=== PATIENT | female | born 1975 | race Two or more races ===

== ENCOUNTER → 2020-05-29 10:31 | Outpatient (REF) | payer MEDICAID, SELFPAY ==
--- NOTE | 2020-05-29 10:30 | CA_ITS ---
Transthoracic Echocardiogram Patient (Last, First, Middle): Yaya Jha, Gender: Female Date of : 1975 Age: 44 Procedure Date: 05/29/2020 Procedure Type: Transthoracic Echocardiogram Location: OP Height: 162.56 cm Weight: 99.79 kg BSA: 2.04 m2 Heart Rate: bpm BP: 126 / 60 mmHg Loan Documents Closer: Referring MD: Dennis Do MD Symptoms: hx of cmp Conclusions: - Normal left ventricular size and systolic function. - Normal right ventricular cavity size and systolic function. - No valvular or pericardial pathology. - There is mild dilatation of the ascending aorta (3.4 cm). Findings Left Ventricle Normal left ventricular size and systolic function. There is mildly increased left ventricular wall thickness. The visually estimated ejection fraction is between 55-60%. There is no evidence of regional wall motion abnormalities. Diastolic function is normal for age. Right Ventricle Normal right ventricular cavity size and systolic function. Atria Both atria are normal in size. Aortic Valve Normal aortic valve structure and function. There is no aortic valve stenosis. There is no aortic valve regurgitation. Mitral Valve The mitral valve appears normal. There is trace mitral valve regurgitation. There is no mitral valve stenosis. Pulmonic Valve Normal pulmonic valve structure and function. There is trace pulmonic valve regurgitation. Tricuspid Valve Normal tricuspid valve structure and function. There is trace tricuspid valve regurgitation. Normal right atrial pressure. There is no evidence of pulmonary hypertension. Great Vessels There is mild dilatation of the ascending aorta. The visualized portions of the pulmonary artery and branches are normal. Venous The inferior vena cava is normal in size and collapses greater than 50% with inspiration. Pericardium/Pleural There is no evidence of pericardial effusion. Prior Study Comparison Changes noted compared to prior study dated: 10/22/2016. EF has normalized (was 50-55% before), mild ascending aorta dilation. Measurements 2D Linear Measurements RVIDd: 2.67 RVIDd Index: 1.31 IVSd: 1.18 0.6-0.9/0.6-1.0 cm LVIDd: 5.40 3.9-5.3/4.2-5.9 cm LVIDd Index: 2.65 2.4-3.2/2.2-3.1 cm/m2 LVIDs: 3.90 2.0-3.6 cm LVPWd: 1.04 0.7-1.1 cm Ao Root: 3.30 2.1-3.5 cm LA Diam: 3.80 2.7-3.8/3.0-4.0 cm LAIDs Index: 1.86 1.5-2.3 cm/m2 LV Mass: 296.39 67-162/88-224 g LV Mass Index: 145.29 43-95/49-115 g/m2 LVOT Diam: 2.30 3.0+(-)1.3 cm 2D Systolic Function EF 4C: 46.80 >55% EF 2C: 65.30 >55% EF BiP: 55.50 >55% Mitral Valve MV Pk E: 0.66 MV PK A: 0.74 MV Decel Time: 173.00 E/A: 0.90 E'Lateral: 13.60 E'Medial: 6.85 E/E' Med: 9.60 E/E' Lat: 4.90 Aortic Valve AoV Pk Ced: 1.54 AoV Mn Ced: 1.05 AoV VTI: 0.29 AoV Pk Grad: 9.00 Aov Mn Grad: 5.00 MELLY Cont.VTI: 2.82 LVOT LVOT Pk Ced: 1.04 LVOT Mn Ced: 0.67 LVOT VTI: 0.19 LVOT Pk Grad: 4.00 LVOT Mn Grad: 2.00 LVOT Diam: 2.30 LVOT Area: 4.15 Diastolic Function MV Pk E: 0.66 MV Pk A: 0.74 E/A: 0.90 E'Medial: 6.85 E/E' Med: 9.60 E' Laterial: 13.60 E/E' Lat: 4.90 Tricuspid Valve TR Pk Ced: 2.43 TR Pk Grad: 24.00 RA Press: 3.00 RVSP: 27.00 Great Vessels Aorta Ao Root-2D: 3.30 2.0-3.7 cm Ao Asc: 3.40 2.1-3.4 cm Ao Arch: 2.90 Updated in Other Vendor System with Status of Final Justice Bryan MD electronically signed on 05/30/2020 3:50:56 PM with status of Final
== END ==
LOC: HO.CARD 10:31
PROVIDERS: Visit Provider Internal Medicine Cardiovascular Disease
DX: I49.3 Ventricular premature depolarization (principal); Z86.79 Personal history of other diseases of the circulatory system
CPT/HCPCS: 93306

== ENCOUNTER → 2020-10-01 14:05 | Outpatient (BNVA) | payer MEDICAID, SELFPAY | PROVIDERS: PCP Family Medicine; Visit Provider Internal Medicine | DX: J30.9 Allergic rhinitis, unspecified (principal); J45.909 Unspecified asthma, uncomplicated; E66.9 Obesity, unspecified; G47.33 Obstructive sleep apnea (adult) (pediatric) | CPT/HCPCS: 99212 ==

== ENCOUNTER 2020-12-19 10:51 | Emergency (ER) | payer MEDICAID, SELFPAY ==
[2020-12-19 11:03] VITALS: BP 130/77; PULSE 88; RESP 18; TEMP 36.6; O2SAT 99; BMI 38.9
--- NOTE | 2020-12-19 11:40 | ECG_ITS ---
Test Reason : GENERAL MEDICAL Blood Pressure : / mmHG Vent. Rate : 069 BPM Atrial Rate : 069 BPM P-R Int : 138 ms QRS Dur : 090 ms QT Int : 406 ms P-R-T Axes : 051 -02 -09 degrees QTc Int : 435 ms Normal sinus rhythm Moderate voltage criteria for LVH, may be normal variant Nonspecific T wave abnormality Abnormal ECG When compared to the previous EKG of Moderate voltage criteria for LVH, may be normal variant are now Present Referred By: Arden Anderson Electronically Signed By:JIMMY SEGAL MD
--- NOTE | 2020-12-19 12:14 | ED.GENADULT ---
HPI - General Adult General Chief complaint: General Medical Stated complaint: abnormal lab Time Seen by Provider: 12/19/20 11:09 Source: patient and other (PCP office note) Mode of arrival: ambulatory Limitations: no limitations History of Present Illness HPI narrative: 45-year-old female who was referred to the emergency department for evaluation of anemia. The patient states that for the past 2 weeks she has been feeling very tired and fatigued. She has had dizziness and lightheadedness. She has had shortness of breath and dyspnea on exertion. She states she has been having some lower neck pain but denied headache, chest pain, abdominal pain. The patient states that she had anemia 6 years ago but has been taking iron since that time. She states that her stools are dark secondary to iron but she has not noticed any blood in her bowel movements. The patient does get monthly menstrual periods and states she uses 3-4 pads per day and she describes her bleeding as moderate. The patient was seen yesterday by her PCP Dr. Newton who did a workup for the patient's anemia. The patient had a normal TSH, B12, vitamin-D 25 OH, BMP. The patient had a low iron saturation, elevated iron binding capacity and low iron which is consistent with iron deficiency anemia. The patient's H&H was 7.8 and 28.3 with a low MCV of 63.6. Related Data Home Medications Medication Instructions Recorded Confirmed buspirone 30 mg tablet 20 mg PO BID 10/01/20 diphenhydramine HCl 25 mg tablet 50 mg PO BEDTIME tab 10/01/20 ferrous sulfate 325 mg (65 mg 325 mg PO DAILY 10/01/20 iron) tablet ibuprofen 800 mg tablet 800 mg PO TID 10/01/20 levalbuterol tartrate 45 2 inh INHALATION Q6H PRN 10/01/20 mcg/actuation aerosol inhaler pantoprazole 40 mg tablet,delayed 40 mg PO DAILY 10/01/20 release vitamin A acetate 10,000 unit 20,000 unit SUBLINGUAL tab 10/01/20 sublingual tablet vitamin E 200 unit capsule 400 unit PO DAILY cap 10/01/20 Previous Rx's Medication Instructions Recorded loratadine 10 mg tablet 10 mg PO DAILY 30 Days #30 tab 10/01/20 montelukast 10 mg tablet 10 mg PO BEDTIME 30 Days #30 tab 10/01/20 Allergies Allergy/AdvReac Type Severity Reaction Status Date / Time 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 The patient denies tobacco, alcohol and drug use. Medical History Allergic rhinitis Asthma Depression Obesity LILIAM (obstructive sleep apnea) Social History Social History Advance Directives: No Advance Directives Information Provided: No Physical Exam Vital Signs: Vital Signs: Last Vital Signs Temp 98 F 12/19/20 11:03 Pulse 88 12/19/20 11:03 Resp 18 12/19/20 11:03 BP 130/77 12/19/20 11:03 Pulse Ox 99 12/19/20 11:03 Body Mass Index 38.9 Const: General: cooperative and healthy appearing Nutritional Appearance: overweight Orientation/consciousness: oriented to person and oriented to place Limitations: no limitations HENMT: Head: Yes normal to inspection, Yes normocephalic and Yes atraumatic Ears: external ears normal General nose exam: Normal external nose present Face and sinus: Yes normal facial exam Mouth: Normal oral and palatal mucosa present Throat: Yes posterior oropharynx normal Eyes: Periorbital: periorbital findings normal Eyelids: Yes eyelids normal Conjunctivae: conjunctivae normal Sclerae: sclerae normal Corneas: corneas normal Pupils: Equal, round and reactive pupils present Direct Ophthalmoscopy: normal light reflex Neck: Neck: Yes full ROM, Yes no lymphadenopathy, Yes no meningeal signs, Yes trachea midline and Yes supple Chest: Chest palpation & inspection: normal inspection of the chest and normal palpation of entire chest wall Resp: Effort & Inspection: normal respiratory effort and able to speak in complete sentences Auscultation: clear to auscultation bilaterally Cardio: Rate: regular rate Rhythm: regular rhythm Heart sounds: S1 normal heart sound present, S2 normal heart sound present and no murmurs GI: Inspection: Yes normal to inspection Palpation (GI): Soft to palpation, nontender, no guarding, not rigid and No hepatosplenomegaly present Auscultation: normal bowel sounds Rectal Exam - Female: visual inspection normal, normal sphincter tone and other (Brown stool, Hemoccult negative) : General: Yes no CVA tenderness Back/Spine/Pelvis: Back: no CVA tenderness Cervical Spine: normal cervical lordosis Thoracic/Lumbar Spine: thoracic and lumbar spine normal to inspection Skin: Lesions: no lesions Rashes: no rashes Wounds: no wounds Neuro: General: oriented to person, oriented to place and no meningeal signs Cranial nerves: Yes CN's II-XII intact bilaterally and Yes Equal, round and reactive pupils present Cognition (Neuro): normal cognition Motor exam (neuro): 5/5 motor strength present throughout Extrem: General: Yes normal to inspection and Yes full ROM Psych: Appearance: well kempt Mental Status: mental status grossly normal Speech and movement: Normal speech and movement present Affect: normal affect Attitude: cooperative Thought process: Normal thought process present Thought content: Normal thought content present Course Course Course Narrative: 45-year-old female who presents emergency department for evaluation of fatigue, dyspnea on exertion, shortness of breath, dizziness and lightheadedness x2 weeks and was found to have a microcytic iron deficient anemia by her PCP yesterday. The patient's H&H yesterday was 7.8 and 28.3 compared to an H&H 12.6 and 38.7 on 11/11/2018. Patient's physical examination was unremarkable and a rectal examination was Hemoccult negative. I did repeat the patient's CBC and CMP. I also will check an EKG and troponin on the patient. 1622: Patient's laboratory evaluation revealed improvement of her anemia with an H&H of 8.2 and 30.2. Given this finding, I do not think the patient needs to be admitted. Patient was advised to increase her iron supplement 3 times a day and to discuss possible receiving IV iron if her PCP think that is appropriate. Patient's coags were negative. The patient's troponin was detectable at 10.4 but not elevated, I do not think that cardiac disease as the cause of her symptoms. The patient will be discharged home advised to follow-up with her PCP to further discuss her anemia. Medical Decision Making Lab Data Result diagrams: 12/19/20 12:29 12/19/20 12:29 Labs: Lab Results 12/19/20 12/19/20 12/19/20 Range/Units 12:29 12:29 12:29 WBC 9.8 (4.8-10.8) X10*3/uL RBC 4.58 (4.20-5.50) X10*6/uL Hgb 8.2 L (12.0-16.0) g/dl Hct 30.2 L (37-47) % MCV 65.9 L (80-98) fL MCH 17.9 L (27.0-33.0) pg MCHC 27.2 L (31.0-35.0) g/dl RDW 20.7 H (11.0-16.0) % Plt Count 353 (160-400) X10*3/uL MPV 10.5 (9.4-12.3) fL Immature Gran % (Auto) 0.4 (0.0-0.4) % Neut % (Auto) 69.9 (45-73) % Lymph % (Auto) 18.4 L (20-40) % Mcdonald % (Auto) 9.5 (2-11) % Eos % (Auto) 1.4 (0-4) % Baso % (Auto) 0.4 (0-2) % Lymph # (Auto) 1.8 (1.2-4.9) X10*3/uL Mcdonald # (Auto) 0.9 (0.1-1.2) X10*3/uL Eos # (Auto) 0.1 (0.0-0.4) X10*3/uL Baso # (Auto) 0.0 (0.0-0.2) X10*3/uL Abs Immat Gran (auto) 0.04 H (0.00-0.03) X10*3/uL Absolute Neuts (auto) 6.8 (2.0-8.3) X10*3/uL Absolute Nucleated RBC 0.000 (0.0-0.012) X10*3/uL Nucleated RBC % (auto) 0.0 (0.0-0.2) /100WBC PT (10.8-13.0) SEC INR (0.9-1.1) APTT (24.1-38.0) SEC Sodium 139 (135-145) mmol/L Potassium 3.6 (3.3-5.1) mmol/L Chloride 104 (96-108) mmol/L Carbon Dioxide 26 (22-29) mmol/L Anion Gap 13 (12-20) BUN 14 (9-16) mg/dL Creatinine 0.72 (0.5-1.4) mg/dL Estim Creat Clear Calc 115.3 Estimated GFR > 60 Random Glucose 70 (60-115) mg/dL Lactic Acid 1.4 (0.5-2.0) mmol/L Calcium 8.8 (8.4-10.2) mg/dL Total Bilirubin 0.2 (0.0-1.0) mg/dL AST 13 (5-31) U/L ALT 14 (0-31) U/L Alkaline Phosphatase 71 (39-117) U/L Troponin I High Sens (<3.5-17.0) ng/L Total Protein 7.1 (6.5-8.0) g/dL Albumin 3.9 (3.5-5.0) g/dL Lipase 34 (8-78) U/L Blood Type Antibody Screen 12/19/20 12/19/20 12/19/20 Range/Units 12:29 12:29 13:12 WBC (4.8-10.8) X10*3/uL RBC (4.20-5.50) X10*6/uL Hgb (12.0-16.0) g/dl Hct (37-47) % MCV (80-98) fL MCH (27.0-33.0) pg MCHC (31.0-35.0) g/dl RDW (11.0-16.0) % Plt Count (160-400) X10*3/uL MPV (9.4-12.3) fL Immature Gran % (Auto) (0.0-0.4) % Neut % (Auto) (45-73) % Lymph % (Auto) (20-40) % Mcdonald % (Auto) (2-11) % Eos % (Auto) (0-4) % Baso % (Auto) (0-2) % Lymph # (Auto) (1.2-4.9) X10*3/uL Mcdonald # (Auto) (0.1-1.2) X10*3/uL Eos # (Auto) (0.0-0.4) X10*3/uL Baso # (Auto) (0.0-0.2) X10*3/uL Abs Immat Gran (auto) (0.00-0.03) X10*3/uL Absolute Neuts (auto) (2.0-8.3) X10*3/uL Absolute Nucleated RBC (0.0-0.012) X10*3/uL Nucleated RBC % (auto) (0.0-0.2) /100WBC PT 12.2 (10.8-13.0) SEC INR 1.0 (0.9-1.1) APTT 32.4 (24.1-38.0) SEC Sodium (135-145) mmol/L Potassium (3.3-5.1) mmol/L Chloride (96-108) mmol/L Carbon Dioxide (22-29) mmol/L Anion Gap (12-20) BUN (9-16) mg/dL Creatinine (0.5-1.4) mg/dL Estim Creat Clear Calc Estimated GFR Random Glucose (60-115) mg/dL Lactic Acid (0.5-2.0) mmol/L Calcium (8.4-10.2) mg/dL Total Bilirubin (0.0-1.0) mg/dL AST (5-31) U/L ALT (0-31) U/L Alkaline Phosphatase (39-117) U/L Troponin I High Sens 10.4 (<3.5-17.0) ng/L Total Protein (6.5-8.0) g/dL Albumin (3.5-5.0) g/dL Lipase (8-78) U/L Blood Type B Positive Antibody Screen NEGATIVE ECG Data Interpretation: 1158: Normal sinus rhythm with rate of 69, normal [place], QRS and QTC intervals, inverted T-wave in lead 3, poor R-wave progression from V1 to V2. No old EKG for comparison. Discharge Plan Discharge Clinical Impression: Anemia Qualifiers: Anemia type: iron deficiency Fatigue Qualifiers: Fatigue type: unspecified Qualified Code(s): R53.83 - Other fatigue Patient Disposition: Home, Self-Care Instructions: Iron Deficiency Anemia (ED) Additional Instructions: Your hematocrit yesterday was 28.3 % and today it is 30.2 %. We do not transfuse people on lost her hematocrit drops below 21%. Increase your iron supplement from twice a day to 3 times a day. Contact your doctor to discuss whether or not you need IV iron therapy to try to improve your anemia. Follow-up with your doctor in 2 days. Please return to the emergency department if your symptoms get worse or if you develop any symptoms that are concerning to you. Prescriptions: No Action buspirone 30 mg tablet 20 mg PO BID RF: 0 diphenhydramine HCl [Benadryl Allergy] 25 mg tablet 50 mg PO BEDTIME RF: 0 vitamin E 200 unit capsule 400 unit PO DAILY RF: 0 vitamin A acetate 10,000 unit tablet, sublingual 20,000 unit sublingual RF: 0 ferrous sulfate 325 mg (65 mg iron) tablet 325 mg PO DAILY RF: 0 ibuprofen 800 mg tablet 800 mg PO TID RF: 0 pantoprazole 40 mg tablet,delayed release (DR/EC) 40 mg PO DAILY RF: 0 levalbuterol tartrate [Xopenex HFA] 45 mcg/actuation HFA aerosol inhaler 2 inh inhalation Q6H PRNRF: 0 montelukast [Singulair] 10 mg tablet 10 mg PO BEDTIME 30 Days Qty: 30 RF: 5 loratadine [Claritin] 10 mg tablet 10 mg PO DAILY 30 Days Qty: 30 RF: 5
[2020-12-19 12:36] LABS: MANUAL DIFF FLAG NO
[2020-12-19 12:39] LABS: Basophils Percent Auto 0.4 % (0-2); Eosinophils Absolute Auto 0.1 X10*3/uL (0.0-0.4); Eosinophils Percent Auto 1.4 % (0-4); Hematocrit 30.2 % (37-47); Hemoglobin 8.2 g/dl (12.0-16.0); Imm Gran Abs Auto 0.04 X10*3/uL (0.00-0.03); Imm Gran Pct Auto 0.4 % (0.0-0.4); Lymphocytes Absolute Auto 1.8 X10*3/uL (1.2-4.9); Lymphocytes Percent Auto 18.4 % (20-40); Mean Corpuscular HGB Conc 27.2 g/dl (31.0-35.0); Mean Corpuscular Hemoglobin 17.9 pg (27.0-33.0); Mean Corpuscular Volume 65.9 fL (80-98); Mean Platelet Volume 10.5 fL (9.4-12.3); Monocytes Absolute Auto 0.9 X10*3/uL (0.1-1.2); Monocytes Percent Auto 9.5 % (2-11); Neutrophils Absolute Auto 6.8 X10*3/uL (2.0-8.3); Neutrophils Percent Auto 69.9 % (45-73); Platelet Count 353 X10*3/uL (160-400); Red Blood Count 4.58 X10*6/uL (4.20-5.50); Red Cell Distribution Width 20.7 % (11.0-16.0); White Blood Count 9.8 X10*3/uL (4.8-10.8)
[2020-12-19 12:57] LABS: Lactic Acid 1.4 mmol/L (0.5-2.0)
[2020-12-19 13:04] LABS: Alanine Aminotransferase 14 U/L (0-31); Albumin Level 3.9 g/dL (3.5-5.0); Alkaline Phosphatase 71 U/L (39-117); Anion Gap 13 (12-20); Aspartate Amino Transferase 13 U/L (5-31); Bilirubin Total 0.2 mg/dL (0.0-1.0); Blood Urea Nitrogen 14 mg/dL (9-16); Calcium 8.8 mg/dL (8.4-10.2); Carbon Dioxide 26 mmol/L (22-29); Chloride 104 mmol/L (96-108); Creatinine Clr Calc Pharmacy 115.3; Estimated Glomerular Filt Rate > 60; Glucose Random 70 mg/dL (60-115); Lipase 34 U/L (8-78); Potassium 3.6 mmol/L (3.3-5.1); Sodium 139 mmol/L (135-145); Total Protein 7.1 g/dL (6.5-8.0)
[2020-12-19 13:05] LABS: Troponin-I High Sensitivity 10.4 ng/L (<3.5-17.0)
[2020-12-19 13:34] LABS: Prothrombin Time 12.2 SEC (10.8-13.0)
[2020-12-19 13:37] LABS: Partial Thromboplastin Time 32.4 SEC (24.1-38.0)
== END 2020-12-19 17:05 | disposition home or self-care (01) ==
PROVIDERS: Emergency Provider Emergency Medicine Emergency Medical Services; PCP Family Medicine
DX: D50.9 Iron deficiency anemia, unspecified (principal); R53.83 Other fatigue
CPT/HCPCS: 36415; 80053; 83605; 83690; 84484; 85025; 85610; 85730; 86850; 86900; 86901; 87040; 93005; 99283

== ENCOUNTER 2021-01-03 15:57 | Emergency (ER) | payer MEDICAID, SELFPAY ==
--- NOTE | ~2021-01-03 | XR_ITS ---
EXAMINATION: XR CHEST CLINICAL INFORMATION: Chest pain COMPARISON: Previous chest x-ray May 2018 TECHNIQUE: Frontal view of the chest was obtained. FINDINGS: The cardiac and mediastinal contours are normal. The lungs are clear. There is no pleural effusion or pneumothorax. There are mild degenerative changes of the spine. There are postsurgical changes to the stomach. XR/XR chest 1V IMPRESSION: No evidence for acute disease in the chest.
[2021-01-03 16:08] VITALS: BP 157/88; PULSE 78; RESP 18; TEMP 36; O2SAT 98; BMI 39.4
--- NOTE | 2021-01-03 16:53 | ECG_ITS ---
Test Reason : CHEST PAIN Blood Pressure : / mmHG Vent. Rate : 082 BPM Atrial Rate : 082 BPM P-R Int : 142 ms QRS Dur : 084 ms QT Int : 388 ms P-R-T Axes : 038 -05 -03 degrees QTc Int : 453 ms Normal sinus rhythm Voltage criteria for left ventricular hypertrophy Abnormal ECG No significant changes when compared with the previous EKG of 19 dec 2020 Referred By: Gudelia Rosario Electronically Signed By:JONNIE GUERRERO
[2021-01-03 19:33] VITALS: BP 133/82; PULSE 74; RESP 18; O2SAT 100
[2021-01-03 19:38] LABS: MANUAL DIFF FLAG NO
[2021-01-03 19:41] LABS: Basophils Percent Auto 0.4 % (0-2); Eosinophils Absolute Auto 0.1 X10*3/uL (0.0-0.4); Eosinophils Percent Auto 1.6 % (0-4); Hematocrit 31.8 % (37-47); Hemoglobin 8.8 g/dl (12.0-16.0); Imm Gran Abs Auto 0.02 X10*3/uL (0.00-0.03); Imm Gran Pct Auto 0.2 % (0.0-0.4); Lymphocytes Absolute Auto 2.6 X10*3/uL (1.2-4.9); Lymphocytes Percent Auto 29.2 % (20-40); Mean Corpuscular HGB Conc 27.7 g/dl (31.0-35.0); Mean Corpuscular Hemoglobin 19.2 pg (27.0-33.0); Mean Corpuscular Volume 69.4 fL (80-98); Mean Platelet Volume 9.6 fL (9.4-12.3); Monocytes Absolute Auto 0.7 X10*3/uL (0.1-1.2); Monocytes Percent Auto 7.3 % (2-11); Neutrophils Absolute Auto 5.5 X10*3/uL (2.0-8.3); Neutrophils Percent Auto 61.3 % (45-73); Platelet Count 363 X10*3/uL (160-400); Red Blood Count 4.58 X10*6/uL (4.20-5.50); White Blood Count 8.9 X10*3/uL (4.8-10.8)
[2021-01-03 20:06] LABS: Alanine Aminotransferase 17 U/L (0-31); Albumin Level 4.1 g/dL (3.5-5.0); Alkaline Phosphatase 71 U/L (39-117); Aspartate Amino Transferase 15 U/L (5-31); Bilirubin Direct < 0.2 mg/dL (0.0-0.5); Bilirubin Total 0.2 mg/dL (0.0-1.0); Magnesium 1.9 mg/dL (1.6-2.6); Total Protein 7.4 g/dL (6.5-8.0)
[2021-01-03 20:07] LABS: Anion Gap 12 (12-20); Blood Urea Nitrogen 12 mg/dL (9-16); Calcium 9.5 mg/dL (8.4-10.2); Carbon Dioxide 26 mmol/L (22-29); Chloride 103 mmol/L (96-108); Creatinine Clr Calc Pharmacy 122.9; Estimated Glomerular Filt Rate > 60; Glucose Random 95 mg/dL (60-115); Potassium 3.8 mmol/L (3.3-5.1); Sodium 137 mmol/L (135-145)
[2021-01-03 20:09] LABS: Troponin-I High Sensitivity 6.9 ng/L (<3.5-17.0)
[2021-01-03 20:10] LABS: D Dimer < 200 NG/ML
--- NOTE | 2021-01-03 21:08 | ED.CHESTPAIN ---
HPI - Chest Pain General Chief Complaint: Chest Pain Stated Complaint: chest pain Time Seen by Provider: 01/03/21 16:52 Source: patient, family (Spouse) and roof technician Mode of arrival: ambulatory Limitations: no limitations History of Present Illness HPI narrative: 45-year-old female came in for evaluation of left-sided chest pain. Pain started at 15:00 patient was resting in bed, pain was in the left side of chest, radiating to the left shoulder, lasted for about an hour, pain now still there but custom protection officer about 2/10, no other associated symptoms, no shortness of breath, no fever, no chills. Patient just traveled back from [place], but declined lower extremity swelling or tenderness. Related Data Home Medications Medication Instructions Recorded Confirmed buspirone 30 mg tablet 20 mg PO BID 10/01/20 diphenhydramine HCl 25 mg tablet 50 mg PO BEDTIME tab 10/01/20 ferrous sulfate 325 mg (65 mg 325 mg PO DAILY 10/01/20 iron) tablet ibuprofen 800 mg tablet 800 mg PO TID 10/01/20 levalbuterol tartrate 45 2 inh INHALATION Q6H PRN 10/01/20 mcg/actuation aerosol inhaler pantoprazole 40 mg tablet,delayed 40 mg PO DAILY 10/01/20 release vitamin A acetate 10,000 unit 20,000 unit SUBLINGUAL tab 10/01/20 sublingual tablet vitamin E 200 unit capsule 400 unit PO DAILY cap 10/01/20 Previous Rx's Medication Instructions Recorded loratadine 10 mg tablet 10 mg PO DAILY 30 Days #30 tab 10/01/20 montelukast 10 mg tablet 10 mg PO BEDTIME 30 Days #30 tab 10/01/20 Allergies Allergy/AdvReac Type Severity Reaction Status Date / Time Farm Life Milk Allergy Unknown Rash Uncoded 01/03/21 16:11 Latex Gloves Allergy Unknown itching Uncoded 01/03/21 16:11 Review of Systems Review of Systems: All other systems are reviewed and are negative Constitutional: Reports as per HPI and Reports no additional constitutional complaints Eyes: Reports as per HPI and Reports no additional eye complaints Reports system reviewed and no additional complaints, except as documented Cardiovascular: Reports as per HPI and Reports no additional cardiovascular complaints Respiratory: Reports as per HPI and Reports no additional respiratory complaints Gastrointestinal: Reports as per HPI and Reports no additional gastrointestinal complaints Genitourinary: Reports no additional female genitourinary complaints Musculoskeletal: Reports no additional musculoskeletal complaints Skin/Breast: Reports system reviewed and no additional complaints, except as docu Psychiatric: Reports no additional psychiatric complaints Endocrine: Reports no additional endocrine complaints Hematologic/Lymphatic: Reports no additional hematologic/lymphatic complaints Allergic/Immunologic: Reports no additional allergic/immunologic complaints Reports system reviewed and no additional complaints, except as documented and Reports Abnormal speech present [facility] Past Medical History Medical History Allergic rhinitis Asthma Depression Obesity LILIAM (obstructive sleep apnea) Social History Social History Smoked in Last 30 Days: No Use of substances other than those prescribed or required for medical reasons: No Advance Directives: No Advance Directives Information Provided: Yes Patient : No Physical Exam Vital Signs: Vital Signs: Last Vital Signs Temp 98.7 F 01/03/21 22:00 Pulse 66 01/03/21 22:00 Resp 18 01/03/21 22:00 BP 133/82 01/03/21 19:33 Pulse Ox 100 01/03/21 22:00 Body Mass Index 39.4 Vital signs have been reviewed as appeared to be correct. Blood pressure normal. Heart rate normal. Respiration rate normal. Temperature normal. Oxygen saturation normal. Appearance: Alert. Oriented X3. No acute distress. Head: Normal external exam. Normocephalic. Atraumatic. No Brar signs noted. No raccoon eyes noted Eyes: PERRLA. EOMI. Conjunctiva and sclera normal. Eyelids normal. ENT: TM's Normal. Pharynx normal. Uvula midline. Moist mucous membranes. No trismus noted. No drooling noted. No muffled voice noted. Neck: Normal inspection. Neck supple. FROM. No adenopathy. Thyroid Normal. No meningeal signs. No neck mass noted. CVS: Normal heart rate and rhythm. Heart sound normal. No murmurs noted. Pulses normal throughout. Respiratory: No respiratory distress. Painless inspiration. Breath sounds normal. No wheezes/rales/rhonchi noted. Chest nontender. No accessory muscle usage noted or decreased air movement noted. Abdomen: Soft and nontender. Bowel sounds normal in all 4 quadrants. No distention noted. No organomegaly noted. No visible injury noted. Back: No CVA tenderness. Full range of motion noted. Skin: Skin warm and dry. Normal skin color. Normal skin turgor. No rashes/lesions/lacerations noted. Extremities: No lower extremity edema. Extremities exhibit normal range of motion. Extremities nontender. Neuro: Oriented X 3. No motor deficit. No sensory deficit. Reflexes normal. Course Course Course Narrative: Assessment and plan. 45-year-old female with chest pain, 1st troponin is negative patient supposed to get a 2nd troponin to be checked by Dr. Kurtz then discharged home. PE is not likely with negative D-dimer and absence of lower extremities swelling or tenderness. MDM - Chest Pain Lab Data Attestation: I reviewed the patient's lab results. Result diagrams: 01/03/21 19:33 01/03/21 19:33 Labs: Lab Results 01/03/21 01/03/21 01/03/21 Range/Units 19:33 19:33 19:33 WBC 8.9 (4.8-10.8) X10*3/uL RBC 4.58 (4.20-5.50) X10*6/uL Hgb 8.8 L (12.0-16.0) g/dl Hct 31.8 L (37-47) % MCV 69.4 L (80-98) fL MCH 19.2 L (27.0-33.0) pg MCHC 27.7 L (31.0-35.0) g/dl RDW 25.0 H (11.0-16.0) % Plt Count 363 (160-400) X10*3/uL MPV 9.6 (9.4-12.3) fL Immature Gran % (Auto) 0.2 (0.0-0.4) % Neut % (Auto) 61.3 (45-73) % Lymph % (Auto) 29.2 (20-40) % [place] % (Auto) 7.3 (2-11) % Eos % (Auto) 1.6 (0-4) % Baso % (Auto) 0.4 (0-2) % Lymph # (Auto) 2.6 (1.2-4.9) X10*3/uL [place] # (Auto) 0.7 (0.1-1.2) X10*3/uL Eos # (Auto) 0.1 (0.0-0.4) X10*3/uL Baso # (Auto) 0.0 (0.0-0.2) X10*3/uL Abs Immat Gran (auto) 0.02 (0.00-0.03) X10*3/uL Absolute Neuts (auto) 5.5 (2.0-8.3) X10*3/uL Absolute Nucleated RBC 0.000 (0.0-0.012) X10*3/uL Nucleated RBC % (auto) 0.0 (0.0-0.2) /100WBC D-Dimer < 200 NG/ML Hold Blue Top SEE NOTE Sodium 137 (135-145) mmol/L Potassium 3.8 (3.3-5.1) mmol/L Chloride 103 (96-108) mmol/L Carbon Dioxide 26 (22-29) mmol/L Anion Gap 12 (12-20) BUN 12 (9-16) mg/dL Creatinine 0.68 (0.5-1.4) mg/dL Estim Creat Clear Calc 122.9 Estimated GFR > 60 Random Glucose 95 D (60-115) mg/dL Calcium 9.5 D (8.4-10.2) mg/dL Magnesium (1.6-2.6) mg/dL Total Bilirubin (0.0-1.0) mg/dL Direct Bilirubin (0.0-0.5) mg/dL AST (5-31) U/L ALT (0-31) U/L Alkaline Phosphatase (39-117) U/L Troponin I High Sens (<3.5-17.0) ng/L Total Protein (6.5-8.0) g/dL Albumin (3.5-5.0) g/dL 01/03/21 01/03/21 01/03/21 Range/Units 19:33 19:33 22:24 WBC (4.8-10.8) X10*3/uL RBC (4.20-5.50) X10*6/uL Hgb (12.0-16.0) g/dl Hct (37-47) % MCV (80-98) fL MCH (27.0-33.0) pg MCHC (31.0-35.0) g/dl RDW (11.0-16.0) % Plt Count (160-400) X10*3/uL MPV (9.4-12.3) fL Immature Gran % (Auto) (0.0-0.4) % Neut % (Auto) (45-73) % Lymph % (Auto) (20-40) % [place] % (Auto) (2-11) % Eos % (Auto) (0-4) % Baso % (Auto) (0-2) % Lymph # (Auto) (1.2-4.9) X10*3/uL [place] # (Auto) (0.1-1.2) X10*3/uL Eos # (Auto) (0.0-0.4) X10*3/uL Baso # (Auto) (0.0-0.2) X10*3/uL Abs Immat Gran (auto) (0.00-0.03) X10*3/uL Absolute Neuts (auto) (2.0-8.3) X10*3/uL Absolute Nucleated RBC (0.0-0.012) X10*3/uL Nucleated RBC % (auto) (0.0-0.2) /100WBC D-Dimer NG/ML Hold Blue Top Sodium (135-145) mmol/L Potassium (3.3-5.1) mmol/L Chloride (96-108) mmol/L Carbon Dioxide (22-29) mmol/L Anion Gap (12-20) BUN (9-16) mg/dL Creatinine (0.5-1.4) mg/dL Estim Creat Clear Calc Estimated GFR Random Glucose (60-115) mg/dL Calcium (8.4-10.2) mg/dL Magnesium 1.9 (1.6-2.6) mg/dL Total Bilirubin 0.2 (0.0-1.0) mg/dL Direct Bilirubin < 0.2 (0.0-0.5) mg/dL AST 15 (5-31) U/L ALT 17 (0-31) U/L Alkaline Phosphatase 71 (39-117) U/L Troponin I High Sens 6.9 6.5 (<3.5-17.0) ng/L Total Protein 7.4 (6.5-8.0) g/dL Albumin 4.1 (3.5-5.0) g/dL Imaging Data Chest x-ray: Radiologist's impression: Of acute disease in the chest. ECG Data ECG #1: Interpretation: Normal sinus rhythm at 82 beats per minutes, LVH, normal axis, normal intervals, nonspecific T-wave flattening in the lateral leads. Discharge Plan Discharge Clinical Impression: Chest pain Patient Disposition: Home, Self-Care Instructions: Chest Pain (ED) Prescriptions: No Action buspirone 30 mg tablet 20 mg PO BID RF: 0 diphenhydramine HCl [Benadryl Allergy] 25 mg tablet 50 mg PO BEDTIME RF: 0 vitamin E 200 unit capsule 400 unit PO DAILY RF: 0 vitamin A acetate 10,000 unit tablet, sublingual 20,000 unit sublingual RF: 0 ferrous sulfate 325 mg (65 mg iron) tablet 325 mg PO DAILY RF: 0 ibuprofen 800 mg tablet 800 mg PO TID RF: 0 pantoprazole 40 mg tablet,delayed release (DR/EC) 40 mg PO DAILY RF: 0 levalbuterol tartrate [Xopenex HFA] 45 mcg/actuation HFA aerosol inhaler 2 inh inhalation Q6H PRNRF: 0 montelukast [Singulair] 10 mg tablet 10 mg PO BEDTIME 30 Days Qty: 30 RF: 5 loratadine [Claritin] 10 mg tablet 10 mg PO DAILY 30 Days Qty: 30 RF: 5 Referrals: Bettie Can MD [Primary Care Provider] - 2 days Interventions: ED Discharge Assessment Last Done: 01/03/21 23:05 Discharge Date/Time: 01/03/21 23:01
[2021-01-03 22:00] VITALS: PULSE 60; PULSE 66; RESP 18; TEMP 37.1; O2SAT 100
[2021-01-03 22:54] LABS: Troponin-I High Sensitivity 6.5 ng/L (<3.5-17.0)
== END 2021-01-03 23:01 | disposition home or self-care (01) ==
PROVIDERS: Emergency Medicine; Emergency Provider Emergency Medicine; PCP Family Medicine
DX: R07.9 Chest pain, unspecified (principal); M25.512 Pain in left shoulder; R77.8 Other specified abnormalities of plasma proteins; Z79.899 Other long term (current) drug therapy
CPT/HCPCS: 36415; 71045; 80048; 80076; 83735; 84484; 85025; 85379; 93005; 99285

== ENCOUNTER → 2021-02-25 13:36 | Outpatient (BNVA) | payer MEDICAID, SELFPAY | PROVIDERS: Referring Provider Internal Medicine; Visit Provider Physician Assistant ==

== ENCOUNTER → 2021-03-27 13:45 | Outpatient (BNVA) | payer MEDICAID, SELFPAY | PROVIDERS: PCP Internal Medicine; Visit Provider Internal Medicine | DX: G47.33 Obstructive sleep apnea (adult) (pediatric) (principal); J30.89 Other allergic rhinitis; E66.9 Obesity, unspecified; Z68.41 Body mass index [BMI] 40.0-44.9, adult; Z98.84 Bariatric surgery status; Z91.040 Latex allergy status; Z91.011 Allergy to milk products; Z79.899 Other long term (current) drug therapy | CPT/HCPCS: 99212 ==

== ENCOUNTER → 2021-04-17 08:44 | Outpatient (BNVA) | payer MEDICAID, SELFPAY | PROVIDERS: PCP Family Medicine; Visit Provider Internal Medicine Cardiovascular Disease | DX: Z01.810 Encounter for preprocedural cardiovascular examination (principal); R07.89 Other chest pain | CPT/HCPCS: 93005; 99202 ==

== ENCOUNTER 2021-04-24 06:39 | Day surgery (SDC) | payer MEDICAID, SELFPAY ==
--- NOTE | 2021-04-23 11:52 | P.CONAN_ITS ---
Documented by User: Chayo Villatoro NP 04/23/21 11:53 HPI - Anesthesia Eval Consult details Narrative: 45yo F for Upper Endoscopy and Colonoscopy Cardiac cleared at low risk [facility] Active Problems Active Problems: All Active Problems (Updated 04/19/21 @ 14:41 by Ashley Hoyos, RN) Anemia (Acute) HTN (hypertension) (Acute) Gastric bypass status for obesity (Acute) LILIAM (obstructive sleep apnea) (Acute) Obesity (Acute) Asthma (Acute) Allergic rhinitis (Acute) Past Medical History Medical History (Updated 04/19/21 @ 14:41 by Ashley Hoyos, RN) Allergic rhinitis Asthma Depression HTN (hypertension) Hx of cardiomyopathy Iron deficiency anemia Obesity LILIAM (obstructive sleep apnea) Family History Family History Father Pacemaker Mother HTN (hypertension) Diabetes Surgical History Surgical History (Updated 04/19/21 @ 14:41 by Ashley Hoyos RN) Gastric bypass status for obesity History of tubal ligation Hx of section Hx of hysterectomy Social History Social History Household Members Other:: Lives with her , 2 adult children Alcohol intake: never Patient Tobacco Use Status: Never used Tobacco Advance Directives: No Advance Directives Information Provided: Yes Current occupational status: unemployed and disabled Meds Allergies Allergy/AdvReac Type Severity Reaction Status Date / Time Farm Life Milk Allergy Unknown Rash Uncoded 04/19/21 14:25 Latex Gloves Allergy Unknown itching Uncoded 04/19/21 14:25 Home Medications Medication Instructions Recorded Confirmed Last Taken Type buspirone 30 mg tablet 20 mg PO BID 10/01/20 04/19/21 Unknown History diphenhydramine HCl 25 mg tablet 50 mg PO BEDTIME tab 10/01/20 04/19/21 Unknown History (Benadryl Allergy) ferrous sulfate 325 mg (65 mg 325 mg PO DAILY 10/01/20 04/19/21 Unknown History iron) tablet levalbuterol tartrate 45 2 inh INHALATION Q6H PRN 10/01/20 04/19/21 Unknown History mcg/actuation aerosol inhaler (Xopenex HFA) pantoprazole 40 mg tablet,delayed 40 mg PO DAILY 10/01/20 04/19/21 Unknown History release vitamin A acetate 10,000 unit 20,000 unit SUBLINGUAL tab 10/01/20 04/17/21 Unknown History sublingual tablet vitamin E 200 unit capsule 400 unit PO DAILY cap 10/01/20 04/19/21 Unknown History cholecalciferol (vitamin D3) 50 50 mcg PO DAILY 04/17/21 04/19/21 Unknown History mcg (2,000 unit) tablet (Vitamin D3) diphenhydramine HCl 50 mg capsule 50 mg PO BEDTIME PRN 04/17/21 04/19/21 Unknown History (Banophen) fluoxetine 20 mg capsule 40 mg PO DAILY 04/17/21 04/19/21 Unknown History hydrochlorothiazide 25 mg tablet 25 mg PO DAILY 04/17/21 04/19/21 Unknown History multivitamin 1 tab PO DAILY 04/17/21 04/19/21 Unknown History Exam Exam Date and Time: April 23, 2021 1152 Pertinent Lab Results Pertinent Lab Results: Laboratory Tests 01/03/21 01/03/21 19:33 19:33 WBC 8.9 Hgb 8.8 L Hct 31.8 L Plt Count 363 Sodium 137 Potassium 3.8 Chloride 103 Carbon Dioxide 26 BUN 12 Creatinine 0.68 Narrative Narrative: EKG 04/2021 normal sinus rhythm with T-wave changes in inferior and anterolateral leads suggestive of ischemia however could also be related to LVH with repolarization abnormality ECHO 05/2020 Conclusions: - Normal left ventricular size and systolic function.? - Normal right ventricular cavity size and systolic function.? ? - No valvular or pericardial pathology.? - There is mild dilatation of the ascending aorta (3.4 cm).?? Assessment and Plan Assessment Anesthesia Assessment: Chart Reviewed Documented by User: Macie Marshall MD 04/24/21 07:44 [facility] Past Medical History Medical History (Updated 04/19/21 @ 14:41 by Ashley Hoyos RN) Allergic rhinitis Asthma Depression HTN (hypertension) Hx of cardiomyopathy Iron deficiency anemia Obesity LILIAM (obstructive sleep apnea) Family History Family History Father Pacemaker Mother HTN (hypertension) Diabetes Family history of problems with anesthesia: No Surgical History Surgical History (Updated 04/19/21 @ 14:41 by Ashley Hoyos RN) Gastric bypass status for obesity History of tubal ligation Hx of section Hx of hysterectomy History of Problems with Anesthesia: No Social History Social History Household Members Other:: Lives with her , 2 adult children Alcohol intake: never Patient Tobacco Use Status: Never used Tobacco Advance Directives: No Advance Directives Information Provided: Yes Current occupational status: unemployed and disabled Meds Allergies Allergy/AdvReac Type Severity Reaction Status Date / Time Farm Life Milk Allergy Unknown Rash Uncoded 04/19/21 14:25 Latex Gloves Allergy Unknown itching Uncoded 04/19/21 14:25 Home Medications Medication Instructions Recorded Confirmed Last Taken Type buspirone 30 mg tablet 20 mg PO BID 10/01/20 04/19/21 Unknown History diphenhydramine HCl 25 mg tablet 50 mg PO BEDTIME tab 10/01/20 04/19/21 Unknown History (Benadryl Allergy) ferrous sulfate 325 mg (65 mg 325 mg PO DAILY 10/01/20 04/19/21 Unknown History iron) tablet levalbuterol tartrate 45 2 inh INHALATION Q6H PRN 10/01/20 04/19/21 Unknown History mcg/actuation aerosol inhaler (Xopenex HFA) pantoprazole 40 mg tablet,delayed 40 mg PO DAILY 10/01/20 04/19/21 Unknown History release vitamin A acetate 10,000 unit 20,000 unit SUBLINGUAL tab 10/01/20 04/17/21 Unknown History sublingual tablet vitamin E 200 unit capsule 400 unit PO DAILY cap 10/01/20 04/19/21 Unknown History cholecalciferol (vitamin D3) 50 50 mcg PO DAILY 04/17/21 04/19/21 Unknown History mcg (2,000 unit) tablet (Vitamin D3) diphenhydramine HCl 50 mg capsule 50 mg PO BEDTIME PRN 04/17/21 04/19/21 Unknown History (Banophen) fluoxetine 20 mg capsule 40 mg PO DAILY 04/17/21 04/19/21 Unknown History hydrochlorothiazide 25 mg tablet 25 mg PO DAILY 04/17/21 04/19/21 Unknown History multivitamin 1 tab PO DAILY 04/17/21 04/19/21 Unknown History Exam Airway Mallampati Class: II TM Dist: >3cm Neck ROM: Full Heart: rrr Lungs: cta Assessment and Plan Assessment Anesthesia Assessment: Anesthesia Plan Discussed and Chart Reviewed Final Anesthetic Review Family History of Problems with Anesthesia: No History of Problems with Anesthesia: No NPO: Yes ASA Class: III Final Preanesthetic Review: No Changes in Pt Med Stat, Meds/Allgs Chart Reviewed and Consent Obtained/Reviewed Patient Risk: Intermediate Procedure Risk: Intermediate Anesthetic Plan Anesthetic Plan: MAC: Disposition: Standard PACU
--- NOTE | 2021-04-24 07:23 | MHC.SHP ---
Pre-Procedural Eval Section A Date of Service: 04/24/21 Section B Chief Complaint: Anemia Relevant Family History (Specify if Yes): No Relevant Social History: None Present Medications: see Short Stay Collaborative assessment Medical History: Significant History (Allergic rhinitis Asthma Depression HTN (hypertension) Hx of cardiomyopathy Iron deficiency anemia Obesity LILIAM (obstructive sleep apnea)) History of Previous Operations: Relevant previous surgery/procedure and date(s) (Gastric bypass status for obesity History of tubal ligation Hx of section Hx of hysterectomy) Allergies: Allergies Allergy/AdvReac Type Severity Reaction Status Date / Time Farm Life Milk Allergy Unknown Rash Uncoded 04/19/21 14:25 Latex Gloves Allergy Unknown itching Uncoded 04/19/21 14:25 Review of Systems Sugical H&P ROS: Negative: Constitution, Cardiovascular, Respiratory, Neurological, Psychiatric, Hem-Onc, Allergic/Immunologic, Gastrointestinal, Genitourinary, Musculoskeletal, Integumentary, Endocrine and Eyes/Ears/Nose/Throat Exam Surgical H&P Exam: Normal: HEENT, Normal: Heart, Normal: Lungs, Normal: Extremities, Normal: Abdomen, Normal: Skin and Normal: Neurological Plan Diagnosis/Plan: Unchanged I have reviewed the history and physical and performed a pertinent physical examination on my patient. No changes have occurred unless specified.
[2021-04-24 07:43] VITALS: BMI 41.1
[2021-04-24 07:51] VITALS: BP 135/79; PULSE 67; RESP 16; TEMP 36.6; O2SAT 98
[2021-04-24] MEDS: Lactated Ringers 1,000 ML 100 ML IVCONT (08:00)
--- NOTE | 2021-04-24 08:53 | PM.OP ---
Brief Operative Note Date of Service: 04/24/21 Pre-op diagnosis: anemia Post-op diagnosis: same Procedure: see op note Surgeon: Krys Segal MD Anesthesia: MAC Was an Video Game Repair Technician used for this Procedure?: No Estimated blood loss (mL): 0 Condition: stable Disposition: PACU
--- NOTE | 2021-04-24 08:53 | W.PM.OPN ---
Operative Note Operative Note Date of Service: 04/24/21 Narrative: Operative Information Procedure Description: EGD, Colonoscopy FLEXIBLE TRANSORAL UPPER GASTROINTESTINAL ENDOSCOPY AND COLONOSCOPY PROCEDURE NOTE UPPER ENDOSCOPY Consent: Indications for the procedure and potential complications of bleeding, perforation, reaction to medications and missed diagnosis were discussed with the patient and informed consent was obtained. Instrument: Olympus GIF H 190 J mid size upper endoscope Monitoring: Vital signs and clinical assessment, continuous EKG monitoring, Pulse oximetry, Carbon Dioxide monitoring and blood pressure monitoring were done throughout the procedure. Procedure: The patient was placed in the left lateral decubitis position and pre-procedure medications were administered and a bite block was placed. The endoscope was inserted into the mouth and advanced under direct vision to the third part of duodenum. A careful inspection was made as the upper endoscope was withdrawn including a retroflexed examination of the proximal stomach; Findings and interventions are described below. Hx of gastric bypass Findings: Larynx:normal Esophagus: GE junction at 33 cm, diaphragm hiatus at 33 cm, non obstructive schatzki ring noted with LA grade B erosive esophagitis Stomach pouch: Normal mucosa. Biopsies were obtained. Grade 2 flap valve on retroflexed examination of the cardia. There were 4 retained lui removed with forceps, one site had a small erosion. Jejunum: Normal Intervention: Biopsies as noted above, removal of lui COLONOSCOPY Instrument: Olympus variable stiffness pediatric scope 190L Colonoscopy Monitoring: Vital signs and clinical assessment, continuous EKG monitoring, Pulse oximetry, Carbon Dioxide monitoring and blood pressure monitoring were done throughout the procedure. Colon withdrawal time was 9 minutes. Procedure: The patient was placed in the left lateral decubitis position and pre-procedure medications were administered. After a digital rectal examination of the ano-rectum, the video colonoscope was inserted into the rectum and advanced through the colon to the cecum/TI. The colonoscope was slowly withdrawn in a retrograde panoramic fashion and the colon mucosa was carefully examined including a retroflexed view of the rectum. Findings and interventions are described below. Procedure Difficulty:moderate Findings: Terminal Ileum-normal Cecum:normal including right sided retroflexion Ascending Colon: normal Transverse Colon -normal Descending Colon:normal Sigmoid Colon: normal Rectum: Retroflexion with small internal hemorrhoids, grade I Anorectum - normal Colon preparation: [place] Bowel Preparation Scale Right colon; 2 Transverse colon: 2 Left colon; 1 (0 = Unprepared colon segment with mucosa not seen due to solid stool that cannot be cleared. 1 = Portion of mucosa of the colon segment seen, but other areas of the colon segment not well seen due to staining, residual stool and/or opaque liquid. 2 = Minor amount of residual staining, small fragments of stool and/or opaque liquid, but mucosa of colon segment seen well. 3 = Entire mucosa of colon segment seen well with no residual staining, small fragments of stool or opaque liquid) Impression and Post Procedure Diagnosis: Endoscopy Findings: erosive esophagitis schatzki ring retained lui Colonoscopy Findings: internal hemorrhoids Plan: Await Pathology results Repeat Colonoscopy in 5 years due to left sided prep being suboptimal or earlier if clinically indicated High fiber diet leaflet avoid straining at stool, epsom salts and sitz bath, anusol supps or cream suspect anemia due to esophagitis and malabsorption from bypass, should change to capsule form PPI and open it, mix with apple sauce due to altered anatomy absorption is different and regular delayed release PPI not as effective. Above findings were reviewed with the patient and relevant handouts were provided if indicated.
[2021-04-24 09:25] VITALS: BP 134/83; PULSE 73; RESP 16; TEMP 36.4; O2SAT 97
[2021-04-24 09:40] VITALS: BP 148/85; PULSE 64; RESP 18; O2SAT 98
[2021-04-24 09:55] VITALS: BP 155/84; PULSE 66; RESP 18; TEMP 36.3; O2SAT 100
== END 2021-04-24 10:56 | disposition home or self-care (01) ==
PROVIDERS: PCP Family Medicine; Visit Provider Internal Medicine Gastroenterology
PROC: (CPT 43239; principal; 2021-04-24 08:30)
DX: D50.9 Iron deficiency anemia, unspecified (principal); K64.0 First degree hemorrhoids; K20.80 Other esophagitis without bleeding; K44.9 Diaphragmatic hernia without obstruction or gangrene; Z18.10 Retained metal fragments, unspecified; Z98.84 Bariatric surgery status; K22.2 Esophageal obstruction; I10 Essential (primary) hypertension; J45.20 Mild intermittent asthma, uncomplicated; E66.9 Obesity, unspecified; Z68.39 Body mass index [BMI] 39.0-39.9, adult; Z79.899 Other long term (current) drug therapy; Z91.040 Latex allergy status
CPT/HCPCS: 43239; 88305; 88342

== ENCOUNTER → 2021-04-26 09:29 | Outpatient (REF) | payer MEDICAID, SELFPAY ==
--- NOTE | ~2021-04-26 | NM_ITS ---
EXERCISE MYOCARDIAL PERFUSION STUDY INDICATION: Preoperative cardiac evaluation, chest pain TECHNIQUE: The patient was brought in for an exercise perfusion study on 04/26/2021. Patient performed exercise as per Conrad protocol and was injected 40 mCi of sestamibi once target heart rate was achieved. Images were obtained using the SPECT gamma camera interlaced with the gating device. Images were obtained in supine position. Resting perfusion study was performed on 04/29/2021. Patient was administered 40 mCi of sestamibi intravenously at rest. Images were then obtained in supine position. Total DLP 153mGy-cm. Images were processed with the software and compared side to side in short axis, horizontal long axis and vertical long axis views. FINDINGS: Raw images were reviewed. The stress perfusion study showed mildly diminished tracer uptake in the apical inferolateral wall. There is improvement with CT attenuation correction and hence this could be from diaphragmatic attenuation artifact. The gated study shows normal LV systolic function with calculated LVEF of 51%. LV cavity is normal in size. The gated study shows normal wall thickening and contraction of segments. Resting study shows mildly diminished tracer uptake in the apical inferolateral wall that improves with CT attenuation correction. Gating at rest reveals normal wall motion with ejection fraction at 55%. The findings are consistent with small, mild fixed apical inferolateral defect, probably from diaphragmatic attenuation artifact. OH/OH cardiolite stress test IMPRESSION: 1. Myocardial perfusion imaging study shows no evidence of any ischemia or infarction. 2. Gated LVEF is 51% during stress and 55% during rest. Correlate with echocardiogram. 3. Transient ischemic dilatation not present. EKG component of the test reported separately.
--- NOTE | 2021-04-26 09:35 | CA_ITS ---
Acquisition Time: 2021-04-26 09:42:03 Total Exercise Time: 00:06:00 Test Indications: Pre-Op Evaluation Medications: HCTZ FLUOXETINE BUSPIRONE XOPENEX LORATADINE SINGULAIR Protocol: GERMAN Max HR: 150 BPM 85% of Pred: 175 BPM Max BP: 156/082 mmHG Max Work Load: 7.0 METS Exercise stress test with exercise 6 min of German protocol, with moderate shortness of breath, no chest discomfort, without arrythmia, with normotensive response to exercise, with nondiagnostic EKG for ischemia due to baseline abnormality. Nuclear images pending. Test reviewed with Dr Bryan. Referred By: Dennis Do Overread By: JERRELL FARAH
== END ==
LOC: HO.CARD 09:29
PROVIDERS: PCP Internal Medicine; Visit Provider Internal Medicine Cardiovascular Disease
DX: R07.89 Other chest pain (principal)
CPT/HCPCS: 78452; 93017; A9500

== ENCOUNTER → 2021-05-16 15:23 | Outpatient (BNVA) | payer MEDICAID, SELFPAY | PROVIDERS: PCP Internal Medicine; Visit Provider Nurse Practitioner Family ==

== ENCOUNTER → 2021-09-25 14:30 | Outpatient (BNVA) | payer MEDICAID, SELFPAY | PROVIDERS: PCP Pediatrics; Visit Provider Internal Medicine | DX: G47.33 Obstructive sleep apnea (adult) (pediatric) (principal); J45.909 Unspecified asthma, uncomplicated; E66.9 Obesity, unspecified; Z68.41 Body mass index [BMI] 40.0-44.9, adult | CPT/HCPCS: 99212 ==

== ENCOUNTER 2021-10-14 10:15 | Outpatient (REF) | payer MEDICAID, SELFPAY ==
--- NOTE | ~2021-10-14 | MM_ITS ---
EXAMINATION: MM SCREENING DIGITAL BREAST TOMOSYNTHESIS, BILATERAL CLINICAL INFORMATION: Screening. Asymptomatic. The lifetime risk of breast cancer based on the Tyrer-Cuzick Model is 11%. COMPARISON: Mammography: 02/18/2019, 02/04/2018, 12/09/2016, 09/27/2015 TECHNIQUE: Digital breast tomosynthesis is performed in both the craniocaudal and mediolateral oblique views along with computer-aided detection (CAD). Synthesized 2D images are generated from the tomosynthesis. Additional right CC and left MLO views are provided. FINDINGS: There are scattered areas of fibroglandular density (ACR BI-RADS breast composition Category b). Parenchymal pattern is similar to prior studies. There is mild bilateral anterior duct ectasia similar to prior studies. Biopsy clip marker again noted left anterior 3:00 position. There are no significant masses, abnormal calcifications, or other abnormalities. The axilla and skin contours are unremarkable. MM/MM tomosynthesis screening BI IMPRESSION: No significant changes from prior exams. ASSESSMENT: BI-RADS 2: Benign RECOMMENDATION: Routine annual mammography screening. This patient's information was entered into a reminder system with a target due date for their next mammogram.
== END 2021-10-14 10:16 | disposition home or self-care (01) ==
LOC: HO.MAMMO 10:15
PROVIDERS: PCP Pediatrics; Visit Provider Pediatrics
DX: Z12.31 Encounter for screening mammogram for malignant neoplasm of breast (principal)
CPT/HCPCS: 77063; 77067

== ENCOUNTER → 2022-03-26 14:31 | Outpatient (BNVA) | payer MEDICAID, SELFPAY | PROVIDERS: PCP Internal Medicine; Visit Provider Internal Medicine | DX: G47.33 Obstructive sleep apnea (adult) (pediatric) (principal); J45.909 Unspecified asthma, uncomplicated; J30.9 Allergic rhinitis, unspecified; E66.9 Obesity, unspecified; Z68.41 Body mass index [BMI] 40.0-44.9, adult | CPT/HCPCS: 99212 ==

== ENCOUNTER → 2022-04-25 07:58 | Outpatient (REF) | payer MEDICAID, SELFPAY ==
--- NOTE | 2022-04-25 08:01 | CA_ITS ---
Transthoracic Echocardiogram Patient (Last, First, Middle): Yaya Jha, Gender: Female Date of : 1975 Age: 46 Procedure Date: 04/25/2022 Procedure Type: Transthoracic Echocardiogram Location: OP Height: 162.56 cm Weight: 108.86 kg BSA: 2.11 m2 Heart Rate: 58 bpm BP: 144 / 84 mmHg Resolute Professional: CASSANDRA Referring MD: Wilma Eaton [employer] REPA[employer] SUPERVISOR-C Orthopedic Nurse Practitioner: Dennis Do MD Symptoms: I51.7 - Cardiomegaly Study Quality: Adequate ECG Rhythm: Bradycardia Conclusions: - 1. Normal LV systolic function with grade 1 diastolic dysfunction 2. Normal cardiac valvular Doppler 3. Normal RV systolic pressure 4. No gross pericardial effusion Findings Left Ventricle Normal left ventricular size, thickness, and systolic function. The visually estimated ejection fraction is between 55-60%. Spectral Doppler is indicative of an impaired relaxation filling pattern. E/E prime ratio is <8, consistent with normal filling pressures. Evidence suggests grade I (mild) diastolic dysfunction. Peak GLS is -15.4%, which is reduced Right Ventricle Normal right ventricular cavity size and systolic function. Atria The left atrium is normal in size. Interatrial shunt cannot be excluded. Aortic Valve The aortic valve structure and function is likely normal. There is no aortic valve stenosis. There is no aortic valve regurgitation. Mitral Valve There is mild anterior mitral leaflet thickening. There is trace mitral valve regurgitation. There is no mitral valve stenosis. Pulmonic Valve The pulmonic valve was not well visualized. Tricuspid Valve Likely normal tricuspid valve structure and function. There is trace tricuspid valve regurgitation. The right ventricular systolic pressure is normal. The right ventricular systolic pressure is 20 mmHg. Normal right atrial pressure. There is no evidence of pulmonary hypertension. Great Vessels All visible segments of the aorta are normal in size. The pulmonary artery was not well visualized. Venous The inferior vena cava is normal in size and collapses greater than 50% with inspiration. Pericardium/Pleural There is no evidence of pericardial effusion. Measurements 2D Linear Measurements IVSd: 1.02 0.6-0.9/0.6-1.0 cm LVIDd: 5.05 3.9-5.3/4.2-5.9 cm LVIDd Index: 2.39 2.4-3.2/2.2-3.1 cm/m2 LVIDs: 3.52 2.0-3.6 cm LVPWd: 1.00 0.7-1.1 cm LA Diam: 4.20 2.7-3.8/3.0-4.0 cm LAIDs Index: 1.99 1.5-2.3 cm/m2 LV Mass: 233.59 67-162/88-224 g LV Mass Index: 110.71 43-95/49-115 g/m2 LVOT Diam: 2.30 3.0+(-)1.3 cm 2D Systolic Function EF 4C: 51.80 >55% EF 2C: 58.50 >55% EF BiP: 55.00 >55% Mitral Valve MV Pk E: 0.55 MV PK A: 0.72 MV Decel Time: 241.00 E/A: 0.80 E'Lateral: 8.70 E'Medial: 7.72 E/E' Med: 7.20 E/E' Lat: 6.40 PHT: 71.00 MVA PHT: 3.10 Decel Spalding: 2.29 Aortic Valve AoV Pk Ced: 1.26 AoV Mn Ced: 0.89 AoV VTI: 0.28 AoV Pk Grad: 6.00 Aov Mn Grad: 4.00 MELLY Cont.VTI: 2.91 LVOT LVOT Pk Ced: 0.92 LVOT Mn Ced: 0.60 LVOT VTI: 0.19 LVOT Pk Grad: 3.00 LVOT Mn Grad: 2.00 LVOT Diam: 2.30 LVOT Area: 4.15 Diastolic Function MV Pk E: 0.55 MV Pk A: 0.72 E/A: 0.80 E'Medial: 7.72 E/E' Med: 7.20 E' Laterial: 8.70 E/E' Lat: 6.40 Right Ventricle TAPSE (mm): 17.50 TVS' Ced: 11.30 Tricuspid Valve TR Pk Ced: 2.07 TR Pk Grad: 17.00 RA Press: 3.00 RVSP: 20.00 Great Vessels Aorta Sinus of Valsalva: 3.40 2.0-3.5 cm Ao Asc: 3.20 2.1-3.4 cm Pulmonary Veins Pulm Vein S/D 1.40 Pulmonary Valve PV Pk Ced: 0.73 Peak PV Grad: 2.00 Updated in Other Vendor System with Status of Final Dennis Do MD electronically signed on 04/26/2022 11:53:31 AM with status of Final
== END ==
LOC: HO.CARD 07:58
PROVIDERS: PCP Internal Medicine; Visit Provider Nurse Practitioner Family
DX: I51.7 Cardiomegaly (principal); Z86.79 Personal history of other diseases of the circulatory system
CPT/HCPCS: 93306; 93356

== ENCOUNTER → 2022-06-10 09:06 | Outpatient (BNVA) | payer MEDICAID, SELFPAY | PROVIDERS: PCP Internal Medicine; Referring Provider Internal Medicine; Visit Provider Internal Medicine Cardiovascular Disease | DX: R00.2 Palpitations (principal); I10 Essential (primary) hypertension | CPT/HCPCS: 93005; 99212 ==

== ENCOUNTER 2022-06-26 15:15 | Outpatient (REF) | payer MEDICAID, SELFPAY ==
--- NOTE | ~2022-06-26 | XR_ITS ---
EXAMINATION: LEFT ANKLE AND LEFT KNEE CLINICAL INFORMATION: Pain. COMPARISON: None TECHNIQUE: 3 views left ankle and 3 views left knee FINDINGS: Left knee: There is mild loss of patellofemoral compartment joint space without bony erosive changes. The medial and lateral compartment joint space is normal. No visible acute fracture, dislocation or loose body seen. No abnormal joint effusion. Left ankle: The ankle mortise and subtalar joints are normal. There are small medial malleolar enthesophyte. Small calcaneal heel and retrocalcaneal enthesophytes are seen. No visible acute fracture or dislocation seen. XR/XR ankle LT min 3V IMPRESSION: 1. Small calcaneal heel and retrocalcaneal enthesophytes. No visible acute fracture or dislocation seen. 2. Mild degenerative changes patellofemoral compartment left knee. No visible acute fracture or dislocation seen.
--- NOTE | ~2022-06-26 | XR_ITS ---
EXAMINATION: LEFT ANKLE AND LEFT KNEE CLINICAL INFORMATION: Pain. COMPARISON: None TECHNIQUE: 3 views left ankle and 3 views left knee FINDINGS: Left knee: There is mild loss of patellofemoral compartment joint space without bony erosive changes. The medial and lateral compartment joint space is normal. No visible acute fracture, dislocation or loose body seen. No abnormal joint effusion. Left ankle: The ankle mortise and subtalar joints are normal. There are small medial malleolar enthesophyte. Small calcaneal heel and retrocalcaneal enthesophytes are seen. No visible acute fracture or dislocation seen. XR/XR knee LT 3V IMPRESSION: 1. Small calcaneal heel and retrocalcaneal enthesophytes. No visible acute fracture or dislocation seen. 2. Mild degenerative changes patellofemoral compartment left knee. No visible acute fracture or dislocation seen.
== END 2022-06-26 15:16 | disposition home or self-care (01) ==
LOC: HO.XRAY 15:15
PROVIDERS: Visit Provider Internal Medicine
DX: M25.562 Pain in left knee (principal); M25.572 Pain in left ankle and joints of left foot; J45.909 Unspecified asthma, uncomplicated; G47.33 Obstructive sleep apnea (adult) (pediatric); E66.9 Obesity, unspecified
CPT/HCPCS: 73562; 73610; 99212

== ENCOUNTER → 2022-07-21 19:52 | Outpatient (REF) | payer MEDICAID, SELFPAY | LOC: HO.SL 19:52 | PROVIDERS: PCP Internal Medicine; Visit Provider Internal Medicine | DX: G47.33 Obstructive sleep apnea (adult) (pediatric) (principal) | CPT/HCPCS: 95810 ==

== ENCOUNTER → 2022-08-01 13:19 | Outpatient (REF) | payer MEDICAID, SELFPAY ==
--- NOTE | 2022-08-01 13:38 | HM_ITS ---
Conclusion: 1. Patient was monitored for total period of 3 days and 19 hours 2. Baseline was normal sinus rhythm with average heart of 81 beats per minute 3. No significant pauses or bradycardia noted 4. Total of 834 PACs accounting for 0.24% of total beats account for occasional PACs and total of 586 PVCs accounting for 0.17% of total beats account for occasional PVCs 5. Total of 3 short episodes of SVT, longest lasting 10 beats and the fastest at 138 beats per minute 6. No patient reported symptoms MTDD
== END ==
LOC: HO.CARD 13:19
PROVIDERS: PCP Internal Medicine; Visit Provider Internal Medicine Cardiovascular Disease
DX: R00.2 Palpitations (principal)
CPT/HCPCS: 93225

== ENCOUNTER 2022-08-06 13:57 | Outpatient (REF) | payer MEDICAID, SELFPAY ==
--- NOTE | ~2022-08-06 | XR_ITS ---
EXAMINATION: XR CHEST CLINICAL INFORMATION: Unspecified asthma COMPARISON: 01/03/2021 TECHNIQUE: 2 views of the chest were obtained. FINDINGS: Cardia mediastinal silhouette is stable. Low lung volumes. No consolidation, pleural effusion or pneumothorax. Osseous structures unremarkable. XR/XR chest 2V IMPRESSION: Low lung volumes. No acute process.
== END 2022-08-06 13:58 | disposition home or self-care (01) ==
LOC: HO.XRAY 13:57
PROVIDERS: PCP Internal Medicine; Visit Provider Internal Medicine
DX: J45.901 Unspecified asthma with (acute) exacerbation (principal); J30.9 Allergic rhinitis, unspecified; G47.33 Obstructive sleep apnea (adult) (pediatric)
CPT/HCPCS: 71046; 99212

== ENCOUNTER 2022-08-28 14:41 | Outpatient (REF) | payer MEDICAID, SELFPAY ==
[2022-08-28 15:51] LABS: VBG pCO2 42 mmHg; VBG pH 7.42 (7.32-7.43)
[2022-08-28 15:52] LABS: VBG Base Excess 3.5 mmol/L; VBG HCO3 28 mmol/L (22-26); VBG pO2 40 mmHg
[2022-08-28 17:02] LABS: TSH reflex Free T4 0.92 uIU/mL (0.32-4.0)
[2022-08-28 17:52] LABS: Venous Blood Gas Refer to POC result
== END 2022-08-28 14:42 | disposition home or self-care (01) ==
LOC: HO.LAB 14:41
PROVIDERS: PCP Internal Medicine; Visit Provider Internal Medicine
DX: J44.9 Chronic obstructive pulmonary disease, unspecified (principal); J30.9 Allergic rhinitis, unspecified; G47.33 Obstructive sleep apnea (adult) (pediatric); R06.89 Other abnormalities of breathing; E66.9 Obesity, unspecified; Z79.899 Other long term (current) drug therapy
CPT/HCPCS: 36415; 82803; 84443; 99212

== ENCOUNTER 2022-10-20 11:57 | Outpatient (REF) | payer MEDICAID, SELFPAY ==
--- NOTE | ~2022-10-20 | MM_ITS ---
EXAMINATION: MM SCREENING DIGITAL BREAST TOMOSYNTHESIS, BILATERAL CLINICAL INFORMATION: Screening. Asymptomatic. The lifetime risk of breast cancer based on the Tyrer-Cuzick Model is 4.9%. COMPARISON: Mammography: 10/14/2021 and studies dating back to 05/27/2016. TECHNIQUE: Digital breast tomosynthesis is performed in both the craniocaudal and mediolateral oblique views along with computer-aided detection (CAD). Synthesized 2D images are generated from the tomosynthesis. FINDINGS: There are scattered areas of fibroglandular density (ACR BI-RADS breast composition Category b). There is a stable parenchymal pattern of the left breast with no new abnormal dominant mass or suspicious grouping of microcalcifications. Within the medial aspect of the right breast, there is a circumscribed approximately 8 x 6 mm density for which spot compression film is recommended. About the lateral aspect of the right breast there is an asymmetric density for which spot compression view is recommended in craniocaudal view. MM/MM tomosynthesis screening BI IMPRESSION: Right breast findings for further evaluation as described. ASSESSMENT: BI-RADS 0: Incomplete - Need Additional Imaging Evaluation RECOMMENDATION: 1. Additional views of the right breast. 2. Targeted ultrasound if warranted after review of the additional views. 3. Radiology department staff will contact the patient for additional imaging. This patient's information was entered into a reminder system with a target due date for their next mammogram.
== END 2022-10-20 11:58 | disposition home or self-care (01) ==
LOC: HO.MAMMO 11:57
PROVIDERS: PCP Pediatrics; Visit Provider Pediatrics
DX: Z12.31 Encounter for screening mammogram for malignant neoplasm of breast (principal)
CPT/HCPCS: 77063; 77067

== ENCOUNTER 2022-11-19 14:32 | Outpatient (REF) | payer MEDICAID, SELFPAY ==
--- NOTE | ~2022-11-19 | MM_ITS ---
EXAMINATION: MM DIAGNOSTIC DIGITAL BREAST TOMOSYNTHESIS, RIGHT US DIAGNOSTIC ULTRASOUND BREAST, RIGHT CLINICAL INFORMATION: Recall from screening for 2 findings, parenchymal asymmetry mid upper outer right breast and nodular asymmetry mid medial right breast, respectively. COMPARISON: Multiple prior mammography exams, most recent 10/20/2022. TECHNIQUE: Digital breast tomosynthesis is performed. 2D images are generated from the tomosynthesis. The following views are obtained: Spot right CC, spot right MLO, rolled right CC x2. Ultrasound right breast is targeted to both areas of interest using grayscale imaging and color Doppler without and with harmonics. Patient imaged supine arm up as well as left oblique semiupright. FINDINGS: There are scattered areas of fibroglandular density (ACR BI-RADS breast composition Category b). The additional views show fibroglandular densities mid upper outer right breast similar to prior studies dating back to 2016. There is no developing density or interval mass or architectural abnormality. The short tubular nodular asymmetry mid medial right breast shows no architectural abnormality. Finding is slightly increased over several years. No significant changes appreciated. Ultrasound upper outer right breast and medial right breast demonstrates no cystic or solid mass or architectural abnormality or focal duct ectasia. There is no ultrasound correlate for either finding. Results are discussed with the patient at time of visit. There is no suspicious finding at this time. As a precaution, short interval follow-up right mammography will be recommended in 6 months. MM/MM tomosynthesis added views R IMPRESSION: -Parenchymal asymmetry upper outer right breast appears chronic and without significant change. -Short tubular asymmetry mid medial right breast without architectural abnormality -Unremarkable right breast ultrasound. ASSESSMENT: BI-RADS 3: Probably Benign RECOMMENDATION: Diagnostic mammography in 6 months. This patient's information was entered into a reminder system with a target due date for their next mammogram.
== END 2022-11-19 14:33 | disposition home or self-care (01) ==
LOC: HO.MAMMO 14:32
PROVIDERS: PCP Pediatrics; Visit Provider Pediatrics
DX: R92.2 Inconclusive mammogram (principal)
CPT/HCPCS: 76642; 77061; 77065

== ENCOUNTER → 2022-11-26 14:41 | Outpatient (BNVA) | payer MEDICAID, SELFPAY | PROVIDERS: PCP Pediatrics; Visit Provider Internal Medicine | DX: J45.901 Unspecified asthma with (acute) exacerbation (principal); J40 Bronchitis, not specified as acute or chronic; E66.9 Obesity, unspecified | CPT/HCPCS: 99212 ==

== ENCOUNTER 2023-05-22 13:07 | Outpatient (REF) | payer MEDICAID, SELFPAY ==
--- NOTE | ~2023-05-22 | MM_ITS ---
EXAMINATION: MM DIAGNOSTIC DIGITAL BREAST TOMOSYNTHESIS, RIGHT CLINICAL INFORMATION: Follow-up small focal tubular asymmetry mid medial right breast with no correlate on ultrasound. COMPARISON: Mammography: 11/20/2022, 10/20/2022, 10/14/2021, and dating back to 2017. TECHNIQUE: Digital right breast tomosynthesis is performed in both the craniocaudal and mediolateral oblique views along with computer-aided detection (CAD). Synthesized 2D images are generated from the tomosynthesis. FINDINGS: There are scattered areas of fibroglandular density (ACR BI-RADS breast composition Category b). The tubular asymmetry in the central and medial right breast shows no significant interval change and can be seen as far back as a spot magnification view in 2017. This appears to shift superior and inferior on different MLO projections. It is benign and stable. Otherwise, there is no suspicious mass, suspicious calcifications, or developing asymmetric density within the right breast. MM/MM tomosynthesis diagnostic RT IMPRESSION: There are no significant changes from prior study. Benign tubular asymmetry in the central medial right breast, which can be seen as far back as 2017 on a spot magnification view. Finding is benign. No further follow-up recommended. Recommend the patient resume routine annual screening mammography. ASSESSMENT: BI-RADS BI-RADS 1 - Negative RECOMMENDATION: 1 year F/U Results were provided to the patient at time of visit by the technologist. This patient's information was entered into a reminder system with a target due date for their next mammogram.
== END 2023-05-22 13:08 | disposition home or self-care (01) ==
LOC: HO.MAMMO 13:07
PROVIDERS: PCP Internal Medicine; Visit Provider Pediatrics
DX: R92.2 Inconclusive mammogram (principal)
CPT/HCPCS: 77061; 77065

== ENCOUNTER → 2023-05-22 13:30 | Outpatient (BNV) | payer MEDICAID, SELFPAY | PROVIDERS: PCP Internal Medicine; Visit Provider Radiology Diagnostic Radiology | DX: R92.321 Mammographic fibroglandular density, right breast (principal) | CPT/HCPCS: 77061; 77065 ==

== ENCOUNTER 2023-05-27 14:53 | Outpatient (AMB) | payer MEDICAID, SELFPAY ==
--- NOTE | 2023-05-27 14:56 | A.OFFVIS_ITS ---
Intake Vital Signs 05/27/23 15:01 Height 5 ft 4 in Weight 235 lb BMI 40.3 BP 120/80 Blood Pressure Location Lt brachial Position Sitting Pulse 78 Pulse Oximetry (%) 98 Intake Visit Reasons: emiliana Allergies Farm Life Milk Allergy (Unknown, Uncoded 05/27/23 15:06) Rash Latex Gloves Allergy (Unknown, Uncoded 05/27/23 15:06) itching Medication List - Last Reconciled 05/27/23 by Bobby Hugo MD azithromycin For 250 mg dose pack: take 500 mg today (day 1), then 250 mg for 4 days (days 2-5) PO buspirone 20 mg PO BID cholecalciferol (vitamin D3) (Vitamin D3) 50 mcg PO DAILY diphenhydramine HCl (Banophen) 50 mg PO BEDTIME PRN docusate sodium 100 mg PO BID ferrous sulfate 325 mg PO DAILY fluoxetine 40 mg PO DAILY fluticasone propionate 50 mcg/actuation 2 sprays intranasal DAILY hydrochlorothiazide 25 mg PO DAILY levalbuterol tartrate 45 mcg/actuation (Xopenex HFA) 2 puffs inhalation Q6H PRN lidocaine-prilocaine 2.5-2.5 % grams topical DAILY PRN loratadine 10 mg PO DAILY losartan 25 mg PO BID montelukast 10 mg PO DAILY multivitamin 1 tab PO DAILY omeprazole 40 mg PO DAILY prednisone 20 mg PO BID sucralfate 1 g PO QID trazodone 25 mg PO BEDTIME PRN vitamin A acetate 20,000 units sublingual vitamin E 400 units PO DAILY Do you need a note to return to daycare/school/sports/work: No HPI emiliana HPI Details THIS 47 YEARS OLD FEMALE IS HERE FOR FOLLOW-UP FOR HER BRONCHIAL ASTHMA AND ALLERGIC RHINITIS. SINCE HER LAST VISIT, 6 MONTHS AGO . SHE HAS BEEN RELATIVELY STABLE SHE HAS HAD. NO UPPER RESPIRATORY INFECTION CONTINUES TO SYMPTOMS OF ALLERGIC RHINITIS WHICH FLARE UP OFF AND ON. BUT SHE DID NOT HAVE TO USE ANY PREDNISONE OR ANTIBIOTICS. DENIES ANY WHEEZING. SHE REMAINS GROSSLY OVERWEIGHT BUT DENIES ANY SYMPTOMS OF OBSTRUCTIVE SLEEP APNEA. [facility] Medical History Hypoventilation Asthma exacerbation Bronchitis Iron deficiency anemia Hx of cardiomyopathy HTN (hypertension) Depression EMILIANA (obstructive sleep apnea) Obesity Asthma Allergic rhinitis Surgical History History of tubal ligation Hx of hysterectomy Hx of section Gastric bypass status for obesity Family History Father Pacemaker Mother HTN (hypertension) Diabetes Social History Household Members Other:: Lives with her , 2 adult children Alcohol intake: never Patient Tobacco Use Status: Never used Tobacco Current occupational status: unemployed and disabled Review of Systems Const All systems reviewed & are unremarkable except as noted in HPI and below Eyes Reports no additional complaints ENT Reports nasal congestion (FREQUENT, CONTROLLED WITH MEDS) and Reports nasal discharge Card Denies chest pain, Denies irregular heart rhythm and Denies leg edema Resp Reports as per HPI GI Reports heartburn (Symptoms of GERD controlled with med) Reports no additional complaints Musc Reports no additional complaints Skin/Breast Reports system reviewed and no additional complaints, except as documented Neuro Reports no additional complaints Psych Reports depression (Controlled with med) Physical Exam Vital Signs: Last Vital Signs Pulse 78 05/27/23 15:01 BP 120/80 05/27/23 15:01 Pulse Ox 98 05/27/23 15:01 BMI result Body Mass Index 40.3 Const General: healthy appearing (Except for being overweight), comfortable, no acute distress, alert and awake Orientation/consciousness: patient oriented x3 HEENT Head: Yes normal to inspection General nose exam: No nasal polyps present, No nasal discharge present and Other nasal findings present (Bilateral chronic nasal congestion) Face and sinus: Yes sinuses nontender Mouth: oropharynx normal Throat: Yes posterior oropharynx normal Eyes General: appearance normal, both eyes and all related structures Neck Neck: Yes normal visual inspection, Yes no lymphadenopathy, Yes trachea midline and Yes no JVD Thyroid: Thyroid normal Chest Chest palpation & inspection: normal inspection of the chest, normal palpation of entire chest wall and no tenderness Resp Other: Percussion note resonant, breath sounds are slightly distant on both sides. NO WHEEZES., RHONCHI OR CREPITATIONS ARE HEARD TODAY. Cardio Palpation: normal PMI Rate: regular rate Rhythm: regular rhythm Heart sounds: no gallops and no murmurs GI Palpation (GI): Soft to palpation, nontender, No hepatosplenomegaly present and no masses Auscultation: normal bowel sounds Back/Spine/Pelvis Thoracic/Lumbar Spine: thoracic and lumbar spine normal to inspection Skin General skin exam: no rashes or lesions noted Neuro General: patient oriented x3 and no focal motor deficits Cranial nerves: Yes CN's II-XII intact bilaterally Extrem General: Yes normal to inspection, Yes no clubbing, cyanosis or edema and Yes no calf tenderness Psych Appearance: grossly normal and well kempt Speech and movement: Normal speech and movement present Assessment & Plan Assessment & Plan (1) Asthma: Comment: ASTHMA IS MILD, INTERMITTENT. USUALLY FLARES UP DUE TO ALLERGY / WEATHER CHANGES. TX: LEVALBUTEROL HFA 2 PUFFS Q 4-6 HOURS P.R.N. Code(s): J45.909 - Unspecified asthma, uncomplicated (2) Allergic rhinitis: Comment: CHRONIC PERINEAL ALLERGIC RHINITIS, CONTROLLED WITH MEDS. TX MONTELUKAST 10 MG DAILY LORATADINE 10 MG ONCE A DAY P.R.N. OR OR BENADRYL 25 MG ONCE A DAY P.R.N. IF SYMPTOMS ARE WORSE. Code(s): J30.9 - Allergic rhinitis, unspecified (3) Obesity: Comment: DISCUSSED ABOUT HER WEIGHT PROBLEM. SHE NEEDS TO BE IN THE WEIGHT MANAGEMENT PROGRAM . ADVISED TO LOSE WEIGHT, SLOWLY AND MUCH SHE CAN. I STRESSED THAT SHE SHOULD GO BACK TO WEIGHT MANAGEMENT PROGRAM FOR FOLLOW-UP. SHE HAS HAD GASTROPLASTY BEFORE. Code(s): E66.9 - Obesity, unspecified (4) EMILIANA (obstructive sleep apnea): Comment: SHE HAD A SLEEP STUDY BACK IN 2019 SHOWING ONLY MILD DEGREE OF SLEEP APNEA. AT PRESENT SHE CLAIMS THAT SHE SLEEPS WELL WITHOUT ANY SLEEP DISTURBANCE OR ANY DAYTIME SLEEPINESS. Code(s): G47.33 - Obstructive sleep apnea (adult) (pediatric) Coding Level of Care Code Est Pt Level 3 (52249) Diagnoses Asthma J45.909 Allergic rhinitis J30.9 Obesity E66.9 EMILIANA (obstructive sleep apnea) G47.33
[2023-05-27 15:01] VITALS: BP 120/80; PULSE 78; O2SAT 98; BMI 40.3
== END 2023-05-27 15:13 | disposition home or self-care (01) ==
PROVIDERS: PCP Internal Medicine; Visit Provider Internal Medicine
DX: J45.909 Unspecified asthma, uncomplicated (principal); J30.9 Allergic rhinitis, unspecified; E66.9 Obesity, unspecified; G47.33 Obstructive sleep apnea (adult) (pediatric)
CPT/HCPCS: 99213

== ENCOUNTER → 2023-05-27 14:53 | Outpatient (BNVA) | payer MEDICAID, SELFPAY | PROVIDERS: PCP Internal Medicine; Visit Provider Internal Medicine | DX: G47.33 Obstructive sleep apnea (adult) (pediatric) (principal); J45.20 Mild intermittent asthma, uncomplicated; J30.9 Allergic rhinitis, unspecified; E66.9 Obesity, unspecified; Z68.41 Body mass index [BMI] 40.0-44.9, adult | CPT/HCPCS: 99212 ==

== ENCOUNTER 2023-06-10 09:22 | Outpatient (AMB) | payer MEDICAID, SELFPAY ==
--- NOTE | 2023-06-10 09:25 | MHC.OFFVIS ---
Intake Vital Signs 06/10/23 09:29 Height 5 ft 4 in Weight 231 lb 7.766 oz BMI 39.7 BP 140/80 H Blood Pressure Location Lt brachial Position Sitting Pulse 76 Intake Visit Reasons: 1 yr f/up Intake Note: 1 year follow-up with ekg feeling good some palpitations at times Fractionating Still Operator Required: Yes Fractionating Still Operator Name: Isaac malik Allergies Farm Life Milk Allergy (Unknown, Uncoded 05/27/23 15:06) Rash Latex Gloves Allergy (Unknown, Uncoded 05/27/23 15:06) itching Medication List - Last Reconciled 06/10/23 by Dennis Do MD buspirone 20 mg PO BID cholecalciferol (vitamin D3) (Vitamin D3) 50 mcg PO DAILY diphenhydramine HCl (Banophen) 50 mg PO BEDTIME PRN docusate sodium 100 mg PO BID ferrous sulfate 325 mg PO DAILY fluoxetine 40 mg PO DAILY fluticasone propionate 50 mcg/actuation 2 sprays intranasal DAILY hydrochlorothiazide 25 mg PO DAILY levalbuterol tartrate 45 mcg/actuation (Xopenex HFA) 2 puffs inhalation Q6H PRN lidocaine-prilocaine 2.5-2.5 % grams topical DAILY PRN loratadine 10 mg PO DAILY losartan 25 mg PO QPM losartan 50 mg PO QAM montelukast 10 mg PO DAILY multivitamin 1 tab PO DAILY omeprazole 40 mg PO DAILY prednisone 20 mg PO BID sucralfate 1 g PO QID trazodone 25 mg PO BEDTIME PRN vitamin A acetate 20,000 units sublingual vitamin E 400 units PO DAILY HPI HPI Comments History of Present Illness Details Yaya comes for follow-up of hypertension palpitations. History was obtained with help of for cash register mechanic. Patient continues to have symptoms of palpitations although they are not frequent. She describes them as skipped heartbeats and can last to about a minute. No other bothering symptoms. No prolonged irregular heartbeat. More recently she was noted to have elevated blood pressure losartan was increased to 15 the morning and 25 at nighttime. She continues to have elevated blood pressure readings at home in the systolic 140/93 range. She denies any lightheadedness, syncope. No heart failure symptoms. She does not exercise on a regular basis. Denies any exertional chest pain. Has had struggles losing weight. Reviewing the last sleep study there is suggestion of obstructive sleep apnea that would benefit from CPAP therapy although she was under the impression that she did not qualify for sleep study. [facility] Medical History Hypoventilation Asthma exacerbation Bronchitis Iron deficiency anemia Hx of cardiomyopathy HTN (hypertension) Depression LILIAM (obstructive sleep apnea) Obesity Asthma Allergic rhinitis Surgical History History of tubal ligation Hx of hysterectomy Hx of section Gastric bypass status for obesity Family History Father Pacemaker Mother HTN (hypertension) Diabetes Social History Household Members Other:: Lives with her , 2 adult children Alcohol intake: never Patient Tobacco Use Status: Never used Tobacco Current occupational status: unemployed and disabled Review of Systems Const Denies chills, Denies fatigue, Denies fever(s), Denies frequent falls, Denies weakness, Denies weight gain and Denies weight loss ENT Denies dizziness Card Denies chest pain, Denies leg edema, Denies lightheadedness, Denies palpitations, Denies dyspnea, Denies dyspnea on exertion, Denies orthopnea and Denies other (loss of consciousness) Resp Denies cough, Denies dyspnea and Denies dyspnea on exertion GI Denies hematochezia and Denies change in stool character Musc Denies abnormal gait, Denies muscle weakness, Denies numbness, Denies radiating pain into limb and Denies tingling Neuro Denies Abnormal speech present, Denies abnormal gait, Denies dizziness, Denies frequent falls, Denies numbness, Denies tingling and Denies weakness Endo Denies fatigue and Denies palpitations Physical Exam Vital Signs: Last Vital Signs Pulse 76 06/10/23 09:29 BP 140/80 H 06/10/23 09:29 BMI result Body Mass Index 39.7 Const General: cooperative, comfortable, no acute distress, alert and awake Nutritional Appearance: obese Orientation/consciousness: patient oriented x3 Limitations: no limitations HEENT Head: Yes normocephalic and Yes atraumatic Neck Neck: Yes trachea midline, Yes supple and Yes no JVD Resp Effort & Inspection: normal respiratory effort Auscultation: clear to auscultation bilaterally Cardio Jugular venous distension: no JVD Palpation: normal PMI Rate: regular rate Rhythm: regular rhythm Heart sounds: S1 normal heart sound present, S2 normal heart sound present, no click, no gallops, no murmurs and no rubs GI Auscultation: normal bowel sounds Skin General skin exam: no rashes or lesions noted Neuro General: patient oriented x3 and no focal motor deficits Speech: No Abnormal speech present Extrem General: Yes no clubbing, cyanosis or edema Psych Appearance: grossly normal Office Procedures EKG Details: EKG shows normal sinus rhythm with nonspecific ST sagging, no significant change compared to last year most likely suggestive of repolarization abnormality [id number], Complete Assessment & Plan Assessment & Plan (1) HTN (hypertension): Code(s): I10 - Essential (primary) hypertension Plan: Hypertension in this middle-aged woman with hypertensive heart disease with prior history of cardiomyopathy. Most recent echocardiogram showed normalized LV systolic function. However recently noted to have further elevation of blood pressure. For now will increase her losartan to 50 mg b.i.d.. I however thing that her blood pressure is exacerbated by untreated sleep apnea with therefore take the liberty to refer to sleep specialist for further management for for sleep apnea and initiation of CPAP therapy. We discussed about low-salt diet and she says her salt intake is adequate and low. We discussed about weight loss program and also participate in regular physical activity. She understands agrees. Advised to call with any heart failure symptoms. Will follow up in the office in 2 weeks time for blood pressure check and advised to bring her own blood pressure machine at that point in time to calibrate. In addition we did discuss about newer metabolic drug such as Ozempic for weight loss, and I recommended her to follow up that with your office. (2) Cardiac arrhythmia: Code(s): I49.9 - Cardiac arrhythmia, unspecified Plan: Patient does have symptoms of palpitations related to rare extra systoles both PACs and PVCs. She continues to have symptoms related to it but the symptoms are not life-limiting. Discussed about benign nature of these arrhythmias for her. Avoidance of all stimulants as well as treatment of sleep apnea should help with cardiac arrhythmias. Also participate in stress mitigation strategies. If her symptoms get worse and or change in nature of symptoms of prolonged palpitations advised to call my office. Will follow up in the clinic in 1 year's time, sooner p.r.n.. Thank you for allowing me to partake in her care Orders: Referrals Sleep Medicine Referral G47.33 - Obstructive sleep apnea (adult) (pediatric), I10 - Essential (primary) hypertension Medications: New losartan 50 mg PO BID 60 tabs 5RF Coding Level of Care Code Est Pt Level 4 (23904) Diagnoses HTN (hypertension) I10 Cardiac arrhythmia I49.9 CPT Codes EKG - CPT: 56526-[id number], Complete ([id number])
[2023-06-10 09:29] VITALS: BP 140/80; PULSE 76; BMI 39.7
== END 2023-06-10 09:58 | disposition home or self-care (01) ==
PROVIDERS: Visit Provider Internal Medicine Cardiovascular Disease
DX: I10 Essential (primary) hypertension (principal); I49.9 Cardiac arrhythmia, unspecified
CPT/HCPCS: 93010; 99214

== ENCOUNTER → 2023-06-10 09:22 | Outpatient (BNVA) | payer MEDICAID, SELFPAY | PROVIDERS: Visit Provider Internal Medicine Cardiovascular Disease | DX: I10 Essential (primary) hypertension (principal); I49.9 Cardiac arrhythmia, unspecified | CPT/HCPCS: 93005; 99212 ==

== ENCOUNTER 2023-06-18 11:32 | Emergency (ER) | payer MEDICAID, SELFPAY ==
--- NOTE | 2023-06-18 | ECG_ITS ---
Test Reason : DIZZINESS Blood Pressure : / mmHG Vent. Rate : 054 BPM Atrial Rate : 054 BPM P-R Int : 140 ms QRS Dur : 084 ms QT Int : 468 ms P-R-T Axes : 044 -10 -13 degrees QTc Int : 443 ms Sinus bradycardia Minimal voltage criteria for LVH, may be normal variant ( R in aVL ) Nonspecific T wave abnormality Abnormal ECG When compared with ECG of 03-JAN-2021 16:03, Vent. rate has decreased BY 28 BPM Referred By: Generic ED Physician Electronically Signed By:ALYSSA MCHUGH MD
[2023-06-18 11:46] VITALS: BP 116/87; BP 148/71; PULSE 59; PULSE 60; RESP 18; TEMP 36.6; O2SAT 96; BMI 39.9
--- NOTE | 2023-06-18 11:55 | PC.NURSE ---
Patient reports was feeling okayt when she woke up this morning but after breakfast started feeing nauseous and then throw up three times. Denies chest pain or sob. Reports still feels dizzy and nauseous, unsure if she has ever had vertigo before. Family at bedside
[2023-06-18 12:04] VITALS: BP 123/71; PULSE 61; RESP 17; O2SAT 96
[2023-06-18 12:05] VITALS: BP 119/76; BP 123/71; BP 130/74; PULSE 59; PULSE 60; PULSE 70
[2023-06-18 12:20] LABS: MANUAL DIFF FLAG NO
[2023-06-18 12:24] LABS: Basophils Percent Auto 0.6 % (0-2); Eosinophils Absolute Auto 0.1 X10*3/uL (0.0-0.4); Eosinophils Percent Auto 1.8 % (0-4); Hematocrit 33.2 % (37.0-47.0); Hemoglobin 10.5 g/dl (12.0-16.0); Imm Gran Abs Auto 0.02 X10*3/uL (0.00-0.03); Imm Gran Pct Auto 0.3 % (0.0-0.4); Lymphocytes Absolute Auto 1.4 X10*3/uL (1.2-4.9); Lymphocytes Percent Auto 19.7 % (20-40); Mean Corpuscular HGB Conc 31.6 g/dl (31.0-35.0); Mean Corpuscular Hemoglobin 24.5 pg (27.0-33.0); Mean Corpuscular Volume 77.6 fL (80.0-98.0); Monocytes Absolute Auto 0.7 X10*3/uL (0.1-1.2); Monocytes Percent Auto 9.7 % (2-11); Neutrophils Absolute Auto 4.9 x10*3/uL (2.0-8.3); Neutrophils Percent Auto 67.9 % (45-73); Platelet Count 341 X10*3/uL (160-400); Red Blood Count 4.28 X10*6/uL (4.20-5.50); White Blood Count 7.2 X10*3/uL (4.8-10.8)
[2023-06-18 12:44] LABS: Alanine Aminotransferase 10 U/L (0-31); Albumin Level 3.6 g/dL (3.5-5.0); Alkaline Phosphatase 60 U/L (39-117); Anion Gap 9 (12-20); Aspartate Amino Transferase 13 U/L (5-31); Bilirubin Total 0.2 mg/dL (0.0-1.0); Blood Urea Nitrogen 10 mg/dL (9-16); Calcium 8.8 mg/dL (8.4-10.2); Carbon Dioxide 27 mmol/L (22-29); Chloride 105 mmol/L (96-108); Creatinine Clr Calc Pharmacy 118.5; Estimated Glomerular Filt Rate > 60; Glucose Random 112 mg/dL (60-115); Potassium 3.9 mmol/L (3.3-5.1); Sodium 137 mmol/L (135-145); Total Protein 6.8 g/dL (6.5-8.0)
[2023-06-18 12:45] LABS: Troponin-I High Sensitivity 2.9 ng/L (<3.5-17.0)
[2023-06-18 12:49] LABS: HCG Quantitative < 2 mIU/mL
--- NOTE | 2023-06-18 13:50 | ED.GENADULT ---
HPI - General Adult General Chief complaint: Nausea/Vomiting/Diarrhea Stated complaint: dizzy,nausea per ems Time Seen by Provider: 06/18/23 12:01 Related Data Home Medications Medication Instructions Recorded Confirmed buspirone 30 mg tablet 20 mg PO BID 10/01/20 06/10/23 ferrous sulfate 325 mg (65 mg 325 mg PO DAILY 10/01/20 06/10/23 iron) tablet vitamin A acetate 3,000 mcg 20,000 unit sublingual 10/01/20 06/10/23 (10,000 unit) sublingual tablet vitamin E 200 unit capsule 400 unit PO DAILY 10/01/20 06/10/23 cholecalciferol (vitamin D3) 50 50 mcg PO DAILY 04/17/21 06/10/23 mcg (2,000 unit) tablet (Vitamin D3) diphenhydramine HCl 50 mg capsule 50 mg PO BEDTIME PRN Sleep 04/17/21 06/10/23 (Banophen) fluoxetine 20 mg capsule 40 mg PO DAILY 04/17/21 06/10/23 hydrochlorothiazide 25 mg tablet 25 mg PO DAILY 04/17/21 06/10/23 multivitamin 1 tab PO DAILY 04/17/21 06/10/23 trazodone 50 mg tablet 25 mg PO BEDTIME PRN insomnia 06/10/22 06/10/23 docusate sodium 100 mg capsule 100 mg PO BID 06/26/22 06/10/23 lidocaine-prilocaine 2.5 %-2.5 % g topical DAILY PRN 06/26/22 06/10/23 topical cream sucralfate 1 gram tablet 1 g PO QID 11/26/22 06/10/23 Previous Rx's Medication Instructions Recorded omeprazole 40 mg capsule,delayed 40 mg PO DAILY #90 caps 07/22/21 release fluticasone propionate 50 2 spray intranasal DAILY #16 grams 11/26/22 mcg/actuation nasal spray,suspension levalbuterol tartrate 45 2 puff inhalation Q6H PRN for 11/26/22 mcg/actuation aerosol inhaler wheezing #15 grams (Xopenex HFA) prednisone 20 mg tablet 20 mg PO BID ASTHMA EXCERBATION . 11/26/22 #10 tabs montelukast 10 mg tablet 10 mg PO DAILY #30 tabs 05/11/23 loratadine 10 mg tablet 10 mg PO DAILY #30 tabs 10/13/23 losartan 50 mg tablet 50 mg PO BID #60 tabs 06/10/23 Allergies Allergy/AdvReac Type Severity Reaction Status Date / Time Farm Life Milk Allergy Unknown Rash Uncoded 05/27/23 15:06 Latex Gloves Allergy Unknown itching Uncoded 05/27/23 15:06 [facility] Past Medical History Medical History Hypoventilation Asthma exacerbation Bronchitis Iron deficiency anemia Hx of cardiomyopathy HTN (hypertension) Depression LILIAM (obstructive sleep apnea) Obesity Asthma Allergic rhinitis Surgical History History of tubal ligation Hx of hysterectomy Hx of section Gastric bypass status for obesity Family History Family History Father Pacemaker Mother HTN (hypertension) Diabetes Social History Social History Household Members Other:: Lives with her , 2 adult children Alcohol intake: never Patient Tobacco Use Status: Never used Tobacco Smoked in Last 30 Days: No Use of substances other than those prescribed or required for medical reasons: No Advance Directives: No Current occupational status: unemployed and disabled Physical Exam ED Vital Signs: Vital Signs - 24 hr 06/18/23 11:46 06/18/23 12:04 06/18/23 12:05 Temperature 97.9 F Pulse Rate 59 61 60 Respiratory Rate 18 17 Blood Pressure 148/71 H 123/71 123/71 Pulse Oximetry 96 96 Oxygen Delivery Method Room Air Room Air 06/18/23 12:05 06/18/23 12:05 06/18/23 14:16 Temperature Pulse Rate 59 70 60 Respiratory Rate 14 Blood Pressure 130/74 119/76 112/58 L Pulse Oximetry 98 Oxygen Delivery Method Room Air BMI result Body Mass Index 39.9 Medications Administered Discontinued Medications Generic Name Dose Route Start Last Admin Trade Name Freq PRN Reason Stop Dose Admin Meclizine HCl 12.5 mg 06/18/23 14:47 06/18/23 15:26 Meclizine Hcl 12.5 Mg Tablet PO 06/18/23 14:48 12.5 mg ONCE ONE Administration Medical Decision Making Lab Data 06/18/23 12:14 06/18/23 12:14 Labs: Lab Results 06/18/23 06/18/23 Range/Units 12:14 14:19 WBC 7.2 (4.8-10.8) X10*3/uL RBC 4.28 (4.20-5.50) X10*6/uL Hgb 10.5 L (12.0-16.0) g/dl Hct 33.2 L (37.0-47.0) % MCV 77.6 L (80.0-98.0) fL MCH 24.5 L (27.0-33.0) pg MCHC 31.6 (31.0-35.0) g/dl RDW 15.0 (11.0-16.0) % Plt Count 341 (160-400) X10*3/uL MPV 10.0 (9.4-12.3) fL Immature Gran % (Auto) 0.3 (0.0-0.4) % Neut % (Auto) 67.9 (45-73) % Lymph % (Auto) 19.7 L (20-40) % [place] % (Auto) 9.7 (2-11) % Eos % (Auto) 1.8 (0-4) % Baso % (Auto) 0.6 (0-2) % Lymph # (Auto) 1.4 (1.2-4.9) X10*3/uL [place] # (Auto) 0.7 (0.1-1.2) X10*3/uL Eos # (Auto) 0.1 (0.0-0.4) X10*3/uL Baso # (Auto) 0.0 (0.0-0.2) X10*3/uL Abs Immat Gran (auto) 0.02 (0.00-0.03) X10*3/uL Absolute Neuts (auto) 4.9 (2.0-8.3) x10*3/uL Absolute Nucleated RBC 0.000 (0.0-0.012) X10*3/uL Nucleated RBC % (auto) 0.0 (0.0-0.2) /100WBC Sodium 137 (135-145) mmol/L Potassium 3.9 (3.3-5.1) mmol/L Chloride 105 (96-108) mmol/L Carbon Dioxide 27 (22-29) mmol/L Anion Gap 9 L (12-20) BUN 10 (9-16) mg/dL Creatinine 0.72 (0.5-1.4) mg/dL Estim Creat Clear Calc 118.5 Estimated GFR > 60 Random Glucose 112 (60-115) mg/dL Calcium 8.8 D (8.4-10.2) mg/dL Total Bilirubin 0.2 (0.0-1.0) mg/dL AST 13 (5-31) U/L ALT 10 (0-31) U/L Alkaline Phosphatase 60 (39-117) U/L Troponin I High Sens 2.9 (<3.5-17.0) ng/L Total Protein 6.8 (6.5-8.0) g/dL Albumin 3.6 (3.5-5.0) g/dL Beta HCG, Quant < 2 mIU/mL Urine Color Yellow Urine Appearance Clear Urine pH 6.0 (5.0-9.0) Ur Specific [employer] 1.020 (1.005-1.025) Urine Protein Negative (Neg-Trace) mg/dL Urine Glucose (UA) Negative (Negative) mg/dL Urine Ketones Negative (Negative) mg/dL Urine Blood Negative (Negative) Urine Nitrite Negative (Negative) Ur Leukocyte Esterase Negative (Negative) COVID-19 (PAM) Negative (Negative) COVID-19 Clin Com See Note Influenza Type A (PREMA) Negative (Negative) Influenza Type B (PREMA) Negative (Negative) Influenza A & B Note See Note Independent Interpretation I performed an independent interpretation of an: EKG Interpretation: Sinus bradycardia, HR -54, no STEMI, TN/QRS/QTC is within normal limits. Discharge Plan Discharge Clinical Impression: Viral illness, Benign paroxysmal positional vertigo, Anemia Patient Disposition: Home, Self-Care Instructions: Benign Paroxysmal Positional Vertigo (ED), Anemia (ED) Additional Instructions: 1. Recomiende Tylenol/ibuprofeno de venta rukhsana seg?n sea necesario. Le he recetado un annel?o tratamiento para el v?rtigo, sosa sospecho que puede estar desarrollando marjorie enfermedad viral subyacente. 2. Contin?e bebiendo kimi agua. 3. Shala un seguimiento con bishop m?dico de atenci?n primaria en los pr?ximos 1 o 2 d?as. Regrese a la yo de emergencias si los s?ntomas empeoran. 1. Recommend [id number] Tylenol/ibuprofen as needed. I have prescribed a small course of medication for the vertigo but suspect you may be developing an underlying viral illness. 2. Continue to drink plenty of water. 3. Please follow-up with primary care doctor in the next 1-2 days. Return to the ER for any worsening symptoms. Prescriptions: No Action omeprazole 40 mg capsule,delayed release(DR/EC) 40 mg PO DAILY Qty: 90 1RF Rx Instructions: Open capsule and mix with apple sauce and take levalbuterol tartrate [Xopenex HFA] 45 mcg/actuation HFA aerosol inhaler 2 puff inhalation Q6H PRN (Reason: for wheezing) Qty: 15 0RF fluticasone propionate 50 mcg/actuation spray,suspension 2 spray intranasal DAILY Qty: 16 0RF montelukast 10 mg tablet 10 mg PO DAILY Qty: 30 5RF loratadine 10 mg tablet 10 mg PO DAILY Qty: 30 5RF fluoxetine 20 mg capsule 40 mg PO DAILY cholecalciferol (vitamin D3) [Vitamin D3] 50 mcg (2,000 unit) tablet 50 mcg PO DAILY diphenhydramine HCl [Banophen] 50 mg capsule 50 mg PO BEDTIME PRN (Reason: Sleep) hydrochlorothiazide 25 mg tablet 25 mg PO DAILY multivitamin Tablet 1 tab PO DAILY buspirone 30 mg tablet 20 mg PO BID vitamin E 200 unit capsule 400 unit PO DAILY vitamin A acetate 10,000 unit tablet, sublingual 20,000 unit sublingual ferrous sulfate 325 mg (65 mg iron) tablet 325 mg PO DAILY docusate sodium 100 mg capsule 100 mg PO BID lidocaine-prilocaine 2.5-2.5 % cream topical DAILY PRN losartan 50 mg tablet 50 mg PO BID Qty: 60 5RF trazodone 50 mg tablet 25 mg PO BEDTIME PRN (Reason: insomnia) sucralfate 1 gram tablet 1 g PO QID prednisone 20 mg tablet 20 mg PO BID Qty: 10 0RF Referrals: Handy Corrigan MD [Primary Care Provider] - Print Language: Wolof
[2023-06-18 14:16] VITALS: BP 112/58; PULSE 60; RESP 14; O2SAT 98
[2023-06-18 14:25] LABS: Appearance Urine Clear; Color Urine Yellow; Glucose Urine UA Negative (Negative); Leukocyte Esterase Urine Negative (Negative); Nitrite Urine Negative (Negative); Urine Blood Negative (Negative); Urine Ketones Negative (Negative); Urine Protein Negative (Neg-Trace)
[2023-06-18 14:40] LABS: IDNOW Serial# 08D9AD1C; IDNOW Serial# BCCEAD1C; Influenza A Negative (Negative); Influenza B2 Negative (Negative)
[2023-06-18 14:41] LABS: COVID-19 Test Negative (Negative)
[2023-06-18] MEDS: Meclizine HCl 12.5 MG TABLET PO (15:26)
== END 2023-06-18 17:02 | disposition home or self-care (01) ==
PROVIDERS: Emergency Provider Student in an Organized Health Care Education/Training Program; PCP Internal Medicine
DX: B34.9 Viral infection, unspecified (principal); R11.2 Nausea with vomiting, unspecified; H81.10 Benign paroxysmal vertigo, unspecified ear; D64.9 Anemia, unspecified; Z11.52 Encounter for screening for COVID-19; I10 Essential (primary) hypertension; Z98.84 Bariatric surgery status; Z79.899 Other long term (current) drug therapy
CPT/HCPCS: 36415; 80053; 81003; 84484; 84702; 85025; 87502; 87635; 93005; 99283; 99285

== ENCOUNTER → 2023-06-26 10:37 | Outpatient (BNVA) | payer MEDICAID, SELFPAY | PROVIDERS: PCP Internal Medicine; Visit Provider Internal Medicine Cardiovascular Disease ==

== ENCOUNTER 2023-07-10 09:12 | Outpatient (AMB) | payer MEDICAID, SELFPAY ==
--- NOTE | 2023-07-10 09:19 | A.OFFVIS_ITS ---
Intake Vital Signs 07/10/23 09:20 Height 5 ft 4 in Weight 233 lb 2 oz BMI 40.0 BP 124/86 Blood Pressure Location Rt brachial Position Sitting Pulse 96 Pulse Source Pulse Oximeter Pulse Oximetry (%) 98 Oxygen Delivery Method Room Air Intake Visit Reasons: 06/11 Letter INP-LILIAM/ Confirmed Intake Note: Pt presents to the office today for a new patient visit for LILIAM. Sprinkler Tender Required: Yes Sprinkler Tender Language: Dredge Boat Engineer Name: Moon ([id number]) Allergies Farm Life Milk Allergy (Unknown, Uncoded 07/10/23 09:22) Rash Latex Gloves Allergy (Unknown, Uncoded 07/10/23 09:22) itching HPI HPI Comments History of Present Illness Details 47 y/o female patient with hx of sleep a pnea presents for new in-person visit to manage sleep apnea. paraprofessional interpreter, ID #[id number] utilized. She wokes up gasping, gets very tired in the morning and fatigue Pt had PSG sleep study done in July,. The study result was mild degree of sleep apnea. The AHI was 6/hr, REM AHI was 11/hr. Pt was recommended to try APAP [id number]. However, she did not get CPAP. Pt used to use CPAP prior the study, had CPAP from [place]. Her old CPAP is broken, and can't use it. Sleep questionnaire: Have you ever been diagnosed with a sleep disorder? Yes, mild degree of LILIAM. Have you ever had a sleep study in the past? Yes, PSG. Have you ever been treated for a sleep disorder? Yes CPAP. Do you take medications for a sleep disorder? Trazodone 25 mg Do you snore? Yes. Do you wake up gasping at night? Yes. Do you have episodes of apneas? Yes. If yes, are they witnessed? Yes. Do you have episodes of nocturnal chest pain or dyspnea? Yes. Do you have difficulty initiating sleep? Yes. Do you have difficulty maintaining sleep? Yes. Do you wake up tired? Yes. Do you have headaches upon awakening? Yes. Do you wake up with dry mouth or throat? Yes. Do you have GERD? Yes. Do you have nocturia? No. Do you have nocturnal leg cramps? No. Do you have symptoms of restless legs? Yes. Do you act out your dreams? No. Sleep hygiene questionnaire: What is your usual sleep routine? Usual bedtime is at 12 am; Usual wake up time is at 5 am. Do you take naps? Sometimes. Is your sleep environment cool, dark, and quiet? Yes. Do you exercise? No. Do you take caffeine or other stimulants? Half cup of coffee in the morning. Do you use electronics in bed? Yes. What is your work schedule? N/A. Hypersomnolence questionnaire: Do you have daytime tiredness or fatigue? Yes. Do you easily fall asleep when inactive? No. Have you ever had episodes of sudden weakness? No. Have you ever had episodes of sudden weakness associated with strong emotions? No. PFSH Medical History Hypoventilation Asthma exacerbation Bronchitis Iron deficiency anemia Hx of cardiomyopathy HTN (hypertension) Depression LILIAM (obstructive sleep apnea) Obesity Asthma Allergic rhinitis Surgical History History of tubal ligation Hx of hysterectomy Hx of section Gastric bypass status for obesity Family History (Updated 07/10/23 @ 09:26 by Eulalia Bowie MA) Father Pacemaker Mother HTN (hypertension) Diabetes Fibromyalgia Social History Household Members Other:: Lives with her , 2 adult children Alcohol intake: never Patient Tobacco Use Status: Never used Tobacco Current occupational status: unemployed and disabled Review of Systems Const All systems reviewed & are unremarkable except as noted in HPI and below ENT Reports Normal hearing present Neuro Reports Normal hearing present and Reports Abnormal speech present Physical Exam Vital Signs: Last Vital Signs Pulse 96 07/10/23 09:20 BP 124/86 07/10/23 09:20 Pulse Ox 98 07/10/23 09:20 Oxygen Delivery Method Room Air 07/10/23 09:20 BMI result Body Mass Index 40.0 Const General: cooperative Nutritional Appearance: obese Orientation/consciousness: patient oriented x3 Limitations: language barrier Resp Effort & Inspection: normal respiratory effort and able to speak in complete sentences Neuro General: patient oriented x3, gait normal and moves all extremities Cranial nerves: Yes Bilaterally intact EOM present, Yes Normal facial strength present, Yes Midline tongue present, Yes Symmetric palate elevation present, Yes Normal hearing present, Yes Ability to bilaterally rotate head present and Yes Ability to bilaterally elevate shoulders present Cognition (Neuro): normal cognition Speech: Abnormal speech present Gait exam (Neuro): Normal gait present Motor exam (neuro): 5/5 motor strength present throughout and Pronator motor function not present Assessment & Plan Assessment & Plan (1) LILIAM (obstructive sleep apnea): Comment: Mild degree of sleep apnea. Code(s): G47.33 - Obstructive sleep apnea (adult) (pediatric) Plan Will apply for CPAP. And also advised patient to undergo repeat sleep study, her previous sleep study will soon for new CPAP apply. Sleep hygiene education provided and wt reduction advised. Orders: Orders RT PSG in-lab sleep study Today E66.01 - Morbid (severe) obesity due to excess calories, G47.33 - Obstructive sleep apnea (adult) (pediatric), I10 - Essential (primary) hypertension, I51.7 - Cardiomegaly, R94.31 - Abnormal electrocardiogram [ECG] [EKG], Z98.84 - Bariatric surgery status Coding Level of Care Code New Pt Level 3 (32120) Diagnoses LILIAM (obstructive sleep apnea) G47.33
[2023-07-10 09:20] VITALS: BP 124/86; PULSE 96; O2SAT 98; BMI 40.0
== END 2023-07-10 09:46 | disposition home or self-care (01) ==
PROVIDERS: PCP Internal Medicine; Visit Provider Nurse Practitioner Family
DX: G47.33 Obstructive sleep apnea (adult) (pediatric) (principal)
CPT/HCPCS: 99203

== ENCOUNTER → 2023-07-10 09:12 | Outpatient (BNVA) | payer MEDICAID, SELFPAY | PROVIDERS: PCP Internal Medicine; Visit Provider Nurse Practitioner Family | DX: G47.33 Obstructive sleep apnea (adult) (pediatric) (principal) | CPT/HCPCS: 99212 ==

== ENCOUNTER → 2023-07-28 19:30 | Outpatient (REF) | payer MEDICAID, SELFPAY | LOC: HO.SL 19:30 | PROVIDERS: PCP Internal Medicine; Visit Provider Nurse Practitioner Family | DX: G47.33 Obstructive sleep apnea (adult) (pediatric) (principal); R94.31 Abnormal electrocardiogram [ECG] [EKG]; I51.7 Cardiomegaly; I10 Essential (primary) hypertension; E66.01 Morbid (severe) obesity due to excess calories; Z98.84 Bariatric surgery status | CPT/HCPCS: 95810 ==

== ENCOUNTER → 2023-07-28 21:42 | Outpatient (BNV) | payer MEDICAID, SELFPAY | PROVIDERS: PCP Internal Medicine; Visit Provider Psychiatry & Neurology Neurology | DX: G47.33 Obstructive sleep apnea (adult) (pediatric) (principal) | CPT/HCPCS: 95810 ==

== ENCOUNTER 2023-08-28 08:28 | Outpatient (REF) | payer MEDICAID, SELFPAY ==
[2023-08-28 15:09] LABS: Estimated Average Glucose 128 mg/dL; Hemoglobin A1c % 6.1 % (<6.0)
[2023-08-28 15:20] LABS: Alanine Aminotransferase 18 U/L (0-31); Albumin Level 3.7 g/dL (3.5-5.0); Alkaline Phosphatase 60 U/L (39-117); Anion Gap 12 (12-20); Aspartate Amino Transferase 17 U/L (5-31); Bilirubin Total 0.2 mg/dL (0.0-1.0); Blood Urea Nitrogen 15 mg/dL (9-16); Calcium 8.5 mg/dL (8.4-10.2); Carbon Dioxide 24 mmol/L (22-29); Chloride 106 mmol/L (96-108); Cholesterol 180 mg/dL (<200); Estimated Glomerular Filt Rate > 60; Glucose Random 89 mg/dL (60-115); HDL Cholesterol 48 mg/dL (>40); LDL Cholesterol Calculated 110 mg/dL (<100); Potassium 3.8 mmol/L (3.3-5.1); Sodium 138 mmol/L (135-145); Triglycerides 110 mg/dL (<150)
== END 2023-08-28 08:29 | disposition home or self-care (01) ==
LOC: HO.CHCLDS 08:28
PROVIDERS: Visit Provider Internal Medicine
DX: I10 Essential (primary) hypertension (principal)
CPT/HCPCS: 36415; 80053; 80061; 83036

== ENCOUNTER 2023-09-22 11:23 | Outpatient (AMB) | payer MEDICAID, SELFPAY ==
--- NOTE | 2023-09-22 11:44 | A.OFFVIS_ITS ---
Intake Vital Signs 09/22/23 11:49 Height 5 ft 4 in Weight 236 lb BMI 40.5 BP 120/72 Blood Pressure Location Rt brachial Position Sitting Pulse 60 Pulse Source Pulse Oximeter Pulse Oximetry (%) 98 Oxygen Delivery Method Room Air Intake Visit Reasons: 2M follow up-Conf Intake Note: Patient presents for 2 month f/u. Allergies Farm Life Milk Allergy (Unknown, Uncoded 07/10/23 09:22) Rash Latex Gloves Allergy (Unknown, Uncoded 07/10/23 09:22) itching HPI HPI Comments History of Present Illness Details 48 y/o female patient presents for follo w up of sleep study. 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 Pt underwent split night sleep study. The baseline portion of the sleep study was significant for a moderate degree of sleep apnea. The AHI was 23/hr and oxygen viri was 88%. Pt's breathing and oxygenation stabilized on CPAP at 4-9cmH2O. Pt started CPAP at 9cmH2O at the end of August. The usage days 10 days and the average usage hours 7 hrs. The residual AHI was 0.4/hr. Pt reports she sleeps better, rested and wakes up refreshed. Pt also reports daytimes tiredness has improved. [facility] Medical History (Updated 09/22/23 @ 15:00 by Joe Winchester CNP) Hypoventilation Asthma exacerbation Bronchitis Iron deficiency anemia Hx of cardiomyopathy HTN (hypertension) Depression LILIAM (obstructive sleep apnea) Obesity Asthma Allergic rhinitis Surgical History History of tubal ligation Hx of hysterectomy Hx of section Gastric bypass status for obesity Family History Father Pacemaker Mother HTN (hypertension) Diabetes Fibromyalgia Social History Household Members Other:: Lives with her , 2 adult children Alcohol intake: never Patient Tobacco Use Status: Never used Tobacco Current occupational status: unemployed and disabled Review of Systems Const All systems reviewed & are unremarkable except as noted in HPI and below ENT Reports Normal hearing present Neuro Reports Normal hearing present and Reports Abnormal speech present Physical Exam Vital Signs: Last Vital Signs Pulse 60 09/22/23 11:49 BP 120/72 02/13/24 11:49 Pulse Ox 98 09/22/23 11:49 Oxygen Delivery Method Room Air 09/22/23 11:49 BMI result Body Mass Index 40.5 Const General: cooperative Nutritional Appearance: obese Orientation/consciousness: patient oriented x3 Limitations: language barrier Resp Effort & Inspection: normal respiratory effort and able to speak in complete sentences Neuro General: patient oriented x3, gait normal and moves all extremities Cranial nerves: Yes Bilaterally intact EOM present, Yes Normal facial strength present, Yes Midline tongue present, Yes Symmetric palate elevation present, Yes Normal hearing present, Yes Ability to bilaterally rotate head present and Yes Ability to bilaterally elevate shoulders present Cognition (Neuro): normal cognition Speech: Abnormal speech present Gait exam (Neuro): Normal gait present Motor exam (neuro): 5/5 motor strength present throughout and Pronator motor function not present Assessment & Plan Assessment & Plan (1) LILIAM (obstructive sleep apnea): Comment: Moderate degree of sleep apnea. The AHI was 23/hr and oxygen viri was 88% Code(s): G47.33 - Obstructive sleep apnea (adult) (pediatric) Plan Advised patient to continue to use CPAP at 9cnH2O as patient experiences good clinical effects, rested and quality sleep with daytime tiredness has improved. Stressed compliance, use CPAP nightly and more than 4 hrs. Coding Level of Care Code Est Pt Level 3 (30217) Diagnoses LILIAM (obstructive sleep apnea) G47.33
[2023-09-22 11:49] VITALS: BP 120/72; PULSE 60; O2SAT 98; BMI 40.5
== END 2023-09-22 12:04 | disposition home or self-care (01) ==
PROVIDERS: PCP Internal Medicine; Visit Provider Nurse Practitioner Family
DX: G47.33 Obstructive sleep apnea (adult) (pediatric) (principal)
CPT/HCPCS: 99213

== ENCOUNTER → 2023-09-22 11:23 | Outpatient (BNVA) | payer MEDICAID, SELFPAY | PROVIDERS: PCP Internal Medicine; Visit Provider Nurse Practitioner Family | DX: G47.33 Obstructive sleep apnea (adult) (pediatric) (principal) | CPT/HCPCS: 99212 ==

== ENCOUNTER 2023-11-26 15:35 | Outpatient (AMB) | payer MEDICAID, SELFPAY ==
[2023-11-26 15:41] VITALS: BP 110/60; PULSE 72; O2SAT 100; BMI 40.5
--- NOTE | 2023-11-26 15:41 | MHC.OFFVIS ---
Vital Signs 11/26/23 15:41 Height 5 ft 4 in Weight 235 lb 14.314 oz BMI 40.5 BP 110/60 Blood Pressure Location Lt brachial Position Sitting Pulse 72 Pulse Source Pulse Oximeter Pulse Oximetry (%) 100 Oxygen Delivery Method Room Air Intake Visit Reasons: Obstructive sleep apnea Intake Note: pt states when walking she is getting very fatigued, like she walked a mile, she is retaining fluid, some short of breath Quality Control Representative Required: Yes Quality Control Representative Name: [id number] Adebayo Allergies Farm Life Milk Allergy (Unknown, Uncoded 11/26/23 15:52) Rash Latex Gloves Allergy (Unknown, Uncoded 11/26/23 15:52) itching Medication List - Last Reconciled 11/26/23 by Bobby Hugo MD buspirone 20 mg PO BID cholecalciferol (vitamin D3) (Vitamin D3) 50 mcg PO DAILY diphenhydramine HCl (Banophen) 50 mg PO BEDTIME PRN docusate sodium 100 mg PO BID fluoxetine 40 mg PO DAILY fluticasone propionate 50 mcg/actuation 2 sprays intranasal DAILY hydrochlorothiazide 25 mg PO DAILY levalbuterol tartrate 45 mcg/actuation (Xopenex HFA) 2 puffs inhalation Q6H PRN lidocaine-prilocaine 2.5-2.5 % grams topical DAILY PRN loratadine 10 mg PO DAILY losartan 50 mg PO BID montelukast 10 mg PO DAILY multivitamin 1 tab PO DAILY omeprazole 40 mg PO DAILY sucralfate 1 g PO QID trazodone 25 mg PO BEDTIME PRN vitamin A acetate 20,000 units sublingual vitamin E 400 units PO DAILY Do you need a note to return to daycare/school/sports/work: No HPI HPI Obstructive sleep apnea: Details: THIS 48 YEARS OLD FEMALE CHRONICALLY DEPRESSED AND WITH GROSS OBESITY, COMES AFTER 4 MONTHS FOR FOLLOW-UP. CONTINUES TO COMPLAIN OF GETTING SHORT OF BREATH AND WEAK ON WALKING. DENIES ANY COUGH OR WHEEZING AT REST. SHE STILL USES LEVALBUTEROL 2 PUFFS 3 TO 4 TIMES A DAY. SHE IS USING THE INHALER MAINLY WHEN SHE WALKS AND GETS SHORT OF BREATH. THIS GOES ALONG WITH FEELING FATIGUED. PATIENT DID HAVE THE SPLIT NIGHT SLEEP STUDY AND FOUND TO HAVE OBSTRUCTIVE SLEEP APNEA SHE HAS BEEN STARTED ON CPAP THERAPY AND SHE IS USING IT REGULARLY. SHE IS BEING FOLLOWED BY THE SLEEP MEDICINE SERVICE . [facility] Medical History Hypoventilation Asthma exacerbation Bronchitis Iron deficiency anemia Hx of cardiomyopathy HTN (hypertension) Depression LILIAM (obstructive sleep apnea) Obesity Asthma Allergic rhinitis Surgical History History of tubal ligation Hx of hysterectomy Hx of section Gastric bypass status for obesity Family History Father Pacemaker Mother HTN (hypertension) Diabetes Fibromyalgia Social History Household Members Other:: Lives with her , 2 adult children Alcohol intake: never Patient Tobacco Use Status: Never used Tobacco Current occupational status: unemployed and disabled Review of Systems Const All systems reviewed & are unremarkable except as noted in HPI and below Eyes Reports no additional complaints ENT Reports nasal congestion (FREQUENT, CONTROLLED WITH MEDS) and Reports nasal discharge Card Denies chest pain, Denies irregular heart rhythm and Denies leg edema Resp Reports as per HPI GI Reports heartburn (Symptoms of GERD controlled with med) Reports no additional complaints Musc Reports no additional complaints Skin/Breast Reports system reviewed and no additional complaints, except as documented Neuro Reports no additional complaints Psych Reports depression (Controlled with med) Physical Exam Vital Signs: Last Vital Signs Pulse 72 11/26/23 15:41 BP 110/60 11/26/23 15:41 Pulse Ox 100 11/26/23 15:41 Oxygen Delivery Method Room Air 11/26/23 15:41 BMI result Body Mass Index 40.5 Const General: healthy appearing (Except for being overweight), comfortable, no acute distress, alert and awake Orientation/consciousness: patient oriented x3 HEENT Head: Yes normal to inspection General nose exam: No nasal polyps present, No nasal discharge present and Other nasal findings present (Bilateral chronic nasal congestion) Face and sinus: Yes sinuses nontender Mouth: oropharynx normal Throat: Yes posterior oropharynx normal Eyes General: appearance normal, both eyes and all related structures Neck Neck: Yes normal visual inspection, Yes no lymphadenopathy, Yes trachea midline and Yes no JVD Thyroid: Thyroid normal Chest Chest palpation & inspection: normal inspection of the chest, normal palpation of entire chest wall and no tenderness Resp Other: Percussion note resonant, breath sounds are slightly distant on both sides. NO WHEEZES., RHONCHI OR CREPITATIONS ARE HEARD TODAY. Cardio Palpation: normal PMI Rate: regular rate Rhythm: regular rhythm Heart sounds: no gallops and no murmurs GI Palpation (GI): Soft to palpation, nontender, No hepatosplenomegaly present and no masses Auscultation: normal bowel sounds Back/Spine/Pelvis Thoracic/Lumbar Spine: thoracic and lumbar spine normal to inspection Skin General skin exam: no rashes or lesions noted Neuro General: patient oriented x3 and no focal motor deficits Cranial nerves: Yes CN's II-XII intact bilaterally Extrem General: Yes normal to inspection, Yes no clubbing, cyanosis or edema and Yes no calf tenderness Psych Appearance: grossly normal and well kempt Speech and movement: Normal speech and movement present Results Reviewed Results Reviewed: LAST CBC ON 06/18 Hb 10.5 Assessment & Plan Assessment & Plan (1) Asthma: Comment: ASTHMA IS MILD, INTERMITTENT. USUALLY FLARES UP DUE TO ALLERGY / WEATHER CHANGES. Code(s): J45.909 - Unspecified asthma, uncomplicated Category: Medical Plan: TX: LEVALBUTEROL HFA 2 PUFFS Q 4-6 HOURS P.R.N. ADVISED TO USE THIS ONLY IF SHE HAS PERSISTENT COUGH OR WHEEZING, Avoid excessive usage. (2) Allergic rhinitis: Comment: CHRONIC PERINEAL ALLERGIC RHINITIS, CONTROLLED WITH MEDS. Code(s): J30.9 - Allergic rhinitis, unspecified Category: Medical Plan: TX continue to use. MONTELUKAST 10 MG DAILY LORATADINE 10 MG ONCE A DAY P.R.N. OR OR BENADRYL 25 MG ONCE A DAY P.R.N. IF SYMPTOMS ARE WORSE. (3) LILIAM (obstructive sleep apnea): Comment: Moderate degree of sleep apnea. The AHI was 23/hr and oxygen viri was 88% Code(s): G47.33 - Obstructive sleep apnea (adult) (pediatric) Category: Medical Plan: Continue using CPAP. Continue follow-up with sleep medicine service
== END 2023-11-26 16:00 | disposition home or self-care (01) ==
PROVIDERS: PCP Internal Medicine; Referring Provider Internal Medicine; Visit Provider Internal Medicine
DX: J45.909 Unspecified asthma, uncomplicated (principal); J30.9 Allergic rhinitis, unspecified; G47.33 Obstructive sleep apnea (adult) (pediatric)
CPT/HCPCS: 99213

== ENCOUNTER → 2023-11-26 15:35 | Outpatient (BNVA) | payer MEDICAID, SELFPAY | PROVIDERS: PCP Internal Medicine; Visit Provider Internal Medicine | DX: J45.909 Unspecified asthma, uncomplicated (principal); G47.33 Obstructive sleep apnea (adult) (pediatric); Z99.89 Dependence on other enabling machines and devices | CPT/HCPCS: 99212 ==

== ENCOUNTER 2023-12-04 13:27 | Outpatient (REF) | payer MEDICAID, SELFPAY ==
--- NOTE | ~2023-12-04 | MM_ITS ---
EXAMINATION: MM SCREENING DIGITAL BREAST TOMOSYNTHESIS, BILATERAL CLINICAL INFORMATION: Screening. Asymptomatic. COMPARISON: Mammography: This study is compared with prior exams dating back to 2018. TECHNIQUE: Digital breast tomosynthesis is performed in both the craniocaudal and mediolateral oblique views along with computer-aided detection (CAD). Synthesized 2D images are generated from the tomosynthesis. FINDINGS: There are scattered areas of fibroglandular density (ACR BI-RADS breast composition Category b). There are no significant masses, abnormal calcifications, or other abnormalities. There is a tissue marker left breast from prior benign percutaneous biopsy. MM/MM tomosynthesis screening BI IMPRESSION: No mammographic evidence of malignancy. ASSESSMENT: BI-RADS BI-RADS 2 - Benign Findings RECOMMENDATION: Routine annual mammography screening. 1 year F/U This examination should not preclude the clinical evaluation of a suspicious palpable abnormality. This patient's information was entered into a reminder system with a target due date for their next mammogram.
== END 2023-12-04 13:28 | disposition home or self-care (01) ==
LOC: HO.MAMMO 13:27
PROVIDERS: PCP Internal Medicine; Visit Provider Pediatrics
DX: Z12.31 Encounter for screening mammogram for malignant neoplasm of breast (principal)
CPT/HCPCS: 77063; 77067

== ENCOUNTER → 2023-12-04 13:30 | Outpatient (BNV) | payer MEDICAID, SELFPAY | PROVIDERS: PCP Internal Medicine; Visit Provider Radiology Diagnostic Radiology | DX: Z12.31 Encounter for screening mammogram for malignant neoplasm of breast (principal) | CPT/HCPCS: 77063; 77067 ==

== ENCOUNTER 2023-12-17 10:01 | Outpatient (AMB) | payer MEDICAID, SELFPAY ==
--- NOTE | 2023-12-17 10:06 | MHC.OFFVIS ---
Vital Signs 12/17/23 10:09 Height 5 ft 4 in Weight 234 lb 6 oz BMI 40.2 BP 115/60 Blood Pressure Location Lt brachial Position Sitting Pulse 73 Pulse Source Pulse Oximeter Pulse Oximetry (%) 98 Oxygen Delivery Method Room Air Intake Visit Reasons: 3m follow up LILIAM-CONF Intake Note: Patient presents for 3 month f/u. CPAP therapy is going well. Allergies Farm Life Milk Allergy (Unknown, Uncoded 11/26/23 15:52) Rash Latex Gloves Allergy (Unknown, Uncoded 11/26/23 15:52) itching Medication List - Last Reconciled 12/17/23 by TOM Connolly buspirone 20 mg PO BID cholecalciferol (vitamin D3) (Vitamin D3) 50 mcg PO DAILY diphenhydramine HCl (Banophen) 50 mg PO BEDTIME PRN docusate sodium 100 mg PO BID fluoxetine 40 mg PO DAILY fluticasone propionate 50 mcg/actuation 2 sprays intranasal DAILY hydrochlorothiazide 25 mg PO DAILY levalbuterol tartrate 45 mcg/actuation (Xopenex HFA) 2 puffs inhalation Q6H PRN lidocaine-prilocaine 2.5-2.5 % grams topical DAILY PRN loratadine 10 mg PO DAILY losartan 50 mg PO BID montelukast 10 mg PO DAILY multivitamin 1 tab PO DAILY omeprazole 40 mg PO DAILY sucralfate 1 g PO QID trazodone 25 mg PO BEDTIME PRN vitamin A acetate 20,000 units sublingual vitamin E 400 units PO DAILY HPI Comments Details: 48-yr-old male presents for follow-up visit. Pt denies any significant interval medical history changes. Pt reports that she is sleeping well with CPAP. She is using CPAP most nights, has only not used during asthma flare-ups. She states this does not happen often, and is followed closely by Dr Hugo, pulmonology. She feels refreshed in the morning, and feels better daytime energy w/ using PAP device. Compliance Report Usage 11/17/2023 - 12/16/2023 Usage days 26/30 days (87%) Usage >= 4 hours 24 days (80%) Average usage (days used) 6 hours 14 minutes AirSense 10 AutoSet Serial number [id number] Mode CPAP Set pressure 9 cmH2O EPR Fulltime EPR level 2 Residual AHI: 0.6/hr [facility] Medical History Hypoventilation Asthma exacerbation Bronchitis Iron deficiency anemia Hx of cardiomyopathy HTN (hypertension) Depression LILIAM (obstructive sleep apnea) Obesity Asthma Allergic rhinitis Surgical History History of tubal ligation Hx of hysterectomy Hx of section Gastric bypass status for obesity Family History Father Pacemaker Mother HTN (hypertension) Diabetes Fibromyalgia Social History Household Members Other:: Lives with her , 2 adult children Alcohol intake: never Patient Tobacco Use Status: Never used Tobacco Current occupational status: unemployed and disabled Review of Systems Const All systems reviewed & are unremarkable except as noted in HPI and below Physical Exam Vital Signs: Last Vital Signs Pulse 73 12/17/23 10:09 BP 115/60 12/17/23 10:09 Pulse Ox 98 12/17/23 10:09 Oxygen Delivery Method Room Air 12/17/23 10:09 BMI result Body Mass Index 40.2 Const General: no acute distress Orientation/consciousness: patient oriented x3 HEENT Head: Yes normocephalic Resp Effort & Inspection: normal respiratory effort and able to speak in complete sentences Auscultation: clear to auscultation bilaterally Cardio Rate: regular rate Rhythm: regular rhythm Neuro General: patient oriented x3 Psych Mental Status: mental status grossly normal Speech and movement: Clear speech present Attitude: cooperative Results Reviewed Results Reviewed: PAP compliance report- see HPI Assessment & Plan Assessment & Plan (1) LILIAM (obstructive sleep apnea): Comment: Moderate degree of sleep apnea. The AHI was 23/hr and oxygen viri was 88% Code(s): G47.33 - Obstructive sleep apnea (adult) (pediatric) Category: Medical Plan Continue CPAP 9 cmH2O nightly > 4 hours, as pt continues to have good clinical effect from use. Clean CPAP machine and supplies routinely. Change CPAP supplies routinely. Pt to contact us or respiratory company with any questions or concerns. Coding Level of Care Code Est Pt Level 3 (09017) Diagnoses LILIAM (obstructive sleep apnea) G47.33
[2023-12-17 10:09] VITALS: BP 115/60; PULSE 73; O2SAT 98; BMI 40.2
== END 2023-12-17 10:41 | disposition home or self-care (01) ==
PROVIDERS: PCP Internal Medicine; Visit Provider Nurse Practitioner Family
DX: G47.33 Obstructive sleep apnea (adult) (pediatric) (principal)
CPT/HCPCS: 99213

== ENCOUNTER → 2023-12-17 10:01 | Outpatient (BNVA) | payer MEDICAID, SELFPAY | PROVIDERS: PCP Internal Medicine; Visit Provider Nurse Practitioner Family | DX: G47.33 Obstructive sleep apnea (adult) (pediatric) (principal) | CPT/HCPCS: 99212 ==

== ENCOUNTER 2024-03-09 10:51 | Outpatient (REF) | payer MEDICAID, SELFPAY ==
[2024-03-09 11:08] LABS: MANUAL DIFF FLAG NO
[2024-03-09 11:56] LABS: Basophils Percent Auto 0.6 % (0-2); Eosinophils Absolute Auto 0.1 X10*3/uL (0.0-0.4); Eosinophils Percent Auto 1.5 % (0-4); Hematocrit 32.6 % (37.0-47.0); Hemoglobin 9.4 g/dl (12.0-16.0); Imm Gran Abs Auto 0.02 X10*3/uL (0.00-0.03); Imm Gran Pct Auto 0.3 % (0.0-0.4); Lymphocytes Absolute Auto 1.4 X10*3/uL (1.2-4.9); Lymphocytes Percent Auto 21.8 % (20-40); Mean Corpuscular HGB Conc 28.8 g/dl (31.0-35.0); Mean Corpuscular Volume 72.8 fL (80.0-98.0); Mean Platelet Volume 10.1 fL (9.4-12.3); Monocytes Absolute Auto 0.5 X10*3/uL (0.1-1.2); Monocytes Percent Auto 7.9 % (2-11); Neutrophils Absolute Auto 4.5 x10*3/uL (2.0-8.3); Neutrophils Percent Auto 67.9 % (45-73); Platelet Count 369 X10*3/uL (160-400); Red Blood Count 4.48 X10*6/uL (4.20-5.50); Red Cell Distribution Width 17.3 % (11.0-16.0); White Blood Count 6.6 X10*3/uL (4.8-10.8)
[2024-03-09 12:31] LABS: Alanine Aminotransferase 12 U/L (0-31); Albumin Level 3.7 g/dL (3.5-5.0); Alkaline Phosphatase 71 U/L (39-117); Anion Gap 10 (12-20); Aspartate Amino Transferase 12 U/L (5-31); Bilirubin Total 0.2 mg/dL (0.0-1.0); Blood Urea Nitrogen 11 mg/dL (9-16); Calcium 8.9 mg/dL (8.4-10.2); Carbon Dioxide 25 mmol/L (22-29); Chloride 108 mmol/L (96-108); Estimated Glomerular Filt Rate > 60; Glucose Random 131 mg/dL (60-115); Lipase 47 U/L (8-78); Potassium 3.7 mmol/L (3.3-5.1); Sodium 139 mmol/L (135-145); Total Protein 6.7 g/dL (6.5-8.0)
== END 2024-03-09 10:52 | disposition home or self-care (01) ==
LOC: HO.LAB 10:51
PROVIDERS: PCP Family Medicine; Visit Provider Family Medicine
DX: R10.11 Right upper quadrant pain (principal)
CPT/HCPCS: 36415; 80053; 83690; 85025

== ENCOUNTER 2024-03-16 09:08 | Outpatient (REF) | payer MEDICAID, SELFPAY ==
--- NOTE | ~2024-03-16 | US_ITS ---
EXAMINATION: US ABDOMEN COMPLETE CLINICAL INFORMATION: 48-year-old female with colicky right upper quadrant pain. Rule out gallstones versus other. COMPARISON: Ultrasound abdomen complete 02/07/2016. TECHNIQUE: Real-time imaging of the abdominal viscera. Limited visualization due to bowel gas. FINDINGS: PANCREAS: Limited visualization of pancreatic tail and head. Imaged portion of pancreatic body is unremarkable. ABDOMINAL AORTA: The proximal, mid, and distal segments are normal in caliber. INFERIOR VENA CAVA: Visualized portions are normal. LIVER: Increased hepatic parenchymal heterogeneity and echogenicity could be associated with hepatocellular disease/hepatic steatosis and substantially limits visualization. Correlation with liver function tests and clinical exam recommended to determine further management. GALLBLADDER: No gallstones. No gallbladder wall thickening. COMMON BILE DUCT: Normal in caliber measuring 0.5 cm in diameter. RIGHT KIDNEY: No hydronephrosis. No renal calculi. Limited visualization. The kidney measures 10.3 cm in maximum dimension. LEFT KIDNEY: No hydronephrosis. No renal calculi. Limited visualization. 1.9 cm left renal lower pole cyst is difficult to characterize due to limited visualization. The kidney measures 11.6 cm in maximum dimension. SPLEEN: Normal. The spleen measures 9.1 cm in maximum dimension. FREE FLUID: None. US/US abdomen complete IMPRESSION: 1. Increased hepatic parenchymal heterogeneity and echogenicity could be associated with hepatocellular disease/hepatic steatosis and substantially limits visualization. Correlation with liver function tests and clinical exam recommended to determine further management. 2. A 1.9 cm left renal lower pole cyst is difficult to characterize due to limited visualization and was not identified on prior exam. CT scan employing renal mass protocol with intravenous contrast recommended for further characterization.
== END 2024-03-16 09:09 | disposition home or self-care (01) ==
LOC: HO.US 09:08
PROVIDERS: PCP Family Medicine; Visit Provider Family Medicine
DX: R10.11 Right upper quadrant pain (principal)
CPT/HCPCS: 76700

== ENCOUNTER 2024-03-29 15:26 | Outpatient (AMB) | payer MEDICAID, SELFPAY ==
--- NOTE | 2024-03-29 15:39 | A.OFFVIS_ITS ---
Vital Signs 03/29/24 15:40 Height 5 ft 4 in Weight 235 lb 14.314 oz BMI 40.5 BP 104/70 Blood Pressure Location Lt brachial Position Sitting Pulse 82 Pulse Source Pulse Oximeter Pulse Oximetry (%) 98 Oxygen Delivery Method Room Air Intake Visit Reasons: Obstructive sleep apnea Intake Note: pt is here for follow up of liliam, she states she is a little fatigue, her hgb is low. Increment Manager Required: Yes Increment Manager Services: Increment Manager Present Increment Manager Name: [id number] francisca Allergies Farm Life Milk Allergy (Unknown, Uncoded 03/29/24 15:49) Rash Latex Gloves Allergy (Unknown, Uncoded 03/29/24 15:49) itching Medication List - Last Reconciled 03/29/24 by Bobby Hugo MD buspirone 20 mg PO BID cholecalciferol (vitamin D3) (Vitamin D3) 50 mcg PO DAILY diphenhydramine HCl (Banophen) 50 mg PO BEDTIME PRN docusate sodium 100 mg PO BID fluoxetine 40 mg PO DAILY fluticasone propionate 50 mcg/actuation 2 sprays intranasal DAILY hydrochlorothiazide 25 mg PO DAILY levalbuterol tartrate 45 mcg/actuation (Xopenex HFA) 2 puffs inhalation Q6H PRN lidocaine-prilocaine 2.5-2.5 % grams topical DAILY PRN loratadine 10 mg PO DAILY losartan 50 mg PO BID montelukast 10 mg PO DAILY multivitamin 1 tab PO DAILY omeprazole 40 mg PO DAILY sucralfate 1 g PO QID trazodone 25 mg PO BEDTIME PRN vitamin A acetate 20,000 units sublingual vitamin E 400 units PO DAILY Do you need a note to return to daycare/school/sports/work: No HPI HPI Obstructive sleep apnea: Details: 48 years old female with morbid obesity, allergic rhinitis, and mild intermittent bronchial asthma, is here for follow-up after 4 months. She claims that she uses CPAP regularly every night, but does miss on some nights. She sleeps well and denies any daytime sleepiness. Her nasal congestion and wheezing or minimal. Her weight remains unchanged. Overall she claims to be feeling fairly well. [facility] Medical History Hypoventilation Asthma exacerbation Bronchitis Iron deficiency anemia Hx of cardiomyopathy HTN (hypertension) Depression LILIAM (obstructive sleep apnea) Obesity Asthma Allergic rhinitis Surgical History History of tubal ligation Hx of hysterectomy Hx of section Gastric bypass status for obesity Family History Father Pacemaker Mother HTN (hypertension) Diabetes Fibromyalgia Social History Household Members Other:: Lives with her , 2 adult children Alcohol intake: never Patient Tobacco Use Status: Never used Tobacco Current occupational status: unemployed and disabled Review of Systems Const All systems reviewed & are unremarkable except as noted in HPI and below Eyes Reports no additional complaints ENT Reports nasal congestion (FREQUENT, CONTROLLED WITH MEDS) and Reports nasal discharge Card Denies chest pain, Denies irregular heart rhythm and Denies leg edema Resp Reports as per HPI GI Reports heartburn (Symptoms of GERD controlled with med) Reports no additional complaints Musc Reports no additional complaints Skin/Breast Reports system reviewed and no additional complaints, except as documented Neuro Reports no additional complaints Psych Reports depression (Controlled with med) Physical Exam Vital Signs: Last Vital Signs Pulse 82 03/29/24 15:40 BP 104/70 03/29/24 15:40 Pulse Ox 98 03/29/24 15:40 Oxygen Delivery Method Room Air 03/29/24 15:40 BMI result Body Mass Index 40.5 Const General: healthy appearing (Except for being overweight), comfortable, no acute distress, alert and awake Orientation/consciousness: patient oriented x3 HEENT Head: Yes normal to inspection General nose exam: No nasal polyps present, No nasal discharge present and Other nasal findings present (Bilateral chronic nasal congestion) Face and sinus: Yes sinuses nontender Mouth: oropharynx normal Throat: Yes posterior oropharynx normal Eyes General: appearance normal, both eyes and all related structures Neck Neck: Yes normal visual inspection, Yes no lymphadenopathy, Yes trachea midline and Yes no JVD Thyroid: Thyroid normal Chest Chest palpation & inspection: normal inspection of the chest, normal palpation of entire chest wall and no tenderness Resp Other: Percussion note resonant, breath sounds are slightly distant on both sides. NO WHEEZES., RHONCHI OR CREPITATIONS ARE HEARD TODAY. Cardio Palpation: normal PMI Rate: regular rate Rhythm: regular rhythm Heart sounds: no gallops and no murmurs GI Palpation (GI): Soft to palpation, nontender, No hepatosplenomegaly present and no masses Auscultation: normal bowel sounds Back/Spine/Pelvis Thoracic/Lumbar Spine: thoracic and lumbar spine normal to inspection Skin General skin exam: no rashes or lesions noted Neuro General: patient oriented x3 and no focal motor deficits Cranial nerves: Yes CN's II-XII intact bilaterally Extrem General: Yes normal to inspection, Yes no clubbing, cyanosis or edema and Yes no calf tenderness Psych Appearance: grossly normal and well kempt Speech and movement: Normal speech and movement present Results Reviewed Results Reviewed: Compliance report for the last 30 nights is reviewed. She has used 20 once out of 30 nights, 70%. Average use it per night 5 hours 49 minutes. She is on CPAP of 9 cm. .There is no significant air leak Residual AHI 0.5 Assessment & Plan Assessment & Plan (1) Obesity: Comment: DISCUSSED ABOUT HER WEIGHT PROBLEM. SHE NEEDS TO BE IN THE WEIGHT MANAGEMENT PROGRAM . SHE HAS HAD GASTROPLASTY BEFORE. Code(s): E66.9 - Obesity, unspecified Category: Medical Plan: ADVISED TO LOSE WEIGHT, SLOWLY AND MUCH SHE CAN. I STRESSED THAT SHE SHOULD GO BACK TO WEIGHT MANAGEMENT PROGRAM FOR FOLLOW-UP. (2) LILIAM (obstructive sleep apnea): Comment: Moderate degree of sleep apnea. The AHI was 23/hr and oxygen viri was 88% She does use CPAP, but misses on frequent nights, overall her compliance is 70%. She does benefit from the use of CPAP. Code(s): G47.33 - Obstructive sleep apnea (adult) (pediatric) Category: Medical Plan: I explained to her the findings of her compliance report, and advised her to use it every night. (3) Asthma: Comment: ASTHMA IS MILD, INTERMITTENT. USUALLY FLARES UP DUE TO ALLERGY / WEATHER CHANGES. Code(s): J45.909 - Unspecified asthma, uncomplicated Category: Medical Plan: Levalbuterol -45 2 puffs Q 4-6 hours p.r.n. (4) Allergic rhinitis: Comment: CHRONIC PERINEAL ALLERGIC RHINITIS, CONTROLLED WITH MEDS. Fairly well controlled at this time. Code(s): J30.9 - Allergic rhinitis, unspecified Category: Medical Plan: Flonase-52 spray in each nostril daily. Loratadine 10 mg once a day p.r.n. Coding Level of Care Code Est Pt Level 3 (40527) Diagnoses Obesity E66.9 LILIAM (obstructive sleep apnea) G47.33 Asthma J45.909 Allergic rhinitis J30.9
[2024-03-29 15:40] VITALS: BP 104/70; PULSE 82; O2SAT 98; BMI 40.5
== END 2024-03-29 15:56 | disposition home or self-care (01) ==
PROVIDERS: PCP Internal Medicine; Visit Provider Internal Medicine
DX: E66.9 Obesity, unspecified (principal); G47.33 Obstructive sleep apnea (adult) (pediatric); J45.909 Unspecified asthma, uncomplicated; J30.9 Allergic rhinitis, unspecified
CPT/HCPCS: 99213

== ENCOUNTER → 2024-03-29 15:26 | Outpatient (BNVA) | payer MEDICAID, SELFPAY | PROVIDERS: PCP Internal Medicine; Visit Provider Internal Medicine | DX: E66.01 Morbid (severe) obesity due to excess calories (principal); G47.33 Obstructive sleep apnea (adult) (pediatric); J45.909 Unspecified asthma, uncomplicated; Z68.41 Body mass index [BMI] 40.0-44.9, adult; Z99.89 Dependence on other enabling machines and devices; Z98.84 Bariatric surgery status | CPT/HCPCS: 99212 ==

== ENCOUNTER 2024-04-03 16:58 | Emergency (ER) | payer MEDICAID, SELFPAY ==
[2024-04-03 17:04] VITALS: BP 128/67; PULSE 89; RESP 18; TEMP 36.8; O2SAT 98; BMI 40.3
[2024-04-03 17:31] LABS: MANUAL DIFF FLAG NO
[2024-04-03 17:32] LABS: Basophils Percent Auto 0.5 % (0-2); Eosinophils Absolute Auto 0.1 X10*3/uL (0.0-0.4); Eosinophils Percent Auto 1.4 % (0-4); Hematocrit 32.4 % (37.0-47.0); Hemoglobin 9.7 g/dl (12.0-16.0); Imm Gran Abs Auto 0.02 X10*3/uL (0.00-0.03); Imm Gran Pct Auto 0.2 % (0.0-0.4); Lymphocytes Percent Auto 24.1 % (20-40); Mean Corpuscular HGB Conc 29.9 g/dl (31.0-35.0); Mean Corpuscular Hemoglobin 21.7 pg (27.0-33.0); Mean Corpuscular Volume 72.6 fL (80.0-98.0); Mean Platelet Volume 9.9 fL (9.4-12.3); Monocytes Absolute Auto 0.6 X10*3/uL (0.1-1.2); Monocytes Percent Auto 6.9 % (2-11); Neutrophils Absolute Auto 5.6 x10*3/uL (2.0-8.3); Neutrophils Percent Auto 66.9 % (45-73); Platelet Count 379 X10*3/uL (160-400); Red Blood Count 4.46 X10*6/uL (4.20-5.50); Red Cell Distribution Width 19.2 % (11.0-16.0); White Blood Count 8.3 X10*3/uL (4.8-10.8)
[2024-04-03 17:52] LABS: Alanine Aminotransferase 15 U/L (0-31); Albumin Level 3.7 g/dL (3.5-5.0); Alkaline Phosphatase 63 U/L (39-117); Anion Gap 14 (12-20); Aspartate Amino Transferase 12 U/L (5-31); Bilirubin Total 0.2 mg/dL (0.0-1.0); Blood Urea Nitrogen 16 mg/dL (9-16); Calcium 9.2 mg/dL (8.4-10.2); Carbon Dioxide 20 mmol/L (22-29); Chloride 107 mmol/L (96-108); Creatinine Clr Calc Pharmacy 105.1; Estimated Glomerular Filt Rate > 60; Glucose Random 204 mg/dL (60-115); Potassium 3.6 mmol/L (3.3-5.1); Sodium 137 mmol/L (135-145); Total Protein 6.8 g/dL (6.5-8.0)
--- NOTE | 2024-04-03 22:31 | ED_ITS ---
HPI - General Adult General Chief complaint: General Medical Stated complaint: Low back pain Time Seen by Provider: 04/03/24 22:30 Source: patient Mode of arrival: ambulatory Limitations: language barrier ([place]an speaking only, circulation director used) History of Present Illness ED Provider: Dr. Arden Anderson HPI narrative: 48-year-old female with a history of hypertension, cardiomyopathy, asthma, depression who presents emergency department for evaluation of right flank and right lower back pain with pain radiating down her right leg x2 days. The patient does not yesterday she developed a dull pain in her right lower back. The pain was constant and radiated to her right buttocks and down her right leg to just below the knee. She states that her right leg feels heavy compared to her left. The pain is worse with movement and with twisting. She states she has had similar pain in the past. She denies any recent back surgery. Patient denied fever, frequency, urgency or dysuria. She states she has had chills and nausea has had no vomiting or diarrhea. The patient was concerned that the pain was secondary to her gallbladder and occasionally the pain was worse after eating. Related Data Home Medications ?Medication ?Instructions ?Recorded ?Confirmed buspirone 30 mg tablet 20 mg PO BID 10/01/20 03/29/24 vitamin A acetate 3,000 mcg 20,000 unit sublingual 10/01/20 03/29/24 (10,000 unit) sublingual tablet vitamin E 200 unit capsule 400 unit PO DAILY 10/01/20 03/29/24 cholecalciferol (vitamin D3) 50 50 mcg PO DAILY 04/17/21 03/29/24 mcg (2,000 unit) tablet (Vitamin D3) diphenhydramine HCl 50 mg capsule 50 mg PO BEDTIME PRN Sleep 04/17/21 03/29/24 (Banophen) fluoxetine 20 mg capsule 40 mg PO DAILY 04/17/21 03/29/24 hydrochlorothiazide 25 mg tablet 25 mg PO DAILY 04/17/21 03/29/24 multivitamin 1 tab PO DAILY 04/17/21 03/29/24 trazodone 50 mg tablet 25 mg PO BEDTIME PRN insomnia 06/10/22 03/29/24 docusate sodium 100 mg capsule 100 mg PO BID 06/26/22 03/29/24 lidocaine-prilocaine 2.5 %-2.5 % g topical DAILY PRN 06/26/22 03/29/24 topical cream sucralfate 1 gram tablet 1 g PO QID 11/26/22 03/29/24 Previous Rx's ?Medication ?Instructions ?Recorded omeprazole 40 mg capsule,delayed 40 mg PO DAILY #90 caps 07/22/21 release losartan 50 mg tablet 50 mg PO BID #60 tabs 06/10/23 levalbuterol tartrate 45 2 puff inhalation Q6H PRN for 08/21/23 mcg/actuation aerosol inhaler wheezing #15 grams (Xopenex HFA) fluticasone propionate 50 2 spray intranasal DAILY #16 grams 09/14/23 mcg/actuation nasal spray,suspension montelukast 10 mg tablet 10 mg PO DAILY #30 tabs 11/13/23 loratadine 10 mg tablet 10 mg PO DAILY #30 tabs 11/16/23 cyclobenzaprine 10 mg tablet 10 mg PO TID PRN muscle pain or 04/03/24 spasm #20 tabs ibuprofen 400 mg tablet 400 mg PO TID PRN fever or pain 04/03/24 #30 tabs Allergies Allergy/AdvReac Type Severity Reaction Status Date / Time Farm Life Milk Allergy Unknown Rash Uncoded 04/03/24 17:07 Latex Gloves Allergy Unknown itching Uncoded 04/03/24 17:07 Review of Systems 2 Review of Systems: Yes all other systems are reviewed and are negative [facility] Past Medical History [facility] Narrative: Social history: She denies tobacco, alcohol and drug use. Medical History Hypoventilation Asthma exacerbation Bronchitis Iron deficiency anemia Hx of cardiomyopathy HTN (hypertension) Depression LILIAM (obstructive sleep apnea) Obesity Asthma Allergic rhinitis Surgical History History of tubal ligation Hx of hysterectomy Hx of section Gastric bypass status for obesity Family History Family History Father Pacemaker Mother HTN (hypertension) Diabetes Fibromyalgia Social History Social History Household Members Other:: Lives with her , 2 adult children Alcohol intake: never Patient Tobacco Use Status: Never used Tobacco Advance Directives: No Advance Directives Information Provided: No Do you have a plan to hurt others: No Plan Current occupational status: unemployed and disabled Physical Exam ED Vital Signs: Vital Signs - 24 hr 04/03/24 17:04 Temperature 98.3 F Pulse Rate 89 Respiratory Rate 18 Blood Pressure 128/67 Pulse Oximetry 98 Oxygen Delivery Method Room Air BMI result Body Mass Index 40.3 Vital signs were normal Exam: General: Awake, alert in no distress, weight was 106 0.6 kg, BMI elevated 40.3 Head: Normocephalic, atraumatic EENT: PERRL, Lids normal, sclera normal, conjunctiva normal, nose normal , ears normal, throat without erythema or exudates Neck: Supple, no adenopathy Lung: breath sounds symmetric, no wheezing, rales or rhonchi Chest: symmetric movement, nontender Heart: regular rate and rhythm, normal S1, S2 no murmurs or rubs Abdomen: soft, non-tender, no right upper quadrant tenderness, negative Lopez sign, nondistended, normal bowel sounds Back: Patient has no point vertebral tenderness, she does have tenderness palpation over her right paraspinal muscles lump her sacral area with spasm of these muscles, she has negative straight leg raise on the left but a positive straight leg raise on the right. Extremities: no deformities, moves all extremities symmetrically Neuro: Awake, alert, oriented, normal speech, cranial nerves intact, moves all extremities symmetrically Psych: Pleasant, cooperative Medical Decision Making Medical Decision Making MDM Narrative: 48-year-old female with a history of hypertension, cardiomyopathy, asthma, depression who presents emergency department for evaluation of right flank and right lower back pain with pain radiating down her right leg x2 days, pain was worse today . Her pain is exacerbated by movement. She had associated nausea and chills denied fever, frequency, urgency or dysuria. She has had no vomiting or diarrhea. Patient has had similar pain in the past. Vital signs were unremarkable. Physical examination did reveal tenderness palpation over the paraspinal muscles in the right lumbar sacral area with nonfocal neurologic exam. Differential diagnosis: ?Includes but is not limited to musculoskeletal injury, disc disease, sciatica/radiculopathy, renal colic, ureteral stones, cholecystitis, electrolyte abnormality Following evaluation was ordered: CBC, CMP Patient was initially treated with the following: Flexeril 10 mg orally, ibuprofen 400 mg orally Course: 23:04 My interpretation patient's laboratory evaluation as follows: CBC revealed a mild microcytic anemia with an H&H of 9.7 and 32.4 with an MCV of 72.6. CMP was unremarkable except for an elevated glucose of 204. LFTs were normal. The patient's exam is consistent with musculoskeletal injury/spasm with possible inflammation of the sciatic nerve. I did discuss this with the patient. Patient was given ibuprofen 400 mg orally and Flexeril 10 mg orally. Patient was given prescriptions for Flexeril 10 mg every 6 hours as needed for pain and ibuprofen 400 mg 3 times a day as needed for pain. She was advised to use ice and heat. She was given printed and verbal instructions and discharged home. The patient did not have any significant right upper quadrant tenderness and had a negative Lopez sign, therefore I do not think that her pain is caused by biliary disease especially given the normal LFTs. The patient did have a right upper quadrant ultrasound on 03/16/2024 and she had no gallstones visualized at that time. Admission/Observation Consideration of admission/observation: Escalation of care including admission/observation considered Lab Data MDM Lab Attestation statement: I reviewed the patient's lab results. 04/03/24 17:27 04/03/24 17:27 Labs: Lab Results 04/03/24 Range/Units 17:27 WBC 8.3 (4.8-10.8) X10*3/uL RBC 4.46 (4.20-5.50) X10*6/uL Hgb 9.7 L (12.0-16.0) g/dl Hct 32.4 L (37.0-47.0) % MCV 72.6 L (80.0-98.0) fL MCH 21.7 L (27.0-33.0) pg MCHC 29.9 L (31.0-35.0) g/dl RDW 19.2 H (11.0-16.0) % Plt Count 379 (160-400) X10*3/uL MPV 9.9 (9.4-12.3) fL Immature Gran % (Auto) 0.2 (0.0-0.4) % Neut % (Auto) 66.9 (45-73) % Lymph % (Auto) 24.1 (20-40) % Benzie % (Auto) 6.9 (2-11) % Eos % (Auto) 1.4 (0-4) % Baso % (Auto) 0.5 (0-2) % Lymph # (Auto) 2.0 (1.2-4.9) X10*3/uL Benzie # (Auto) 0.6 (0.1-1.2) X10*3/uL Eos # (Auto) 0.1 (0.0-0.4) X10*3/uL Baso # (Auto) 0.0 (0.0-0.2) X10*3/uL Abs Immat Gran (auto) 0.02 (0.00-0.03) X10*3/uL Absolute Neuts (auto) 5.6 (2.0-8.3) x10*3/uL Absolute Nucleated RBC 0.000 (0.0-0.012) X10*3/uL Nucleated RBC % (auto) 0.0 (0.0-0.2) /100WBC Sodium 137 (135-145) mmol/L Potassium 3.6 (3.3-5.1) mmol/L Chloride 107 (96-108) mmol/L Carbon Dioxide 20 L (22-29) mmol/L Anion Gap 14 (12-20) BUN 16 (9-16) mg/dL Creatinine 0.78 (0.5-1.4) mg/dL Estim Creat Clear Calc 105.1 Estimated GFR > 60 Random Glucose 204 H (60-115) mg/dL Calcium 9.2 (8.4-10.2) mg/dL Total Bilirubin 0.2 (0.0-1.0) mg/dL AST 12 (5-31) U/L ALT 15 (0-31) U/L Alkaline Phosphatase 63 (39-117) U/L Total Protein 6.8 (6.5-8.0) g/dL Albumin 3.7 (3.5-5.0) g/dL Independent Historian Clinical information obtained from an independent historian. History obtained from or confirmed by: Spouse Prescription Management I considered prescription management with: Pain Medication and Other (Anti spasm medications) Chronic Conditions Patient?s care impacted by: Hypertension and Other (Cardiomyopathy) Discharge Plan Discharge Clinical Impression: Acute right lumbar radiculopathy Patient Disposition: Home, Self-Care Instructions: Lumbar Radiculopathy (ED) Additional Instructions: Your blood work was unremarkable. Your liver tests were normal which is reassuring. On your exam you have tenderness palpation of your back muscles spasm of your back muscles. Sometimes you can get inflammation of the nerves coming out of your back and this can cause pain that goes down your leg. This is called radiculopathy. Take ibuprofen 200 mg pills, 1 pills every 6 hours as needed for pain or fever. Take Tylenol (acetaminophen) 500 mg pills, 2 pills every 6 hours as needed for pain or fever. Take Flexeril (cyclobenzaprine) 10 mg pills, 1 pill every 6-8 hours as needed for pain or spasm. ?This medication will make you sleepy. ?Do not drive or work while taking this medication. Apply ice for 15 minutes to your back. After now with an apply heating pad on low for 15 minutes. Do this 4 to 6 times a day to help reduce the pain in your back Follow-up with your doctor in 2 days. Please return to the emergency department if your symptoms get worse or if you develop any symptoms that are concerning to you. This time you do not have any tenderness over your gallbladder so I do not think that is your gallbladder causing your pain. You had an ultrasound of your abdomen on 03/16/2024 in you did not have gallstones at that time. Prescriptions: New cyclobenzaprine 10 mg tablet 10 mg PO TID PRN (Reason: muscle pain or spasm) Qty: 20 0RF ibuprofen 400 mg tablet 400 mg PO TID PRN (Reason: fever or pain) Qty: 30 0RF No Action omeprazole 40 mg capsule,delayed release(DR/EC) 40 mg PO DAILY Qty: 90 1RF Rx Instructions: Open capsule and mix with apple sauce and take levalbuterol tartrate [Xopenex HFA] 45 mcg/actuation HFA aerosol inhaler 2 puff inhalation Q6H PRN (Reason: for wheezing) Qty: 15 0RF fluticasone propionate 50 mcg/actuation spray,suspension 2 spray intranasal DAILY Qty: 16 0RF montelukast 10 mg tablet 10 mg PO DAILY Qty: 30 5RF loratadine 10 mg tablet 10 mg PO DAILY Qty: 30 5RF fluoxetine 20 mg capsule 40 mg PO DAILY cholecalciferol (vitamin D3) [Vitamin D3] 50 mcg (2,000 unit) tablet 50 mcg PO DAILY diphenhydramine HCl [Banophen] 50 mg capsule 50 mg PO BEDTIME PRN (Reason: Sleep) hydrochlorothiazide 25 mg tablet 25 mg PO DAILY multivitamin Tablet 1 tab PO DAILY buspirone 30 mg tablet 20 mg PO BID vitamin E 200 unit capsule 400 unit PO DAILY vitamin A acetate 10,000 unit tablet, sublingual 20,000 unit sublingual docusate sodium 100 mg capsule 100 mg PO BID lidocaine-prilocaine 2.5-2.5 % cream topical DAILY PRN losartan 50 mg tablet 50 mg PO BID Qty: 60 5RF trazodone 50 mg tablet 25 mg PO BEDTIME PRN (Reason: insomnia) sucralfate 1 gram tablet 1 g PO QID Print Language: [place]
[2024-04-03] MEDS: Ibuprofen 400 MG TABLET PO (23:09)
[2024-04-03] MEDS: Cyclobenzaprine HCl 10 MG TABLET PO (23:10)
[2024-04-03 23:12] VITALS: BP 128/67; PULSE 89; RESP 18; TEMP 36.8; O2SAT 98
== END 2024-04-03 23:12 | disposition home or self-care (01) ==
PROVIDERS: Emergency Provider Emergency Medicine Emergency Medical Services; PCP Internal Medicine
DX: M54.16 Radiculopathy, lumbar region (principal); Z79.899 Other long term (current) drug therapy
CPT/HCPCS: 36415; 80053; 85025; 99283

== ENCOUNTER 2024-05-09 08:02 | Outpatient (REF) | payer MEDICAID, SELFPAY ==
--- NOTE | ~2024-05-09 | CT_ITS ---
EXAMINATION: CT ABDOMEN AND PELVIS WITHOUT AND WITH CONTRAST CLINICAL INFORMATION: Left renal cyst COMPARISON: None available. Correlated to ultrasound dated March 16, 2024. TECHNIQUE: Multidetector volumetric imaging was performed of the abdomen and pelvis before and after the IV administration of 85 mL of Omnipaque 350 intravenous contrast without reported immediate complications. Sagittal and coronal reformatted images were obtained on the technologist's workstation. This CT examination was performed using dose optimization techniques as appropriate, variously including the following: *Automated exposure control *Adjustment of mA and/or kV according to patient size (this includes techniques or standardized protocols for targeted exams where dose is matched to indication/reason for exam; i.e. extremities or head) *Use of iterative reconstruction technique DLP: 1126 mGy-cm FINDINGS: Submitted for interpretation on July 11, 2024. Nonspecific patchy pulmonary groundglass, lingula and lung bases. LIVER, GALLBLADDER, AND BILIARY TREE: Liver measures 20 cm with decreased enhancement pattern. Portal veins and hepatic veins are patent. There is a subtle nodular surface of the liver. No pericholecystic fluid collection or gallbladder wall thickening. No intrahepatic or extrahepatic biliary ductal dilatation. PANCREAS: No focal mass. No peripancreatic fluid collection. No main pancreatic ductal dilatation. SPLEEN: 9 cm. No focal mass. ADRENAL GLANDS: No nodular lesions. KIDNEYS AND URETERS: Right kidney: No hydronephrosis. No nephrolithiasis. 4 mm nonenhancing fluid density at the renal cortex, upper pole. Normal enhancement pattern throughout the renal parenchyma. Left kidney: No hydronephrosis. No nephrolithiasis. No enhancing renal mass. No cystic lesion. Normal enhancement pattern throughout the renal parenchyma. BLADDER: Fluid-filled nearly collapsed. GASTROINTESTINAL TRACT: Sutures at the gastroesophageal junction and proximal small bowel loops likely a Te-en-Y procedure. Abundant stool within the large intestine. No intestinal obstruction pattern. Ascites, trace amount in the cul-de-sac.. No pneumoperitoneum. No pneumatosis intestinalis. Appendix is normal. ABDOMINAL WALL: Small fat-containing umbilical hernia and diastases abdominal rectus muscles with protrusion of the intra-abdominal contents. LYMPH NODES: No lymphadenopathy, mesenteric or retroperitoneal. VASCULAR: No aneurysm or dissection. Mixed plaques in the abdominal aorta wall and iliac arteries. PELVIC VISCERA: Heterogeneous partially calcified mixed solid and low density nodular lesions in the anterior margin of the myometrium. The uterus is in retroversion flexion position. There is no enlargement of the adnexa. OSSEOUS STRUCTURES: Multilevel thoracolumbar spondylosis. No acute fracture or listhesis. Sclerosis and vacuum phenomenon and the sacroiliac joints. CT/CT abdomen pelvis wo/w IV con IMPRESSION: No renal mass. 4 mm cyst, right kidney. Hepatomegaly and steatosis. Hepatocellular disease cannot be excluded. Uterine fibroids/leiomyomatosis. Status post gastric bypass. Small fat-containing umbilical hernia and associated diastases abdominal rectus muscles. Fleischner guidelines were followed. Electronically signed by: Brendon Barth MD 07/11/2024 07:56 AM [facility]
[2024-05-09] MEDS: iohexoL 350 MG/ML 100 ML INFUS..BTL 85 ML IV (09:09)
== END 2024-05-09 08:03 | disposition home or self-care (01) ==
LOC: HO.CT 08:02
PROVIDERS: PCP Internal Medicine; Visit Provider Internal Medicine
DX: N28.1 Cyst of kidney, acquired (principal)
CPT/HCPCS: 74178; Q9967

== ENCOUNTER → 2024-05-09 08:04 | Outpatient (BNV) | payer MEDICAID, SELFPAY | PROVIDERS: PCP Internal Medicine; Visit Provider Radiology Diagnostic Radiology | DX: N28.1 Cyst of kidney, acquired (principal) | CPT/HCPCS: 74178 ==

== ENCOUNTER 2024-05-11 10:43 | Outpatient (REF) | payer MEDICAID, SELFPAY ==
[2024-05-11 14:44] LABS: MANUAL DIFF FLAG NO
[2024-05-11 14:50] LABS: Basophils Absolute Auto 0.1 X10*3/uL (0.0-0.2); Basophils Percent Auto 1.1 % (0-2); Eosinophils Absolute Auto 0.2 X10*3/uL (0.0-0.4); Eosinophils Percent Auto 3.2 % (0-4); Hematocrit 35.2 % (37.0-47.0); Hemoglobin 10.4 g/dl (12.0-16.0); Imm Gran Abs Auto 0.01 X10*3/uL (0.00-0.03); Imm Gran Pct Auto 0.2 % (0.0-0.4); Lymphocytes Absolute Auto 1.6 X10*3/uL (1.2-4.9); Mean Corpuscular HGB Conc 29.5 g/dl (31.0-35.0); Mean Corpuscular Hemoglobin 22.7 pg (27.0-33.0); Mean Corpuscular Volume 76.9 fL (80.0-98.0); Mean Platelet Volume 10.5 fL (9.4-12.3); Monocytes Absolute Auto 0.4 X10*3/uL (0.1-1.2); Monocytes Percent Auto 8.3 % (2-11); Neutrophils Absolute Auto 2.5 x10*3/uL (2.0-8.3); Neutrophils Percent Auto 53.2 % (45-73); Platelet Count 363 X10*3/uL (160-400); Red Blood Count 4.58 X10*6/uL (4.20-5.50); Red Cell Distribution Width 21.3 % (11.0-16.0); White Blood Count 4.7 X10*3/uL (4.8-10.8)
[2024-05-11 15:06] LABS: Iron 24 mcg/dL (30-160); Percent Iron Saturation 8 % (15-50); Total Iron Binding Capacity 298 mcg/dL (228-428); Unsaturated Iron Binding 274 ug/dL
== END 2024-05-11 10:44 | disposition home or self-care (01) ==
LOC: HO.CHCLDS 10:43
PROVIDERS: Visit Provider Internal Medicine
DX: D50.0 Iron deficiency anemia secondary to blood loss (chronic) (principal)
CPT/HCPCS: 36415; 83540; 85025

== ENCOUNTER 2024-06-06 12:27 | Outpatient (AMB) | payer MEDICAID, SELFPAY ==
--- NOTE | 2024-06-06 12:29 | MHC.OFFVISWM ---
VS Expanded 06/06/24 12:36 BP 140/73 H Blood Pressure Location Rt brachial Blood Pressure Position Sitting Pulse 75 Pulse Source Pulse Oximeter Temp 97.3 F Temperature Source Temporal Artery Scan Pulse Oximetry 95 Oxygen Delivery Method Room Air Height 5 ft 4 in Weight 235 lb 3.2 oz BMI 40.4 Body Fat % 44.6 Body Fat Mass 104.8 Fat Free Mass 130.2 Visceral Fat Rating 13.0 Body Water % 39.5 Body Water Mass 92.8 Muscle Mass/Score 123.6 Basal Metabolic Rate/Score 1,825 Intake Visit Reasons: OV PO GBP 1975 Waistline Joiner Overlock Required: Yes Waistline Joiner Overlock Name: Martinez Oliver [id number] Information Interpreted: clinical only Allergies Farm Life Milk Allergy (Unknown, Uncoded 04/03/24 17:07) Rash Latex Gloves Allergy (Unknown, Uncoded 04/03/24 17:07) itching Medication List - Last Reconciled 06/06/24 by LACY Melgar buspirone 20 mg PO BID cholecalciferol (vitamin D3) (Vitamin D3) 50 mcg PO DAILY cyclobenzaprine 10 mg PO TID PRN diphenhydramine HCl (Banophen) 50 mg PO BEDTIME PRN docusate sodium 100 mg PO BID fluoxetine 40 mg PO DAILY fluticasone propionate 50 mcg/actuation 2 sprays intranasal DAILY hydrochlorothiazide 25 mg PO DAILY ibuprofen 400 mg PO TID PRN levalbuterol tartrate 45 mcg/actuation (Xopenex HFA) 2 puffs inhalation Q6H PRN lidocaine-prilocaine 2.5-2.5 % grams topical DAILY PRN loratadine 10 mg PO DAILY losartan 50 mg PO BID montelukast 10 mg PO DAILY multivitamin 1 tab PO DAILY omeprazole 40 mg PO DAILY sucralfate 1 g PO QID trazodone 25 mg PO BEDTIME PRN vitamin A acetate 20,000 units sublingual vitamin E 400 units PO DAILY HPI Comments Details: Pt is s/p LRYGB 2015. Has not been seen in many years in office. Pt reports low Hgb/iron. No abdominal pain. No nausea/vomiting. No dark colored or bloody stools. Pt thinks she had a history of an ulcer some time ago. Last endoscopy [address] Segal. Does not currently follow a meal plan. Was using ibuprofen in the past for severe back pain. Last month was last dose. No tobacco. No EtOH. Takes omeprazole and carafate, but pt is unsure if still on them and Rx in our system are old. [facility] Medical History Hypoventilation Asthma exacerbation Bronchitis Iron deficiency anemia Hx of cardiomyopathy HTN (hypertension) Depression LILIAM (obstructive sleep apnea) Obesity Asthma Allergic rhinitis Surgical History History of tubal ligation Hx of hysterectomy Hx of section Gastric bypass status for obesity Family History Father Pacemaker Mother HTN (hypertension) Diabetes Fibromyalgia Social History Household Members Other:: Lives with her , 2 adult children Alcohol intake: never Patient Tobacco Use Status: Never used Tobacco Current occupational status: unemployed and disabled Physical Exam Const General: cooperative, comfortable and no acute distress Orientation/consciousness: patient oriented x3 GI Other: soft, nontender, nondistended, incisions well healed, no hernia, no masses Neuro General: patient oriented x3 Assessment & Plan Assessment & Plan (1) Obesity, Class III, BMI 40-49.9 (morbid obesity): Code(s): E66.01 - Morbid (severe) obesity due to excess calories Category: Medical (2) Gastric bypass status for obesity: Comment: (2016) Code(s): Z98.84 - Bariatric surgery status Category: Surgical (3) Anemia: Code(s): D64.9 - Anemia, unspecified Category: Medical Plan Will discuss need for endoscopy with Dr Graham for this anemia of unknown origin, to rule out ulcer. Will restart shake based only plan, pt would like to use Premier- 1 shake with 2 scoops and 4 shakes with 1 scoop. Full set of labs ordered. Rx for pantoprazole and carafate. Will contact pt once decision for endoscopy is reached. I spent a total of 30 minutes reviewing/updating records, examining the patient and counseling the patient on weight management as detailed above. Orders: Orders Hemoglobin A1c Today Z98.84 - Bariatric surgery status Lipid Panel Today Z98.84 - Bariatric surgery status IRON PROFILE Today Z98.84 - Bariatric surgery status Comprehensive Met. Panel Today Z98.84 - Bariatric surgery status Vitamin B12 and Folate Today Z98.84 - Bariatric surgery status TSH reflex Free T4 Today Z98.84 - Bariatric surgery status Insulin Today Z98.84 - Bariatric surgery status Complete Blood Count Auto Diff Today Z98.84 - Bariatric surgery status Zinc Today Z98.84 - Bariatric surgery status C Reactive Protein Today Z98.84 - Bariatric surgery status Vitamin B1 Today Z98.84 - Bariatric surgery status Vitamin A Today Z98.84 - Bariatric surgery status Ferritin Today Z98.84 - Bariatric surgery status Vitamin D 25-OH Total Today Z98.84 - Bariatric surgery status Medications: New sucralfate 10 mL PO QID 414 mL 3RF pantoprazole 40 mg PO BID 90 tabs 3RF Discontinued omeprazole Open capsule and mix with apple sauce and take Discontinued Reason: Doctor's Order 40 mg PO DAILY 90 caps 1RF
[2024-06-06 12:36] VITALS: BP 140/73; PULSE 75; TEMP 36.3; O2SAT 95; BMI 40.4
== END 2024-06-06 13:02 | disposition home or self-care (01) ==
LOC: HO.HBS 12:28
PROVIDERS: PCP Family Medicine; Visit Provider Physician Assistant Surgical
DX: E66.01 Morbid (severe) obesity due to excess calories (principal); Z98.84 Bariatric surgery status; D64.9 Anemia, unspecified
CPT/HCPCS: 99214

== ENCOUNTER → 2024-06-06 12:27 | Outpatient (BNVA) | payer MEDICAID, SELFPAY | PROVIDERS: PCP Family Medicine; Visit Provider Physician Assistant Surgical | DX: E66.01 Morbid (severe) obesity due to excess calories (principal); D64.9 Anemia, unspecified; Z68.41 Body mass index [BMI] 40.0-44.9, adult; Z90.3 Acquired absence of stomach [part of] | CPT/HCPCS: 99212 ==

== ENCOUNTER 2024-07-26 15:24 | Outpatient (AMB) | payer MEDICAID, SELFPAY ==
[2024-07-26 15:33] VITALS: BP 120/72; PULSE 70; O2SAT 98; BMI 40.9
--- NOTE | 2024-07-26 15:33 | MHC.OFFVIS ---
Vital Signs 07/26/24 15:33 Height 5 ft 4 in Weight 238 lb 1.588 oz BMI 40.9 BP 120/72 Blood Pressure Location Lt brachial Position Sitting Pulse 70 Pulse Source Pulse Oximeter Pulse Oximetry (%) 98 Oxygen Delivery Method Room Air Intake Visit Reasons: Obstructive sleep apnea Intake Note: pt is here for follow up visit but states she has not been feeling good for a week, short of breath, coughing, whezing, asthma is flaring up. cpap is doing okay but hard with her asthma acting up Information Systems Technician Required: No Allergies Farm Life Milk Allergy (Unknown, Uncoded 07/26/24 15:53) Rash Latex Gloves Allergy (Unknown, Uncoded 07/26/24 15:53) itching Medication List - Last Reconciled 07/26/24 by Bobby Hugo MD buspirone 20 mg PO BID cholecalciferol (vitamin D3) (Vitamin D3) 50 mcg PO DAILY cyclobenzaprine 10 mg PO TID PRN diphenhydramine HCl (Banophen) 50 mg PO BEDTIME PRN docusate sodium 100 mg PO BID fluoxetine 40 mg PO DAILY fluticasone propionate 50 mcg/actuation 2 sprays intranasal DAILY hydrochlorothiazide 25 mg PO DAILY ibuprofen 400 mg PO TID PRN levalbuterol tartrate 45 mcg/actuation (Xopenex HFA) 2 puffs inhalation Q6H PRN lidocaine-prilocaine 2.5-2.5 % grams topical DAILY PRN loratadine 10 mg PO DAILY losartan 50 mg PO BID montelukast 10 mg PO DAILY multivitamin 1 tab PO DAILY pantoprazole 40 mg PO BID sucralfate 10 mL PO QID trazodone 25 mg PO BEDTIME PRN vitamin A acetate 20,000 units sublingual vitamin E 400 units PO DAILY HPI HPI Obstructive sleep apnea: Details: This 48 years old female with morbid obesity and obstructive sleep apnea as well as mild bronchial asthma, is here after. 4 months for routine follow-up However in the last 7-10 days she has not been able to use CPAP because of cough, and some wheezing. Started with symptoms of common cold and it has settled down in her chest, to the point that she is having very frequent cough. She denies fever or chills or any significant expectoration. She does had increased nasal congestion. Prior to this illness she was using her CPAP very regularly and sleeping well. [facility]LY [facility] Medical History Hypoventilation Asthma exacerbation Bronchitis Iron deficiency anemia Hx of cardiomyopathy HTN (hypertension) Depression LILIAM (obstructive sleep apnea) Obesity Asthma Allergic rhinitis Surgical History History of tubal ligation Hx of hysterectomy Hx of section Gastric bypass status for obesity Family History Father Pacemaker Mother HTN (hypertension) Diabetes Fibromyalgia Social History Household Members Other:: Lives with her , 2 adult children Alcohol intake: never Patient Tobacco Use Status: Never used Tobacco Current occupational status: unemployed and disabled Review of Systems Const All systems reviewed & are unremarkable except as noted in HPI and below Eyes Reports no additional complaints ENT Reports nasal congestion (FREQUENT, CONTROLLED WITH MEDS) and Reports nasal discharge Card Denies chest pain, Denies irregular heart rhythm and Denies leg edema Resp Reports as per HPI GI Reports heartburn (Symptoms of GERD controlled with med) Reports no additional complaints Musc Reports no additional complaints Skin/Breast Reports system reviewed and no additional complaints, except as documented Neuro Reports no additional complaints Psych Reports depression (Controlled with med) Physical Exam Vital Signs: Last Vital Signs Pulse 70 07/26/24 15:33 BP 120/72 07/26/24 15:33 Pulse Ox 98 07/26/24 15:33 Oxygen Delivery Method Room Air 07/26/24 15:33 BMI result Body Mass Index 40.9 Const General: healthy appearing (Sick-looking and has frequent cough during the encounter.), comfortable, no acute distress, alert and awake Orientation/consciousness: patient oriented x3 HEENT Head: Yes normal to inspection General nose exam: No nasal polyps present, No nasal discharge present and Other nasal findings present (Bilateral chronic nasal congestion) Face and sinus: Yes sinuses nontender Mouth: oropharynx normal Throat: Yes posterior oropharynx normal Eyes General: appearance normal, both eyes and all related structures Neck Neck: Yes normal visual inspection, Yes no lymphadenopathy, Yes trachea midline and Yes no JVD Thyroid: Thyroid normal Chest Chest palpation & inspection: normal inspection of the chest, normal palpation of entire chest wall and no tenderness Resp Other: Percussion note resonant, breath sounds are slightly distant on both sides. She has scattered expiratory wheezes in the upper part of the chest. Cardio Palpation: normal PMI Rate: regular rate Rhythm: regular rhythm Heart sounds: no gallops and no murmurs GI Palpation (GI): Soft to palpation, nontender, No hepatosplenomegaly present and no masses Auscultation: normal bowel sounds Back/Spine/Pelvis Thoracic/Lumbar Spine: thoracic and lumbar spine normal to inspection Skin General skin exam: no rashes or lesions noted Neuro General: patient oriented x3 and no focal motor deficits Cranial nerves: Yes CN's II-XII intact bilaterally Extrem General: Yes normal to inspection, Yes no clubbing, cyanosis or edema and Yes no calf tenderness Psych Appearance: grossly normal and well kempt Speech and movement: Normal speech and movement present Results Reviewed Results Reviewed: Compliance report is reviewed and she has missed using about a week in June and 1 week in July. When she does use the she has very little air leak and residual AHI 0.9 Assessment & Plan Assessment & Plan (1) Asthma exacerbation: Comment: Started with an acute viral infection. Now she has persistent bronchitis with acute exacerbation of bronchial asthma. Code(s): J45.901 - Unspecified asthma with (acute) exacerbation Category: Medical Plan: PREDNISONE 20 MG B.I.D. FOR 1 WEEK, Z-WILLAM # 1 CONTINUE TO USE XOPENEX 2 PUFFS Q 4-6 HOURS P.R.N.. (2) LILIAM (obstructive sleep apnea): Comment: Moderate degree of sleep apnea. The AHI was 23/hr and oxygen viri was 88% She does use CPAP, but misses on frequent nights, overall her compliance has been low , because of URI symptoms . Code(s): G47.33 - Obstructive sleep apnea (adult) (pediatric) Category: Medical Plan: Advised to start using the CPAP regularly as soon as the acute exacerbation is controlled. (3) Obesity: Comment: DISCUSSED ABOUT HER WEIGHT PROBLEM. SHE NEEDS TO BE IN THE WEIGHT MANAGEMENT PROGRAM . SHE HAS HAD GASTROPLASTY BEFORE. Code(s): E66.9 - Obesity, unspecified Category: Medical Plan: She needs to join the weight management program a gain and lose some weight Medications: New prednisone 20 mg PO BID 5 days 10 tabs 0RF asthma excerbation azithromycin For 250 mg dose pack: take 500 mg today (day 1), then 250 mg for 4 days (days 2-5) PO 6 tabs 0RF Coding Level of Care Code Est Pt Level 3 (14831) Diagnoses Asthma exacerbation J45.901 LILIAM (obstructive sleep apnea) G47.33 Obesity E66.9
== END 2024-07-26 15:53 | disposition home or self-care (01) ==
PROVIDERS: PCP Internal Medicine; Visit Provider Internal Medicine
DX: J45.901 Unspecified asthma with (acute) exacerbation (principal); G47.33 Obstructive sleep apnea (adult) (pediatric); E66.9 Obesity, unspecified
CPT/HCPCS: 99213

== ENCOUNTER → 2024-07-26 15:24 | Outpatient (BNVA) | payer MEDICAID, SELFPAY | PROVIDERS: PCP Internal Medicine; Visit Provider Internal Medicine | DX: J45.901 Unspecified asthma with (acute) exacerbation (principal); G47.33 Obstructive sleep apnea (adult) (pediatric); E66.9 Obesity, unspecified; Z68.41 Body mass index [BMI] 40.0-44.9, adult | CPT/HCPCS: 99212 ==

== ENCOUNTER 2024-08-05 08:55 | Outpatient (REF) | payer MEDICAID, SELFPAY ==
[2024-08-05 14:07] LABS: MANUAL DIFF FLAG NO
[2024-08-05 14:18] LABS: Basophils Absolute Auto 0.1 X10*3/uL (0.0-0.2); Basophils Percent Auto 0.8 % (0-2); Eosinophils Absolute Auto 0.1 X10*3/uL (0.0-0.4); Eosinophils Percent Auto 2.4 % (0-4); Hematocrit 39.4 % (37.0-47.0); Hemoglobin 12.2 g/dl (12.0-16.0); Imm Gran Abs Auto 0.02 X10*3/uL (0.00-0.03); Imm Gran Pct Auto 0.3 % (0.0-0.4); Lymphocytes Absolute Auto 1.6 X10*3/uL (1.2-4.9); Lymphocytes Percent Auto 27.1 % (20-40); Mean Corpuscular Hemoglobin 25.8 pg (27.0-33.0); Mean Corpuscular Volume 83.3 fL (80.0-98.0); Mean Platelet Volume 10.2 fL (9.4-12.3); Monocytes Absolute Auto 0.5 X10*3/uL (0.1-1.2); Monocytes Percent Auto 8.4 % (2-11); Neutrophils Absolute Auto 3.6 x10*3/uL (2.0-8.3); Platelet Count 329 X10*3/uL (160-400); Red Blood Count 4.73 X10*6/uL (4.20-5.50); Red Cell Distribution Width 17.2 % (11.0-16.0)
[2024-08-05 14:35] LABS: Estimated Average Glucose 137 mg/dL; Hemoglobin A1C 143.6838 umol/L; Hemoglobin A1c % 6.4 % (<6.0); Total Hemoglobin (HGBA1C) 3119.1827 umol/L
[2024-08-05 14:40] LABS: Iron 47 mcg/dL (30-160); Percent Iron Saturation 17 % (15-50); Total Iron Binding Capacity 275 mcg/dL (228-428); Unsaturated Iron Binding 228 ug/dL
[2024-08-05 14:45] LABS: Alanine Aminotransferase 18 U/L (0-31); Albumin Level 3.5 g/dL (3.5-5.0); Alkaline Phosphatase 54 U/L (39-117); Anion Gap 12 (12-20); Aspartate Amino Transferase 23 U/L (5-31); Bilirubin Total 0.2 mg/dL (0.0-1.0); Blood Urea Nitrogen 8 mg/dL (9-16); C Reactive Protein 0.28 mg/dL (< or = 0.50); Calcium 8.5 mg/dL (8.4-10.2); Carbon Dioxide 24 mmol/L (22-29); Chloride 104 mmol/L (96-108); Cholesterol 170 mg/dL (<200); Estimated Glomerular Filt Rate > 60; Glucose Random 111 mg/dL (60-115); HDL Cholesterol 44 mg/dL (>40); Iron 48 mcg/dL (30-160); LDL Cholesterol Calculated 93 mg/dL (<100); Percent Iron Saturation 17 % (15-50); Potassium 3.9 mmol/L (3.3-5.1); Sodium 136 mmol/L (135-145); Total Iron Binding Capacity 281 mcg/dL (228-428); Total Protein 6.5 g/dL (6.5-8.0); Triglycerides 167 mg/dL (<150); Unsaturated Iron Binding 233 ug/dL
[2024-08-05 15:04] LABS: Ferritin 13 ng/mL (10-250); Insulin 16 uU/mL (2-29); TSH reflex Free T4 0.68 uIU/mL (0.32-4.0); Vitamin D 25-OH Total 46.9 ng/mL (>30)
[2024-08-05 15:06] LABS: Folate 8.4 ng/mL (> or = 4.0); Vitamin B12 221 pg/mL (200-900)
== END 2024-08-05 08:56 | disposition home or self-care (01) ==
LOC: HO.CHCLDS 08:55
PROVIDERS: PCP Internal Medicine; Referring Provider Physician Assistant Surgical; Visit Provider Internal Medicine
DX: D50.0 Iron deficiency anemia secondary to blood loss (chronic) (principal); Z98.84 Bariatric surgery status
CPT/HCPCS: 36415; 80053; 80061; 82306; 82607; 82728; 82746; 83036; 83525; 83540; 84443; 85025; 86140

== ENCOUNTER 2024-08-17 10:40 | Outpatient (REF) | payer MEDICAID, SELFPAY ==
[2024-08-17 11:03] LABS: MANUAL DIFF FLAG NO
[2024-08-17 11:41] LABS: Basophils Absolute Auto 0.1 X10*3/uL (0.0-0.2); Basophils Percent Auto 0.9 % (0-2); Eosinophils Absolute Auto 0.1 X10*3/uL (0.0-0.4); Hematocrit 38.9 % (37.0-47.0); Hemoglobin 12.6 g/dl (12.0-16.0); Imm Gran Abs Auto 0.02 X10*3/uL (0.00-0.03); Imm Gran Pct Auto 0.4 % (0.0-0.4); Lymphocytes Absolute Auto 1.6 X10*3/uL (1.2-4.9); Lymphocytes Percent Auto 29.2 % (20-40); Mean Corpuscular HGB Conc 32.4 g/dl (31.0-35.0); Mean Corpuscular Hemoglobin 26.6 pg (27.0-33.0); Mean Corpuscular Volume 82.1 fL (80.0-98.0); Mean Platelet Volume 9.9 fL (9.4-12.3); Monocytes Absolute Auto 0.5 X10*3/uL (0.1-1.2); Monocytes Percent Auto 9.5 % (2-11); Neutrophils Absolute Auto 3.2 x10*3/uL (2.0-8.3); Platelet Count 334 X10*3/uL (160-400); Red Blood Count 4.74 X10*6/uL (4.20-5.50); Red Cell Distribution Width 16.4 % (11.0-16.0); White Blood Count 5.6 X10*3/uL (4.8-10.8)
[2024-08-19 22:04] LABS: Zinc 69 mcg/dL (60-130)
[2024-08-23 14:38] LABS: Vitamin B1 11 nmol/L (8-30)
[2024-08-24 15:37] LABS: Vitamin A 38 mcg/dL (38-98)
== END 2024-08-17 10:41 | disposition home or self-care (01) ==
LOC: HO.LAB 10:40
PROVIDERS: PCP Internal Medicine; Visit Provider Physician Assistant Surgical
DX: R07.9 Chest pain, unspecified (principal); I10 Essential (primary) hypertension; Z98.84 Bariatric surgery status
CPT/HCPCS: 36415; 84425; 84590; 84630; 85025; 93005; 99212

== ENCOUNTER 2024-08-17 11:08 | Outpatient (AMB) | payer MEDICAID, SELFPAY ==
[2024-08-17 11:11] VITALS: BP 118/60; PULSE 60; BMI 40.5
--- NOTE | 2024-08-17 11:11 | A.OFFVIS_ITS ---
Vital Signs 08/17/24 11:11 Height 5 ft 4 in Weight 235 lb 14.314 oz BMI 40.5 BP 118/60 Blood Pressure Location Lt brachial Position Sitting Pulse 60 Pulse Source Monitor Intake Visit Reasons: 1 yr w/ ekg r/s Senior Quality Manager Required: Yes Senior Quality Manager Name: [id number] [id number] Allergies Farm Life Milk Allergy (Unknown, Uncoded 07/26/24 15:53) Rash Latex Gloves Allergy (Unknown, Uncoded 07/26/24 15:53) itching Medication List - Last Reconciled 08/17/24 by Dennis Do MD buspirone 20 mg PO BID cholecalciferol (vitamin D3) (Vitamin D3) 50 mcg PO DAILY diphenhydramine HCl (Banophen) 50 mg PO BEDTIME PRN docusate sodium 100 mg PO BID fluoxetine 40 mg PO DAILY fluticasone propionate 50 mcg/actuation 2 sprays intranasal DAILY hydrochlorothiazide 25 mg PO DAILY ibuprofen 400 mg PO TID PRN levalbuterol tartrate 45 mcg/actuation (Xopenex HFA) 2 puffs inhalation Q6H PRN lidocaine-prilocaine 2.5-2.5 % grams topical DAILY PRN loratadine 10 mg PO DAILY losartan 50 mg PO BID montelukast 10 mg PO DAILY multivitamin 1 tab PO DAILY pantoprazole 40 mg PO BID sucralfate 10 mL PO QID trazodone 25 mg PO BEDTIME PRN vitamin A acetate 20,000 units sublingual vitamin E 400 units PO DAILY HPI Comments Details: Yaya comes for follow-up. History was obtained with help of risk adjustment specialist. She said has June and July very stressful time for her due to her living situation. During that time she was having lot more increased symptoms of palpitations. This has now resolved. She also was having a lot of symptoms of retrosternal chest tightness under stressful situation but also notices this with exertional sometimes. Symptoms last for about a minute. Symptoms persist despite resolution of her stressful situation. She takes all her medications. Denies any lightheadedness, syncope. Denies heart failure symptoms [facility] Medical History Hypoventilation Asthma exacerbation Bronchitis Iron deficiency anemia Hx of cardiomyopathy HTN (hypertension) Depression LILIAM (obstructive sleep apnea) Obesity Asthma Allergic rhinitis Surgical History History of tubal ligation Hx of hysterectomy Hx of section Gastric bypass status for obesity Family History Father Pacemaker Mother HTN (hypertension) Diabetes Fibromyalgia Social History Household Members Other:: Lives with her , 2 adult children Alcohol intake: never Patient Tobacco Use Status: Never used Tobacco Current occupational status: unemployed and disabled Review of Systems Const Denies weakness ENT Denies dizziness Card Denies chest pain, Denies chest pain with activity, Denies syncope, Denies rapid heart rate, Denies pedal edema, Denies edema, Denies leg edema, Denies lightheadedness, Denies palpitations, Denies dyspnea, Denies dyspnea on exertion and Denies orthopnea Resp Denies cough, Denies dyspnea and Denies dyspnea on exertion GI Denies hematochezia and Denies change in stool character Musc Denies abnormal gait, Denies muscle cramps, Denies muscle weakness, Denies numbness, Denies radiating pain into limb and Denies tingling Neuro Denies Abnormal speech present, Denies abnormal gait, Denies dizziness, Denies syncope, Denies numbness, Denies tingling and Denies weakness Endo Denies palpitations Physical Exam Vital Signs: Last Vital Signs Pulse 60 08/17/24 11:11 BP 118/60 08/17/24 11:11 BMI result Body Mass Index 40.5 Const General: cooperative, comfortable, no acute distress, alert and awake Nutritional Appearance: obese Orientation/consciousness: patient oriented x3 Limitations: no limitations HEENT Head: Yes normocephalic and Yes atraumatic Neck Neck: Yes trachea midline, Yes supple and Yes no JVD Resp Effort & Inspection: normal respiratory effort Auscultation: clear to auscultation bilaterally Cardio Jugular venous distension: no JVD Palpation: normal PMI Rate: regular rate Rhythm: regular rhythm Heart sounds: S1 normal heart sound present, S2 normal heart sound present, no click, no gallops, no murmurs and no rubs GI Auscultation: normal bowel sounds Skin General skin exam: no rashes or lesions noted Neuro General: patient oriented x3 and no focal motor deficits Speech: No Abnormal speech present Extrem General: Yes no clubbing, cyanosis or edema Psych Appearance: grossly normal Office Procedures EKG Details: EKG shows normal sinus rhythm with deep T-wave inversions in lead 3 and AVF as well as T-wave inversion in V4 to V6 [id number], Complete Assessment & Plan Assessment & Plan (1) Chest pain: Code(s): R07.9 - Chest pain, unspecified Plan: Patient with chest pain syndrome under stressful situation sometimes with exertion with EKG which shows further T-wave inversions that could represent repolarization changes already ischemia. Would suggest exercise myocardial perfusion imaging for further evaluation. Further treatment based on the findings. She was recommended to participate in stress mitigation strategies. Also advised to measure blood pressure during these episodes. Can you aggressive vascular risk factor modification. (2) HTN (hypertension): Code(s): I10 - Essential (primary) hypertension Category: Medical Plan: Hypertension which is currently well optimized advised to monitor blood pressure at home maintain a log. Goal blood pressure less than 130/84. Recommend to continue to participate in aggressive weight loss program which is going to help her overall cardiovascular risk profile. Continue CPAP therapy. Will obtain echocardiogram to assess LV systolic and diastolic function to evaluate for further LVH. Will follow up in the clinic in 2 years time, sooner p.r.n.. Thank you for allowing me to partake in his care Coding Level of Care Code Est Pt Level 4 (95571) Complex EM visit Add On G2211 Diagnoses Chest pain R07.9 HTN (hypertension) I10 CPT Codes EKG - CPT: [id number], Complete ([id number])
== END 2024-08-17 11:32 | disposition home or self-care (01) ==
PROVIDERS: PCP Internal Medicine; Visit Provider Internal Medicine Cardiovascular Disease
DX: R07.9 Chest pain, unspecified (principal); I10 Essential (primary) hypertension
CPT/HCPCS: 93010; 99214

== ENCOUNTER → 2024-08-26 12:33 | Outpatient (REF) | payer MEDICAID, SELFPAY ==
--- NOTE | 2024-08-26 12:37 | CA_ITS ---
Transthoracic Echocardiogram Patient (Last, First, Middle): Yaya Jha, Gender: Female Date of : 1975 Age: 49 Procedure Date: 08/26/2024 Procedure Type: Transthoracic Echocardiogram Location: OP Height: 162.56 cm Weight: 106.6 kg BSA: 2.09 m2 Heart Rate: 66 bpm BP: 118 / 60 mmHg Production Illustrator: SB Referring MD: Dennis Do MD Symptoms: R94.31 - Abnormal electrocardiogram [ECG] [EKG] Study Quality: Adequate ECG Rhythm: Sinus Conclusions: - Normal left ventricular cavity size. There is normal left ventricular wall thickness. The left ventricular systolic function is mildly decreased. The visually estimated ejection fraction is between 40-45%. - E/E prime ratio is between 8 and 15 consistent with indeterminate filling pressures. - Normal right ventricular cavity size and systolic function. Findings Left Ventricle Normal left ventricular cavity size. There is normal left ventricular wall thickness. The left ventricular systolic function is mildly decreased. The visually estimated ejection fraction is between 40-45%. Regional wall motion abnormalities can not be excluded due to suboptimal endocardial definition. Abnormal diastolic function is noted. Spectral Doppler is indicative of an impaired relaxation filling pattern. E/E prime ratio is between 8 and 15 consistent with indeterminate filling pressures. Right Ventricle Normal right ventricular cavity size and systolic function. Atria The left atrium is mildly dilated. The right atrium is normal in size. Aortic Valve Normal aortic valve structure and function. There is no aortic valve stenosis. There is no aortic valve regurgitation. Mitral Valve Normal mitral valve structure and function. There is no mitral valve regurgitation. There is no mitral valve stenosis. Pulmonic Valve The pulmonic valve is normal. There is trace pulmonic valve regurgitation. Tricuspid Valve Normal tricuspid valve structure. There is trace tricuspid valve regurgitation. Normal right atrial pressure. There is no evidence of pulmonary hypertension. Great Vessels The visualized portions of the pulmonary artery and branches are normal. Venous The inferior vena cava is normal in size and collapses greater than 50% with inspiration. Pericardium/Pleural There is no evidence of pericardial effusion. Measurements 2D Linear Measurements IVSd: 0.97 0.6-0.9/0.6-1.0 cm LVIDd: 4.96 3.9-5.3/4.2-5.9 cm LVIDd Index: 2.37 2.4-3.2/2.2-3.1 cm/m2 LVIDs: 3.96 2.0-3.6 cm LVPWd: 0.79 0.7-1.1 cm LA Diam: 4.60 2.7-3.8/3.0-4.0 cm LAIDs Index: 2.20 1.5-2.3 cm/m2 LV Mass: 188.84 67-162/88-224 g LV Mass Index: 90.35 43-95/49-115 g/m2 LVOT Diam: 2.30 3.0+(-)1.3 cm 2D Systolic Function EF 4C: 46.90 >55% EF 2C: 51.90 >55% EF BiP: 48.30 >55% Mitral Valve MV Pk E: 0.81 MV PK A: 0.69 MV Decel Time: 163.00 E/A: 1.20 E'Lateral: 9.36 E'Medial: 6.42 E/E' Med: 12.70 E/E' Lat: 8.70 PHT: 48.00 MVA PHT: 4.58 Decel [place]: 5.00 Aortic Valve AoV Pk Ced: 1.14 AoV Pk Grad: 5.00 MELLY: 2.98 LVOT LVOT Pk Ced: 0.84 LVOT Mn Ced: 0.59 LVOT VTI: 0.20 LVOT Pk Grad: 3.00 LVOT Mn Grad: 2.00 LVOT Diam: 2.30 LVOT Area: 4.15 Diastolic Function MV Pk E: 0.81 MV Pk A: 0.69 E/A: 1.20 E'Medial: 6.42 E/E' Med: 12.70 E' Laterial: 9.36 E/E' Lat: 8.70 Right Ventricle TAPSE (mm): 23.80 TVS' Ced: 10.00 Tricuspid Valve TR Pk Ced: 2.39 TR Pk Grad: 23.00 RA Press: 8.00 RVSP: 31.00 Great Vessels Aorta Sinus of Valsalva: 3.10 2.0-3.5 cm Ao Asc: 3.50 2.1-3.4 cm Ao Arch: 2.60 Pulmonary Valve PV Pk Ced: 0.65 Peak PV Grad: 2.00 Updated in Other Vendor System with Status of Final Justice Bryan MD electronically signed on 08/27/2024 4:11:44 PM with status of Final
== END ==
LOC: HO.CARD 12:33
PROVIDERS: PCP Internal Medicine; Visit Provider Internal Medicine Cardiovascular Disease
DX: R94.31 Abnormal electrocardiogram [ECG] [EKG] (principal); I10 Essential (primary) hypertension
CPT/HCPCS: 93306

== ENCOUNTER → 2024-08-26 12:37 | Outpatient (BNV) | payer MEDICAID, SELFPAY | PROVIDERS: PCP Internal Medicine; Visit Provider Internal Medicine Cardiovascular Disease | DX: I51.89 Other ill-defined heart diseases (principal); R94.31 Abnormal electrocardiogram [ECG] [EKG] | CPT/HCPCS: 93306 ==

== ENCOUNTER 2024-09-21 10:25 | Outpatient (REF) | payer MEDICAID, SELFPAY ==
--- OUTSIDE RECORDS SUMMARY | 2024-09-21 12:10 | XMS_ITS | Encounter Summary ---
Author Organization [employer] Address [address] [place] [address] [address] [place] [address] Care Team Providers Care Monument Setter Helper Name Role Phone Handy Corrigan MD Primary Care Prov ider Reason for Visit * Reason Onset Date Comments Chart Prep 09/20/2024 Encounter Details Date Type Department Care Team ([facility] Contact Info) Description 09/20/2024 Telephone [facility] [address] [place] [address] Handy Corrigan MD [address] [place] [address] Chart Prep Social History Tobacco Use Types Packs/Day Years Used Date Smoking Tobacco: Never Passive Smoke Exposure: Never Smokeless Tobacco: Never Alcohol Use Standard Drinks/Week Comments Not Asked 0 (1 standard drink = 0.6 oz pur e alcohol) Depression Answer Date Recorded Patient Health Questionnaire-9 Score 0 11/09/2023 Patient Health Questionnaire-9 Score 0 11/09/2023 Last PHQ-9: Questionnaire Data Not on file 0 11/09/2023 Housing Stability Answer Date Recorded What is your housing situation today? I have morgan hernandez 09/21/[address] you li ve. Do you have problems with any of the following? None of the above 09/21/2024 Food Insecurity Answer Date Recorded Within the past 12 months, y ou worried that your food would run out before you got money to buy more: Never True 09/21/2024 Within the past 12 months,th e food you bought just didn't last and you didn't have enough money to get more: Never True 07/2025 Transportation Answer Date Recorded In the past 12 months, has l ack of transportation kept you from medical appts, meetings, work or from getting things needed for daily living? No 09/21/2024 Utilities Answer Date Recorded In the past 12 months, has t he electric, gas, oil or water company threatened to shut off services in your home? No 09/21/2024 Depression Answer Date Recorded Patient Health Questionnaire-2 Score 0 11/09/2023 Internet Access Answer Date Recorded Internet Access Q1 Yes 09/21/2024 Internet Access Q2 Not on file 09/21/2024 Comments Unknown Sex and Gender Information Value Date Recorded Sex Assigned at Female 06/09/2022 10:27 AM EDT Legal Sex Female 10:27 AM EDT Gender Identity Female 06/09/2022 10:27 AM EDT Sexual Orientation Choose not to disclose 2021 10:27 AM EDT documented as of this encounter Miscellaneous Notes * Telephone Encounter - Debra Maurer [place] - 09/20/2024 3:58 PM EST Chart Prep Labs: done Images: done Vaccines due: yes Referrals: complete Screenings: colonoscopy , pap smear , STI screening Overdue care gaps: Glucose, Sbirt, SDOH, PHQ-9, Oral Health, disability screening documented in this encounter Plan of Treatment Upcoming Encounters Date Type Department Care Team (Late st Contact Info) Description 11/09/2024 2:30 PM EDT Office Visit [facility] [address] [place] [address] Kyrie, Sveta, OD [address] [facility] [place] [address] documented as of this encounter Visit Diagnoses Not on filedocumented in this encounter Additional Health Concerns Assessment Noted Time PHQ-9 Depression Total Score: 0 11/09/19 24 8:47 AM EDT documented as of this encounter Care Teams Monument Setter Helper Relationship Specialty Start Date End Date Handy Corrigan MD [address] [place] [address] PCP - General Internal Medicine 01/08/20 documented as of this encounter
--- OUTSIDE RECORDS SUMMARY | 2024-09-21 12:10 | XMS_ITS | Encounter Summary ---
Author Organization [employer] Address [address] [facility] [address] [place] [address] Care Team Providers Care Planning Director Name Role Phone Handy Corrigan MD Primary Care Prov ider Encounter Details Date Type Department Care Team (Latest Contact Info) Description 09/21/2024 Travel Social History Tobacco Use Types Packs/Day Years [...] AM EDT documented as of this encounter Plan of Treatment Upcoming Encounters Date Type Department Care Team (Late st Contact Info) Description 11/09/2024 2:30 PM EDT Office Visit [facility] [address] [place] [address] Kyrie, Sveta, OD [address] [place] [address] documented as of this encounter Visit Diagnoses Not on filedocumented in this encounter Additional Health Concerns Assessment Noted Time PHQ-9 Depression Total Score: 0 11/09/19 24 8:47 AM EDT documented as of this encounter Care Teams Planning Director Relationship Specialty Start Date End Date Handy Corrigan MD [address] [place] [address] PCP - General Internal Medicine 01/08/20 documented as of this encounter
--- OUTSIDE RECORDS SUMMARY | 2024-09-21 12:10 | XMS_ITS | Clinical Summary ---
Author Organization [employer] Address [address] [place] [address] [address] [place] [address] Care Team Providers Care Administrative Assistant Front Desk Name Role Phone Handy Corrigan MD Primary Care Prov ider Allergies No known active allergies Medications traZODone (Desyrel) 50 MG tablet Take 1 tablet by mouth at bed time. Active montelukast (Singulair) 10 MG tablet Take 1 tablet by mouth at bed time. Active loratadine (Claritin) 10 MG tablet Take 1 tablet by mouth at bed time. 018 Active levalbuterol (Xopenex) 45 MCG/ACT inhaler Inhale 2 puffs every 6 (six) hours. Active fluticasone (Flonase) 50 MCG/ACT nasal spray Administer 1 spray into affected nostril(s) at bed time. Active busPIRone (Buspar) 30 MG tablet TAKE ONE TABLET BY MOUTH TWICE DAILY FOR ANXIETY 023 Active losartan (Cozaar) 50 MG tablet Take 1 tablet (50 mg) by mouth in the morning. 90 tablet 3 023 Active docusate sodium (Colace) 100 MG capsuleIndicati ons:Chronic idiopathic constipation TAKE ONE CAPSULE BY MOUTH TWICE DAILY NEEDED FOR CONSTIPATION 180 capsule 5 024 Active hydroCHLOROthia zide (HYDRODiuril) 25 MG tabletIndicatio ns:Primary hypertension TAKE 1 TABLET EVERY MORNING 90 tablet 5 024 Active cholecalciferol (Vitamin D-3) 50 MCG (2000 UT) capsule TAKE ONE CAPSULE DAILY 90 capsule 3 024 Active FLUoxetine (PROzac) 20 MG capsule TAKE TWO CAPSULES EVERY DAY Active Ventolin HFA 108 (90 Base) MCG/ACT inhaler INHALE 1 PUFF EVERY 4 TO 6 HOURS NEEDED Active pantoprazole (Protonix) 40 MG EC tablet Take 1 tablet (40 mg) by mouth before breakfast. Do not crush, chew, or split. 90 tablet 1 Active losartan (Cozaar) 25 MG tabletIndicatio ns:Primary hypertension TAKE ONE TABLET EVERY MORNING 90 tablet Active Ascorbic Acid (vitamin C) 1000 MG tablet Take 1 tablet (1,000 mg) by mouth Once per day. 90 tablet 3 024 2024 Active baclofen (Lioresal) 10 MG tablet Take 1 tablet (10 mg) by mouth 3 times daily. 90 tablet 2 Active ferrous gluconate (Fergon) 324 (37.5 Fe) MG tablet TAKE ONE TABLET DAILY WITH BREAKFAST 90 tablet 1 Active Multiple Vitamin (Multivitamin) tablet Take 1 tablet by mouth Once per day. 90 tablet 3 025 Active Multiple Vitamin (Multivitamin) tablet TAKE ONE TABLET BY MOUTH EVERY DAY 90 tablet 3 024 2024 Discontinued(R eorder (will not trigger notification to Pharmacy)) ferrous gluconate (Fergon) 324 (38 Fe) MG tablet Take 1 tablet (324 mg) by mouth with breakfast. 90 tablet 1 024 2024 Discontinued Active Problems Problem Noted Date Diagnosed Date Irregular periods/menstrual cycles 09/21/2024 Assessment & Plan (09/21/2024 10:34 AM EST): Will order lh/fsh, discussed current condition and prognosis Renal cyst, left 03/22/2024 Assessment & Plan (03/22/2024 10:56 AM EDT): Will order ct scan for characterization, currently asymptomatic Elevated glucose 03/22/2024 Assessment & Plan (03/22/2024 11:04 AM EDT): Elevated on random bmp, she refers had breakfast, previous were stable, her last A1c from 08/2023 is 6.1%, she knows she has to improve her diet, pending weight management follow up Colicky RUQ abdominal pain 03/07/2024 Assessment & Plan (03/07/2024 3:58 PM EDT): Ordering US of Abdomen for further evaluation. Discussed nutritional changes to relief symptoms. Ordering lab work for further evaluation. Discontinue Prilosec and begin Protonix. Relevant Medications Pantoprazole (Protonix) 40 MG EC tablet Screening for colon cancer 10/07/2023 Assessment & Plan (10/07/2023 10:55 AM EST): Patient had colonoscopy done on April 2021 at [facility] will request results Primary hypertension 07/14/2022 Assessment & Plan (09/21/2024 10:32 AM EST): Controlled, continue current medication, encoraged to keep low sodium diet and exercise as tolerated, keep bp log, ,target <140/90 Assessment & Plan (01/15/2024 9:16 AM EDT): Controlled, continue current therapy, decrease sodium in diet and exercise as tolerated Assessment & Plan (10/07/2023 10:53 AM EST): Controlled, reinforced low sodium diet and exercise as toelrated Assessment & Plan (08/05/2023 3:06 PM EST): Improving, saw cardiology, now on losartan 50mg am and 50mg pm, also taking hydrochlorothiazide, told to keep low sodium diet and exercise as tolerated, keep bp log, follow up in 3-4 months Assessment & Plan (04/27/2023 9:11 PM EDT): Controlled on losartan 75mg and hydrochlorothiazide 25mg, reinforced low sodium diet and exercise as tolerated. New labs will be ordered Assessment & Plan (01/21/2023 5:19 PM EDT): Controlled, after increasing losartan to 75mg, reinforced low sodium diet and exercise as tolerated. Will follow up in 3 months Assessment & Plan (12/31/2022 3:05 PM EDT): Not at target, will increase losartan to 75mg daily, continue hydrochlorothiazide, encouraged exercise, weight loss, low sodium diet, will follow up in 1 month Assessment & Plan (11/03/2022 2:47 PM EDT): Controlled, refers maintains below 140/90, reinforced low sodium diet and exercise as tolerated Assessment & Plan (07/29/2022 3:14 PM EST): Controled, reinforced low sodium diet and exercise as tolerated, continue losartan and hydrochlorothiazide, no changes will be made, will follow up blood work results when done Assessment & Plan (07/14/2022 1:31 PM EST): Controlled, refers has been taking hydrochlorothiazide and losartan 25mg bid, ranges have been below 140/90, no changes will be made Gastroesophageal reflux disease without esophagi tis 07/14/2022 Assessment & Plan (09/21/2024 10:33 AM EST): On PPI, lifestyle modifications encouraged, follow up as needed Assessment & Plan (10/07/2023 10:54 AM EST): Continue omeprazole, lifestyle modifications, had a EGD and followed by GI Assessment & Plan (11/03/2022 2:48 PM EDT): Will renew omeprazole and caafate, lifestyle modification recommended Patient underwent colonoscopy/upper endoscopy on 04/24/21, at [facility], will task MT for results Assessment & Plan (07/14/2022 1:31 PM EST): On PPI, no changes will be made Iron deficiency anemia due to chronic blood loss 07/14/2022 Assessment & Plan (09/21/2024 10:33 AM EST): On oral iron replacement, will labs reviewed were stable. Assessment & Plan (05/16/2024 4:25 PM EDT): Mild improvement, will add vitamin c, reviewed how to take medication, will follow up in 3 months with new labs Assessment & Plan (03/22/2024 10:54 AM EDT): Continue oral iron replacement, will follow up in 2 months with new labs Assessment & Plan (11/03/2022 2:49 PM EDT): results were stable, continue diet rich in iron Assessment & Plan (07/29/2022 3:14 PM EST): Blood work not done, will call with results Assessment & Plan (07/14/2022 1:32 PM EST): On oral replacement, will order new labs for guidance of therapy Seasonal allergies 06/21/2018 Mood disorder 06/21/2018 Primary osteoarthritis of both knees 05/28/2018 Obstructive sleep apnea syndrome 05/28/2018 Morbid obesity 05/28/2018 Assessment & Plan (01/15/2024 9:17 AM EDT): Will refer to bariatric surgery at [facility] for evaluation, she had a sleeve gastrectomy about 8 years ago Resolved Problems Problem Noted Date Diagnosed Date Resolved Date Congestive heart failure 05/28/201807/2025 Cardiomyopathy 05/28/2018 09/21/2024 Encounters Date Type Department Care Team Description 09/21/2024 9:45 AM EST Office Visit [facility] [address] [place] [address] Handy Corrigan MD Irregular periods/menstrual cycles (Primary Dx); Encounter for immunization; Dietary counseling; Exercise counseling; Primary hypertension; Gastroesophageal reflux disease without esophagitis; Iron deficiency anemia due to chronic blood loss 09/21/2024 Travel 09/20/2024 Telephone [facility] [address] [place] [address] Handy Corrigan MD Chart Prep 09/15/2024 Orders Only [facility] [address] [place] [address] Handy Corrigan MD 09/09/2024 Refill [facility] [address] [place] [address] Handy Corirgan MD 09/08/2024 Refill [facility] [address] [place] [address] Micki Keane MD 08/17/2024 Orders Only GENERIC EXTERNAL DATA DEPARTMENT Provider, Generic External Data 08/05/2024 3:00 PM EST Office Visit [facility] [address] [place] [address] Kenroy Grajeda Dental calculus (Primary Dx) 08/05/2024 Orders Only GENERIC EXTERNAL DATA DEPARTMENT Provider, Generic External Data 07/28/2024 Telephone [facility] [address] [place] [address] Kenroy Grajeda 07/22/2024 10:00 AM EST Office Visit [facility] [address] [place] [address] KyrieSveta, OD Myopia of both eyes (Primary Dx) 07/22/2024 Travel from Last 3 Months Immunizations Name Administration Dates Next Due Hep B, adult 05/29/2015,01/30/2015,11/30/2014 Influenza Injectable Quadriv alant Preservative Free IIV4 MDCK 06/21/2020 Influenza injectable quadriv alent IIV4 with preservative 04/30/2015 Influenza injectable quadriv alent preservative free 06/13/2021,08/31/2018,05/22/2017 Influenza, seasonal, injecta ble, preservative free 09/21/2024 Pfizer Covid-19 Vaccine 12+ 11/08/2020, Pneumococcal Polysaccharide PPSV23 01/02/2015 Tdap 01/02/2015 Family History Medical History Relation Name Comments Arrhythmia Father Asthma Mother Diabetes Mother Sleep apnea Mother Diabetes Sister Hyperlipidemia Sister Thyroid disease Sister Relation Name Status Comments Father Mother Sister Social History Tobacco Use Types Packs/Day Years Used Date Smoking Tobacco: Never Passive Smoke Exposure: Never Smokeless Tobacco: Never Tobacco Cessation:Counseling Given: Not Answered Alcohol Use Standard Drinks/Week Comments Not Asked [...] not to disclose 2021 10:27 AM EDT Last Filed Vital Signs Vital Sign Reading Time Taken Comments Blood Pressure 103/64 09/21/2024 10:00 AM EST Pulse 78 09/21/2024 10:00 AM EST Temperature 36.4 ??C (97.6 ??F) 09/21/2024 10:[address] Respiratory Rate 16 09/21/2024 10:00 AM EST Oxygen Saturation 98% 03/07/2024 3:28 PM EDT Inhaled Oxygen Concentration - - Weight 107 kg (235 lb) 09/21/2024 10:00 AM EST Height 162.6 cm (5' 4 ) 09/21/2024 10:00 AM EST Body Mass Index 40.34 09/21/2024 10:00 AM EST Plan of Treatment Upcoming Encounters Date Type Department Care Team (Late st Contact Info) Description 11/09/2024 2:30 PM EDT Office Visit [facility] [address] [place] [address] Sveta Mittal, OD [address] [place] [address] Health Maintenance Due Date Last Done Comments CT Colonography 1975 Colonoscopy 1975 Colorectal Cancer Screening 1975 FIT DNA/Cologuard 1975 FIT 1975 FOBT 1975 HIV Screening 1975 Sigmoidoscopy 1975 Family Planning (PISQ) 1990 Hepatitis C Screening 1993 Cervical Cancer Screening 02/22/2024 HPV/Cotest 02/22/2024 02/21/2021 Pap Smear 02/22/2024 02/21/2021 COVID-19 Vaccine ( season) 2024 11/08/2020, 10/18/2020 Depression Screening 11/08/2024 11/09/2023, 11/09/19 24 DTaP/Tdap/Td Vaccines (2 - Td or Tdap) 01/02/2025 01/02/2015 Dental Oral Exam 02/04/2025 08/05/2024, , 08/19/2022 Dental Prophylaxis 02/04/2025 08/05/2024, 0 04/24/2023, 08/19/2022 Diabetes: Hemoglobin A1C 08/05/2025 024, 08/28/2023, 02/27/2022 Tobacco Screening 08/05/2025 08/05/2024 Dental X-Ray: Bitewings 08/06/2025 08/05/20 24, 03/25/2023, 08/19/2022 Zoster Vaccines (1 of 2) 2025 Alcohol/Substance Use Screening 09/21/2025 09/21/2024 SDOH Screening 09/21/2025 09/21/2024 Mammogram 12/03/2025 12/04/2023, 05/10, 11/19/2022, Additional history exists Dental X-Ray: Full Mouth 08/06/2027 08/05/2024 Lipid Panel 08/05/2029 08/05/2024, 08/10, 02/27/2022, Additional history exists RSV Patients and Patients Aged 60 years or older (1 - 1-dose 75+ series) 2050 Pneumococcal Vaccine: Pediatrics (0 to 5 Years) and At-Risk Patients (6 to 49) Years) Aged Out 01/02/2015 No longer eligible based on patient's age to complete this topic Hepatitis B Vaccines Completed 05/29/2015, 01/30/2015, 11/30/2014 Influenza Vaccine Completed 09/21/2024, , 06/21/2020, Additional history exists HIB Vaccines Aged Out No longer eligi ble based on patient's age to complete this topic HPV Vaccines Aged Out No longer eligi ble based on patient's age to complete this topic Hepatitis A Vaccines Aged Out No long er eligible based on patient's age to complete this topic IPV Vaccines Aged Out No longer eligi ble based on patient's age to complete this topic Meningococcal Vaccine Aged Out No melissa raoul eligible based on patient's age to complete this topic RSV under 20 months Aged Out No longe r eligible based on patient's age to complete this topic Rotavirus Vaccines Aged Out No longer eligible based on patient's age to complete this topic Procedures Procedure Name Priority Date/Time Associated Diagnosis Comments VITAMIN A Routine 08/17/2024 11:02 AM EST VITAMIN B1 Routine 08/17/2024 11:02 AM EST ZINC Routine 08/17/2024 11:02 AM EST CBC WITH AUTO DIFFERENTIAL Routine 08/17/2024 11:02 AM EST ADJUNCTIVE GENERAL SERVICES - PROFESSIONAL VISITS - CASE PRESENTATION, SUBSEQUENT TO DETAILED AND EXTENSIVE TREATMENT PLANNING Routine 08/05/2024 3:00 PM EST COMPREHENSIVE PERIODONTAL EVALUATION - NEW OR ESTABLISHED PATIENT Routine 08/05/2024 3:00 PM EST PERIODIC ORAL EVALUATION - ESTABLISHED PATIENT Routine 08/05/2024 3:00 PM EST ORAL HYGIENE INSTRUCTIONS Routine 08/05/2024 3:00 PM EST DIAGNOSTIC - DIAGNOSTIC IMAGING - INTRAORAL - COMPREHENSIVE SERIES OF RADIOGRAPHIC IMAGES Routine 08/05/2024 3:00 PM EST PROPHYLAXIS - ADULT Routine 08/05/2024 3 :00 PM EST VITAMIN B12/FOLATE, SERUM PANEL Routine 08/05/2024 9:10 AM EST INSULIN Routine 08/05/2024 9:10 AM EST TSH W/REFLEX TO FT4 Routine 08/05/2024 9 :10 AM EST VITAMIN D,25-OH,TOTAL,IA Routine 08/05/2024 9:10 AM EST FERRITIN Routine 08/05/2024 9:10 AM EST LIPID PANEL, STANDARD Routine 08/05/2024 9:10 AM EST C-REACTIVE PROTEIN Routine 08/05/2024 9: 10 AM EST COMPREHENSIVE METABOLIC PANEL Routine 08/05/2024 9:10 AM EST IRON AND TOTAL IRON BINDING CAPACITY Routine 08/05/2024 9:10 AM EST HEMOGLOBIN A1C Routine 08/05/2024 9:10 AM EST IRON AND TOTAL IRON BINDING CAPACITY Routine 08/05/2024 9:10 AM EST Iron deficiency anemia due to chronic blood loss CBC WITH AUTO DIFFERENTIAL Routine 08/05/2024 9:10 AM EST Iron deficiency anemia due to chronic blood loss BI MAMMOGRAM SCREENING TOMOSYNTHESIS BILATERAL Routine 12/04/2023 1:50 PM EDT HPV MRNA E6/E7 Routine 02/21/2021 12:31 PM EDT THINPREP PAP Routine 02/21/2021 12:31 PM EDT from Last 3 Months or Most Recently Relevant to Health Maintenance Results * (ABNORMAL) CBC auto differential (08/17/2024 11:02 AM EST) Only the most recent of2 resultswithin the time period is included. White Blood Count 5.6 4.8 - 10.8 X10*3/uL [facility] Red Blood Count 4.74 4.20 - 5.50 X10*6/uL [facility] Hemoglobin 12.6 12.0 - 16.0 g/dl [facility] Hematocrit 38.9 37.0 - 47.0 % [facility] Mean Corpuscular Volume 82.1 80.0 - 98.0 fL [facility] Mean Corpuscular Hemoglobin 26.6(L) 27.0 - 33.0 pg [facility] Mean Corpuscular HGB Conc 32.4 31.0 - 35.0 g/dl [facility] Red Cell Distribution Width 16.4(H) 11.0 - 16.0 % [facility] Platelet Count 334 160 - 400 X10*3/uL [facility] Mean Platelet Volume 9.9 9.4 - 12.3 fL [facility] Neutrophils Percent Auto 58.0 45 - 73 % [facility] Imm Gran Pct Auto 0.4 0.0 - 0.4 % [facility] Lymphocytes Percent Auto 29.2 20 - 40 % [facility] Monocytes Percent Auto 9.5 2 - 11 % [facility] Eosinophils Percent Auto 2.0 0 - 4 % [facility] Basophils Percent Auto 0.9 0 - 2 % [facility] NRBC Pct Auto 0.0 0.0 - 0.2 /100WBC [facility] Neutrophils Absolute Auto 3.2 2.0 - 8.3 x10*3/uL [facility] Imm Gran Abs Auto 0.02 0.00 - 0.03 X10*3/uL [facility] Lymphocytes Absolute Auto 1.6 1.2 - 4.9 X10*3/uL [facility] Monocytes Absolute Auto 0.5 0.1 - 1.2 X10*3/uL [facility] Eosinophils Absolute Auto 0.1 0.0 - 0.4 X10*3/uL [facility] Basophils Absolute Auto 0.1 0.0 - 0.2 X10*3/uL [facility] NRBC Abs Auto 0.000 0.0 - 0.012 X10*3/uL [facility] 08/17/2024 11:0 2 AM EST 08/17/2024 11:02 AM EST Generic External Data Provider LAB BLOOD ORDERAB LES Final Result Performing Organization Address [facility] Co de Phone Number [facility] [address] [place] [phone] * Zinc (08/17/2024 11:02 AM EST) Pathologist [facility] Zinc 69 60 - 130 mcg/dL [facility] Comment:This test was develo ped and its analytical performancecharacteristics have been determined by [employer] [place], [place]. It hasnot been cleared or approved by the U.S. Food and DrugAdministration. This assay has been validated pursuantto the CLIA regulations and is used for clinicalpurposes.THIS TEST WAS PERFORMED AT:[id number] [place] [id number] RIVERA MD,PHD 08/17/2024 11:0 2 AM EST 08/17/2024 11:02 AM EST Generic External Data Provider LAB BLOOD ORDERAB LES Final Result Performing Organization Address [facility]/ZIP Co de Phone Number [facility] [address] [place] [phone] * Vitamin A (08/17/2024 11:02 AM EST) Vitamin A (Retinol) 38 38 - 98 mcg/dL [facility] Comment:Vitamin supplementat ion within 24 hours prior toblood draw may affect the accuracy of the results.This test was developed and its analytical performancecharacteristics have been determined by [employer] [place], [place]. It hasnot been cleared or approved by the .S. Food and DrugAdministration. This assay has been validated pursuantto the CLIA regulations and is used for clinicalpurposes.THIS TEST WAS PERFORMED AT:[employer] [id number] [place] [id number] RIVERA MD,PHD 08/17/2024 11:0 2 AM EST 08/17/2024 11:02 AM EST Generic External Data Provider LAB BLOOD ORDERAB LES Final Result Performing Organization Address [facility] de Phone Number [facility] [address] [place] [phone] * Vitamin B1 (08/17/2024 11:02 AM EST) Pathologist [facility] Vitamin B1 11 8 - 30 nmol/L [facility] Comment:Vitamin supplementat ion within 24 hours prior toblood draw may affect the accuracy of the results.This test was developed and its analytical performancecharacteristics have been determined by [facility] [place], [place]. It hasnot been cleared or approved by the U.S. Food and DrugAdministration. This assay has been validated pursuantto the CLIA regulations and is used for clinicalpurposes.THIS TEST WAS PERFORMED AT:[employer] [id number] [place] [address]CKOXNXOFOUZIA RIVERA MD,PHD 08/17/2024 11:0 2 AM EST 08/17/2024 11:02 AM EST Generic External Data Provider LAB BLOOD ORDERAB LES Final Result Performing Organization Address [facility] Co de Phone Number [facility] [address] [place] [phone] [phone] * Vitamin D, 25-Hydroxy, Total, Immunoassay (08/05/2024 9:10 AM EST) Vitamin D 25-OH Total 46.9 >30 ng/mL [facility] Comment:Health Based Referen ce Values*< 20 ng/mL Xcoofvipk00-74 ng/mL Insufficient> 30 ng/mL Sufficient*Sheryl LEBLANC. N Engl J Med. 2007;357:266-280Care must be taken in interpreting Vitamin D results fromdifferent laboratories and methodologies. Published datademonstrated that results from patients undergoinghemodialysis may show a negative bias when tested withvarious automated 25-OH vitamin D assays when compared toLC-MS/MS.When testing samples from patients whose predominant form ofVitamin D is Vitamin D2, such as patients receiving VitaminD2 supplementation, results that are subtherapeutic shouldbe confirmed with another method such as LC-MS/MS. 08/05/2024 9:10 AM EST 08/05/2024 2:04 PM EST us Generic External Data Provider LAB BLOOD ORDERAB LES Final Result Performing Organization Address [facility] Co de Phone Number [facility] [address] [place] [phone] * Vitamin B12 (Cobalamin) and Folate Panel, Serum (08/05/2024 9:10 AM EST) Vitamin B12 221 200 - 900 pg/mL [facility] Comment:NORMAL 200-900 PG/M L INDETERMINATE 160-199 PG/ML DEFICIENT < 160 PG/ML Folate 8.4 > or = 4.0 ng/mL [facility] Comment:Reference Values:> o r = 4.0 ng/mL< 4.0 ng/mL suggests folate deficiency Methotrexate, aminopterin and folinic acid(leucovorin) are chemotherapeutic agents whose molecularstructures are similar to folate; therefore, the Architectfolate assay cannot be used for patients using these drugs. 08/05/2024 9:10 AM EST 08/05/2024 2:04 PM EST Generic External Data Provider LAB BLOOD ORDERAB LES Final Result Performing Organization Address [facility] Co de Phone Number [facility] [address] [place] [phone] * TSH with Reflex to Free T4 (08/05/2024 9:10 AM EST) Pathologist [facility] TSH reflex Free T4 0.68 0.32 - 4.0 uIU/mL [facility] 08/05/2024 9:10 AM EST 08/05/2024 2:04 PM EST Generic External Data Provider LAB BLOOD ORDERAB LES Final Result Performing Organization Address [facility] Phone Number [facility] [address] [place] [phone] * Iron And Total Iron Binding Capacity (08/05/2024 9:10 AM EST) Only the most recent of2 resultswithin the time period is included. Pathologist [facility] Iron 47 30 - 160 mcg/dL [facility] Total Iron Binding Capacity 275 228 - 428 mcg/dL [facility] Percent Iron Saturation 17 15 - 50 % [facility] Unsaturated Iron Binding 228 ug/dL [facility] 08/05/2024 9:10 AM EST 08/05/2024 2:04 PM EST Generic External Data Provider LAB BLOOD ORDERAB LES Final Result Performing Organization Address [facility] de Phone Number [facility] [address] [place] [phone] * Insulin (08/05/2024 9:10 AM EST) Pathologist [facility] Insulin 16 2 - 29 uU/mL [facility] Comment:This test was perfor med using the ImaCor chemiluminescentmethod. Values obtained from different assay methods cannot beused interchangeably. This insulin assay shows a possiblecross-reactivity with antibodies generated against insulin(immunoreactive insulin and some patients treated withbovine or porcine insulin). Insulin levels may be measuredlower in patients with insulin autoimmune syndrome orfamilial high pro-insulinemia. 08/05/2024 9:10 AM EST 08/05/2024 2:04 PM EST Generic External Data Provider LAB BLOOD ORDERAB LES Final Result Performing Organization Address [facility] Co de Phone Number [facility] [facility] [address] [place] [phone] * C-reactive Protein (08/05/2024 9:10 AM EST) C Reactive Protein 0.28 < or = 0.50 mg/dL [facility] 08/05/2024 9:10 AM EST 08/05/2024 2:04 PM EST Generic External Data Provider LAB BLOOD ORDERAB LES Final Result Performing Organization Address [facility] de Phone Number [facility] [address] [place] [phone] * (ABNORMAL) Hemoglobin A1c (08/05/2024 9:10 AM EST) Hemoglobin A1c 6.4(H) <6.0 % [facility] Comment:Hemoglobin A1C Refer ence Range Adults: 4.8 - 6.0 % Non diabetic: < 6.0 % Goal: < 7.0 %Additional Action Suggested: > 8.0 %Note: Hemoglobin A1c results are invalid for patients with abnormal amounts of HbF. Blood transfusions may impact the HbA1c concentration in the patient sample. Estimated Average Glucose 137 mg/dL [facility] Comment:eAG = Estimated ave rage glucose which is %A1C expressed asaverage glucose, using the formula of the Q2W-EqafqxjEstcahm Glucose study (ADAG), Diabetes Care, Vol.31,#8,Mar. 2007 08/05/2024 9:10 AM EST 08/05/2024 2:04 PM EST Generic External Data Provider LAB BLOOD ORDERAB LES Final Result Performing Organization Address [facility] Co de Phone Number [facility] [address] [place] [address] [phone] * Ferritin (08/05/2024 9:10 AM EST) Ferritin 13 10 - 250 ng/mL [facility] 08/05/2024 9:10 AM EST 08/05/2024 2:04 PM EST Generic External Data Provider LAB BLOOD ORDERAB LES Final Result Performing Organization Address [facility] Phone Number [facility] [address] [place] [address] [phone] * (ABNORMAL) Lipid Panel, Standard (08/05/2024 9:10 AM EST) Triglycerides 167(H) <150 mg/dL [facility] Comment:Desirable Triglyceri de: less than 150 mg/dLBorderline High Triglyceride 150-199 mg/dLHigh Triglyceride: 200-499 mg/dLVery High Triglyceride: greater than or equal to 5OO mg/dL Cholesterol 170 <200 mg/dL [facility] Comment:Desirable Cholestero l: less than 200 mg/dLBorderline High Cholesterol: 200-239 mg/dLHigh Cholesterol: greater than 239 mg/dL LDL Cholesterol Calculated 93 <100 mg/dL [facility] Comment:Desirable LDL: less than 100 mg/dLNear Optimal/Above Optimal LDL: 110- 129 mg/dLBorderline High LDL: 130-159 mg/dLHigh LDL: 160-189 mg/dLVery High LDL: greater than or equal to 190 mg/dL HDL Cholesterol 44 >40 mg/dL [facility] Comment:Desirable HDL: great er than 40 mg/dL Note: This HDL assay may give artificially low results in patients with liver disease. 08/05/2024 9:10 AM EST 08/05/2024 2:04 PM EST us Generic External Data Provider LAB BLOOD ORDERAB LES Final Result Performing Organization Address City/[facility]/ZIP Co de Phone Number [facility] [address] [place] [address] [phone] * (ABNORMAL) Comprehensive Metabolic Panel (08/05/2024 9:10 AM EST) Sodium 136 135 - 145 mmol/L [facility] Potassium 3.9 3.3 - 5.1 mmol/L [facility] Chloride 104 96 - 108 mmol/L [facility] Carbon Dioxide 24 22 - 29 mmol/L [facility] Anion Gap 12 12 - 20 [facility] Urea Nitrogen (BUN) 8(L) 9 - 16 mg/dL [facility] Creatinine, Serum 0.65 0.5 - 1.4 mg/dL [facility] Estimated Glomerular Filt Rate >60 [facility] Comment:Chronic Kidney Disea se: Estimated GFR < 60 mL/min/1.17h9Xzodoa Kidney Disease: Estimated GFR < 15 mL/min/1.73m2 Glucose 111 60 - 115 mg/dL [facility] Calcium 8.5 8.4 - 10.2 mg/dL [facility] Bilirubin, Total 0.2 0.0 - 1.0 mg/dL [facility] Aspartate Amino Transferase 23 5 - 31 U/L [facility] Alanine Aminotransferase 18 0 - 31 U/L [facility] Total Protein 6.5 6.5 - 8.0 g/dL [facility] Albumin Level 3.5 3.5 - 5.0 g/dL [facility] Alkaline Phosphatase 54 39 - 117 U/L [facility] 08/05/2024 9:10 AM EST 08/05/2024 2:04 PM EST us Generic External Data Provider LAB BLOOD ORDERAB LES Final Result [facility] [address] [place] [address] [phone] * BI Mammogram Screening Tomosynthesis Bilateral (12/04/2023 1:50 PM EDT) Anatomical Region Laterality Modality Breast Bilateral Mammography 12/04/2023 1:50 PM EDT Narrative 01/03/2024 6:10 AM EDT ? [facility] ? [address] ?[place] [address] ? Mammography Report ? Signed ? Patient: Yaya Jha ? MR#: [id number] ? : 1975 ?Acct:[id number] ? Age/Sex: 48 / F ?ADM Date: 12/04/23 ? Loc: HO.MAMMO ? Attending Dr: Jeniffer Linares MD ? Ordering Physician: Jeniffer Linares MD ?Results: 2Be ?? nign Findings ? Date of Service: 12/04/23 ?Follow Up: 1 Year From Orig ?? inal Mammogram ? Procedure(s): MM tomosynthesis screening BI ?? Accession Number(s): [id number] ? cc: Jeniffer Linares MD; Handy Corrigan MD ? EXAMINATION: ?? MM SCREENING DIGITAL BREAST TOMOSYNTHESIS, BILATERAL ? CLINICAL INFORMATION: ? Screening. Asymptomatic. ? COMPARISON: ?? Mammography: This study is compared with prior exams dating back to ?? 2018. ? TECHNIQUE: ?? Digital breast tomosynthesis is performed in both the craniocaudal and ?? mediolateral oblique views along with computer-aided detection (CAD). ?? Synthesized 2D images are generated from the tomosynthesis. ? FINDINGS: ?? There are scattered areas of fibroglandular density (ACR BI-RADS breast ?? composition Category b). ? There are no significant masses, abnormal calcifications, or other ?? abnormalities. ? There is a tissue marker left breast from prior benign percutaneous ?? biopsy. ? MM/MM tomosynthesis screening BI ?? IMPRESSION: ?? No mammographic evidence of malignancy. ? ASSESSMENT: ? BI-RADS BI-RADS 2 - Benign Findings ? RECOMMENDATION: ?? Routine annual mammography screening. ? 1 year F/U ? This examination should not preclude the clinical evaluation of a ?? suspicious palpable abnormality. ? This patient's information was entered into a reminder system with a ?? target due date for their next mammogram. ? Dictated By: ?Hui Al MD ? Signed By: ?<Electronically signed by Hui Al MD in OV> ? 01/03/24 0606 ? DD/ 1350 ? TD/TT: ? Data Deliverables Manager: ? Procedure Note Atul, Image - 01/03/2024 [facility] [address] [place] [address] [place] [address] Mammography Report Signed Patient: Yaya Jha MR#: [id number] : 1975Acct:[id number] Age/Sex: 48 / FADM Date: 12/04/23 Loc: JOHNNIE Attending Dr: Jeniffer Linares MD Ordering Physician: Jeniffer Linares MDResults: 2Be nign Findings Date of Service: 12/04/23Follow Up: 1 Year From Orig inal Mammogram Procedure(s): MM tomosynthesis screening BI Accession Number(s): [id number] cc: Jeniffer Linares MD; Handy Corrigan MD EXAMINATION: MM SCREENING DIGITAL BREAST TOMOSYNTHESIS, BILATERAL CLINICAL INFORMATION: Screening. Asymptomatic. COMPARISON: Mammography: This study is compared with prior exams dating back to 2018. TECHNIQUE: Digital breast tomosynthesis is performed in both the craniocaudal and mediolateral oblique views along with computer-aided detection (CAD). Synthesized 2D images are generated from the tomosynthesis. FINDINGS: There are scattered areas of fibroglandular density (ACR BI-RADS breast composition Category b). There are no significant masses, abnormal calcifications, or other abnormalities. There is a tissue marker left breast from prior benign percutaneous biopsy. MM/MM tomosynthesis screening BI IMPRESSION: No mammographic evidence of malignancy. ASSESSMENT: BI-RADS BI-RADS 2 - Benign Findings RECOMMENDATION: Routine annual mammography screening. 1 year F/U This examination should not preclude the clinical evaluation of a suspicious palpable abnormality. This patient's information was entered into a reminder system with a target due date for their next mammogram. Dictated By: Hui Al MD Signed By: <Electronically signed by Hui Al MD in OV> 01/03/24 0606 DD/ 1350 TD/TT: Data Deliverables Manager: us Jeniffer Linares MD IMG BI PROCEDURES Final Resul t * THINPREP PAP (02/21/2021 12:31 PM EDT) Clinical Information: None given [facility] COMMENT SEE COMMENT [facility] Comment: EXPLANATORY NOTE: ? The Pap is a screening test for cervical cancer. It is ?? not a diagnostic test and is subject to false negative ?? and false positive results. It is most reliable when a ?? satisfactory sample, regularly obtained, is submitted ?? with relevant clinical findings and history, and when ?? the Pap result is evaluated along with historic and ?? current clinical information. ?? Financial Solutions Advisor : SEE COMMENT [facility] Comment: BLC,CT(ASCP) CT screening location: [address] ??[address] Interpretation/R esult: Negative for intraepithelial lesion or malignancy. [facility] LMP: NONE [facility] Prev. BX: NONE [facility] Prev. PAP: NONE [facility] SOURCE: None given [facility] Statement Of Adequacy: SEE COMMENT [facility] Comment: Satisfactory for evaluation. Endocervical/transformation zone component present. Age and/or menstrual status not provided 02/21/2021 12:3 1 PM EDT us Jeniffer Linares MD LAB PATHOLOGY ORDERABLES Yumiko l Result Performing Organization Address [facility] Co de Phone Number [facility] [address] * HPV mRNA E6/E7 (02/21/2021 12:31 PM EDT) HPV nRNA E6/E7 Not Detected Not Detected [facility] Comment: Methodology: [employer]-Mediated Amplification This assay detects E6/E7 viral messenger RNA (mRNA) from 14 high-risk HPV types (16,18,31,33,35,39,45,51,52,56,58,59,66,68). ? The analytical performance characteristics of this assay have been determined by [employer]. The modifications have not been cleared or approved by the FDA. This assay has been validated pursuant to the CLIA regulations and is used for clinical purposes. ?? For additional information, please refer to http://education.[employer]/faq/PUX110e7 (This link if provided for information/ educational purposes only.) 02/21/2021 12:3 1 PM EDT us Jeniffer Linares MD LAB BLOOD ORDERABLES Final Re sult Performing Organization Address [facility] Co de Phone Number [facility] [address] from Last 3 Months or Most Recently Relevant to Health Maintenance Insurance [place] C[place] [facility] MEDICAID STAND ADULT Care Teams Administrative Assistant Front Desk Relationship Specialty Start Date End Date Handy Corrigan MD [address] [place] [phone] PCP - General Internal Medicine 01/08/20
--- OUTSIDE RECORDS SUMMARY | 2024-09-21 12:10 | XMS_ITS | Encounter Summary ---
Author Organization [employer] Address [address] [place] [address] 7t [place] [address] Care Team Providers Care Microbiology Lab Technician Name Role Phone Handy Corrigan MD Primary Care Prov ider Reason for Visit * Reason Comments Med Refill Encounter Details Date Type Department Care Team ([facility] Contact Info) Description 09/08/2024 Refill [facility] CHC MED & PEDS [address] [place] [address] Micki Keane MD [address] [place] [address] Social History Tobacco Use Types Packs/Day Years [...] housing situation today? I have morgan hernandez 05/25/[address] you li ve. Do you have problems with any of the following? None of the above 05/25/2023 Food Insecurity Answer Date Recorded Within the past 12 months, y ou worried that your food would run out before you got money to buy more: Never True 05/25/2023 Within the past 12 months,th e food you bought just didn't last and you didn't have enough money to get more: Never True Transportation Answer Date Recorded In the past 12 months, has l ack of transportation kept you from medical appts, meetings, work or from getting things needed for daily living? No 05/25/2023 Utilities Answer Date Recorded In the past 12 months, has t he electric, gas, oil or water company threatened to shut off services in your home? No 05/25/2023 Depression Answer Date Recorded Patient Health Questionnaire-2 Score 0 11/09/2023 Comments Unknown Sex and Gender Information Value [...] Description 11/09/2024 2:30 PM EDT Office Visit [facility] OPTOMETRY [address] [place] [address] Kyrie, Sveta, OD [address] [place] [address] documented as of this encounter Visit Diagnoses Not on filedocumented in this encounter Additional Health Concerns Assessment Noted Time PHQ-9 Depression Total Score: 0 11/09/19 24 8:47 AM EDT documented as of this encounter Care Teams Microbiology Lab Technician Relationship Specialty Start Date End Date Handy Corrigan MD [address] [place] [address] PCP - General Internal Medicine 01/08/20 documented as of this encounter
--- OUTSIDE RECORDS SUMMARY | 2024-09-21 12:10 | XMS_ITS | Encounter Summary ---
Author Organization [employer] Address [address] [facility] 7t [place] [address] Care Team Providers Care Veterans Contact Representative Name Role Phone Handy Corrigan MD Primary Care Prov ider Encounter Details Date Type Department Care Team (Late st Contact Info) Description 09/15/2024 Orders Only [facility] MEDICINE [address] [place] [address] Handy Corrigan MD [address] [place] [address] Social History Tobacco Use Types Packs/Day Years [...] Description 11/09/2024 2:30 PM EDT Office Visit [facility] OPTOMETRY [address] [place] [address] Kyrie, Sveta, OD [address] [place] [address] documented as of this encounter Visit Diagnoses Not on filedocumented in this encounter Additional Health Concerns Assessment Noted Time PHQ-9 Depression Total Score: 0 11/09/19 24 8:47 AM EDT documented as of this encounter Care Teams Veterans Contact Representative Relationship Specialty Start Date End Date Handy Corrigan MD [address] [place] [address] PCP - General Internal Medicine 01/08/20 documented as of this encounter
--- OUTSIDE RECORDS SUMMARY | 2024-09-21 12:10 | XMS_ITS | Encounter Summary ---
Author Organization [employer] Address [address] [facility] 7t [place] [address] Care Team Providers Care Skein Tier Name Role Phone Handy Corrigan MD Primary Care Prov ider Encounter Details Date Type Department Care Team ([facility] st Contact Info) Description 08/29/2023 Orders Only [facility] CHC MED & PEDS [address] [place], [place] [phone] Handy Corrigan MD [address] [place] [address] Social History Tobacco Use Types Packs/Day Years Used Date Smoking Tobacco: Never Passive Smoke Exposure: Never Smokeless Tobacco: Never Alcohol Use Standard Drinks/Week Comments Not Asked 0 (1 standard drink = 0.6 oz pur e alcohol) Depression Answer Date Recorded Patient Health Questionnaire-9 Score 0 11/03/2022 Housing Stability Answer Date Recorded What is [...] Date Recorded Patient Health Questionnaire-2 Score 0 11/03/2022 Comments Unknown Sex and Gender Information Value [...] Description 11/09/2024 2:30 PM EDT Office Visit [facility] OPTOMETRY [address] [place], [place] [phone] Kyrie, Sveta, OD [address] [place] [address] documented as of this encounter Visit Diagnoses Not on filedocumented in this encounter Additional Health Concerns Assessment Noted Time PHQ-9 Depression Total Score: 0 11/04/19 1:50 PM EDT documented as of this encounter Care Teams Skein Tier Relationship Specialty Start Date End Date Handy Corrigan MD [address] [place] [address] PCP - General Internal Medicine 01/08/20 Uma Jean Service Provider 06/29/23 09/29/23 documented as of this encounter
--- OUTSIDE RECORDS SUMMARY | 2024-09-21 12:10 | XMS_ITS | Encounter Summary ---
Author Organization [employer] Address [address] [place] [address] 7 [place] [address] Care Team Providers Care Knitted Cloth Examiner Name Role Phone Handy Corrigan MD Primary Care Prov ider Reason for Visit * Reason Onset Date Comments Med Refill 09/09/2024 Encounter Details Date Type Department Care Team ([facility] st Contact Info) Description 09/09/2024 Refill [facility] CHC MED & PEDS [address] [place] [address] Handy Corrigan MD [address] [place] [address] Social History Tobacco Use Types Packs/Day Years [...] Description 11/09/2024 2:30 PM EDT Office Visit [facility] OPTOMETRY [address] [place] [address] Kyrie, Sveta, OD [address] [place] [address] documented as of this encounter Visit Diagnoses Not on filedocumented in this encounter Additional Health Concerns Assessment Noted Time PHQ-9 Depression Total Score: 0 11/09/19 24 8:47 AM EDT documented as of this encounter Care Teams Knitted Cloth Examiner Relationship Specialty Start Date End Date Handy Corrigan MD [address] [place] [address] PCP - General Internal Medicine 01/08/20 documented as of this encounter
--- OUTSIDE RECORDS SUMMARY | 2024-09-21 12:10 | XMS_ITS | Encounter Summary ---
Author Organization [employer] Address [address] [place] [address] [address] [place] [address] Care Team Providers Care Water And Gas Helper Name Role Phone Handy Corrigan MD Primary Care Prov ider Encounter Details Date Type Department Care Team ([facility] Contact Info) Description 09/21/2024 9:45 AM EST Office Visit [facility] MED & PEDS [address] [place] [address] Handy Corrigan MD [address] [place] [address] Irregular periods/menstrual cycles (Primary Dx); Encounter for immunization; Dietary counseling; Exercise counseling; Primary hypertension; Gastroesophageal reflux disease without esophagitis; Iron deficiency anemia due to chronic blood loss Social History Tobacco Use Types Packs/Day Years [...] AM EDT documented as of this encounter Last Filed Vital Signs Vital Sign Reading Time Taken Comments Blood Pressure 103/64 09/21/2024 10:00 AM EST Pulse 78 09/21/2024 10:00 AM EST Temperature 36.4 ??C (97.6 ??F) 09/21/2024 10:[address] Respiratory Rate 16 09/21/2024 10:00 AM EST Oxygen Saturation - - Inhaled Oxygen Concentration - - Weight 107 kg (235 lb) 09/21/2024 10:00 AM EST Height 162.6 cm (5' 4 ) 09/21/2024 10:00 AM EST Body Mass Index 40.34 09/21/2024 10:00 AM EST documented in this encounter Progress Notes * Handy Martin MD - 09/21/2024 9:45 AM EST Subjective Patient ID: Conrado Mcpherson is a 49 y.o. female who presents for No chief complaint onfile.. Hypertension This is a chronic problem. Pertinent negatives include no chest pain, headaches, palpitations, peripheral edema or shortness of breath. Review of Systems Respiratory: Negative for shortness of breath. Cardiovascular: Negative for chest pain and palpitations. Neurological: Negative for headaches. Objective Physical Exam Constitutional: Appearance: Normal appearance. Cardiovascular: Rate and Rhythm: Normal rate and regular rhythm. Heart sounds: No murmur heard. Pulmonary: Effort: Pulmonary effort is normal. No respiratory distress. Breath sounds: No stridor. No wheezing or rhonchi. Neurological: General: No focal deficit present. Mental Status: She is alert and oriented to person, place, and time. Psychiatric: Mood and Affect: Mood normal. Behavior: Behavior normal. Assessment/Plan Problem List Items Addressed This Visit Primary hypertension Controlled, continue current medication, encoraged to keep low sodium diet and exercise as tolerated, keep bp log, ,target <140/90 Gastroesophageal reflux disease without esophagitis On PPI, lifestyle modifications encouraged, follow up as needed Iron deficiency anemia due to chronic blood loss On oral iron replacement, will labs reviewed were stable. Irregular periods/menstrual cycles - Primary Will order lh/fsh, discussed current condition and prognosis Relevant Orders hCG, Total, Quantitative Prolactin, Dilution Study FSH And LH Estradiol Other Visit Diagnoses Encounter for immunization Relevant Orders FLU VACCINE TRIVALENT (Fluarix) 6 mo + (Completed) Dietary counseling Exercise counseling documented in this encounter Miscellaneous Notes * Assessment & Plan Note - Handy Martin MD - 09/21/2024 10:34 AM ESTAssociated Problem(s): Irregular periods/menstrual cycles Will order lh/fsh, discussed current condition and prognosis * Assessment & Plan Note - Handy Martin MD - 09/21/2024 10:33 AM ESTAssociated Problem(s): Iron deficiency anemia due to chronic blood loss On oral iron replacement, will labs reviewed were stable. * Assessment & Plan Note - Handy Martin MD - 09/21/2024 10:33 AM ESTAssociated Problem(s): Gastroesophageal reflux disease without esophagitis On PPI, lifestyle modifications encouraged, follow up as needed * Assessment & Plan Note - Handy Martin MD - 09/21/2024 10:32 AM ESTAssociated Problem(s): Primary hypertension Controlled, continue current medication, encoraged to keep low sodium diet and exercise as tolerated, keep bp log, ,target <140/90 documented in this encounter Plan of Treatment Upcoming Encounters Date Type Department Care Team (Late st Contact Info) Description 11/09/2024 2:30 PM EDT Office Visit [facility] OPTOMETRY [address] [place], [place] [phone] Kyrie, Sveta, OD [address] [place] [address] Scheduled Orders Name Type Priority Associated Diagnoses Orde r Schedule hCG, Total, Quantitative Lab Routine Irregular periods/menstrual cycles Expected: 09/21/2024 (Approximate), Expires: 09/21/2025 Prolactin, Dilution Study Lab Routine Irregular periods/menstrual cycles Expected: 09/21/2024 (Approximate), Expires: 09/21/2025 FSH And LH Lab Routine Irregular periods/menstrual cycles Expected: 09/21/2024 (Approximate), Expires: 09/21/2025 Estradiol Lab Routine Irregular periods/menstrual cycles Expected: 09/21/2024, Expires: 09/21/2025 documented as of this encounter Visit Diagnoses Diagnosis Irregular periods/menstrual cycles- Primary Encounter for immunization Dietary counseling Dietary surveillance and counseling Exercise counseling Primary hypertension Unspecified essential hypertension Gastroesophageal reflux disease without esophagitis Esophageal reflux Iron deficiency anemia due to chronic blood loss Iron deficiency anemia secondary to blood loss (chronic) documented in this encounter Additional Health Concerns Assessment Noted Time PHQ-9 Depression Total Score: 0 11/09/19 24 8:47 AM EDT documented as of this encounter Care Teams Water And Gas Helper Relationship Specialty Start Date End Date Handy Corrigan MD [address] [place] [phone] PCP - General Internal Medicine 01/08/20 documented as of this encounter
--- OUTSIDE RECORDS SUMMARY | 2024-09-21 12:10 | XMS_ITS | Encounter Summary ---
Author Organization [employer] Address [address] [facility] 7t [place] [address] Care Team Providers Care Import Manager Name Role Phone Handy Corrigan MD Primary Care Prov ider Reason for Visit * Reason Comments Med Refill Encounter Details Date Type Department Care Team ([facility] Contact Info) Description 05/07/2024 Refill [facility] CHC MED & PEDS [address] [place] [address] Handy Corrigan MD 505 [place] [address] Social History Tobacco Use Types Packs/Day Years [...] Description 11/09/2024 2:30 PM EDT Office Visit [facility] OPTOMETRY [address] [place], [place] [phone] Kyrie, Sveta, OD 230 [facility] [place] [address] documented as of this encounter Visit Diagnoses Not on filedocumented in this encounter Additional Health Concerns Assessment Noted Time PHQ-9 Depression Total Score: 0 11/09/19 24 8:47 AM EDT documented as of this encounter Care Teams Import Manager Relationship Specialty Start Date End Date Handy Corrigan MD 505 [place] [address] PCP - General Internal Medicine 01/08/20 documented as of this encounter
--- OUTSIDE RECORDS SUMMARY | 2024-09-21 12:10 | XMS_ITS | Encounter Summary ---
Author Organization [facility] Address [address] [place] [address] [address], [place] [address] Care Team Providers Care Patient Educator Name Role Phone Handy Corrigan MD Primary Care Prov ider Encounter Details Date Type Department Care Team (Latest Contact Info) Description 10/04/2018 Abstract [facility] CONVERSIONS Dental, Provider, DDS Social History Tobacco Use Types Packs/Day Years Used Date Smoking Tobacco: Never Assessed Comments Unknown Sex and Gender Information Value [...] Description 11/09/2024 2:30 PM EDT Office Visit [facility] OPTOMETRY [address] [place] [address] Sveta Mittal, OD [address] [place] [address] documented as of this encounter Visit Diagnoses Not on filedocumented in this encounter Care Teams Patient Educator Relationship Specialty Start Date End Date Handy Corrigan MD 505 [place] [address] PCP - General Internal Medicine 01/08/20 Uma Jean Digital X Ray Service Engineer 06/29/23 09/29/23 documented as of this encounter
[2024-09-22 15:08] LABS: HCG Quantitative < 2 mIU/mL
[2024-09-27 01:04] LABS: Prolactin Undiluted 34.4 ng/mL
[2024-09-30 07:44] LABS: Estradiol Ultra Sensitive 42 pg/mL
== END 2024-09-21 10:26 | disposition home or self-care (01) ==
LOC: HO.CHCLDS 10:25
PROVIDERS: Visit Provider Internal Medicine
DX: N92.6 Irregular menstruation, unspecified (principal)
CPT/HCPCS: 36415; 82670; 84146; 84702

== ENCOUNTER → 2024-10-19 07:49 | Outpatient (REF) | payer MEDICAID, SELFPAY ==
--- OUTSIDE RECORDS SUMMARY | 2024-10-19 07:52 | XMS_ITS | Encounter Summary ---
Author Organization [employer] Address [address] [place] [address] 7 [place] [address] Care Team Providers Care Clinical Evaluator Name Role Phone Handy Corrigan MD Primary Care Prov ider Reason for Visit * Reason Onset Date Comments Chart Prep 09/20/2024 Encounter Details Date Type Department Care Team ([facility] Contact Info) Description 09/20/2024 Telephone [facility] CHC MED & PEDS [address] [place] [address] Handy Corrigan MD 505 [place] [address] Chart Prep Social History Tobacco Use Types [...] Description 11/09/2024 2:30 PM EDT Office Visit [facility] OPTOMETRY [address] [place] [address] Kyrie, Sveta, OD 230 [facility] [place] [address] 12/19/2024 10:30 AM EDT Telemedicine [facility] CHC MED & PEDS 505 [place] [address] Handy Corrigan MD 505 [place] [address] documented as of this encounter Visit Diagnoses Not on filedocumented in this encounter Additional Health Concerns Assessment Noted Time PHQ-9 Depression Total Score: 0 11/09/19 24 8:47 AM EDT documented as of this encounter Care Teams Clinical Evaluator Relationship Specialty Start Date End Date Handy Corrigan MD [address] [place] [address] PCP - General Internal Medicine 01/08/20 documented as of this encounter
--- OUTSIDE RECORDS SUMMARY | 2024-10-19 07:52 | XMS_ITS | Encounter Summary ---
Author Organization [employer] Address [address] [facility] 7t [place] [address] Care Team Providers Care Rn Or Lvn Name Role Phone Handy Corrigan MD Primary Care Prov ider Reason for Visit * Reason Comments Med Refill Encounter Details Date Type Department Care Team ([facility] Contact Info) Description 05/07/2024 Refill [facility] CHC MED & PEDS [address] [place] [address] Handy Corrigan MD 505 [place] [address] Social History Tobacco Use Types Packs/Day Years [...] Description 11/09/2024 2:30 PM EDT Office Visit [facility] OPTOMETRY [address] [place] [address] Kyrie, Sveta, OD [address] [place] [address] 12/19/2024 10:30 AM EDT Telemedicine [facility] CHC MED & PEDS [address] [place] [address] Handy Corrigan MD 505 [place] [address] documented as of this encounter Visit Diagnoses Not on filedocumented in this encounter Additional Health Concerns Assessment Noted Time PHQ-9 Depression Total Score: 0 11/09/19 24 8:47 AM EDT documented as of this encounter Care Teams Rn Or Lvn Relationship Specialty Start Date End Date Handy Corrigan MD 505 [place] [address] PCP - General Internal Medicine 01/08/20 documented as of this encounter
--- OUTSIDE RECORDS SUMMARY | 2024-10-19 07:52 | XMS_ITS | Encounter Summary ---
Author Organization [employer] Address [address] [facility] 7t [place] [address] Care Team Providers Care Dampener Operator Name Role Phone Handy Corrigan MD Primary Care Prov ider Encounter Details Date Type Department Care Team (Late st Contact Info) Description 09/15/2024 Orders Only [facility] MEDICINE [address] [place] [address] Handy Corrigan MD 505 [place] [address] Social History Tobacco Use Types Packs/Day Years [...] Office Visit [facility] OPTOMETRY [address] [place] [address] Kyrie, Sveta, OD [address] [place] [address] 12/19/2024 10:30 AM EDT Telemedicine [facility] CHC MED & PEDS 505 [place] [address] Handy Corrigan MD 505 [place] [address] documented as of this encounter Visit Diagnoses Not on filedocumented in this encounter Additional Health Concerns Assessment Noted Time PHQ-9 Depression Total Score: 0 11/09/19 24 8:47 AM EDT documented as of this encounter Care Teams Dampener Operator Relationship Specialty Start Date End Date Handy Corrigan MD 505 [place] [address] PCP - General Internal Medicine 01/08/20 documented as of this encounter
--- OUTSIDE RECORDS SUMMARY | 2024-10-19 07:52 | XMS_ITS | Encounter Summary ---
Author Organization [employer] Address [address] [place] [address] 7t [place] [address] Care Team Providers Care Business Planning Analyst Name Role Phone Handy Corrigan MD Primary Care Prov ider Encounter Details Date Type Department Care Team ([facility] Contact Info) Description 09/21/2024 9:45 AM EST Office Visit [facility] ED MED & PEDS [address] [place] [address] Handy Corrigan MD [address] [place] [address] Irregular periods/menstrual cycles (Primary Dx); Encounter for [...] Description 11/09/2024 2:30 PM EDT Office Visit [facility] OPTOMETRY [address] [place], [place] [phone] Kyrie, Sveta, OD [address] [place] [address] 12/19/2024 10:30 AM EDT Telemedicine [facility] CHC MED & PEDS [address] [place], [place] [phone] Handy Corrigan MD [address] [place], [place] [phone] Scheduled Orders Name Type Priority Associated Diagnoses Orde r Schedule [facility] Lab Routine Irregular periods/menstrual cycles Expected: 09/21/2024 (Approximate), Expires: 09/21/2025 documented as of this encounter Procedures Procedure Name Priority Date/Time Associated Diagnosis Comments PROLACTIN, DILUTION STUDY Routine 09/21/2024 10:30 AM EST Irregular periods/menstrual cycles ESTRADIOL Routine 09/21/2024 10:30 AM EST Irregular periods/menstrual cycles HCG, TOTAL, QN Routine 09/21/2024 10:30 AM EST Irregular periods/menstrual cycles documented in this encounter Results * Estradiol (09/21/2024 10:30 AM EST) Estradiol Ultra Sensitive 42 pg/mL [facility] Comment:Female Reference Ran ges for Estradiol, Ultrasensitive (pg/mL): Follicular Phase: 39-375 Luteal Phase: 48-440 Postmenopausal Phase: < or = 10This test was developed and its analytical performancecharacteristics have been determined by [employer].It has not been cleared or approved by FDA. This assay hasbeen validated pursuant to the CLIA regulations and is usedfor clinical purposes.THIS TEST WAS PERFORMED AT:[employer] [id number] [facility] [place] [place] [address]RISSEHERMELINDO VILLELA MD,PHD,TC Blood Venous blood specimen / Unknown 09/21/2024 10:30 AM EST 09/22/2024 2:25 PM EST Handy Martin MD LAB BLOOD ORDERABL ES Final Result [facility] [address] [place] [phone] * (ABNORMAL) Prolactin, Dilution Study (09/21/2024 10:30 AM EST) Pathologist [facility] Prolactin, Undiluted 34.4(A) ng/mL [facility] Prolactin, Diluted SEE NOTE ng/mL [facility] Comment:Result confirmed by 1:100 dilution. No high dosehook effect detected. Reference Range Females Non- 3.0-30.0 10.0-209.0 Postmenopausal 2.0-20.0Prolactin dilution studies are done to determine ifthere is a high-dose hook effect (i.e. a non-linearassay response due to a very high concentration ofProlactin). This is reported to occur at Prolactinconcentrations at or above 30,000 ng/mL.This test is not recommended for identifyingmacroprolactin. The [facility], Prolactin, Total and Monomeric is therecommended test (Order code [id number]).THIS TEST WAS PERFORMED AT:[facility] [address] [id number] HINES MD Blood Venous blood specimen / Unknown 09/21/2024 10:30 AM EST 09/22/2024 2:25 PM EST Handy Martin MD LAB BLOOD ORDERABL ES Final Result Performing Organization Address [facility] Co de Phone Number [facility] [address] [place] [address] [phone] * hCG, Total, Quantitative (09/21/2024 10:30 AM EST) HCG Quantitative <2 mIU/mL [facility] Comment:Weeks post LMP Appro ximate hCG(Last Menstrual Period) Range (mIU/ml)3 - 4 weeks 9 - 1304 - 5 weeks 75 - 2,6005 - 6 weeks 850 - 20,8006 - 7 weeks 4000 - 100,2007 - 12 weeks 11,500 - 289,40382 - 16 weeks 18,300 - 137,47052 - 29 weeks (2nd trimester) 1,400 - 53,96405 - 41 weeks (3rd trimester) 940 - 60,000The Holt B- hCG assay is used for the early detection ofpregnancy; it cannot be used to diagnose any conditionunrelated to . If a B-hCG level is not supportedby the clinical evidence, results should be confirmed by analternative method (qualitative urine hCG, for example). Blood Venous blood specimen / Unknown 09/21/2024 10:30 AM EST 09/22/2024 2:25 PM EST Handy Martin MD LAB BLOOD ORDERABL ES Final Result Performing Organization Address [facility]/ZIP Co de Phone Number [facility] [address] [place] [address] [phone] documented in this encounter Visit Diagnoses Diagnosis Irregular periods/menstrual cycles- Primary Encounter for immunization Dietary counseling Dietary surveillance and counseling Exercise counseling Primary hypertension Unspecified essential hypertension Gastroesophageal reflux disease without esophagitis Esophageal reflux Iron deficiency anemia due to chronic blood loss Iron deficiency anemia secondary to blood loss (chronic) documented in this encounter Additional Health Concerns Assessment Noted Time PHQ-9 Depression Total Score: 0 04/01/20 24 8:47 AM EDT documented as of this encounter Care Teams Business Planning Analyst Relationship Specialty Start Date End Date Handy Corrigan MD [address] [place] [address] PCP - General Internal Medicine 01/08/20 documented as of this encounter
--- OUTSIDE RECORDS SUMMARY | 2024-10-19 07:52 | XMS_ITS | Encounter Summary ---
Author Organization [employer] Address [address] [facility] 7t [place] [address] Care Team Providers Care Farm Technician Name Role Phone Handy Corrigan MD [...] Office Visit [facility] OPTOMETRY [address] [place] [address] Kyrie, Sveta, OD [address] [place] [address] 12/19/2024 10:30 AM EDT Telemedicine [facility] CHC MED & PEDS [address] [place] [address] Handy Corrigan MD 505 [place] [address] documented as of this encounter Visit Diagnoses Not on filedocumented in this encounter Additional Health Concerns Assessment Noted Time PHQ-9 Depression Total Score: 0 11/09/19 24 8:47 AM EDT documented as of this encounter Care Teams Farm Technician Relationship Specialty Start Date End Date Handy Corrigan MD 505 [place] [address] PCP - General Internal Medicine 01/08/20 documented as of this encounter
--- OUTSIDE RECORDS SUMMARY | 2024-10-19 07:53 | XMS_ITS | Encounter Summary ---
Author Organization [employer] Address [address] [facility] 7t [place] [address] Care Team Providers Care Steaming Machine Operator Name Role Phone Handy Corrigan MD Primary Care Prov ider Encounter Details Date Type Department Care Team ([facility] st Contact Info) Description 08/29/2023 Orders Only [facility] CHC MED & PEDS [address] [place], [place] [phone] Handy Corrigan MD 505 [place] [address] Social History Tobacco Use Types Packs/Day Years [...] Description 11/09/2024 2:30 PM EDT Office Visit [facility] OPTOMETRY [address] [place], [place] [phone] Kyrie, Sveta, OD [address] [place] [address] 12/19/2024 10:30 AM EDT Telemedicine [facility] CHC MED & PEDS [address] [place] [address] Handy Corrigan MD 505 [place] [address] documented as of this encounter Visit Diagnoses Not on filedocumented in this encounter Additional Health Concerns Assessment Noted Time PHQ-9 Depression Total Score: 0 11/04/19 23 1:50 PM EDT documented as of this encounter Care Teams Steaming Machine Operator Relationship Specialty Start Date End Date Handy Corrigan MD [address] [place] [address] PCP - General Internal Medicine 01/08/20 Uma Jean Manual Lathe Machinist 06/29/23 09/29/23 documented as of this encounter
--- OUTSIDE RECORDS SUMMARY | 2024-10-19 07:53 | XMS_ITS | Clinical Summary ---
Author Organization [employer] Address [address] [place] [address] [address] [place] [address] Care Team Providers Care Corn Shredder Name Role Phone Handy Corrigan MD Primary Care Prov ider Allergies No known active allergies Medications traZODone (Desyrel) 50 MG tablet Take 1 tablet by mouth at bed time. Active montelukast (Singulair) 10 MG tablet Take 1 tablet by mouth at bed time. Active loratadine (Claritin) 10 MG tablet Take 1 tablet by mouth at bed time. 8 Active levalbuterol (Xopenex) 45 MCG/ACT inhaler Inhale 2 puffs every 6 (six) hours. Active fluticasone (Flonase) 50 MCG/ACT nasal spray Administer 1 spray into affected nostril(s) at bed time. Active busPIRone (Buspar) 30 MG tablet TAKE ONE TABLET BY MOUTH TWICE DAILY FOR ANXIETY 3 Active losartan (Cozaar) 50 MG tablet Take 1 tablet (50 mg) by mouth in the morning. 90 tablet 3 3 Active docusate sodium (Colace) 100 MG capsuleIndicatio ns:Chronic idiopathic constipation TAKE ONE CAPSULE BY MOUTH TWICE DAILY NEEDED FOR CONSTIPATION 180 capsule 5 4 Active hydroCHLOROthiaz isaac (HYDRODiuril) 25 MG tabletIndication s:Primary hypertension TAKE 1 TABLET EVERY MORNING 90 tablet 5 4 Active cholecalciferol (Vitamin D-3) 50 MCG (2000 UT) capsule TAKE ONE CAPSULE DAILY 90 capsule 3 4 Active FLUoxetine (PROzac) 20 MG capsule TAKE TWO CAPSULES EVERY DAY 4 Active Ventolin HFA 108 (90 Base) MCG/ACT inhaler INHALE 1 PUFF EVERY 4 TO 6 HOURS NEEDED 4 Active pantoprazole (Protonix) 40 MG EC tablet Take 1 tablet (40 mg) by mouth before breakfast. Do not crush, chew, or split. 90 tablet 1 4 Active losartan (Cozaar) 25 MG tabletIndication s:Primary hypertension TAKE ONE TABLET EVERY MORNING 90 tablet 4 Active Ascorbic Acid (vitamin C) 1000 MG tablet Take 1 tablet (1,000 mg) by mouth Once per day. 90 tablet 3 4 025 Active baclofen (Lioresal) 10 MG tablet Take 1 tablet (10 mg) by mouth 3 times daily. 90 tablet 2 4 Active ferrous gluconate (Fergon) 324 (37.5 Fe) MG tablet TAKE ONE TABLET DAILY WITH BREAKFAST 90 tablet 1 5 Active Multiple Vitamin (Multivitamin) tablet Take 1 tablet by mouth Once per day. 90 tablet 3 5 Active Active Problems Problem Noted Date Diagnosed Date [...] had colonoscopy done on April 2021 at [place] will request results Primary hypertension 07/14/2022 Assessment [...] Patient underwent colonoscopy/upper endoscopy on 04/24/21, at [place], will task DC for results Assessment & Plan (07/14/2022 1:31 [...] EDT): Will refer to bariatric surgery at [place] for evaluation, she had a sleeve gastrectomy about 8 years ago Resolved Problems Problem Noted Date Diagnosed Date Resolved Date Congestive heart failure 05/28/201807/2025 Cardiomyopathy 05/28/2018 09/21/2024 Encounters Date Type Department Care Team Description 09/21/2024 9:45 AM EST Office Visit [facility] [address] [place] [address] Handy Corrigan MD Irregular periods/menstrual cycles (Primary Dx); Encounter for immunization; Dietary counseling; Exercise counseling; Primary hypertension; Gastroesophageal reflux disease without esophagitis; Iron deficiency anemia due to chronic blood loss 09/21/2024 Travel 09/20/2024 Telephone [facility] [address] [place] [address] Handy Corrigan MD Chart Prep 09/15/2024 Orders Only [facility] [address] [place] [address] Handy Corrigan MD 09/09/2024 Refill [facility] [address] [place] [address] Handy Corrigan MD 09/08/2024 Refill [facility] [address] [place] [address] Micki Keane MD 08/17/2024 Orders Only GENERIC EXTERNAL DATA DEPARTMENT Provider, Generic External Data 08/05/2024 3:00 PM EST Office Visit [facility] [address] [facility] [place] [address] Kenroy Grajeda Dental calculus (Primary Dx) 08/05/2024 Orders Only GENERIC EXTERNAL DATA DEPARTMENT Provider, Generic External Data 07/28/2024 Telephone [facility] [address] [place] [address] Kenroy Grajeda 07/22/2024 10:00 AM EST Office Visit [facility] [address] [place] [address] Kyrie, Sveta, OD Myopia of both eyes (Primary Dx) [...] Description 11/09/2024 2:30 PM EDT Office Visit [facility] [address] [facility] [address] Kyrie, Megan, OD [address] [place] [address] 12/19/2024 10:30 AM EDT Telemedicine [facility] [address] [place] [address] Handy Corrigan MD [address] [place] [address] Health Maintenance Due Date Last Done Comments [...] Procedure Name Priority Date/Time Associated Diagnosis Comments ESTRADIOL Routine 09/21/2024 10:30 AM EST Irregular periods/menstrual cycles PROLACTIN, DILUTION STUDY Routine 09/21/2024 10:30 AM EST Irregular periods/menstrual cycles HCG, TOTAL, QN Routine 09/21/2024 10:30 AM EST Irregular periods/menstrual cycles VITAMIN A Routine 08/17/2024 11:02 AM EST VITAMIN B1 Routine 08/17/2024 11:02 AM EST ZINC Routine 08/17/2024 11:02 AM EST CBC WITH AUTO DIFFERENTIAL Routine 08/17/2024 11:02 AM EST CASE PRESENTATION, DETAILED AND EXTENSIVE TREATMENT PLANNING Routine 08/05/2024 3:00 PM EST COMPREHENSIVE PERIODONTAL EVALUATION - NEW OR ESTABLISHED PATIENT Routine 08/05/2024 3:00 PM EST PERIODIC ORAL EVALUATION - ESTABLISHED PATIENT Routine 08/05/2024 3:00 PM EST ORAL HYGIENE INSTRUCTIONS Routine 08/05/2024 3:00 PM EST INTRAORAL - COMPLETE SERIES OF RADIOGRAPHIC IMAGES Routine 08/05/2024 3:00 [...] Relevant to Health Maintenance Results * (ABNORMAL) Prolactin, Dilution Study (09/21/2024 10:30 AM EST) Prolactin, Undiluted 34.4(A) ng/mL [facility] Prolactin, Diluted SEE NOTE ng/mL [facility] Comment:Result confirmed by 1:100 dilution. No high dosehook effect detected. Reference Range Females Non- 3.0-30.0 10.0-209.0 Postmenopausal 2.0-20.0Prolactin dilution studies are done to determine ifthere is a high-dose hook effect (i.e. a non-linearassay response due to a very high concentration ofProlactin). This is reported to occur at Prolactinconcentrations at or above 30,000 ng/mL.This test is not recommended for identifyingmacroprolactin. The [facility], Prolactin, Total and Monomeric is therecommended test (Order code [id number]).THIS TEST WAS PERFORMED AT:[employer] [address] [id number] HINES MD Blood Venous blood specimen / Unknown 09/21/2024 10:30 AM EST 09/22/2024 2:25 PM EST us Handy Martin MD LAB BLOOD ORDERABL ES Final Result [facility] [address] [place] [phone] * Estradiol (09/21/2024 10:30 AM EST) Estradiol Ultra Sensitive 42 pg/mL [facility] Comment:Female Reference Ran ges for Estradiol, Ultrasensitive (pg/mL): Follicular Phase: 39-375 Luteal Phase: 48-440 Postmenopausal Phase: < or = 10This test was developed and its analytical performancecharacteristics have been determined by [facility].It has not been cleared or approved by FDA. This assay hasbeen validated pursuant to the CLIA regulations and is usedfor clinical purposes.THIS TEST WAS PERFORMED AT:[employer]/[id number] [place] [address]MSAHZHERMELINDO VILLELA MD,PHD,TC Blood Venous blood specimen / Unknown 09/21/2024 10:30 AM EST 09/22/2024 2:25 PM EST us Handy Martin MD LAB BLOOD ORDERABL ES Final Result [facility] [address] [place] [phone] * hCG, Total, Quantitative (09/21/2024 10:30 AM EST) HCG Quantitative <2 mIU/mL [facility] Comment:Weeks post LMP Appro ximate hCG(Last Menstrual Period) Range (mIU/ml)3 - 4 weeks 9 - 1304 - 5 weeks 75 - 2,6005 - 6 weeks 850 - 20,8006 - 7 weeks 4000 - 100,2007 - 12 weeks 11,500 - 289,66231 - 16 weeks 18,300 - 137,36223 - 29 weeks (2nd trimester) 1,400 - 53,70137 - 41 weeks (3rd trimester) 940 - [...] 10:30 AM EST 09/22/2024 2:25 PM EST us Handy Martin MD LAB BLOOD ORDERABL ES Final Result [facility] [address] [place] [phone] [phone] * (ABNORMAL) CBC auto differential (08/17/2024 11:02 AM EST) Only the most recent of2 resultswithin the time period is included. White Blood Count 5.6 4.8 - 10.8 X10*3/uL [facility] Red Blood Count 4.74 4.20 - 5.50 X10*6/uL [facility] Hemoglobin 12.6 12.0 - 16.0 g/dl [facility] Hematocrit 38.9 37.0 - 47.0 % [facility] Mean Corpuscular Volume 82.1 80.0 - 98.0 fL [facility] Mean Corpuscular Hemoglobin 26.6(L) 27.0 - 33.0 pg [facility] Mean Corpuscular HGB Conc 32.4 31.0 - 35.0 g/dl [facility] Red Cell Distribution Width 16.4(H) 11.0 - 16.0 % [facility] Platelet Count 334 160 - 400 X10*3/uL [facility] Mean Platelet Volume 9.9 9.4 - 12.3 fL [facility] Neutrophils Percent Auto 58.0 45 - 73 % [facility] Imm Gran Pct Auto 0.4 0.0 - 0.4 % [facility] Lymphocytes Percent Auto 29.2 20 - 40 % [facility] Monocytes Percent Auto 9.5 2 - 11 % [facility] Eosinophils Percent Auto 2.0 0 - 4 % [facility] Basophils Percent Auto 0.9 0 - 2 % [facility] NRBC Pct Auto 0.0 0.0 - 0.2 /100WBC [facility] Neutrophils Absolute Auto 3.2 2.0 - 8.3 x10*3/uL [facility] Imm Gran Abs Auto 0.02 0.00 - 0.03 X10*3/uL [facility] Lymphocytes Absolute Auto 1.6 1.2 - 4.9 X10*3/uL [facility] Monocytes Absolute Auto 0.5 0.1 - 1.2 X10*3/uL [facility] Eosinophils Absolute Auto 0.1 0.0 - 0.4 X10*3/uL [facility] Basophils Absolute Auto 0.1 0.0 - 0.2 X10*3/uL [facility] NRBC Abs Auto 0.000 0.0 - 0.012 X10*3/uL [facility] 08/17/2024 11:0 2 AM EST 08/17/2024 11:02 AM EST Generic External Data Provider LAB BLOOD ORDERAB LES Final Result Performing Organization Address [facility]/ZIP Co de Phone Number [facility] [address] [place] [phone] * Zinc (08/17/2024 11:02 AM EST) Zinc 69 60 - 130 mcg/dL [facility] Comment:This test was develo ped and its analytical performancecharacteristics have been determined by [employer] [place], [place]. It hasnot been cleared or approved by the U.S. Food and DrugAdministration. This assay has been validated pursuantto the CLIA regulations and is used for clinicalpurposes.THIS TEST WAS PERFORMED AT:[employer] [place] [address]CZOAAUMFOUZIA RIVERA MD,PHD 08/17/2024 11:0 2 AM EST 08/17/2024 11:02 AM EST us Generic External Data Provider LAB BLOOD ORDERAB LES Final Result Performing Organization Address [facility]/ZIP Co de Phone Number [facility] [address] [place] [phone] * Vitamin A (08/17/2024 11:02 AM EST) Vitamin A (Retinol) 38 38 - 98 mcg/dL [facility] Comment:Vitamin supplementat ion within 24 hours prior toblood draw may affect the accuracy of the results.This test was developed and its analytical performancecharacteristics have been determined by [employer] [place], [place]. It hasnot been cleared or approved by the U.S. Food and DrugAdministration. This assay has been validated pursuantto the CLIA regulations and is used for clinicalpurposes.THIS TEST WAS PERFORMED AT:[employer]/[id number] [place] [address]JMJDKILFOUZIA RIVERA MD,PHD 08/17/2024 11:0 2 AM EST 08/17/2024 11:02 AM EST Generic External Data Provider LAB BLOOD ORDERAB LES Final Result [facility] [address] [place] [phone] * Vitamin B1 (08/17/2024 11:02 AM EST) Pathologist [facility] Vitamin B1 11 8 - 30 nmol/L [facility] Comment:Vitamin supplementat ion within 24 hours prior toblood draw may affect the accuracy of the results.This test was developed and its analytical performancecharacteristics have been determined by [facility] [place], [place]. It hasnot been cleared or approved by the U.S. Food and DrugAdministration. This assay has been validated pursuantto the CLIA regulations and is used for clinicalpurposes.THIS TEST WAS PERFORMED AT:[employer] [id number] [place] [address]LOYJYMXFOUZIA RIVERA MD,PHD 08/17/2024 11:0 2 AM EST 08/17/2024 11:02 AM EST us Generic External Data Provider LAB BLOOD ORDERAB LES Final Result Performing Organization Address [facility]/ZIP Co de Phone Number [facility] [address] [place] [phone] * Vitamin D, 25-Hydroxy, Total, Immunoassay (08/05/2024 9:10 AM EST) Vitamin D 25-OH Total 46.9 >30 ng/mL [facility] Comment:Health Based Referen ce Values*< 20 ng/mL Wuwybysyv09-79 ng/mL Insufficient> 30 ng/mL Sufficient*Sheryl LEBLANC. N [...] ORDERAB LES Final Result Performing Organization Address [facility] Co de Phone Number [facility] [address] [place] [phone] * Vitamin B12 (Cobalamin) and Folate Panel, Serum (08/05/2024 9:10 AM EST) Vitamin B12 221 200 - 900 pg/mL [facility] Comment:NORMAL 200-900 PG/ML INDETERMINATE 160-199 PG/ML DEFICIENT < 160 PG/ML Folate 8.4 > or = 4.0 ng/mL [facility] Comment:Reference Values:> o r = 4.0 ng/mL< 4.0 ng/mL suggests folate deficiency Methotrexate, aminopterin and folinic acid(leucovorin) are chemotherapeutic agents whose molecularstructures are similar to folate; therefore, the Architectfolate assay cannot be used for patients using these drugs. 08/05/2024 9:10 AM EST 08/05/2024 2:04 PM EST Generic External Data Provider LAB BLOOD ORDERAB LES Final Result Performing Organization Address [facility] de Phone Number [facility] [address] [place] [phone] * TSH with Reflex to Free T4 (08/05/2024 9:10 AM EST) TSH reflex Free T4 0.68 0.32 - 4.0 uIU/mL [facility] 08/05/2024 9:10 AM EST 08/05/2024 2:04 PM EST Generic External Data Provider LAB BLOOD ORDERAB LES Final Result Performing Organization Address [facility] Number [facility] [address] [place] [phone] * Iron And Total Iron Binding Capacity (08/05/2024 9:10 AM EST) Only the most recent of2 resultswithin the time period is included. Iron 47 30 - 160 mcg/dL [facility] Total Iron Binding Capacity 275 228 - 428 mcg/dL [facility] Percent Iron Saturation 17 15 - 50 % [facility] Unsaturated Iron Binding 228 ug/dL [facility] 08/05/2024 9:10 AM EST 08/05/2024 2:04 PM EST Generic External Data Provider LAB BLOOD ORDERAB LES Final Result Performing Organization Address [facility] de Phone Number [facility] [address] [place] [phone] * Insulin (08/05/2024 9:10 AM EST) Insulin 16 2 - 29 uU/mL [facility] Comment:This test was perfor med using the Holt chemiluminescentmethod. Values obtained from different assay methods [...] ORDERAB LES Final Result Performing Organization Address [facility]/ZIP Co de Phone Number [facility] [address] [place] [phone] [phone] * C-reactive Protein (08/05/2024 9:10 AM EST) C Reactive Protein 0.28 < or = 0.50 mg/dL [facility] 08/05/2024 9:10 AM EST 08/05/2024 2:04 PM EST Generic External Data Provider LAB BLOOD ORDERAB LES Final Result Performing Organization Address [facility] Co de Phone Number [facility] [address] [place] [phone] * (ABNORMAL) Hemoglobin A1c (08/05/2024 9:10 AM EST) Hemoglobin A1c 6.4(H) <6.0 % [facility] Comment:Hemoglobin A1C Refer ence Range Adults: 4.8 - 6.0 % Non diabetic: < 6.0 % Goal: < 7.0 %Additional Action Suggested: > 8.0 %Note: Hemoglobin A1c results are invalid for patients with abnormal amounts of HbF. Blood transfusions may impact the HbA1c concentration in the patient sample. Estimated Average Glucose 137 mg/dL [facility] Comment:eAG = Estimated ave rage glucose which is %A1C expressed asaverage glucose, using the formula of the N1G-NbneootAmexxbr Glucose study (ADAG), Diabetes Care, Vol.31,#8,Mar. 2007 08/05/2024 9:10 AM EST 08/05/2024 2:04 PM EST us Generic External Data Provider LAB BLOOD ORDERAB LES Final Result Performing Organization Address [facility]/ZIP Co de Phone Number [facility] [address] [place] [phone] * Ferritin (08/05/2024 9:10 AM EST) Ferritin 13 10 - 250 ng/mL [facility] 08/05/2024 9:10 AM EST 08/05/2024 2:04 PM EST Generic External Data Provider LAB BLOOD ORDERAB LES Final Result Performing Organization Address [facility] Co nc Phone Number [facility] [address] [place] [phone] * (ABNORMAL) Lipid Panel, Standard (08/05/2024 9:10 AM EST) Triglycerides 167(H) <150 mg/dL [facility] Comment:Desirable Triglyceri de: less than 150 mg/dLBorderline High Triglyceride 150-199 mg/dLHigh Triglyceride: 200-499 mg/dLVery High Triglyceride: greater than or equal to 5OO mg/dL Cholesterol 170 <200 mg/dL [facility] Comment:Desirable Cholestero l: less than 200 mg/dLBorderline High Cholesterol: 200-239 mg/dLHigh Cholesterol: greater than 239 mg/dL LDL Cholesterol Calculated 93 <100 mg/dL [facility] Comment:Desirable LDL: less than 100 mg/dLNear Optimal/Above Optimal LDL: 110- 129 mg/dLBorderline High LDL: 130-159 mg/dLHigh LDL: 160-189 mg/dLVery High LDL: greater than or equal to 190 mg/dL HDL Cholesterol 44 >40 mg/dL [facility] Comment:Desirable HDL: great er than 40 mg/dL Note: This HDL assay may give artificially low results in patients with liver disease. 08/05/2024 9:10 AM EST 08/05/2024 2:04 PM EST us Generic External Data Provider LAB BLOOD ORDERAB LES Final Result [facility] [address] [place] [phone] * (ABNORMAL) Comprehensive Metabolic Panel (08/05/2024 9:10 AM EST) Sodium 136 135 - 145 mmol/L [facility] Potassium 3.9 3.3 - 5.1 mmol/L [facility] Chloride 104 96 - 108 mmol/L [facility] Carbon Dioxide 24 22 - 29 mmol/L [facility] Anion Gap 12 12 - 20 [facility] Urea Nitrogen (BUN) 8(L) 9 - 16 mg/dL [facility] Creatinine, Serum 0.65 0.5 - 1.4 mg/dL [facility] Estimated Glomerular Filt Rate >60 [facility] Comment:Chronic Kidney Disea se: Estimated GFR < 60 mL/min/1.55h4Sjmica Kidney Disease: Estimated GFR < 15 mL/min/1.73m2 Glucose 111 60 - 115 mg/dL [facility] Calcium 8.5 8.4 - 10.2 mg/dL [facility] Bilirubin, Total 0.2 0.0 - 1.0 mg/dL [facility] Aspartate Amino Transferase 23 5 - 31 U/L [facility] Alanine Aminotransferase 18 0 - 31 U/L [facility] Total Protein 6.5 6.5 - 8.0 g/dL [facility] Albumin Level 3.5 3.5 - 5.0 g/dL [facility] Alkaline Phosphatase 54 39 - 117 U/L [facility] 08/05/2024 9:10 AM EST 08/05/2024 2:04 PM EST us Generic External Data Provider LAB BLOOD ORDERAB LES Final Result [facility] [address] [place] [phone] * BI Mammogram Screening Tomosynthesis Bilateral (12/04/2023 1:50 PM EDT) Anatomical Region Laterality Modality Breast Bilateral Mammography 12/04/2023 1:50 PM EDT Narrative 01/03/2024 6:10 AM EDT ? [facility] ? [address] ?[place] [address] ? Mammography Report ? Signed ? Patient: Yaya Jha ? MR#: [id number] ? : 1975 ?Acct:[id number] ? Age/Sex: 48 / F ?ADM Date: 12/04/23 ? Loc: HO.MAMMO ? Attending Dr: Jeniffer Linares MD ? Ordering Physician: Jeniffer Linares MD ?Results: 2Be ?? nign Findings ? Date of Service: 12/04/23 ?Follow Up: 1 Year From Orig ?? inal Mammogram ? Procedure(s): MM tomosynthesis screening BI ?? Accession Number(s): [id number] ? cc: Jeniffer Linares MD; Handy Corrigan [...] by Hui Al MD in OV> ? 01/03/24605 ? DD/ 1350 ? TD/TT: ? Sonography Technologist: ? Procedure Note Atul, Elle - 01/03/2024 [facility] [address] [place], [place] [address] Mammography Report Signed Patient: Yaya Jha MR#: [id number] : 1975Acct:[id number] Age/Sex: 48 / FADM Date: 12/04/23 Loc: JOHNNIE Attending Dr: Jeniffer Linares MD Ordering Physician: Jeniffer Linares MDResults: 2Be nign Findings Date of Service: 12/04/23Follow Up: 1 Year From Orig ina Mammogram Procedure(s): MM tomosynthesis screening BI Accession Number(s): [id number] cc: Jeniffer Linares MD; Handy Corrigan MD [...] in OV> 01/03/24 0606 DD/ 1350 TD/TT: Sonography Technologist: us Jeniffer Linares MD IM BI PROCEDURES Final Resul t * THINPREP PAP (02/21/2021 12:31 PM EDT) Clinical Information: None given [facility] COMMENT SEE COMMENT [facility] [...] historic and ?? current clinical information. ?? Director Plans : SEE COMMENT [facility] Comment: BLC,CT(ASCP) CT screening location: [address] ??[address] Interpretation/R esult: Negative for intraepithelial lesion or malignancy. [facility] LMP: NONE [facility]IV[facility] Prev. BX: NONE [facility]IV[facility] Prev. PAP: NONE [facility]IV[facility] SOURCE: None given [facility] Statement Of Adequacy: SEE COMMENT [facility] Comment: Satisfactory for evaluation. Endocervical/transformation zone component present. Age and/or menstrual status not provided 02/21/2021 12:3 1 PM EDT Jeniffer Linares MD LAB PATHOLOGY ORDERABLES Yumiko l Result Performing Organization Address [facility] Co de Phone Number [facility] [address] * HPV mRNA E6/E7 (02/21/2021 12:31 PM EDT) HPV nRNA E6/E7 Not Detected Not Detected [facility] Comment: Methodology: Resident Medical Officer-Mediated Amplification This assay detects E6/E7 viral messenger RNA (mRNA) from 14 high-risk HPV types (16,18,31,33,35,39,45,51,52,56,58,59,66,68). ? The analytical performance characteristics of this assay have been determined by [employer]. The modifications have not been cleared or approved by the FDA. This assay has been validated pursuant to the CLIA regulations and is used for clinical purposes. ?? For additional information, please refer to http://education.[employer]/faq/MBV912r0 (This link if provided for information/ educational purposes only.) 02/21/2021 12:3 1 PM EDT Jeniffer Linares MD LAB BLOOD ORDERABLES Final Re sult Performing Organization Address [facility] de Phone Number [facility] [address] from Last 3 Months or Most Recently Relevant to Health Maintenance [facility] MEDICAID STAND ADULT Care Teams Corn Shredder Relationship Specialty Start Date End Date WaltonHandy Henley MD [address] [place] [address] [place] [address] PCP - General Internal Medicine 01/08/20
--- OUTSIDE RECORDS SUMMARY | 2024-10-19 07:53 | XMS_ITS | Encounter Summary ---
Author Organization [email or web address] Address [address] [place] [address] [address] [address] Care Team Providers Care Rope Tow Operator Name Role Phone Handy Corrigan MD Primary Care Prov ider Encounter Details Date Type Department Care Team (Latest Contact Info) Description 10/04/[address] [facility] CONVERSIONS Dental, Provider, DDS Social History Tobacco [...] Description 11/09/2024 2:30 PM EDT Office Visit [facility] OPTOMETRY [address] [place] [address] KyrieSveta rogers, OD [address] [place] [address] 12/19/2024 10:30 AM EDT Telemedicine [facility] MED & PEDS [address] [place] [address] Handy Corrigan MD [address] [place] [address] documented as of this encounter Visit Diagnoses Not on filedocumented in this encounter Care Teams Rope Tow Operator Relationship Specialty Start Date End Date Handy Corrigan MD [address] [place] [id number] PCP - General Internal Medicine 01/08/20 Uma Jean Lip Reading Teacher 06/29/23 09/29/23 documented as of this encounter
--- NOTE | 2024-10-19 07:54 | CA_ITS ---
Acquisition Time: 2024-10-19 08:05:55 Total Exercise Time: 00:05:44 Test Indications: CP Medications: SEE H&P Protocol: GERMAN Max HR: 150 BPM 87% of Pred: 171 BPM Max BP: 150/78 mmHG Max Work Load: 7.0 METS Exercise Stress Test with exercise 5 mins 44 secs of German Protocol, achieving 87% MPHR, with reports of severe SOB, no chest pain, with isolated PVCs, with normotensive response with exercise. With downsloping ST segement with prominent T wave inversions with exercise, with baseline ST abnormality and T wave inversion inferiorly and anterolaterally. In recovery, breathing retruned to baseline. ST segment improved. Nuclear images pending. Test reviewed with Dr. Nassar. Referred By: Dennis Do Electronically Signed By: Marc Samuels
== END ==
LOC: HO.CARD 07:49
PROVIDERS: PCP Internal Medicine; Visit Provider Internal Medicine Cardiovascular Disease
DX: R07.9 Chest pain, unspecified (principal); R94.31 Abnormal electrocardiogram [ECG] [EKG]
CPT/HCPCS: 78452; 93017; A9500

== ENCOUNTER → 2024-10-19 07:54 | Outpatient (BNV) | payer MEDICAID, SELFPAY | PROVIDERS: PCP Internal Medicine | DX: R06.02 Shortness of breath (principal); I49.3 Ventricular premature depolarization | CPT/HCPCS: 78452; 93016; 93018 ==

== ENCOUNTER 2024-11-23 13:24 | Outpatient (REF) | payer MEDICAID, SELFPAY ==
--- NOTE | ~2024-11-23 | XR_ITS ---
CLINICAL HISTORY: Chronic back pain radiating to R hip 2 view, right hip Comparison: None Findings: No acute fracture or dislocation. No significant arthritic change. The soft tissues are unremarkable. IMPRESSION: No acute findings. This document has been electronically signed by: Shonda Murillo MD on 11/24/2024 16:17:42
--- NOTE | ~2024-11-23 | XR_ITS ---
CLINICAL HISTORY: chronic LBP radiating to R hip 5 views lumbar spine Comparison: None Findings: Normal vertebral body alignment. No acute fractures or dislocation. No significant loss of intervertebral disc height. Likely facet osteoarthritis at L5-S1. There are surgical clips within the left side of the abdomen. IMPRESSION: No acute findings. This document has been electronically signed by: Shonda Murillo MD on 11/24/2024 16:18:18
--- OUTSIDE RECORDS SUMMARY | 2024-11-23 15:58 | XMS_ITS | Encounter Summary ---
Author Organization [employer] Address [address] [place] [address] [address], [place] [address] Care Team Providers Care Account Manager Education Name Role Phone Handy Corrigan MD Primary Care Prov ider Encounter Details Date Type Department Care Team (Latest Contact Info) Description 10/04/[address] [facility] CONVERSIONS Dental, Provider, DDS Social History [...] Upcoming Encounters Date Type Department Care Team ( st Contact Info) Description 12/19/2024 10:30 AM EDT Telemedicine [facility] MED & PEDS [address] [place] [address] Handy Corrigan MD [address] [place] [address] 05/24/2025 11:00 AM EDT Office Visit [facility] OPTOMETRY [address] [place] [address] Sveta Mittal, OD [address] [place] [address] documented as of this encounter Visit Diagnoses Not on filedocumented in this encounter Care Teams Account Manager Education Relationship Specialty Start Date End Date Handy Corrigan MD [address] [place] [phone] PCP - General Internal Medicine 01/08/20 Uma Jean [employer] Technical Systems Specialist 06/29/23 09/29/23 documented as of this encounter
--- OUTSIDE RECORDS SUMMARY | 2024-11-23 15:58 | XMS_ITS | Clinical Summary ---
Author Organization [employer] Address [address] [place] [address] [address] [place] [address] Care Team Providers Care Coat Fitter Name Role Phone Handy Corrigan MD Primary Care Prov ider Allergies No known active allergies Medications montelukast (Singulair) 10 MG tablet Take 1 [...] the morning. 90 tablet 3 023 Active FLUoxetine (PROzac) 20 MG capsule TAKE TWO CAPSULES EVERY DAY 024 Active Ventolin HFA 108 (90 Base) MCG/ACT inhaler INHALE 1 PUFF EVERY 4 TO 6 HOURS NEEDED 024 Active pantoprazole (Protonix) 40 MG EC tablet Take 1 tablet (40 mg) by mouth before breakfast. Do not crush, chew, or split. 90 tablet 1 024 Active losartan (Cozaar) 25 MG tabletIndicatio ns:Primary hypertension TAKE ONE TABLET EVERY MORNING 90 tablet 024 Active Ascorbic Acid (vitamin C) 1000 MG tablet Take 1 tablet (1,000 mg) by mouth Once per day. 90 tablet 3 024 2024 Active ferrous gluconate (Fergon) 324 (37.5 Fe) MG tablet TAKE ONE TABLET DAILY WITH BREAKFAST 90 tablet 1 025 Active Multiple Vitamin (Multivitamin) tablet Take 1 tablet by mouth Once per day. 90 tablet 3 025 Active docusate sodium (Colace) 100 MG capsuleIndicati ons:Chronic idiopathic constipation TAKE ONE CAPSULE TWICE DAILY NEEDED FOR CONSTIPATION 180 capsule 5 025 Active cholecalciferol VITAMIN D (Vitamin D-3) 50 MCG (1999 UT) capsule TAKE ONE CAPSULE DAILY 90 capsule 3 025 Active traZODone (Desyrel) 100 MG tablet TAKE 1/2 TO 1 TABLET BY MOUTH AT BEDTIME NEEDED FOR SLEEP 025 Active hydroCHLOROthia zide (HYDRODiuril) 25 MG tabletIndicatio ns:Primary hypertension TAKE ONE TABLET EVERY MORNING 90 tablet 5 025 Active baclofen (Lioresal) 10 MG tabletIndicatio ns:Lumbosacral pain, chronic Take 1 tablet (10 mg) by mouth 3 times daily. 90 tablet 2 025 2024 Active celecoxib (CeleBREX) 100 MG capsule Take 1 capsule (100 mg) by mouth 2 times daily. 60 capsule 025 2024 Active traZODone (Desyrel) 50 MG tablet Take 1 tablet by mouth at bed time. 2024 Discontinued(T herapy completed) docusate sodium (Colace) 100 MG capsuleIndicati ons:Chronic idiopathic constipation TAKE ONE CAPSULE BY MOUTH TWICE DAILY NEEDED FOR CONSTIPATION 180 capsule 5 024 2024 Discontinued hydroCHLOROthia zide (HYDRODiuril) 25 MG tabletIndicatio ns:Primary hypertension TAKE 1 TABLET EVERY MORNING 90 tablet 5 024 2024 Discontinued cholecalciferol (Vitamin D-3) 50 MCG (1999 UT) capsule TAKE ONE CAPSULE DAILY 90 capsule 3 024 2024 Discontinued baclofen (Lioresal) 10 MG tablet Take 1 tablet (10 mg) by mouth 3 times daily. 90 tablet 2 024 2024 Discontinued(R eorder (will not trigger notification to Pharmacy)) Active Problems Problem Noted Date Diagnosed Date [...] had colonoscopy done on April 2021 at [facility] will request results Primary hypertension 07/14/2022 Assessment [...] Patient underwent colonoscopy/upper endoscopy on 04/24/21, at [facility], will task [place] for results Assessment & Plan (07/14/2022 1:31 [...] EDT): Will refer to bariatric surgery at [facility] for evaluation, she had a sleeve gastrectomy about 8 years ago Resolved Problems Problem Noted Date Diagnosed Date Resolved Date Congestive heart failure 05/28/201807/2025 Cardiomyopathy 05/28/2018 09/21/2024 Encounters Date Type Department Care Team Description 11/23/2024 9:15 AM EDT Office Visit [facility] [address] [place] [address] Jeniffer Linares MD Lumbosacral pain, chronic (Primary Dx) 11/23/2024 Travel 11/22/2024 Telephone [facility] MEDICINE [address] [place] [address] Handy Corrigan MD Nurse Triage 11/21/2024 Refill [facility] [address] [place] [address] Handy Corrigan MD Primary hypertension 11/17/2024 Refill [facility] [address] [place] [address] Handy Corrigan MD 11/09/2024 2:30 PM EDT Office Visit [facility] [address] [place] [address] Kyrie, Sveta, OD Choroidal nevus, right eye (Primary Dx); Cystoid macular edema of left eye; Presbyopia; Dominant drusen, bilateral 11/09/2024 Travel 11/07/2024 Travel 11/07/2024 Refill [facility] [address] [place] [address] Handy Corrigan MD Chronic idiopathic constipation 10/21/2024 Population Health Risk Score [facility] [address] [phone] Provider, Population Health Generic 10/19/2024 Orders Only [facility] External Provider, [facility] 09/21/2024 9:45 AM EST Office Visit [facility] [address] [place] [address] Handy Corrigan MD Irregular periods/menstrual cycles (Primary Dx); Encounter for immunization; Dietary counseling; Exercise counseling; Primary hypertension; Gastroesophageal reflux disease without esophagitis; Iron deficiency anemia due to chronic blood loss 09/21/2024 Travel 09/20/2024 Telephone [facility] [address] [place] [address] Handy Corirgan MD Chart Prep 09/15/2024 Orders Only [facility] [address] [facility] [place] [address] Handy Corrigan MD 09/09/2024 Refill [facility] [address] [place] [address] Handy Corrigan MD 09/08/2024 Refill [facility] [address] [place] [address] Micki Keane MD from Last 3 Months Immunizations Name Administration [...] Sign Reading Time Taken Comments Blood Pressure 124/75 11/23/2024 9:19 AM EDT Pulse 105 11/23/2024 9:19 AM EDT Temperature 36.1 ??C (97 ??F) 11/23/2024 9:19 AM EDT Respiratory Rate 20 11/23/2024 9:19 AM EDT Oxygen Saturation 96% 11/23/2024 9:19 AM EDT Inhaled Oxygen Concentration - - Weight 108 kg (237 lb) 11/23/2024 9:19 AM EDT Height 162.6 cm (5' 4 ) 11/23/2024 9:19 AM EDT Body Mass Index 40.68 11/23/2024 9:19 AM EDT Plan of Treatment Upcoming Encounters Date Type Department Care Team ([facility] st Contact Info) Description 12/19/2024 10:30 AM EDT Telemedicine [facility] [address] [place] [address] Handy Corrigan MD [address] [place] [phone] 05/24/2025 11:00 AM EDT Office Visit [facility] OPTOMETRY [address] [place] [address] Sveta Mittal, OD [address] [place] [address] Health Maintenance Due Date Last Done Comments [...] Diabetes: Hemoglobin A1C 08/05/2025 024, 08/28/2023, 02/27/2022 Dental X-Ray: Bitewings 08/06/2025 08/05/20 24, 03/25/2023, 08/19/2022 Zoster Vaccines (1 of 2) 2025 Alcohol/Substance Use Screening 09/21/2025 09/21/2024 SDOH Screening 09/21/2025 09/21/2024 Tobacco Screening 11/23/2025 11/23/2024 Mammogram 12/03/2025 12/04/2023, 05/10, 11/19/2022, Additional history [...] Procedure Name Priority Date/Time Associated Diagnosis Comments OCT, RETINA - OU - BOTH EYES Routine 11/09/2024 2:30 PM EDT Cystoid macular edema of left eye STRESS TEST WITH MYOCARDIAL PERFUSION Routine 10/19/2024 8:05 AM EDT ESTRADIOL Routine 09/21/2024 10:30 AM EST Irregular periods/menstrual cycles PROLACTIN, DILUTION STUDY Routine 09/21/2024 10:30 AM EST Irregular periods/menstrual cycles HCG, TOTAL, QN Routine 09/21/2024 10:30 AM EST Irregular periods/menstrual cycles PROPHYLAXIS - ADULT Routine 08/05/2024 3 :00 PM EST INTRAORAL - COMPLETE SERIES OF RADIOGRAPHIC IMAGES Routine 08/05/2024 3:00 PM EST PERIODIC ORAL EVALUATION - ESTABLISHED PATIENT Routine 08/05/2024 3:00 PM EST HEMOGLOBIN A1C Routine 08/05/2024 9:10 AM EST LIPID PANEL, STANDARD Routine 08/05/2024 9:10 AM EST BI MAMMOGRAM SCREENING TOMOSYNTHESIS BILATERAL Routine 12/04/2023 1:50 PM EDT HPV MRNA E6/E7 Routine 02/21/2021 12:31 PM EDT THINPREP PAP Routine 02/21/2021 12:31 PM EDT from Last 3 Months or Most Recently Relevant to Health Maintenance Results * OCT, Retina - OU - Both Eyes (11/09/2024 2:30 PM EDT) Sveta Newell, OD - 11/22/2024 4:18 PM EDT Images from the original result were not included. OCT MACULA INTERPRETATION Optical Coherence Tomography Interpretation Report Measurements: OD ??OS Macula Thickness ??198 microns ?204 microns Test findings: OD: Normal foveal contour, no cystoid macular edema (CME), no retinal pigment epithelium (RPE) disruption, no subretinal fluid (SRF) OS: Normal foveal contour, isolated cystic space just temporal to fovea, no retinal pigment epithelium (RPE) disruption, no subretinal fluid (SRF) Impression and Plan: Unremarkable right eye. Isolated cystic space just temporal to fovea in the left eye, not affecting the vision. Etiology unknown at that time. Will monitor in 6 months with repeat Macular OCT. us Sveta Mittal OD OPHTH TOMOGRAPHY Final Result * Stress test with myocardial perfusion (10/19/2024 8:05 AM EDT) 10/19/2024 8:05 AM EDT Narrative [facility] - 10/23/2024 12:19 PM EDT ? [facility] ?[address] ?[place] [address] ?Nuclear Medicine Report ? Signed ? Patient: Villalongo Ky,Maranyely ? MR#: [id number] ? : 1975 ?Acct:[id number] ? Age/Sex: 49 / F ?ADM Date: 10/19/24 ? Loc: HO.CARD ? Attending Dr: Dennis Do MD ? Ordering Physician: Dennis Do MD ?? Date of Service: 10/19/24 ?? Procedure(s): NM cardiolite stress test ?? Accession Number(s): [id number] ? cc: Handy Corrigan MD; Dennis Do MD ? EXERCISE MYOCARDIAL PERFUSION STUDY ? INDICATION: ?? Chest pain ? TECHNIQUE: ? The patient was brought in for an exercise perfusion study on ?? 10/19/2024. Patient performed exercise as per Conrad protocol and was ?? injected ??40 mCi of sestamibi once target heart rate was achieved. ?? Images were obtained using the SPECT gamma camera interlaced with the ?? gating device. Images were obtained in supine position. ? Resting perfusion study was performed on 10/20/2024. Patient was ?? administered 40 mCi of sestamibi intravenously at rest. Images were ?? then obtained in supine position. Total DLP 163 mGy-cm. ? Images were processed with the software and compared side to side in ?? short axis, horizontal long axis and vertical long axis views. ? FINDINGS: ? Raw aquisition reviewed. ? The stress perfusion study showed ??diminished tracer uptake at the apex ?? and adjacent part of inferior wall. No significant improvement with CT ?? attenuation correction. The gated study shows normal LV systolic ?? function with calculated LVEF of 55%. LV cavity is normal in size. The ?? gated study shows normal ??wall thickening and contraction of segments. ? Resting study shows diminished tracer uptake of the inferior apex. No ?? significant improvement with CT attenuation correction. Gating at rest ?? reveals normal wall motion with ejection fraction at 61%. ? The findings are consistent with fixed perfusion defect at the apex and ?? apical inferior wall. No clear reversal defects. ? NM/NM cardiolite stress test ?? IMPRESSION: ? 1. ??Myocardial perfusion imaging study shows nontransmural infarct at ?? the apex and apical part of inferior wall vs diaphragmatic attenuation ?? artifact. ?? 2. ??Gated LVEF is 55% during stress and 61% during rest. ?? 3. Transient ischemic dilatation not present. ? EKG component of the test reported separately. ? Electronically signed by: ??Lucius Nassar MD ??10/23/2024 12:16 ?? PM EDT RP ? Dictated By: ?Lucius Nassar MD ? Signed By: ?<Electronically signed by Lucius Nassar MD in OV> ?10/23/24 1216 ? DD/ 0805 ? TD/TT: 10/20/24 1250 ? Legal Administrative Assistant: ? Procedure Note Donofe, Image - 10/23/2024 [place] [address] Nuclear Medicine Report Signed Patient: Yaya Jha MR#: [id number] : 1975Acct:[id number] Age/Sex: 49 / FADM Date: 10/19/24 Loc: JODY Attending Dr: Dennis Do MD Ordering Physician: Dennis Do MD Date of Service: 10/19/24 Procedure(s): NM cardiolite stress test Accession Number(s): [id number] cc: Handy Corrigan MD; Dennis Do MD EXERCISE MYOCARDIAL PERFUSION STUDY INDICATION: Chest pain TECHNIQUE: The patient was brought in for an exercise perfusion study on 10/19/2024. Patient performed exercise as per Conrad protocol and was injected 40 mCi of sestamibi once target heart rate was achieved. Images were obtained using the SPECT gamma camera interlaced with the gating device. Images were obtained in supine position. Resting perfusion study was performed on 10/20/2024. Patient was administered 40 mCi of sestamibi intravenously at rest. Images were then obtained in supine position. Total DLP 163 mGy-cm. Images were processed with the software and compared side to side in short axis, horizontal long axis and vertical long axis views. FINDINGS: Raw aquisition reviewed. The stress perfusion study showed diminished tracer uptake at the apex and adjacent part of inferior wall. No significant improvement with CT attenuation correction. The gated study shows normal LV systolic function with calculated LVEF of 55%. LV cavity is normal in size. The gated study shows normal wall thickening and contraction of segments. Resting study shows diminished tracer uptake of the inferior apex. No significant improvement with CT attenuation correction. Gating at rest reveals normal wall motion with ejection fraction at 61%. The findings are consistent with fixed perfusion defect at the apex and apical inferior wall. No clear reversal defects. NM/NM cardiolite stress test IMPRESSION: 1. Myocardial perfusion imaging study shows nontransmural infarct at the apex and apical part of inferior wall vs diaphragmatic attenuation artifact. 2. Gated LVEF is 55% during stress and 61% during rest. 3. Transient ischemic dilatation not present. EKG component of the test reported separately. Electronically signed by: Lucius Nassar MD 10/23/2024 12:16 PM EDT RP Dictated By: Lucius Nassar MD Signed By: <Electronically signed by Lucius Nassar MD inOV> 10/23/24 1216 DD/ 0805 TD/TT: 10/20/24 1250 Legal Administrative Assistant: us [facility] External Provider CV STRE SS PROCEDURES Final Result [facility] [address] [place] [phone] * (ABNORMAL) Prolactin, Dilution Study (09/21/2024 10:30 AM EST) Prolactin, Undiluted 34.4(A) ng/mL [facility] Prolactin, Diluted SEE NOTE ng/mL [facility] Comment:Result confirmed by 1:100 dilution. No high dosehook effect detected. Reference Range Females Non- 3.0-30.0 10.0-209.0 Postmenopausal 2.0-20.0Prolactin dilution studies are done to determine ifthere is a high-dose hook effect (i.e. a non-linearassay response due to a very high concentration ofProlactin). This is reported to occur at Prolactinconcentrations at or above 30,000 ng/mL.This test is not recommended for identifyingmacroprolactin. The [employer] [facility], Prolactin, Total and Monomeric is therecommended test (Order code [id number]).THIS TEST WAS PERFORMED AT:[facility] [address] [phone] HINES MD Blood Venous blood specimen / Unknown 09/21/2024 10:30 AM EST 09/22/2024 2:25 PM EST Handy Martin MD LAB BLOOD ORDERABL ES Final Result Performing Organization Address [facility]/ZIP Co de Phone Number [facility] [address] [place] [phone] * Estradiol (09/21/2024 10:30 AM EST) [facility] Estradiol Ultra Sensitive 42 pg/mL [facility] Comment:Female Reference Ran ges for Estradiol, Ultrasensitive (pg/mL): Follicular Phase: 39-375 Luteal Phase: 48-440 Postmenopausal Phase: < or = 10This test was developed and its analytical performancecharacteristics have been determined by [employer].It has not been cleared or approved by FDA. This assay hasbeen validated pursuant to the CLIA regulations and is usedfor clinical purposes.THIS TEST WAS PERFORMED AT:[id number] [place] [address]WTUUBHERMELINDO VILLELA MD,PHD,TC Blood Venous blood specimen / Unknown 09/21/2024 10:30 AM EST 09/22/2024 2:25 PM EST Handy Martin MD LAB BLOOD ORDERABL ES Final Result Performing Organization Address [facility]/ZIP Co de Phone Number [facility] [address] [place] [phone] * hCG, Total, Quantitative (09/21/2024 10:30 AM EST) [facility] HCG Quantitative <2 mIU/mL [facility] Comment:Weeks post LMP Appr oximate hCG(Last Menstrual Period) Range (mIU/ml)3 - 4 weeks 9 - 1304 - 5 weeks 75 - 2,6005 - 6 weeks 850 - 20,8006 - 7 weeks 4000 - 100,2007 - 12 weeks 11,500 - 289,89906 - 16 weeks 18,300 - 137,38329 - 29 weeks (2nd trimester) 1,400 - 53,80838 - 41 weeks (3rd trimester) 940 - 60,000The Holt B-hCG assay is used for the early detection ofpregnancy; it cannot be used to diagnose any conditionunrelated to . If a B-hCG level is not supportedby the clinical evidence, results should be confirmed by analternative method (qualitative urine hCG, for example). Blood Venous blood specimen / Unknown 09/21/2024 10:30 AM EST 09/22/2024 2:25 PM EST Handy Martin MD LAB BLOOD ORDERABL ES Final Result [facility] [address] [place] [phone] * (ABNORMAL) Hemoglobin A1c (08/05/2024 9:10 AM EST) Hemoglobin A1c 6.4(H) <6.0 % [facility] Comment:Hemoglobin A1C Refer ence Range Adults: 4.8 - 6.0 % Non diabetic: < 6.0 % Goal: < 7.0 %Additional Action Suggested: > 8.0 %Note: Hemoglobin A1c results are invalid for patients with abnormal amounts of HbF. Blood transfusions may impact the HbA1c concentration in the patient sample. Estimated Average Glucose 137 mg/dL [facility] Comment:eAG = Estimated ave rage glucose which is %A1C expressed asaverage glucose, using the formula of the M1Z-MogdrmsXielfbu Glucose study (ADAG), Diabetes Care, Vol.31,#8,Mar. 2007 08/05/2024 9:10 AM EST 08/05/2024 2:04 PM EST Generic External Data Provider LAB BLOOD ORDERAB LES Final Result Performing Organization Address City/[facility] Co de Phone Number [facility] [address] [place] [phone] * (ABNORMAL) Lipid Panel, Standard (08/05/2024 9:10 AM EST) Triglycerides 167(H) <150 mg/dL [facility] Comment:Desirable Triglyceri de: less than 150 mg/dLBorderline High Triglyceride 150-199 mg/dLHigh Triglyceride: 200-499 mg/dLVery High Triglyceride: greater than or equal to 5OO mg/dL Cholesterol 170 <200 mg/dL [facility] Comment:Desirable Cholestero l: less than 200 mg/dLBorderline High Cholesterol: 200-239 mg/dLHigh Cholesterol: greater than 239 mg/dL LDL Cholesterol Calculated 93 <100 mg/dL [facility] Comment:Desirable LDL: less than 100 mg/dLNear Optimal/Above Optimal LDL: 110- 129 mg/dLBorderline High LDL: 130-159 mg/dLHigh LDL: 160-189 mg/dLVery High LDL: greater than or equal to 190 mg/dL HDL Cholesterol 44 >40 mg/dL [facility] Comment:Desirable HDL: great er than 40 mg/dL Note: This HDL assay may give artificially low results in patients with liver disease. 08/05/2024 9:10 AM EST 08/05/2024 2:04 PM EST Generic External Data Provider LAB BLOOD ORDERAB LES Final Result Performing Organization Address City/[facility]/ZIP Co de Phone Number [facility] [address] [place] [address] [phone] * BI Mammogram Screening Tomosynthesis Bilateral (12/04/2023 1:50 PM EDT) Anatomical Region Laterality Modality Breast Bilateral Mammography 12/04/2023 1:50 PM EDT Narrative 01/03/2024 6:10 AM EDT ? [facility] ? [address] ?[place] [address] ? Mammography Report ? Signed ? Patient: Villalongo Ky,Maranyely ? MR#: [id number] ? : 1975 ?Acct:[id number] ? Age/Sex: 48 / F ?ADM Date: 12/04/23 ? Loc: HO.MAMMO ? Attending Dr: Jeniffer Linares MD ? Ordering Physician: Jeniffer Linares MD ?Results: 2Be ?? nign Findings ? Date of Service: 12/04/23 ?Follow Up: 1 Year From Orig ?? inal Mammogram ? Procedure(s): MM tomosynthesis screening BI ?? Accession Number(s): [id number] ? cc: Jeniffer Linares MD; Handy Corrigan [...] 01/03/[address]605 ? DD/ 1350 ? TD/TT: ? Legal Administrative Assistant: ? Procedure Note Atul, Image - 01/03/[address] [facility] [address] [place] [address] Mammography Report Signed Patient: Yaya Jha MR#: [id number] : 1975Acct:[id number] Age/Sex: 48 / FADM Date: 12/04/23 Loc: HO.MAMMO Attending Dr: Jeniffer Linares MD Ordering Physician: Jeniffer Linares MDResults: 2Be nign Findings Date of Service: 12/04/23Follow Up: 1 Year From Orig inal Mammogram Procedure(s): MM tomosynthesis screening BI Accession Number(s): [id number] cc: Jeniffer Linares MD; Handy Corirgan MD EXAMINATION: MM SCREENING DIGITAL BREAST TOMOSYNTHESIS, [...] in OV> 01/03/24 0606 DD/ 1350 TD/TT: Legal Administrative Assistant: us Jeniffer Linares MD IMG BI PROCEDURES Final Resul t * THINPREP PAP (02/21/2021 12:31 PM EDT) Clinical Information: None given [facility] COMMENT SEE COMMENT [facility] [...] historic and ?? current clinical information. ?? Manager Electronic : SEE COMMENT [facility] Comment: BLC,CT(ASCP) CT screening location: [address] ??[id number] Interpretation/R esult: Negative for intraepithelial lesion or malignancy. [facility] LMP: NONE GIVEN [facility] Prev. BX: NONE GIVEN [facility] Prev. PAP: NONE GIVEN [facility] SOURCE: None given [facility] Statement Of Adequacy: SEE COMMENT [facility] Comment: Satisfactory for evaluation. Endocervical/transformation zone component present. Age and/or menstrual status not provided 02/21/2021 12:3 1 PM EDT us Jeniffer Linares MD LAB PATHOLOGY ORDERABLES Yumiko l Result Performing Organization Address [facility] Co de Phone Number [facility] [address] * HPV mRNA E6/E7 (02/21/2021 12:31 PM EDT) HPV nRNA E6/E7 Not Detected Not Detected [facility] Comment: Methodology: [employer]inder[employer] Teacher-Mediated Amplification This assay detects E6/E7 viral messenger RNA (mRNA) from 14 high-risk HPV types (16,18,31,33,35,39,45,51,52,56,58,59,66,68). ? The analytical performance characteristics of this assay have been determined by [employer]. The modifications have not been cleared or approved by the FDA. This assay has been validated pursuant to the CLIA regulations and is used for clinical purposes. ?? For additional information, please refer to http://education.[employer]/faq/VOX203e4 (This link if provided for information/ educational purposes only.) 02/21/2021 12:3 1 PM EDT us Jeniffer Linares MD LAB BLOOD ORDERABLES Final Re sult Performing Organization Address [facility] de Phone Number [facility] [address] from Last 3 Months or Most Recently Relevant to Health Maintenance [place] [address] [place] [address] [employer] [employer] [employer] [place] AD[place] Care Teams Coat Fitter Relationship Specialty Start Date End Date Handy Corrigan MD [address] [place] [address] PCP - General Internal Medicine 01/08/20
--- OUTSIDE RECORDS SUMMARY | 2024-11-23 15:58 | XMS_ITS | Encounter Summary ---
Author Organization [employer] Address [address] [facility] 7t [place] [address] Care Team Providers Care Insurance Advisor Name Role Phone Handy Corrigan MD Primary Care Prov ider Reason for Visit * Reason Onset Date Comments Nurse Triage 11/22/2024 Encounter Details Date Type Department Care Team (Late st Contact Info) Description 11/22/2024 Telephone [facility] MEDICINE [address] [place] [address] Handy Corrigan MD [address] [place] [address] Nurse Triage Social History Tobacco Use Types Packs/Day Years [...] your housing situation today? I have morgan sing 09/21/[address] you li [...] encounter Miscellaneous Notes * Telephone Encounter - Elda Howell RN - 11/22/2024 3:56 PM EDT Called pt. Back via [employer] educational interpreter x3. [phone] Catina. Pt. States that she has been having low back pain x few days. Pt has a hard time getting up from a sitting position. Pt. Is not having trouble urinating and thinks it is a muscular pain. Pt. Has no recollection of any twisting or injury. Pt has been taking Baclofen in the past when she had that pain and started to take those pills again with no pain relief. Advised pt. To ice area for some reliefuntil seen in office. Protocol Used: Back Pain (Adult) Protocol-Based Disposition: See in Office or Video Visit within 3 Days- appt. Scheduled for tomorrow in [facility] at 915am with Dr. Linares Video visit offer not recorded Positive Triage Questions: * Moderate back pain (e.g., interferes with normal activities) and present > 3 days * Patient wants to be seen * All higher-acuity triage questions were negative Care Advice Discussed: * Cold or Heat * Sleep * Continue Activity * Pain Medicines * Telephone Encounter - Chinyere Lawton - 11/22/2024 3:48 PM EDT Tc from pt returning phone call. Vietnamese * Telephone Encounter - Elda Howell RN - 11/22/2024 2:32 PM EDT Called pt. Via [employer] educational interpreter Danii [phone]. No answer. Cytometry Technologist left message on pt. Voicemail to call back [facility] nurses at [phone]. RE: Back pain and trouble walking. Cytometry Technologist called back x2. No answer. Message went to voicemail again. * Telephone Encounter - Conor Blair - 11/22/2024 1:21 PM EDT Symptoms: Back Pain - Not From Injury, Knee Pain - Not From Injury Outcome: Schedule an urgent appointment (within 1 hour) or talk to a nurse or provider soon Reason: Trouble walking The caller accepted this outcome. Contact pt at [phone] documented in this encounter Plan of Treatment Upcoming Encounters Date Type Department Care Team (Late st Contact Info) Description 12/19/2024 10:30 AM EDT Telemedicine [facility] CHC MED & PEDS [address] [place] [address] Handy Corrigan MD [address] [place] [address] 05/24/2025 11:00 AM EDT Office Visit [facility] OPTOMETRY [address] [place], [place] [phone] Sveta Mittal, OD [address] [place] [address] documented as of this encounter Visit Diagnoses Not on filedocumented in this encounter Additional Health Concerns Assessment Noted Time PHQ-9 Depression Total Score: 0 11/09/19 24 8:47 AM EDT documented as of this encounter Care Teams Insurance Advisor Relationship Specialty Start Date End Date Handy Corrigan MD [address] [place] [address] PCP - General Internal Medicine 01/08/20 documented as of this encounter
--- OUTSIDE RECORDS SUMMARY | 2024-11-23 15:58 | XMS_ITS | Encounter Summary ---
Author Organization [employer] Address [address] [facility] 7t [place] [address] Care Team Providers Care Commercial Parts Professional Name Role Phone Handy Corrigan MD Primary Care Prov ider Encounter Details Date Type Department Care Team ([facility] st Contact Info) Description 08/29/2023 Orders Only [facility] CHC MED & PEDS [address] [place], [place] [phone] Handy Corrigan MD [address] [place] [address] Social History Tobacco Use Types Packs/Day Years [...] Info) Description 12/19/2024 10:30 AM EDT Telemedicine [facility] CHC MED & PEDS [address] [place] [address] Handy oCrrigan MD [address] [place] [address] 05/24/2025 11:00 AM EDT Office Visit [facility] OPTOMETRY [address] [place] [address] Kyrie, Sveta, OD [address] [place] [address] documented as of this encounter Visit Diagnoses Not on filedocumented in this encounter Additional Health Concerns Assessment Noted Time PHQ-9 Depression Total Score: 0 11/04/19 23 1:50 PM EDT documented as of this encounter Care Teams Commercial Parts Professional Relationship Specialty Start Date End Date Handy Corrigan MD [address] [place] [address] PCP - General Internal Medicine 01/08/20 Uma Jean Sulphate Tester 06/29/23 09/29/23 documented as of this encounter
--- OUTSIDE RECORDS SUMMARY | 2024-11-23 15:58 | XMS_ITS | Encounter Summary ---
Author Organization [employer] Address [address] [facility] 7t [place] [address] Care Team Providers Care Rheostat Assembler Name Role Phone Handy Corrigan MD Primary Care Prov ider Encounter Details Date Type Department Care Team ([facility] Contact Info) Description 11/23/2024 9:15 AM EDT Office Visit [facility] CHC MED & PEDS [address] [place] [address] Jeniffer Linares MD [address] [place] [address] Lumbosacral pain, chronic (Primary Dx) Social History Tobacco Use Types Packs/Day Years [...] Mass Index 40.68 11/23/2024 9:19 AM EDT documented in this encounter Progress Notes * Jeniffer Linares MD - 11/23/2024 9:15 AM EDT Subjective Patient ID: Conrado Mcpherson is a 49 y.o. female who presents for back pain. Conrado is a 49 y/o patient of dr. Walton here for chronic low back pain . Has no history of falls,trauma,etc.. Taking baclofen tid for months and tylenol with minor relief,pain 8/10.Worse whenlays down. No urinary and No Gi complaints, normal pelvic-abdominal CT in 04/02. Back Pain This is a chronic problem. The current episode started more than 1 year ago. The pain is present inthe lumbar spine. The quality of the pain is described as aching. The pain does not radiate. The pain is at a severity of 8/10. The pain is moderate. The pain is Worse during the night. The symptoms are aggravated by lying down. Stiffness is present All day. Associated symptoms include bowel incontinence. Pertinent negatives include no abdominal pain, fever or paresthesias. Risk factors include sedentary lifestyle, obesity and lack of exercise. She has tried NSAIDs, muscle relaxant and bed restfor the symptoms. The treatment provided mild relief. Review of Systems Constitutional: Negative for appetite change and fever. Respiratory: Negative for shortness of breath. Gastrointestinal: Positive for bowel incontinence. Negative for abdominal pain. Musculoskeletal: Positive for back pain and gait problem. Skin: Negative for rash. Neurological: Negative for paresthesias. Psychiatric/Behavioral: Positive for sleep disturbance. Objective BP 124/75 (BP Location: Left arm, Patient Position: Sitting, BP Cuff Size: Adult) [id number] Temp 97 ??F (36.1 ??C) (Oral) Resp 20 Ht 5' 4 (1.626 m) Wt 237 lb (108 kg) SpO2 96% BMI 40.68 kg/m?? Physical Exam Constitutional: General: She is not in acute distress. Appearance: Normal appearance. She is not ill-appearing. HENT: Head: Normocephalic. Right Ear: Tympanic membrane and ear canal normal. Left Ear: Tympanic membrane and ear canal normal. Nose: Nose normal. Mouth/Throat: Mouth: Mucous membranes are moist. Pharynx: No oropharyngeal exudate or posterior oropharyngeal erythema. Eyes: Extraocular Movements: Extraocular movements intact. Conjunctiva/sclera: Conjunctivae normal. Pupils: Pupils are equal, round, and reactive to light. Cardiovascular: Rate and Rhythm: Normal rate and regular rhythm. Pulses: Normal pulses. Heart sounds: Normal heart sounds. Pulmonary: Effort: Pulmonary effort is normal. No respiratory distress. Breath sounds: Normal breath sounds. Abdominal: General: There is distension. Palpations: Abdomen is soft. Tenderness: There is no abdominal tenderness. Musculoskeletal: Cervical back: Normal range of motion. Thoracic back: Normal. Lumbar back: Tenderness present. Positive right straight leg raise test and positive left straight leg raise test. Right lower leg: No edema. Left lower leg: No edema. Skin: General: Skin is warm. Capillary Refill: Capillary refill takes less than 2 seconds. Neurological: General: No focal deficit present. Mental Status: She is alert and oriented to person, place, and time. Motor: No weakness. Deep Tendon Reflexes: Reflexes are normal and symmetric. Psychiatric: Mood and Affect: Mood normal. Behavior: Behavior normal. Thought Content: Thought content normal. Judgment: Judgment normal. Assessment/Plan Diagnoses and all orders for this visit: Lumbosacral pain, chronic Comments: Back sprain versus lumbar spine fusion, DJD of spine etc. lumbar spine and X-ray ordered today, refilled baclofen and added Celebrex twice daily. Follow-up with PCP as planned. Call with results of x-ray and refer for MRI in near future as well as pain management versus neurosurgery depending on results. Patient agrees. Orders: - baclofen (Lioresal) 10 MG tablet; Take 1 tablet (10 mg) by mouth 3 times daily. - XR Hip 2 or 3 Views Right; Future - XR Lumbar Spine Complete 4+ Views; Future Other orders - celecoxib (CeleBREX) 100 MG capsule; Take 1 capsule (100 mg) by mouth 2 times daily. documented in this encounter Plan of Treatment Upcoming Encounters Date Type Department Care Team ([facility] Contact Info) Description 12/19/2024 10:30 AM EDT Telemedicine [facility] CHC MED & PEDS [address] [place] [address] Handy Corrigan MD [address] [place] [address] 05/24/2025 11:00 AM EDT Office Visit [facility] OPTOMETRY [address] [place], [place] [phone] Sveta Mittal, OD [address] [place] [address] Scheduled Orders Name Type Priority Associated Diagnoses Orde r Schedule XR Hip 2 or 3 Views Right Imaging Routine Lumbosacral pain, chronic Expected: 11/23/2024, Expires: 11/23/2025 XR Lumbar Spine Complete 4+ Views Imaging Routine Lumbosacral pain, chronic Expected: 11/23/2024, Expires: 11/23/2025 documented as of this encounter Visit Diagnoses Diagnosis Lumbosacral pain, chronic- Primary documented in this encounter Additional Health Concerns Assessment Noted Time PHQ-9 Depression Total Score: 0 11/09/19 24 8:47 AM EDT documented as of this encounter Care Teams Rheostat Assembler Relationship Specialty Start Date End Date Handy Corrigan MD [address] [place] [address] PCP - General Internal Medicine 01/08/20 documented as of this encounter
--- OUTSIDE RECORDS SUMMARY | 2024-11-23 15:58 | XMS_ITS | Encounter Summary ---
Author Organization [employer] Address [address] [facility] 7t [place] [address] Care Team Providers Care Velvet Weaver Name Role Phone Handy Corrigan MD Primary Care Prov ider Reason for Visit * Reason Comments Med Refill Encounter Details Date Type Department Care Team ([facility] st Contact Info) Description 11/21/2024 Refill [facility] CHC MED & PEDS [address] [place] [address] Handy Corrigan MD [address] [place] [address] Primary hypertension Social History Tobacco Use Types Packs/Day Years [...] Info) Description 12/19/2024 10:30 AM EDT Telemedicine [facility] CHC MED & PEDS [address] [place] [address] Handy Corrigan MD [address] [place] [address] 05/24/2025 11:00 AM EDT Office Visit [facility] OPTOMETRY [address] [place] [address] Kyrie, Sveta, OD [address] [facility] [place] [address] documented as of this encounter Visit Diagnoses Diagnosis Primary hypertension Unspecified essential hypertension documented in this encounter Additional Health Concerns Assessment Noted Time PHQ-9 Depression Total Score: 0 11/09/19 24 8:47 AM EDT documented as of this encounter Care Teams Velvet Weaver Relationship Specialty Start Date End Date Handy Corrigan MD [address] [place] [address] PCP - General Internal Medicine 01/08/20 documented as of this encounter
--- OUTSIDE RECORDS SUMMARY | 2024-11-23 15:58 | XMS_ITS | Encounter Summary ---
Author Organization [employer] Address [address] [facility] 7t [place] [address] Care Team Providers Care Rice Dryer Mechanic Name Role Phone Handy Corrigan MD Primary Care Prov ider Encounter Details Date Type Department Care Team (Late st Contact Info) Description 09/15/2024 Orders Only [facility] MEDICINE [address] [place] [address] Handy Corrigan MD [address] [place] [address] Social History Tobacco Use Types Packs/Day Years [...] Info) Description 12/19/2024 10:30 AM EDT Telemedicine [facility] CHC MED & PEDS [address] [place] [address] Handy Corrigan MD [address] [place] [address] 05/24/2025 11:00 AM EDT Office Visit [facility] OPTOMETRY [address] [place], [place] [phone] Kyrie, Sveta, OD [address] [place] [address] documented as of this encounter Visit Diagnoses Not on filedocumented in this encounter Additional Health Concerns Assessment Noted Time PHQ-9 Depression Total Score: 0 11/09/19 24 8:47 AM EDT documented as of this encounter Care Teams Rice Dryer Mechanic Relationship Specialty Start Date End Date Handy Corrigan MD [address] [place] [address] PCP - General Internal Medicine 01/08/20 documented as of this encounter
--- OUTSIDE RECORDS SUMMARY | 2024-11-23 15:58 | XMS_ITS | Encounter Summary ---
Author Organization [employer] Address [address] [facility] 7t [place] [address] Care Team Providers Care Thread Puller Name Role Phone Handy Corrigan MD Primary Care Prov ider Encounter Details Date Type Department Care Team (Latest Contact Info) Description 11/23/2024 Travel Social History Tobacco Use Types Packs/Day [...] Info) Description 12/19/2024 10:30 AM EDT Telemedicine [facility] CHC MED & PEDS [address] [place] [address] Handy Corrigan MD [address] [place] [address] 05/24/2025 11:00 AM EDT Office Visit [facility] OPTOMETRY [address] [place] [address] Kyrie, Sveta, OD [address] [place] [address] documented as of this encounter Visit Diagnoses Not on filedocumented in this encounter Additional Health Concerns Assessment Noted Time PHQ-9 Depression Total Score: 0 11/09/19 24 8:47 AM EDT documented as of this encounter Care Teams Thread Puller Relationship Specialty Start Date End Date Handy Corrigan MD [address] [place] [address] PCP - General Internal Medicine 01/08/20 documented as of this encounter
--- OUTSIDE RECORDS SUMMARY | 2024-11-23 15:58 | XMS_ITS | Encounter Summary ---
Author Organization [employer] Address [address] [facility] 7t [place] [address] Care Team Providers Care Oil Lease Operator Name Role Phone Handy Corrigan MD Primary Care Prov ider Reason for Visit * Reason Comments Med Refill Encounter Details Date Type Department Care Team ([facility] Contact Info) Description 05/07/2024 Refill [facility] CHC MED & PEDS [address] [place] [address] Handy Corrigan MD [address] [place] [address] Social History Tobacco Use Types Packs/Day Years [...] Info) Description 12/19/2024 10:30 AM EDT Telemedicine [facility] CHC MED & PEDS [address] [place] [address] Handy Corrigan MD [address] [place] [address] 05/24/2025 11:00 AM EDT Office Visit [facility] OPTOMETRY [address] [place] [address] Kyrie, Sveta, OD [address] [place] [address] documented as of this encounter Visit Diagnoses Not on filedocumented in this encounter Additional Health Concerns Assessment Noted Time PHQ-9 Depression Total Score: 0 11/09/19 24 8:47 AM EDT documented as of this encounter Care Teams Oil Lease Operator Relationship Specialty Start Date End Date Handy Corrigan MD [address] [place] [address] PCP - General Internal Medicine 01/08/20 documented as of this encounter
--- OUTSIDE RECORDS SUMMARY | 2024-11-23 15:58 | XMS_ITS | Encounter Summary ---
Author Organization [employer] Address [address] [facility] 7t [place] [address] Care Team Providers Care Chemical Plant Manager Name Role Phone Handy Corrigan MD Primary Care Prov ider Reason for Visit * Reason Comments Med Refill Encounter Details Date Type Department Care Team ([facility] Contact Info) Description 11/17/[address] [facility] CHC MED & PEDS [address] [place] [address] Handy Corrigan MD [address] [place] [address] Social History Tobacco Use Types Packs/Day Years [...] Info) Description 12/19/2024 10:30 AM EDT Telemedicine [facility] CHC MED & PEDS [address] [place] [address] Handy Corrigan MD [address] [place] [address] 05/24/2025 11:00 AM EDT Office Visit [facility] OPTOMETRY [address] [place] [address] Kyrie, Sveta, OD [address] [place] [address] documented as of this encounter Visit Diagnoses Not on filedocumented in this encounter Additional Health Concerns Assessment Noted Time PHQ-9 Depression Total Score: 0 11/09/19 24 8:47 AM EDT documented as of this encounter Care Teams Chemical Plant Manager Relationship Specialty Start Date End Date Handy Corrigan MD [address] [place] [address] PCP - General Internal Medicine 01/08/20 documented as of this encounter
== END 2024-11-23 13:25 | disposition home or self-care (01) ==
LOC: HO.XRAY 13:24
PROVIDERS: PCP Internal Medicine; Visit Provider Pediatrics
DX: M54.50 Low back pain, unspecified (principal); G89.29 Other chronic pain; M25.551 Pain in right hip
CPT/HCPCS: 72110; 73502; 99212

== ENCOUNTER → 2024-11-23 13:29 | Outpatient (BNV) | payer MEDICAID, SELFPAY | PROVIDERS: PCP Internal Medicine; Visit Provider Radiology Diagnostic Radiology | DX: M54.50 Low back pain, unspecified (principal); M25.551 Pain in right hip | CPT/HCPCS: 72110; 73502 ==

== ENCOUNTER 2024-11-23 14:02 | Outpatient (AMB) | payer MEDICAID, SELFPAY ==
[2024-11-23 14:27] VITALS: BP 118/70; PULSE 62; O2SAT 96; BMI 41.2
--- NOTE | 2024-11-23 14:27 | MHC.OFFVIS ---
Vital Signs 11/23/24 14:27 Height 5 ft 4 in Weight 240 lb 4.862 oz BMI 41.2 BP 118/70 Blood Pressure Location Lt brachial Position Sitting Pulse 62 Pulse Source Pulse Oximeter Pulse Oximetry (%) 96 Oxygen Delivery Method Room Air Intake Visit Reasons: Obstructive sleep apnea Intake Note: pt is here for LILIAM follow up and states she has a little nasal congestion, and due to being sick she has missed a few days of cpap Principal Accounts Clerk Required: Yes Principal Accounts Clerk Services: Principal Accounts Clerk Present Principal Accounts Clerk Name: Chrissy Newton RMA Allergies Farm Life Milk Allergy (Unknown, Uncoded 11/23/24 14:45) Rash Latex Gloves Allergy (Unknown, Uncoded 11/23/24 14:45) itching Medication List - Last Reconciled 11/23/24 by Bobby Hugo MD buspirone 20 mg PO BID cholecalciferol (vitamin D3) (Vitamin D3) 50 mcg PO DAILY diphenhydramine HCl (Banophen) 50 mg PO BEDTIME PRN docusate sodium 100 mg PO BID fluoxetine 40 mg PO DAILY fluticasone propionate 50 mcg/actuation 2 sprays intranasal DAILY hydrochlorothiazide 25 mg PO DAILY ibuprofen 400 mg PO TID PRN levalbuterol tartrate 45 mcg/actuation (Xopenex HFA) 2 puffs inhalation Q6H PRN lidocaine-prilocaine 2.5-2.5 % grams topical DAILY PRN loratadine 10 mg PO DAILY losartan 50 mg PO BID montelukast 10 mg PO DAILY multivitamin 1 tab PO DAILY pantoprazole 40 mg PO BID prednisone 20 mg PO BID sucralfate 10 mL PO QID trazodone 25 mg PO BEDTIME PRN vitamin A acetate 20,000 units sublingual vitamin E 400 units PO DAILY Do you need a note to return to daycare/school/sports/work: No HPI HPI Obstructive sleep apnea: Details: 49 years old female with morbid obesity and obstructive sleep apnea, Comes after 4 months for follow-up. She has been using CPAP most of the time, but in the last 7-10 days he had some cold symptoms and nasal congestion so could not use the CPAP. She states that when she uses CPAP she sleeps better and if she does not use the CPAP she really can not fall asleep. So today she is somewhat tired. Breathing has been okay without any cough or wheezing She does have mild nasal congestion most of the times and has been using Flonase 2 spray in each nostril daily [facility] Medical History Hypoventilation Asthma exacerbation Bronchitis Iron deficiency anemia Hx of cardiomyopathy HTN (hypertension) Depression LILIAM (obstructive sleep apnea) Obesity Asthma Allergic rhinitis Surgical History History of tubal ligation Hx of hysterectomy Hx of section Gastric bypass status for obesity Family History Father Pacemaker Mother HTN (hypertension) Diabetes Fibromyalgia Social History Household Members Other:: Lives with her , 2 adult children Alcohol intake: never Patient Tobacco Use Status: Never used Tobacco Current occupational status: unemployed and disabled Review of Systems Const All systems reviewed & are unremarkable except as noted in HPI and below Eyes Reports no additional complaints ENT Reports nasal congestion (FREQUENT, CONTROLLED WITH MEDS) and Reports nasal discharge Card Denies chest pain, Denies irregular heart rhythm and Denies leg edema Resp Reports as per HPI GI Reports heartburn (Symptoms of GERD controlled with med) Reports no additional complaints Musc Reports no additional complaints Skin/Breast Reports system reviewed and no additional complaints, except as documented Neuro Reports no additional complaints Psych Reports depression (Controlled with med) Physical Exam Vital Signs: Last Vital Signs Pulse 62 11/23/24 14:27 BP 118/70 11/23/24 14:27 Pulse Ox 96 11/23/24 14:27 Oxygen Delivery Method Room Air 11/23/24 14:27 BMI result Body Mass Index 41.2 Const General: healthy appearing (Sick-looking and has frequent cough during the encounter.), comfortable, no acute distress, alert and awake Orientation/consciousness: patient oriented x3 HEENT Head: Yes normal to inspection General nose exam: No nasal polyps present, No nasal discharge present and Other nasal findings present (Bilateral chronic nasal congestion) Face and sinus: Yes sinuses nontender Mouth: oropharynx normal Throat: Yes posterior oropharynx normal Eyes General: appearance normal, both eyes and all related structures Neck Neck: Yes normal visual inspection, Yes no lymphadenopathy, Yes trachea midline and Yes no JVD Thyroid: Thyroid normal Chest Chest palpation & inspection: normal inspection of the chest, normal palpation of entire chest wall and no tenderness Resp Other: Percussion note resonant, breath sounds are slightly distant on both sides. Lungs are clear and no wheezes rhonchi or crepitations are heard today. Cardio Palpation: normal PMI Rate: regular rate Rhythm: regular rhythm Heart sounds: no gallops and no murmurs GI Palpation (GI): Soft to palpation, nontender, No hepatosplenomegaly present and no masses Auscultation: normal bowel sounds Back/Spine/Pelvis Thoracic/Lumbar Spine: thoracic and lumbar spine normal to inspection Skin General skin exam: no rashes or lesions noted Neuro General: patient oriented x3 and no focal motor deficits Cranial nerves: Yes CN's II-XII intact bilaterally Extrem General: Yes normal to inspection, Yes no clubbing, cyanosis or edema and Yes no calf tenderness Psych Appearance: grossly normal and well kempt Speech and movement: Normal speech and movement present Results Reviewed Results Reviewed: Compliance report shows that she was using CPAP relatively regularly up until about 10 days ago. In the last 10 days she has missed using the CPAP due to nasal congestion. When she uses CPAP her residual AHI is only 0.7. Assessment & Plan Assessment & Plan (1) Asthma: Comment: ASTHMA IS MILD, INTERMITTENT. USUALLY FLARES UP DUE TO ALLERGY / WEATHER CHANGES. Code(s): J45.909 - Unspecified asthma, uncomplicated Category: Medical Plan: OK to use levalbuterol-45 2 puffs Q 6 hours p.r.n. (2) Obesity: Comment: DISCUSSED ABOUT HER WEIGHT PROBLEM. SHE NEEDS TO BE IN THE WEIGHT MANAGEMENT PROGRAM . SHE HAS HAD GASTROPLASTY BEFORE. Code(s): E66.9 - Obesity, unspecified Category: Medical Plan: Advised to join the weight management program again, (3) LILIAM (obstructive sleep apnea): Comment: Moderate degree of sleep apnea. The AHI was 23/hr and oxygen viri was 88% She does use CPAP, but misses on frequent nights, overall her compliance has been low , because of URI symptoms . Code(s): G47.33 - Obstructive sleep apnea (adult) (pediatric) Category: Medical Plan: Discussed about the study use of CPAP every night. Even if she has nasal congestion she should still try to use the CPAP. I will prescribe ipratropium nasal spray to use 1 court in each nostril before putting on the nasal mask. (4) Allergic rhinitis: Comment: CHRONIC PERINEAL ALLERGIC RHINITIS, CONTROLLED WITH MEDS. Fairly well controlled , but she had a recent bout of increased nasal congestion due to upper respiratory infection, which is. Now resolved Code(s): J30.9 - Allergic rhinitis, unspecified Category: Medical Plan: Flonase 2 spray in each nostril daily Loratadine 10 mg once a day p.r.n. Also continue using montelukast 10 mg daily Medications: New ipratropium bromide administer into each nostril 2 sprays intranasal TID-QID PRN 15 mL 4RF allergy symptoms 30 days MDD 2 sprays in each nare Coding Level of Care Code Est Pt Level 3 (07062) Diagnoses Asthma J45.909 Obesity E66.9 LILIAM (obstructive sleep apnea) G47.33 Allergic rhinitis J30.9
--- OUTSIDE RECORDS SUMMARY | 2024-11-23 16:48 | XMS_ITS | Encounter Summary ---
Author Organization [employer] Address [address] [facility] 7t [place] [address] Care Team Providers Care Buffing Wheel Raker Name Role Phone Handy Corrigan MD Primary Care Prov ider Reason for Visit * Reason Comments Med Refill Encounter Details Date Type Department Care Team ([facility] Contact Info) Description 05/07/2024 Refill [facility] CHC MED & PEDS [address] [place] [address] Handy Corrigan MD [address] [place] [address] Social History Tobacco Use Types Packs/Day Years [...] Info) Description 12/19/2024 10:30 AM EDT Telemedicine [facility] CHC MED & PEDS [address] [place] [address] Handy Corrigan MD [address] [place] [address] 05/24/2025 11:00 AM EDT Office Visit [facility] OPTOMETRY [address] [place] [address] Kyrie, Sveta, OD [address] [place] [address] documented as of this encounter Visit Diagnoses Not on filedocumented in this encounter Additional Health Concerns Assessment Noted Time PHQ-9 Depression Total Score: 0 11/09/19 24 8:47 AM EDT documented as of this encounter Care Teams Buffing Wheel Raker Relationship Specialty Start Date End Date Handy Corrigan MD [address] [place] [address] PCP - General Internal Medicine 01/08/20 documented as of this encounter
--- OUTSIDE RECORDS SUMMARY | 2024-11-23 16:48 | XMS_ITS | Encounter Summary ---
Author Organization [employer] Address [address] [facility] 7t [place] [address] Care Team Providers Care Financial Services Auditor Name Role Phone Handy Corrigan MD Primary Care Prov ider Encounter Details Date Type Department Care Team (Late st Contact Info) Description 09/15/2024 Orders Only [facility] MEDICINE [address] [place] [address] Handy Corrigan MD [address] [place] [address] Social History Tobacco Use Types Packs/Day Years [...] Description 12/19/2024 10:30 AM EDT Telemedicine [facility] CHC MED & PEDS [address] [place] [address] Handy Corrigan MD [address] [place] [address] 05/24/2025 11:00 AM EDT Office Visit [facility] OPTOMETRY [address] [place], [place] [phone] Kyrie, Sveta, OD [address] [place] [address] documented as of this encounter Visit Diagnoses Not on filedocumented in this encounter Additional Health Concerns Assessment Noted Time PHQ-9 Depression Total Score: 0 11/09/19 24 8:47 AM EDT documented as of this encounter Care Teams Financial Services Auditor Relationship Specialty Start Date End Date Handy Corrigan MD [address] [place] [address] PCP - General Internal Medicine 01/08/20 documented as of this encounter
--- OUTSIDE RECORDS SUMMARY | 2024-11-23 16:48 | XMS_ITS | Encounter Summary ---
Author Organization [employer] Address [address] [facility] 7t [place] [address] Care Team Providers Care Content Developer Name Role Phone Handy Corrigan MD Primary Care Prov ider Reason for Visit * Reason Comments Med Refill Encounter Details Date Type Department Care Team ([facility] st Contact Info) Description 11/21/2024 Refill [facility] CHC MED & PEDS [address] [place] [address] Handy Corrigan MD [address] [place] [address] Primary hypertension Social History Tobacco Use Types [...] Info) Description 12/19/2024 10:30 AM EDT Telemedicine [facility] CHC MED & PEDS [address] [place] [address] Handy Corrigan MD [address] [place] [address] 05/24/2025 11:00 AM EDT Office Visit [facility] OPTOMETRY [address] [place] [address] Kyrie, Sveta, OD [address] [place] [address] documented as of this encounter Visit Diagnoses Diagnosis Primary hypertension Unspecified essential hypertension documented in this encounter Additional Health Concerns Assessment Noted Time PHQ-9 Depression Total Score: 0 11/09/19 24 8:47 AM EDT documented as of this encounter Care Teams Content Developer Relationship Specialty Start Date End Date Handy Corrigan MD [address] [place] [address] PCP - General Internal Medicine 01/08/20 documented as of this encounter
--- OUTSIDE RECORDS SUMMARY | 2024-11-23 16:48 | XMS_ITS | Encounter Summary ---
Author Organization [employer] Address [address] [place] [address] [address], [place] [address] Care Team Providers Care Saddle Stitcher Name Role Phone Handy Corrigan MD Primary Care Prov ider Encounter Details Date Type Department Care Team (Latest Contact Info) Description 10/04/2018 Abstract [facility] [place] [facility] CONVERSIONS Dental, Provider, DDS Social History Tobacco [...] Info) Description 12/19/2024 10:30 AM EDT Telemedicine [facility] CHC MED & PEDS [address] [place] [address] Handy Corrigan MD 505 [place] [address] 05/24/2025 11:00 AM EDT Office Visit [facility] OPTOMETRY [address] [place] [address] Sveta Mittal, OD [address] [place] [address] documented as of this encounter Visit Diagnoses Not on filedocumented in this encounter Care Teams Saddle Stitcher Relationship Specialty Start Date End Date Handy Corrigan MD [address] [place] [address] PCP - General Internal Medicine 01/08/20 Uma Jean Automatic Blocker 06/29/23 09/29/23 documented as of this encounter
--- OUTSIDE RECORDS SUMMARY | 2024-11-23 16:48 | XMS_ITS | Encounter Summary ---
Author Organization [employer] Address [address] [facility] 7t [place] [address] Care Team Providers Care Country Printer Apprentice Name Role Phone Handy Corrigan MD Primary [...] Description 12/19/2024 10:30 AM EDT Telemedicine [facility] CHC MED & PEDS [address] [place] [address] Handy Corrigan MD 505 [place] [address] 05/24/2025 11:00 AM EDT Office Visit [facility] OPTOMETRY [address] [place] [address] Kyrie, Sveta, OD [address] [place] [address] documented as of this encounter Visit Diagnoses Not on filedocumented in this encounter Additional Health Concerns Assessment Noted Time PHQ-9 Depression Total Score: 0 11/09/19 24 8:47 AM EDT documented as of this encounter Care Teams Country Printer Apprentice Relationship Specialty Start Date End Date Handy Corrigan MD [address] [place] [address] PCP - General Internal Medicine 01/08/20 documented as of this encounter
--- OUTSIDE RECORDS SUMMARY | 2024-11-23 16:48 | XMS_ITS | Encounter Summary ---
Author Organization [employer] Address 75 [facility] 7t [place] [address] Care Team Providers Care Tongue And Groove Machine Setter Name Role Phone Handy Corrigan MD Primary Care Prov ider Reason for Visit * Reason Onset Date Comments Nurse Triage 11/22/2024 Encounter Details Date Type Department Care Team (Late st Contact Info) Description 11/22/2024 Telephone [facility] MEDICINE [address] [place] [address] Handy Corrigan MD [address] [place] [phone] Nurse Triage Social History Tobacco Use Types [...] 3:56 PM EDT Called pt. Back via [employer] powerhouse laborer [phone] Catina. Pt. States that she has been [...] 3 Days- appt. Scheduled for tomorrow in [facility] at 915am with Dr. Linares Video visit [...] EDT Tc from pt returning phone call. Bulgarian * Telephone Encounter - Elda Howell RN - 11/22/2024 2:32 PM EDT Called pt. Via [employer] powerhouse laborer Danii [phone]. No answer. Thermograph Operator left message on pt. Voicemail to call back [facility] nurses at [phone]. RE: Back pain and trouble walking. Thermograph Operator called back x2. No answer. Message went to voicemail again. * Telephone Encounter - Conor Blair - 11/22/2024 1:21 PM EDT Symptoms: Back Pain - Not From Injury, Knee Pain - Not From Injury Outcome: Schedule an urgent appointment (within 1 hour) or talk to a nurse or provider soon Reason: Trouble walking The caller accepted this outcome. Contact pt at [phone] documented in this encounter Plan of Treatment Upcoming Encounters Date Type Department Care Team (Late st Contact Info) Description 12/19/2024 10:30 AM EDT Telemedicine [facility] CHC MED & PEDS [address] [place] [address] Handy Corrigan MD [address] [place] [address] 05/24/2025 11:00 AM EDT Office Visit [facility] OPTOMETRY [address] [place], [place] [phone] Sveta Mittal, OD [address] [place] [address] documented as of this encounter Visit Diagnoses Not on filedocumented in this encounter Additional Health Concerns Assessment Noted Time PHQ-9 Depression Total Score: 0 11/09/19 24 8:47 AM EDT documented as of this encounter Care Teams Tongue And Groove Machine Setter Relationship Specialty Start Date End Date Handy Corrigan MD [address] [place] [phone] PCP - General Internal Medicine 01/08/20 documented as of this encounter
--- OUTSIDE RECORDS SUMMARY | 2024-11-23 16:48 | XMS_ITS | Clinical Summary ---
Author Organization [employer] Address [address] [place] [address] 7t [place] [address] Care Team Providers Care Feather Mixer Name Role Phone Handy Corrigan MD Primary [...] had colonoscopy done on April 2021 at [facility] will request results Primary hypertension 07/14/2022 Assessment [...] Patient underwent colonoscopy/upper endoscopy on 04/24/21, at [facility], will task [place] for results Assessment & [...] EDT): Will refer to bariatric surgery at [facility] for evaluation, she had a sleeve gastrectomy about 8 years ago Resolved Problems Problem Noted Date Diagnosed Date Resolved Date Congestive heart failure 05/28/201807/2025 Cardiomyopathy 05/28/2018 09/21/2024 Encounters Date Type Department Care Team Description 11/23/2024 9:15 AM EDT Office Visit [facility] CHC MED & PEDS [address] [place] [address] Jeniffer Linares MD Lumbosacral pain, chronic (Primary Dx) 11/23/2024 Travel 11/22/2024 Telephone [facility] MEDICINE [address] [place] [address] Handy Corrigan MD Nurse Triage 11/21/2024 Refill [facility] MED & PEDS [address] [place] [address] Handy Corrigan MD Primary hypertension 11/17/2024 Refill [facility] CHC MED & PEDS [address] [place] [address] Handy Corrigan MD 11/09/2024 2:30 PM EDT Office Visit [facility] OPTOMETRY [address] [place] [address] Kyrie, Sveta, OD Choroidal nevus, right eye (Primary Dx); Cystoid macular edema of left eye; Presbyopia; Dominant drusen, bilateral 11/09/2024 Travel 11/07/2024 Travel 11/07/2024 Refill [facility] CHC MED & PEDS [address] [place] [address] Handy Corrigan MD Chronic idiopathic constipation 10/21/2024 Population Health Risk [facility] Department [address] [phone] Provider, Population Health Generic 10/19/2024 Orders Only [facility] External Provider, [facility] 09/21/2024 9:45 AM EST Office Visit [facility] CHC MED & PEDS [address] [place] [address] Handy Corrigan MD Irregular periods/menstrual cycles (Primary Dx); Encounter for immunization; Dietary counseling; Exercise counseling; Primary hypertension; Gastroesophageal reflux disease without esophagitis; Iron deficiency anemia due to chronic blood loss 09/21/2024 Travel 09/20/2024 Telephone [facility] CHC MED & PEDS [address] [place] [address] Handy Corrigan MD Chart Prep 09/15/2024 Orders Only [facility] MEDICINE [address] [facility] [place] [address] Handy Corrigan MD 09/09/2024 Refill [facility] CHC MED & PEDS [address] [place] [address] Handy Corrigan MD 09/08/2024 Refill [facility] CHC MED & PEDS [address] [place] [address] Micki Keane MD from Last 3 Months [...] Upcoming Encounters Date Type Department Care Team ([facility] st Contact Info) Description 12/19/2024 10:30 AM EDT Telemedicine [facility] MED & PEDS [address] [place] [address] Handy Corrigan MD [address] [place] [address] 05/24/2025 11:00 AM EDT Office Visit [facility] OPTOMETRY [address] [place] [address] Sveta Mittal, OD [address] [place] [address] Health Maintenance Due Date Last Done Comments [...] AM EDT) 10/19/2024 8:05 AM EDT Narrative [facility] IMAGING - 10/23/2024 12:19 PM EDT ? [facility] ?[address] ?[place] [address] ?Nuclear Medicine Report ? Signed ? Patient: Villalongo Ky,Maranyely ? MR#: [id number] ? : 1975 ?Acct:[id number] ? Age/Sex: 49 / F ?ADM Date: 10/19/24 ? Loc: HO.CARD ? Attending Dr: Dennis Do MD ? Ordering Physician: Dennis Do MD ?? Date of Service: 10/19/24 ?? Procedure(s): NM cardiolite stress test ?? Accession Number(s): [id number] ? cc: Handy Corrigan MD; Dennis Do [...] DD/ 0805 ? TD/TT: 10/20/24 1250 ? Exceptional Children Teacher Assistant: ? Procedure Note Donofe, Image - 10/23/2024 [place] [address] Nuclear Medicine Report Signed Patient: Yaya Jha MR#: [id number] : 1975Acct:[id number] Age/Sex: 49 / FADM Date: 10/19/24 Loc: JODY Attending Dr: Dennis Do MD Ordering Physician: Dennis Do MD Date of Service: 10/19/24 Procedure(s): NM cardiolite stress test Accession Number(s): [id number] cc: Handy Corrigan MD; Dennis Do MD [...] 10/23/24 1216 DD/ 0805 TD/TT: 10/20/24 1250 Exceptional Children Teacher Assistant: us [facility] External Provider CV STRE SS PROCEDURES Final Result [facility] IMAGING [address] [place] [phone] * (ABNORMAL) Prolactin, Dilution Study (09/21/2024 10:30 AM EST) Prolactin, Undiluted 34.4(A) ng/mL [facility] Prolactin, Diluted SEE NOTE ng/mL H [facility] Comment:Result [...] test is not recommended for identifyingmacroprolactin. [facility], Prolactin, Total and Monomeric is therecommended test (Order code [id number]).THIS TEST WAS PERFORMED AT:[facility] [address] [id number] HINES MD Blood Venous blood specimen / Unknown 09/21/2024 10:30 AM EST 09/22/2024 2:25 PM EST Handy Martin MD LAB BLOOD ORDERABL ES Final Result Performing Organization Address [facility]/ZIP Co de Phone Number [facility] [address] [place] [phone] * Estradiol (09/21/2024 10:30 AM EST) [facility] Estradiol Ultra Sensitive 42 pg/mL [facility] Comment:Female Reference Ran ges for Estradiol, Ultrasensitive (pg/mL): Follicular Phase: 39-375 Luteal Phase: 48-440 Postmenopausal Phase: < or = 10This test was developed and its analytical performancecharacteristics have been determined by [facility].It has not been cleared or approved by FDA. This assay hasbeen validated pursuant to the CLIA regulations and is usedfor clinical purposes.THIS TEST WAS PERFORMED AT:[facility] [id number] [place] [address]WWDVWHERMELINDO VILLELA MD,PHD,TC Blood Venous blood specimen / Unknown 09/21/2024 10:30 AM EST 09/22/2024 2:25 PM EST Handy Martin MD LAB BLOOD ORDERABL ES Final Result Performing Organization Address [facility]/ZIP Co de Phone Number [facility] [address] [place] [phone] * hCG, Total, Quantitative (09/21/2024 10:30 AM EST) [facility] HCG Quantitative <2 mIU/mL [facility] Comment:Weeks post LMP Appr oximate hCG(Last Menstrual Period) Range (mIU/ml)3 - 4 weeks 9 - 1304 - 5 weeks 75 - 2,6005 - 6 weeks 850 - 20,8006 - 7 weeks 4000 - 100,2007 - 12 weeks 11,500 - 289,79852 - 16 weeks 18,300 - 137,72900 - 29 weeks (2nd trimester) 1,400 - 53,00750 - 41 weeks (3rd trimester) 940 - [...] MD LAB BLOOD ORDERABL ES Final Result [facility] [address] [place] [phone] * (ABNORMAL) Hemoglobin A1c (08/05/2024 9:10 AM EST) Hemoglobin A1c 6.4(H) <6.0 % [facility] Comment:Hemoglobin A1C Refer ence Range Adults: 4.8 - 6.0 % Non diabetic: < 6.0 % Goal: < 7.0 %Additional Action Suggested: > 8.0 %Note: Hemoglobin A1c results are invalid for patients with abnormal amounts of HbF. Blood transfusions may impact the HbA1c concentration in the patient sample. Estimated Average Glucose 137 mg/dL [facility] Comment:eAG = Estimated ave rage glucose which is %A1C expressed asaverage glucose, using the formula of the B3B-QqspxmxZfcufhy Glucose study (ADAG), Diabetes Care, Vol.31,#8,Mar. 2007 08/05/2024 9:10 AM EST 08/05/2024 2:04 PM EST Generic External Data Provider LAB BLOOD ORDERAB LES Final Result Performing Organization Address City/[facility] Co de Phone Number [facility] [address] [place] [phone] * (ABNORMAL) Lipid Panel, Standard (08/05/2024 9:10 AM EST) Triglycerides 167(H) <150 mg/dL [facility] Comment:Desirable Triglyceri de: less than 150 mg/dLBorderline High Triglyceride 150-199 mg/dLHigh Triglyceride: 200-499 mg/dLVery High Triglyceride: greater than or equal to 5OO mg/dL Cholesterol 170 <200 mg/dL [facility] Comment:Desirable Cholestero l: less than 200 mg/dLBorderline High Cholesterol: 200-239 mg/dLHigh Cholesterol: greater than 239 mg/dL LDL Cholesterol Calculated 93 <100 mg/dL [facility] Comment:Desirable LDL: less than 100 mg/dLNear Optimal/Above Optimal LDL: 110- 129 mg/dLBorderline High LDL: 130-159 mg/dLHigh LDL: 160-189 mg/dLVery High LDL: greater than or equal to 190 mg/dL HDL Cholesterol 44 >40 mg/dL [facility] Comment:Desirable HDL: great er than 40 mg/dL Note: This HDL assay may give artificially low results in patients with liver disease. 08/05/2024 9:10 AM EST 08/05/2024 2:04 PM EST Generic External Data Provider LAB BLOOD ORDERAB LES Final Result Performing Organization Address City/[facility]/ZIP Co de Phone Number [facility] [address] [place] [phone] * BI Mammogram Screening Tomosynthesis Bilateral (12/04/2023 1:50 PM EDT) Anatomical Region Laterality Modality Breast Bilateral Mammography 12/04/2023 1:50 PM EDT Narrative 01/03/2024 6:10 AM EDT ? [place] [facility] ? [address] ?[place] [address] ? Mammography Report ? Signed ? Patient: Villalongo Ky,Maranyely ? MR#: [id number] ? : 1975 ?Acct:[id number] ? Age/Sex: 48 / F ?ADM Date: 12/04/23 ? Loc: HO.MAMMO ? Attending Dr: Jeniffer Linares MD ? Ordering Physician: Jeniffer Linares MD ?Results: 2Be ?? nign Findings ? Date of Service: 12/04/23 ?Follow Up: 1 Year From Orig ?? inal Mammogram ? Procedure(s): MM tomosynthesis screening BI ?? Accession Number(s): [id number] ? cc: Jeniffer Linares MD; Handy Corrigan [...] 01/03/[address] ? DD/ 1350 ? TD/TT: ? Exceptional Children Teacher Assistant: ? Procedure Note Atul, Image - 01/03/2024 [facility] [address] [place] [address] Mammography Report Signed Patient: Yaya Jha MR#: [id number] : 1975Acct:[id number] Age/Sex: 48 / FADM Date: 12/04/23 Loc: HO.MAMMO Attending Dr: Jeniffer Linares MD Ordering Physician: Jeniffer Linares MDResults: 2Be nign Findings Date of Service: 12/04/23Follow Up: 1 Year From Orig inal Mammogram Procedure(s): MM tomosynthesis screening BI Accession Number(s): [id number] cc: Jeniffer Linares MD; Handy Corrigan MD [...] in OV> 01/03/24 0606 DD/ 1350 TD/TT: Exceptional Children Teacher Assistant: us Jeniffer Linares MD IMG BI [...] historic and ?? current clinical information. ?? Tree Specialist : SEE COMMENT [facility] Comment: BLC,CT(ASCP) CT screening location: [address] ??[address] Interpretation/R esult: Negative for intraepithelial lesion or malignancy. [facility] LMP: NONE [facility]IVEN [facility] Prev. BX: NONE [facility]IVEN [facility] Prev. PAP: NONE [facility]IVEN [facility] SOURCE: None given [facility] Statement Of Adequacy: SEE COMMENT [facility] Comment: Satisfactory for evaluation. Endocervical/transformation zone component present. Age and/or menstrual status not provided 02/21/2021 12:3 1 PM EDT us Jeniffer Linares MD LAB PATHOLOGY ORDERABLES Yumiko l Result Performing Organization Address [facility] Co de Phone Number [facility] [address] * HPV mRNA E6/E7 (02/21/2021 12:31 PM EDT) HPV nRNA E6/E7 Not Detected Not Detected [facility] Comment: Methodology: Furnace Builder-Mediated Amplification This assay detects E6/E7 viral messenger RNA (mRNA) from 14 high-risk HPV types (16,18,31,33,35,39,45,51,52,56,58,59,66,68). ? The analytical performance characteristics of this assay have been determined by [facility]. The modifications have not been cleared or approved by the FDA. This assay has been validated pursuant to the CLIA regulations and is used for clinical purposes. ?? For additional information, please refer to http://education.[employer]/faq/LHF503f3 (This link if provided for information/ educational purposes only.) 02/21/2021 12:3 1 PM EDT us Jeniffer Linares MD LAB BLOOD ORDERABLES Final Re sult Performing Organization Address [facility] de Phone Number [facility] [address] from Last 3 Months or Most Recently Relevant to Health Maintenance [place] [address] [place] [address] C[place] AD[place] Care Teams Feather Mixer Relationship Specialty Start Date End Date Handy Corrigan MD [address] [place] [address] PCP - General Internal Medicine 01/08/20
--- OUTSIDE RECORDS SUMMARY | 2024-11-23 16:48 | XMS_ITS | Encounter Summary ---
Author Organization [employer] Address 75 [facility] 7t [place] [address] Care Team Providers Care Boatbuilder Apprentice Wood Name Role Phone Handy Corrigan MD Primary Care Prov ider Reason for Visit * Reason Comments Med Refill Encounter Details Date Type Department Care Team ([facility] Contact Info) Description 11/17/2024 Refill [facility] CHC MED & PEDS [address] [place] [address] Handy Corrigan MD [address] [place] [address] Social History Tobacco Use Types Packs/Day Years [...] Info) Description 12/19/2024 10:30 AM EDT Telemedicine [facility] CHC MED & PEDS [address] [place] [address] Handy Corrigan MD [address] [place] [address] 05/24/2025 11:00 AM EDT Office Visit [facility] OPTOMETRY [address] [place] [address] Kyrie, Sveta, OD [address] [place] [address] documented as of this encounter Visit Diagnoses Not on filedocumented in this encounter Additional Health Concerns Assessment Noted Time PHQ-9 Depression Total Score: 0 11/09/19 24 8:47 AM EDT documented as of this encounter Care Teams Boatbuilder Apprentice Wood Relationship Specialty Start Date End Date Handy Corrigan MD [address] [place] [address] PCP - General Internal Medicine 01/08/20 documented as of this encounter
--- OUTSIDE RECORDS SUMMARY | 2024-11-23 16:48 | XMS_ITS | Encounter Summary ---
Author Organization [employer] Address 75 [facility] 7t [place] [address] Care Team Providers Care Pathology Laboratory Director Name Role Phone Handy Corrigan MD Primary Care Prov ider Encounter Details Date Type Department Care Team ([facility] st Contact Info) Description 08/29/2023 Orders Only [facility] CHC MED & PEDS [address] [place], [place] [phone] Handy Corrigan MD [address] [place] [address] Social History Tobacco Use Types Packs/Day Years [...] Info) Description 12/19/2024 10:30 AM EDT Telemedicine [facility] CHC MED & PEDS [address] [place] [address] Handy Corrigan MD [address] [place] [address] 05/24/2025 11:00 AM EDT Office Visit [facility] OPTOMETRY [address] [place] [address] Kyrie, Sveta, OD [address] [place] [address] documented as of this encounter Visit Diagnoses Not on filedocumented in this encounter Additional Health Concerns Assessment Noted Time PHQ-9 Depression Total Score: 0 11/04/19 23 1:50 PM EDT documented as of this encounter Care Teams Pathology Laboratory Director Relationship Specialty Start Date End Date Handy Corrigan MD [address] [place] [address] PCP - General Internal Medicine 01/08/20 Uma Jean Forestry Aid Technician 06/29/23 09/29/23 documented as of this encounter
--- OUTSIDE RECORDS SUMMARY | 2024-11-23 16:48 | XMS_ITS | Encounter Summary ---
Author Organization [employer] Address 75 [facility] 7t [place] [address] Care Team Providers Care Flight Surgeon Name Role Phone Handy Corrigan MD Primary Care Prov ider Encounter Details Date Type Department Care Team ([facility] Contact Info) Description 11/23/2024 9:15 AM EDT Office Visit [facility] CHC MED & PEDS [address] [place] [address] Jeniffer Linares MD [address] [place] [address] Lumbosacral pain, chronic (Primary Dx) Social History [...] Patient Position: Sitting, BP Cuff Size: Adult) [id number] Temp 97 ??F (36.1 ??C) (Oral) Resp [...] Upcoming Encounters Date Type Department Care Team ([facility] Contact Info) Description 12/19/2024 10:30 AM EDT Telemedicine [facility] CHC MED & PEDS [address] [place] [address] Handy Corrigan MD [address] [place] [address] 05/24/2025 11:00 AM EDT Office Visit [facility] OPTOMETRY [address] [place], [place] [phone] Sveta Mittal, OD [address] [place] [address] Scheduled Orders Name Type Priority Associated Diagnoses [...] documented as of this encounter Care Teams Flight Surgeon Relationship Specialty Start Date End Date Handy Corrigan MD [address] [place] [address] PCP - General Internal Medicine 01/08/20 documented as of this encounter
== END 2024-11-23 14:42 | disposition home or self-care (01) ==
LOC: HO.HPS 14:03
PROVIDERS: PCP Internal Medicine; Visit Provider Internal Medicine
DX: J45.909 Unspecified asthma, uncomplicated (principal); E66.9 Obesity, unspecified; G47.33 Obstructive sleep apnea (adult) (pediatric); J30.9 Allergic rhinitis, unspecified
CPT/HCPCS: 99213

== ENCOUNTER 2024-12-16 10:29 | Outpatient (AMB) | payer MEDICAID, SELFPAY ==
--- NOTE | 2024-12-16 10:33 | A.OFFVIS_ITS ---
Vital Signs 12/16/24 10:35 Height 5 ft 4 in Weight 240 lb BMI 41.2 BP 110/80 Blood Pressure Location Lt brachial Pulse 82 Pulse Source Pulse Oximeter Pulse Oximetry (%) 97 Oxygen Delivery Method Room Air Intake Visit Reasons: 1 yr Follow up [employer] Shift Superintendent Required: No Accompanied by: Self / Same As Patient Allergies Farm Life Milk Allergy (Unknown, Uncoded 12/16/24 10:36) Rash Latex Gloves Allergy (Unknown, Uncoded 12/16/24 10:36) itching HPI Comments Details: 49-yr-old male presents for follow-up visit of moderate obstructive sleep apnea. Pt denies any significant interval medical history changes. Pt reports that she is sleeping well with CPAP. She is using CPAP most nights, accept when she has a URI or asthma flare-up. She states this does not happen often, and is followed closely by Dr Hugo, pulmonology. She feels refreshed in the morning, and feels better daytime energy w/ using PAP device. She typically sleeps with her head elevated on 2 pillows. She states she cleans and changes her CPAP supplies routinely, and has a enough PAP supplies. She uses distilled water in her CPAP water reservoir. Compliance Report Usage 09/10/2024-12/08/2024 [facility] Usage days 77% Usage >= 4 hours 71% Average usage (days used) 7 hours and 17 minutes Resmed AirSense 10 AutoSet Serial number [id number] Mode CPAP Set pressure 9 cmH2O EPR Fulltime EPR level 2 Median leaks 1.8 L/min Residual AHI: 0.7 per hour [facility] Medical History Hypoventilation Asthma exacerbation Bronchitis Iron deficiency anemia Hx of cardiomyopathy HTN (hypertension) Depression LILIAM (obstructive sleep apnea) Obesity Asthma Allergic rhinitis Surgical History History of tubal ligation Hx of hysterectomy Hx of section Gastric bypass status for obesity Family History Father Pacemaker Mother HTN (hypertension) Diabetes Fibromyalgia Social History Household Members Other:: Lives with her , 2 adult children Alcohol intake: never Patient Tobacco Use Status: Never used Tobacco Current occupational status: unemployed and disabled Physical Exam Vital Signs: Last Vital Signs Pulse 82 12/16/24 10:35 BP 110/80 12/16/24 10:35 Pulse Ox 97 12/16/24 10:35 Oxygen Delivery Method Room Air 12/16/24 10:35 BMI result Body Mass Index 41.2 Const General: no acute distress Orientation/consciousness: patient oriented x3 Resp Effort & Inspection: normal respiratory effort and able to speak in complete sentences Auscultation: clear to auscultation bilaterally Neuro General: patient oriented x3 Psych Mental Status: mental status grossly normal Speech and movement: Clear speech present Attitude: cooperative Assessment & Plan Assessment & Plan (1) LILIAM (obstructive sleep apnea): Comment: Moderate degree of sleep apnea. The AHI was 23/hr and oxygen viri was 88% Code(s): G47.33 - Obstructive sleep apnea (adult) (pediatric) Category: Medical Plan Continue CPAP 9 cmH2O nightly > 4 hours, as pt continues to have good clinical effect from use. * Clean CPAP machine and supplies routinely. * Change CPAP supplies routinely. * Continue to use distilled water in CPAP water reservoir. Continue to sleep with head elevated, especially when her respiratory symptoms from Marky her from using her CPAP machine. * She may benefit from trying a a sleep apnea wedge pillow to support head elevation at night. Pt to contact us or respiratory company with any questions or concerns. Pt to follow-up in 12 months or sooner prn. Coding Level of Care Code Est Pt Level 3 (20734) Diagnoses LILIAM (obstructive sleep apnea) G47.33
[2024-12-16 10:35] VITALS: BP 110/80; PULSE 82; O2SAT 97; BMI 41.2
--- OUTSIDE RECORDS SUMMARY | 2024-12-16 11:00 | XMS_ITS | Encounter Summary ---
Author Organization [employer] Address [address] [facility] [address] [place] [address] Care Team Providers Care Church History Professor Name Role Phone Handy Corrigan MD Primary Care Prov ider Encounter Details Date Type Department Care Team (Late st Contact Info) Description 08/29/2023 Orders Only [facility] [address] [place] [address] Handy Corrigan MD [address] [place] [address] Social History Tobacco Use Types Packs/Day Years [...] Info) Description 12/19/2024 10:30 AM EDT Telemedicine [facility] [address] [place] [address] Handy Corrigan MD [address] [place] [address] 05/24/2025 11:00 AM EDT Office Visit [facility] [address] [place] [address] Kyrie, Sveta, OD [address] [place] [address] documented as of this encounter Visit Diagnoses Not on filedocumented in this encounter Additional Health Concerns Assessment Noted Time PHQ-9 Depression Total Score: 0 11/04/19 23 1:50 PM EDT documented as of this encounter Care Teams Church History Professor Relationship Specialty Start Date End Date Handy Corrigan MD [address] [place] [address] PCP - General Internal Medicine 01/08/20 Uma Jean [employer] 06/29/23 09/29/23 documented as of this encounter
--- OUTSIDE RECORDS SUMMARY | 2024-12-16 11:00 | XMS_ITS | Encounter Summary ---
Author Organization [employer] Address [address] [facility] [address] [place] [address] Care Team Providers Care Department Assistant Name Role Phone Handy Corrigan MD Primary Care Prov ider Reason for Visit * Reason Comments Med Refill Encounter Details Date Type Department Care Team ([facility] Contact Info) Description 05/07/2024 Refill [facility] [address] [place] [address] Handy Corrigan MD [address] [place] [address] Social History Tobacco Use Types Packs/Day Years [...] Info) Description 12/19/2024 10:30 AM EDT Telemedicine [facility] [address] [place] [address] Handy Corrigan MD [address] [place] [address] 05/24/2025 11:00 AM EDT Office Visit [facility] [address] [place] [address] Kyrie, Sveta, OD [address] [place] [address] documented as of this encounter Visit Diagnoses Not on filedocumented in this encounter Additional Health Concerns Assessment Noted Time PHQ-9 Depression Total Score: 0 11/09/19 24 8:47 AM EDT documented as of this encounter Care Teams Department Assistant Relationship Specialty Start Date End Date Handy Corrigan MD [address] [place] [address] PCP - General Internal Medicine 01/08/20 documented as of this encounter
--- OUTSIDE RECORDS SUMMARY | 2024-12-16 11:00 | XMS_ITS | Encounter Summary ---
Author Organization [employer] Address [address] [facility] [address] [place] [address] Care Team Providers Care Early Childhood Special Educator Name Role Phone Handy Corrigan MD Primary Care Prov ider Encounter Details Date Type Department Care Team (Late st Contact Info) Description 09/15/2024 Orders Only [facility] [address] [place] [address] Handy Corrigan MD [address] [place] [id number] Social History Tobacco Use Types Packs/Day Years [facility] [address] [place] [address] Handy Corrigan MD [address] [place] [address] 05/24/2025 11:00 AM EDT Office Visit [facility] [address] [place], [place] [id number] Kyrie, Sveta, OD [address] [place] [address] documented as of this encounter Visit Diagnoses Not on filedocumented in this encounter Additional Health Concerns Assessment Noted Time PHQ-9 Depression Total Score: 0 11/09/19 24 8:47 AM EDT documented as of this encounter Care Teams Early Childhood Special Educator Relationship Specialty Start Date End Date Handy Corrigan MD [address] [place] [address] PCP - General Internal Medicine 01/08/20 documented as of this encounter
--- OUTSIDE RECORDS SUMMARY | 2024-12-16 11:00 | XMS_ITS | Clinical Summary ---
Author Organization [employer] Address [address] [place] [address] 7[address] [place] [address] Care Team Providers Care Ingot Header Name Role Phone Handy Corrigan MD Primary [...] BY MOUTH AT BEDTIME NEEDED FOR SLEEP Active hydroCHLOROthia zide (HYDRODiuril) 25 MG tabletIndicatio [...] at bed time. 2024 Discontinued(T herapy completed) hydroCHLOROthia zide (HYDRODiuril) 25 MG tabletIndicatio ns:Primary [...] had colonoscopy done on April 2021 at [place] will request results Primary hypertension 07/14/2022 Assessment [...] Patient underwent colonoscopy/upper endoscopy on 04/24/21, at [place], will task MS for results Assessment & Plan (07/14/2022 1:31 [...] EDT): Will refer to bariatric surgery at [place] for evaluation, she had a sleeve gastrectomy about 8 years ago Resolved Problems Problem Noted Date Diagnosed Date Resolved Date Congestive heart failure 05/28/201807/2025 Cardiomyopathy 05/28/2018 09/21/2024 Encounters Date Type Department Care Team Description 11/25/2024 Telephone [facility] MEDICINE [address] [place] [address] Jeniffer Linares MD Results 11/23/2024 9:15 AM EDT Office Visit [facility] MED & PEDS [address] [place] [address] Jeniffer Linares MD Lumbosacral pain, chronic (Primary Dx) 11/23/2024 Travel 11/22/2024 Telephone [facility] MEDICINE [address] [place] [address] Handy Corrigan MD Nurse Triage 11/21/2024 Refill [facility] MED & PEDS [address] [place] [address] Handy Corrigan MD Primary hypertension 11/17/2024 Refill [facility] MED & PEDS [address] [place] [address] Handy Corrigan MD 11/09/2024 2:30 PM EDT Office Visit [facility] OPTOMETRY [address] [place] [address] Kyrie, Sveta, OD Choroidal nevus, right eye (Primary Dx); Cystoid macular edema of left eye; Presbyopia; Dominant drusen, bilateral 11/09/2024 Travel 11/07/2024 Travel 11/07/2024 Refill [facility] MED [facility] PEDS [address] [place] [address] Handy Corrigan MD Chronic idiopathic constipation 10/21/2024 Population Health Risk Score [facility] ([facility]) Department [address] [place] [address] [phone] Provider, Population Health Generic 10/19/2024 Orders Only [facility] External Provider, [facility] 09/21/2024 9:45 AM EST Office Visit [facility] MED [facility] PEDS [address] [place] [address] Hadny Corrigan MD Irregular periods/menstrual cycles (Primary Dx); Encounter for immunization; Dietary counseling; Exercise counseling; Primary hypertension; Gastroesophageal reflux disease without esophagitis; Iron deficiency anemia due to chronic blood loss 09/21/2024 Travel 09/20/2024 Telephone [facility] MED [facility] PEDS [address] [place] [address] Handy Corrigan MD Chart Prep from Last 3 Months Immunizations Name Administration [...] Info) Description 12/19/2024 10:30 AM EDT Telemedicine [facility] MED & PEDS [address] [place] [address] Handy Corrigan MD [address] [place] [address] 05/24/2025 11:00 AM EDT Office Visit [facility] OPTOMETRY [address] [place] [address] Sveta Mittal, OD [address] [place] [address] Health Maintenance Due Date Last Done Comments [...] Procedure Name Priority Date/Time Associated Diagnosis Comments XR LUMBAR SPINE COMPLETE 4+ VIEWS Routine 11/24/2024 4:18 PM EDT Lumbosacral pain, chronic XR HIP 2 OR 3 VIEWS RIGHT Routine 11/24/2024 4:17 PM EDT Lumbosacral pain, chronic OCT, RETINA - OU - BOTH EYES [...] Recently Relevant to Health Maintenance Results * XR Lumbar Spine Complete 4+ Views (11/24/2024 4:18 PM EDT) Anatomical Region Laterality Modality Spine, L-spine Radiographic Mounika ging 11/24/2024 4:18 PM EDT Narrative 11/24/2024 4:19 PM EDT ? [facility] ?[address] ?[place] [address] ?XRay Report ? Signed ? Patient: Yaya Jha ? MR#: [id number] ? : 1975 ?Acct:[id number] ? Age/Sex: 49 / F ?ADM Date: 11/23/24 ? Loc: HO.XRAY ? Attending Dr: Jeniffer Linares MD ? Ordering Physician: Jeniffer Linares MD ?? Date of Service: 11/23/24 ?? Procedure(s): XR lumbar spine 4V min ?? Accession Number(s): [id number] ? cc: Jeniffer Linares MD; Handy Corrigan MD ? CLINICAL HISTORY: chronic LBP radiating to R hip ? 5 views lumbar spine ? Comparison: None ? Findings: ?? Normal vertebral body alignment. ?? No acute fractures or dislocation. ?? No significant loss of intervertebral disc height. Likely facet ?? osteoarthritis at L5-S1. ?? There are surgical clips within the left side of the abdomen. ? IMPRESSION: ?? No acute findings. ? This document has been electronically signed by: Shonda Murillo MD on ?? 11/24/2024 16:18:18 ? Dictated By: ?Shonda Murillo MD ? Signed By: ?<Electronically signed by Shonda Murillo MD in OV> ? 11/24/24 1619 ? DD/ 1618 ? TD/TT: 11/24/24 1618 ? Media Monitor: ? Procedure Note Atul, Image - 11/24/2024 [place] [address] XRay Report Signed Patient: Yaya Jha MR#: [id number] : 1975Acct:[id number] Age/Sex: 49 / FADM Date: 11/23/24 Loc: JOCELYNN Attending Dr: Jeniffer Linares MD Ordering Physician: Jeniffer Linares MD Date of Service: 11/23/24 Procedure(s): XR lumbar spine 4V min Accession Number(s): [id number] cc: Jeniffer Linares MD; Handy Corrigan MD CLINICAL HISTORY: chronic LBP radiating to R hip 5 views lumbar spine Comparison: None Findings: Normal vertebral body alignment. No acute fractures or dislocation. No significant loss of intervertebral disc height. Likely facet osteoarthritis at L5-S1. There are surgical clips within the left side of the abdomen. IMPRESSION: No acute findings. This document has been electronically signed by: Shonda Murillo MD on 11/24/2024 16:18:18 Dictated By: Shonda Murillo MD Signed By: <Electronically signed by Shonda Murillo MD in OV> 11/24/24 1619 DD/ 1618 TD/TT: 11/24/24 1618 Media Monitor: us Jeniffer Linares MD IMG XR PROCEDURES Final Resul t * XR Hip 2 or 3 Views Right (11/24/2024 4:17 PM EDT) Anatomical Region Laterality Modality Lower Extremities, Hip Right Radiograp hic Imaging 11/24/2024 4:17 PM EDT Narrative 11/24/2024 4:18 PM EDT ? [facility] ?[address] ?[place] [address] ?XRay Report ? Signed ? Patient: Villalongo Ky,Maranyely ? MR#: [id number] ? : 1975 ?Acct:[id number] ? Age/Sex: 49 / F ?ADM Date: 11/23/24 ? Loc: HO.XRAY ? Attending Dr: Jeniffer Linares MD ? Ordering Physician: Jeniffer Linares MD ?? Date of Service: 11/23/24 ?? Procedure(s): XR hip RT min 2V ?? Accession Number(s): [id number] ? cc: Jeniffer Linares MD; Handy Corrigan MD ? CLINICAL HISTORY: Chronic back pain radiating to R hip ? 2 view, right hip ? Comparison: None ? Findings: ?? No acute fracture or dislocation. ?? No significant arthritic change. ?? The soft tissues are unremarkable. ? IMPRESSION: ?? No acute findings. ? This document has been electronically signed by: Shonda Murillo MD on ?? 11/24/2024 16:17:42 ? Dictated By: ?Shonda Murillo MD ? Signed By: ?<Electronically signed by Shonda Murillo MD in OV> ? 11/24/24 1618 ? DD/ 16 ? TD/TT: 11/24/241616 ? Media Monitor: ? Procedure Note Elle Pollard - 11/24/2024 [place] [address] XRay Report Signed Patient: Yaya Jha MR#: [id number] : 1975Acct:[id number] Age/Sex: 49 / FADM Date: 11/23/24 Loc: HO.XRAY Attending Dr: Jeniffer Linares MD Ordering Physician: Jeniffer Linares MD Date of Service: 11/23/24 Procedure(s): XR hip RT min 2V Accession Number(s): [id number] cc: Jeniffer Linares MD; Handy Corrigan MD CLINICAL HISTORY: Chronic back pain radiating to R hip 2 view, right hip Comparison: None Findings: No acute fracture or dislocation. No significant arthritic change. The soft tissues are unremarkable. IMPRESSION: No acute findings. This document has been electronically signed by: Shonda Murillo MD on 11/24/2024 16:17:42 Dictated By: Shonda Murillo MD Signed By: <Electronically signed by Shonda Murillo MD in OV> 11/24/24 1618 DD/ 1617 TD/TT: 11/24/24 1617 Media Monitor: us Jeniffer Linares MD IMG XR PROCEDURES Final Resul t * OCT, Retina - OU - Both Eyes (11/09/2024 2:30 PM EDT) Narrative Sveta Mittal, OD - 11/22/2024 4:18 PM EDT Images [...] AM EDT) 10/19/2024 8:05 AM EDT Narrative [facility] - 10/23/2024 12:19 PM EDT ? [facility] ?[address] ?[place] [address] ?Nuclear Medicine Report ? Signed ? Patient: Villalongo Ky,Maranyely ? MR#: [id number] ? : 1975 ?Acct:[id number] ? Age/Sex: 49 / F ?ADM Date: 03/12/25 ? Loc: HO.CARD ? Attending Dr: Dennis Do MD ? Ordering Physician: Dennis Do MD ?? Date of Service: 10/19/24 ?? Procedure(s): NM cardiolite stress test ?? Accession Number(s): [id number] ? cc: Handy Corrigan MD; Dennis Do [...] MD in OV> ?10/23/24 1216 ? DD/ 08 ? TD/TT: 10/20/24 1250 ? Media Monitor: ? Procedure Note Donotuseinterpreter, Image - 10/23/2024 [place] [address] Nuclear Medicine Report Signed Patient: Yaya Jha MR#: [id number] : 1975Acct:[id number] Age/Sex: 49 / FADM Date: 10/19/24 [facility]: Dennis Do MD Ordering Physician: Dennis Do MD Date of Service: 10/19/24 Procedure(s): IA cardiolite stress test Accession Number(s): [id number] cc: Handy Corrigan MD; Dennis Do MD [...] 10/23/24 1216 DD/ 0805 TD/TT: 10/20/24 1250 Media Monitor: [facility] External Provider CV STRE SS PROCEDURES Final Result [facility] [address] [place] [phone] * (ABNORMAL) Prolactin, Dilution Study (09/21/2024 10:30 AM EST) Prolactin, Undiluted 34.4(A) ng/mL [facility] Prolactin, Diluted SEE NOTE ng/mL [facility] Comment:Result confirmed by 1:100 dilution. No high dosehook effect detected. Reference Range Females Non- 3.0-30.0 10.0-209.0 Postmenopausal 2.0-20.0Prolactin dilution studies are done to determine ifthere is a high-dose hook effect (i.e. a non-linearassay response due to a very high concentration ofProlactin). This is reported to occur at Prolactinconcentrations at or above 30,000 ng/mL.This test is not recommended for identifyingmacroprolactin. The [facility], Prolactin, Total and Monomeric is therecommended test (Order code [id number]).THIS TEST WAS PERFORMED AT:[facility] [address] [id number] HINES MD Blood Venous blood specimen / Unknown 09/21/2024 10:30 AM EST 09/22/2024 2:25 PM EST Handy Martin MD LAB BLOOD ORDERABL ES Final Result Performing Organization Address [facility] Co de Phone Number [facility] [address] [place] [phone] * Estradiol (09/21/2024 10:30 AM EST) Estradiol Ultra Sensitive 42 pg/mL [facility] Comment:Female Reference Ran ges for Estradiol, Ultrasensitive (pg/mL): Follicular Phase: 39-375 Luteal Phase: 48-440 Postmenopausal Phase: < or = 10This test was developed and its analytical performancecharacteristics have been determined by [facility].It has not been cleared or approved by FDA. This assay hasbeen validated pursuant to the CLIA regulations and is usedfor clinical purposes.THIS TEST WAS PERFORMED AT:[facility]/[employer] [id number] [facility] [place] [address]DSXAQHERMELINDO VILLELA MD,PHD,TC Blood Venous blood specimen / Unknown 09/21/2024 10:30 AM EST 09/22/2024 2:25 PM EST Handy Martin MD LAB BLOOD ORDERABL ES Final Result Performing Organization Address [facility] Co de Phone Number [facility] [address] [place] [phone] * hCG, Total, Quantitative (09/21/2024 10:30 AM EST) HCG Quantitative <2 mIU/mL [facility] Comment:Weeks post LMP Appr oximate hCG(Last Menstrual Period) Range (mIU/ml)3 - 4 weeks 9 - 1304 - 5 weeks 75 - 2,6005 - 6 weeks 850 - 20,8006 - 7 weeks 4000 - 100,2007 - 12 weeks 11,500 - 289,63851 - 16 weeks 18,300 - 137,56537 - 29 weeks (2nd trimester) 1,400 - 53,10488 - 41 weeks (3rd trimester) 940 - [...] Final Result Performing Organization Address [facility]/ZIP Co de Phone Number [facility] [address] [place] [phone] * (ABNORMAL) Hemoglobin A1c (08/05/2024 9:10 AM EST) Hemoglobin A1c 6.4(H) <6.0 % [facility] Comment:Hemoglobin A1C Refer ence Range Adults: 4.8 - 6.0 % Non diabetic: < 6.0 % Goal: < 7.0 %Additional Action Suggested: > 8.0 %Note: Hemoglobin A1c results are invalid for patients with abnormal amounts of HbF. Blood transfusions may impact the HbA1c concentration in the patient sample. Estimated Average Glucose 137 mg/dL [facility] Comment:eAG = Estimated ave rage glucose which is %A1C expressed asaverage glucose, using the formula of the D7S-GzkrwrrUfuqdiw Glucose study (ADAG), Diabetes Care, Vol.31,#8,Mar. 2007 08/05/2024 9:10 AM EST 08/05/2024 2:04 PM EST us Generic External Data Provider LAB BLOOD ORDERAB LES Final Result Performing Organization Address [facility] Co de Phone Number [facility] [address] [place] [phone] * (ABNORMAL) Lipid Panel, Standard (08/05/2024 9:10 AM EST) Triglycerides 167(H) <150 mg/dL [facility] Comment:Desirable Triglyceri de: less than 150 mg/dLBorderline High Triglyceride 150-199 mg/dLHigh Triglyceride: 200-499 mg/dLVery High Triglyceride: greater than or equal to 5OO mg/dL Cholesterol 170 <200 mg/dL [facility] Comment:Desirable Cholestero l: less than 200 mg/dLBorderline High Cholesterol: 200-239 mg/dLHigh Cholesterol: greater than 239 mg/dL LDL Cholesterol Calculated 93 <100 mg/dL [facility] Comment:Desirable LDL: less than 100 mg/dLNear Optimal/Above Optimal LDL: 110- 129 mg/dLBorderline High LDL: 130-159 mg/dLHigh LDL: 160-189 mg/dLVery High LDL: greater than or equal to 190 mg/dL HDL Cholesterol 44 >40 mg/dL [facility] Comment:Desirable HDL: great er than 40 mg/dL Note: This HDL assay may give artificially low results in patients with liver disease. 08/05/2024 9:10 AM EST 08/05/2024 2:04 PM EST us Generic External Data Provider LAB BLOOD ORDERAB LES Final Result Performing Organization Address City/State/[facility] Co de Phone Number [facility] [address] [place] [phone] * BI Mammogram Screening Tomosynthesis Bilateral (12/04/2023 1:50 PM EDT) Anatomical Region Laterality Modality Breast Bilateral Mammography 12/04/2023 1:50 PM EDT Narrative 01/03/2024 6:10 AM EDT ? [facility] ? [address] ?[place] [address] ? Mammography Report ? Signed ? Patient: Villalongo Ky,Maranyely ? MR#: [id number] ? : 1975 ?Acct:[id number] ? Age/Sex: 48 / F ?ADM Date: 04/26/24 ? Loc: HO.MAMMO ? Attending Dr: Jeniffer Linares MD ? Ordering Physician: Jeniffer Linares MD ?Results: 2Be ?? nign Findings ? Date of Service: 12/04/23 ?Follow Up: 1 Year From Orig ?? inal Mammogram ? Procedure(s): MM tomosynthesis screening BI ?? Accession Number(s): [id number] ? cc: Jeniffer Linares MD; Handy Corrigan [...] by Hui Al MD in OV> ? 01/02/ 0606 ? DD/ 1350 ? TD/TT: ? Media Monitor: ? Procedure Note Donotjoseinterpreter, Image - [facility]/03/[facility] [address] [place] [address] Mammography Report Signed Patient: Yaya Jha MR#: [id number] : 1975Acct:[id number] Age/Sex: 48 / FADM Date: 12/04/23 Loc: HO.MAMMO Attending Dr: Jeniffer Linares MD Ordering Physician: Jeniffer Linares MDResults: 2Be nign Findings Date of Service: 12/04/23Follow Up: 1 Year From Orig inal Mammogram Procedure(s): MM tomosynthesis screening BI Accession Number(s): [id number] cc: Jeniffer Linares MD; Handy Corrigan MD [...] in OV> 01/03/24 0606 DD/ 1350 TD/TT: Media Monitor: us Jeniffer Linares MD IMG BI PROCEDURES [...] historic and ?? current clinical information. ?? Outsole Paraffiner : SEE COMMENT [facility] Comment: BLC,CT(ASCP) CT screening location: [address] ??[address] Interpretation/R esult: Negative for intraepithelial lesion or malignancy. [facility] LMP: NONE [facility]IVEN [facility] Prev. BX: NONE [facility]IV[facility] Prev. PAP: NONE [facility]IVEN [facility] SOURCE: None given [facility] Statement Of Adequacy: SEE COMMENT [facility] Comment: Satisfactory for evaluation. Endocervical/transformation zone component present. Age and/or menstrual status not provided 02/21/2021 12:3 1 PM EDT us Jeniffer Linares MD LAB PATHOLOGY ORDERABLES Yumiko mullins Result [facility] [address] * HPV mRNA E6/E7 (02/21/2021 12:31 PM EDT) HPV nRNA E6/E7 Not Detected Not Detected [facility] Comment: Methodology: Ammonium Hydroxide Operator-Mediated Amplification This assay detects E6/E7 viral messenger RNA (mRNA) from 14 high-risk HPV types (16,18,31,33,35,39,45,51,52,56,58,59,66,68). ? The analytical performance characteristics of this assay have been determined by [facility]. The modifications have not been cleared or approved by the FDA. This assay has been validated pursuant to the CLIA regulations and is used for clinical purposes. ?? For additional information, please refer to http://education.[employer]/faq/XGY489n8 (This link if provided for information/ educational purposes only.) 02/21/2021 12:3 1 PM EDT us Jeniffer Linares MD LAB BLOOD ORDERABLES Final Re sult [facility] [address] from Last 3 Months or Most Recently Relevant to Health Maintenance [place] [address] [place] [address] [employer] [employer] [employer] [place] AD[place] Care Teams Ingot Header Relationship Specialty Start Date End Date Handy Corrigan MD [address] [place] [address] PCP - General Internal Medicine 01/08/20
--- OUTSIDE RECORDS SUMMARY | 2024-12-16 11:00 | XMS_ITS | Encounter Summary ---
Author Organization [employer] Address [address] [place] [address] [address], [place] [address] Care Team Providers Care Cashier General Name Role Phone Handy Corrigan MD Primary Care Prov ider Encounter Details Date Type Department Care Team (Latest Contact Info) Description 10/04/2018 Abstract [facility] CONVERSIONS Dental, Provider, DDS Social History [...] Info) Description 12/19/2024 10:30 AM EDT Telemedicine [facility] MED & PEDS [address] [place] [address] Handy Corrigan MD [address] [place] [address] 05/24/2025 11:00 AM EDT Office Visit [facility] OPTOMETRY [address] [place] [address] Sveta Mittal, OD [address] [place] [address] documented as of this encounter Visit Diagnoses Not on filedocumented in this encounter Care Teams Cashier General Relationship Specialty Start Date End Date Handy Corrigan MD [address] [place] [phone] PCP - General Internal Medicine 01/08/20 Uma Jean Program Management Specialist 06/29/23 09/29/23 documented as of this encounter
== END 2024-12-16 11:02 | disposition home or self-care (01) ==
LOC: HO.HSMS 10:30
PROVIDERS: PCP Internal Medicine; Visit Provider Nurse Practitioner Family
DX: G47.33 Obstructive sleep apnea (adult) (pediatric) (principal)
CPT/HCPCS: 99213

== ENCOUNTER → 2024-12-16 10:29 | Outpatient (BNVA) | payer MEDICAID, SELFPAY | PROVIDERS: PCP Internal Medicine; Visit Provider Nurse Practitioner Family | DX: G47.33 Obstructive sleep apnea (adult) (pediatric) (principal); Z99.89 Dependence on other enabling machines and devices | CPT/HCPCS: 99212 ==

== ENCOUNTER → 2024-12-31 10:22 | Outpatient (BNV) | payer MEDICAID, SELFPAY | PROVIDERS: PCP Internal Medicine; Visit Provider Radiology Diagnostic Radiology | DX: M54.50 Low back pain, unspecified (principal) | CPT/HCPCS: 72148 ==

== ENCOUNTER 2024-12-31 10:26 | Outpatient (REF) | payer MEDICAID, SELFPAY ==
--- NOTE | ~2024-12-31 | MR_ITS ---
CLINICAL HISTORY: low back pain MR lumbar spine without gadolinium Comparison: None Findings: Normal alignment. No acute fracture or pathologic bone lesion. Cauda equina and conus medullaris within normal limits (conus medullaris terminates at T12/L1 level). L4/L5 disc dehydration. No evidence of significant central canal, neural foraminal, or lateral recess stenosis. Paraspinous musculature intact. IMPRESSION: No evidence of significant central canal, neural foraminal, or lateral recess stenosis. This document has been electronically signed by: Tess Almodovar MD on 01/03/2025 11:57:20
== END 2024-12-31 10:27 | disposition home or self-care (01) ==
LOC: HO.MRI 10:26
PROVIDERS: PCP Internal Medicine; Visit Provider Internal Medicine
DX: M54.50 Low back pain, unspecified (principal); G89.29 Other chronic pain
CPT/HCPCS: 72148

== ENCOUNTER 2025-01-13 10:49 | Outpatient (AMB) | payer MEDICAID, SELFPAY ==
--- NOTE | 2025-01-13 10:51 | MHC.OFFVIS ---
Vital Signs 01/13/25 10:52 Height 5 ft 4 in Weight 239 lb BMI 41.0 BP 115/64 Blood Pressure Location Rt brachial Position Sitting Respiration 16 Pulse 68 Pulse Source Pulse Oximeter Pulse Oximetry (%) 97 Oxygen Delivery Method Room Air Intake Visit Reasons: Chronic bilateral low back pain Recreation Therapy Director Required: Yes Recreation Therapy Director Name: Zoraida [phone] Accompanied by: Self / Same As Patient Allergies Farm Life Milk Allergy (Unknown, Uncoded 12/16/24 10:36) Rash Latex Gloves Allergy (Unknown, Uncoded 12/16/24 10:36) itching HPI Comments Details: Visit completed with spanish interpreter/translator Appjosé luis, #[id number] The patient is a 49-year-old female presenting with low back pain, which began four weeks ago without an obvious cause. She has a history of recurrent episodes of similar pain, including a severe incident last year necessitating emergency treatment. The pain is focused in the central lumbar region and is exacerbated by physical activities. Although she finds some relief with rest, the pain does not completely subside. She notes mild radiating pain to her legs. Imaging studies, including x-rays and MRI, indicated mild arthritis but were otherwise unremarkable. Pharmacological intervention includes Celecoxib, which she was advised to take instead of Meloxicam due to potential gastric and renal risks, Baclofen, and Tylenol. Currently, she has not engaged in physical therapy since the onset of this episode but has tried various topical analgesics. - Onset and timing: Approximately four weeks ago; history of previous episodes - Quality and character: Chronic, centralized lumbar pain - Primary location: Middle of the back - Radiation: Mild to legs - Exacerbating factors: Walking and daily activities - Relieving factors: Resting - Interference: Limits usual activities, walking, and daily tasks - Affect: Chronic pain impacting daily functioning - Analgesia: Current use of Celecoxib, Baclofen, Tylenol; combination of Meloxicam discouraged due to potential risks - Adverse Effects: Potential kidney and stomach issues with combined use of NSAIDs - Activities of Daily Living: Activities are restricted by pain; rest provides limited relief - Aberrant Drug-Related Behaviors: No indications of misuse or dependency reported ON LICENSE OF [facility] Medical History Hypoventilation Asthma exacerbation Bronchitis Iron deficiency anemia Hx of cardiomyopathy HTN (hypertension) Depression LILIAM (obstructive sleep apnea) Obesity Asthma Allergic rhinitis Surgical History History of tubal ligation Hx of hysterectomy Hx of section Gastric bypass status for obesity Family History Father Pacemaker Mother HTN (hypertension) Diabetes Fibromyalgia Social History Household Members Other:: Lives with her , 2 adult children Alcohol intake: never Patient Tobacco Use Status: Never used Tobacco Current occupational status: unemployed and disabled Review of Systems Const Details: - Musculoskeletal: Reports pain in lower back and mild leg pain; denies swelling or stiffness - Neurological: Denies numbness, tingling, or weakness - General: Denies fever, chills, or unexpected weight loss - Gastrointestinal: Denies nausea, vomiting, or abdominal pain Physical Exam Vital Signs: Last Vital Signs Pulse 68 01/13/25 10:52 Resp 16 01/13/25 10:52 BP 115/64 01/13/25 10:52 Pulse Ox 97 01/13/25 10:52 Oxygen Delivery Method Room Air 01/13/25 10:52 BMI result Body Mass Index 41.0 General: awake, alert, oriented. Answers questions appropriately. Fully engaged in examination. Skin: warm, dry, intact HEENT: Normocephalic. Hearing intact. Cardiac: External chest normal in appearance. Respiratory: No cough, audible wheezing or stridor. Abdomen: without gross distension. MS: No obvious swelling or deformities. Able to stand on bilateral tiptoes and bilateral heels.? Able to transition from sit to stand unassisted. Ambulates with bilaterally normal heel strike and toe off Bilateral lower extremity strength 5/5 Tenderness over midline lumbar vertebrae and lumbar paraspinal muscles Nontender over bilateral PSIS SLR negative bilaterally Facet loading positive Neurological: Oriented to person, place, time and situation. Thought process intact. No gait abnormalities appreciated. Psychiatric: Appropriate mood and affect. Good judgment and insight. Results Reviewed Results Reviewed: 01/03/25 MRI LS Findings: Normal alignment. No acute fracture or pathologic bone lesion. Cauda equina and conus medullaris within normal limits (conus medullaris terminates at T12/L1 level). L4/L5 disc dehydration. No evidence of significant central canal, neural foraminal, or lateral recess stenosis. Paraspinous musculature intact. IMPRESSION: No evidence of significant central canal, neural foraminal, or lateral recess stenosis. 11/24/24 XR LS Findings: Normal vertebral body alignment. No acute fractures or dislocation. No significant loss of intervertebral disc height. Likely facet osteoarthritis at L5-S1. There are surgical clips within the left side of the abdomen. IMPRESSION: No acute findings. Assessment & Plan Assessment & Plan (1) Lumbar spondylosis: Code(s): M47.816 - Spondylosis without myelopathy or radiculopathy, lumbar region Category: Medical (2) Chronic back pain: Code(s): M54.9 - Dorsalgia, unspecified; G89.29 - Other chronic pain Category: Medical Plan Management of the patient's chronic low back pain involves discontinuing Meloxicam while maintaining Celecoxib to mitigate risks of NSAID-related complications. Baclofen will continue to aid muscle relaxation. The patient is referred to physical therapy for functional rehabilitation, and a prescription for lidocaine patches will be pursued if insurance allows. Follow-up will occur post-physical therapy to assess treatment efficacy and adjust as needed. Today, I discussed with the patient that her chronic low back pain is primarily managed with pharmacological agents and physical therapy. The decision to continue Celecoxib over Meloxicam was based on a balance between effectiveness and risk minimization for gastrointestinal and renal complications. I explained the role of physical therapy in improving function and decreasing pain and committed to sending a referral. Our conversation covered the potential utility of lidocaine patches, which may be pursued with a prescription if covered by her insurance. I advised discontinuation of Meloxicam and stressed that any concerns should prompt her to contact my office or her primary care provider promptly for guidance. The patient acknowledged understanding and agreed to the proposed plan. Patient was informed and verbally consented to the use of an ambient scribe for clinic note documentation during this visit. Orders: Orders PT Evaluation and Treatment Today G89.29 - Other chronic pain, M47.816 - Spondylosis without myelopathy or radiculopathy, lumbar region, M54.9 - Dorsalgia, unspecified Medications: New lidocaine 5% leave on most painful area for up to 12 hrs 1 patch topical DAILY PRN 30 ea 3RF pain Patient Instructions: - Stop taking Meloxicam and continue Celecoxib as prescribed - Continue Baclofen and Tylenol for pain management - Attend physical therapy sessions as scheduled - Try using lidocaine patches if approved by insurance - Report any new symptoms or concerns immediately Coding Level of Care Code New Pt Level 4 (39429) Complex EM visit Add On G2211 Diagnoses Lumbar spondylosis M47.816 Chronic back pain M54.9; G89.29
[2025-01-13 10:52] VITALS: BP 115/64; PULSE 68; RESP 16; O2SAT 97; BMI 41.0
--- OUTSIDE RECORDS SUMMARY | 2025-01-13 11:43 | XMS_ITS | Encounter Summary ---
Author Organization [employer] Address [address] [place] [address] 7 [place] [address] Care Team Providers Care Receiving Barn Custodian Name Role Phone Handy Corrigan MD Primary Care Prov ider Reason for Visit * Reason Comments Med Refill Encounter Details Date Type Department Care Team ([facility] Contact Info) Description 05/07/2024 Refill [facility] CHC MED & PEDS [address] [place] [address] Handy Corrigan MD [address] [place] [address] Social History Tobacco Use Types Packs/Day Years [...] Care Team (Late st Contact Info) Description 03/22/2025 2:15 PM EDT Telemedicine [facility] CHC MED & PEDS [address] [place] [address] Handy Corrigan MD [address] [place] [address] 05/24/2025 11:00 AM EDT Office Visit [facility] OPTOMETRY [address] [place] [address] Kyrie, Sveta, OD [address] [place] [address] documented as of this encounter Visit Diagnoses Not on filedocumented in this encounter Additional Health Concerns Assessment Noted Time PHQ-9 Depression Total Score: 0 11/09/19 24 8:47 AM EDT documented as of this encounter Care Teams Receiving Barn Custodian Relationship Specialty Start Date End Date Handy Corrigan MD [address] [place] [address] PCP - General Internal Medicine 01/08/20 documented as of this encounter
== END 2025-01-13 11:24 | disposition home or self-care (01) ==
LOC: HO.PMC 10:49
PROVIDERS: PCP Internal Medicine; Visit Provider Registered Nurse Emergency
DX: M47.816 Spondylosis without myelopathy or radiculopathy, lumbar region (principal); M54.9 Dorsalgia, unspecified; G89.29 Other chronic pain
CPT/HCPCS: 99204

== ENCOUNTER → 2025-01-13 10:49 | Outpatient (BNVA) | payer MEDICAID, SELFPAY | PROVIDERS: PCP Internal Medicine; Visit Provider Registered Nurse Emergency | DX: M47.816 Spondylosis without myelopathy or radiculopathy, lumbar region (principal); M54.9 Dorsalgia, unspecified; G89.29 Other chronic pain | CPT/HCPCS: 99212 ==

== ENCOUNTER 2025-01-20 14:17 | Outpatient (REF) | payer MEDICAID, SELFPAY | END 2025-01-20 14:18 | disposition home or self-care (01) | LOC: HO.MAMMO 14:17 | PROVIDERS: PCP Internal Medicine; Visit Provider Internal Medicine | DX: Z12.31 Encounter for screening mammogram for malignant neoplasm of breast (principal) | CPT/HCPCS: 77063; 77067 ==

== ENCOUNTER → 2025-01-20 14:45 | Outpatient (BNV) | payer MEDICAID, SELFPAY | PROVIDERS: PCP Internal Medicine; Visit Provider Internal Medicine | DX: Z12.31 Encounter for screening mammogram for malignant neoplasm of breast (principal) | CPT/HCPCS: 77063; 77067 ==

== ENCOUNTER 2025-03-23 13:45 | Outpatient (AMB) | payer MEDICAID, SELFPAY ==
[2025-03-23 13:53] VITALS: BP 110/68; PULSE 68; O2SAT 97; BMI 40.9
--- NOTE | 2025-03-23 13:53 | MHC.OFFVIS ---
Vital Signs 03/23/25 13:53 Height 5 ft 4 in Weight 238 lb 1.588 oz BMI 40.9 BP 110/68 Blood Pressure Location Lt brachial Position Sitting Pulse 68 Pulse Source Pulse Oximeter Pulse Oximetry (%) 97 Oxygen Delivery Method Room Air Intake Visit Reasons: Obstructive sleep apnea Intake Note: pt is here for follow up and states it has been over a week with nasal congestion and feels it is traveling into the chest, and missed a few days due to this on cpap Ship Pilot Required: Yes Ship Pilot Services: Ship Pilot Present Ship Pilot Name: Erica (PATY) Allergies Farm Life Milk Allergy (Unknown, Uncoded 03/23/25 14:17) Rash Latex Gloves Allergy (Unknown, Uncoded 03/23/25 14:17) itching Medication List - Last Reconciled 03/23/25 by Bobby Hugo MD baclofen 10 mg PO TID buspirone 20 mg PO BID celecoxib (Celebrex) 100 mg PO BID cholecalciferol (vitamin D3) (Vitamin D3) 50 mcg PO DAILY docusate sodium 100 mg PO BID ferrous gluconate 324 mg PO QAM fluoxetine 40 mg PO DAILY fluticasone propionate 50 mcg/actuation 2 sprays intranasal DAILY hydrochlorothiazide 25 mg PO DAILY ibuprofen 400 mg PO TID PRN ipratropium bromide 2 sprays intranasal TID-QID PRN 30 days MDD 2 sprays in each nare levalbuterol tartrate 45 mcg/actuation (Xopenex HFA) 2 puffs inhalation Q6H PRN lidocaine 5% 1 patch topical DAILY PRN lidocaine-prilocaine 2.5-2.5 % grams topical DAILY PRN loratadine 10 mg PO DAILY losartan 50 mg PO BID meloxicam 15 mg PO DAILY montelukast 10 mg PO DAILY multivitamin 1 tab PO DAILY pantoprazole 40 mg PO BID sucralfate 10 mL PO QID trazodone 25 mg PO BEDTIME PRN vitamin E 400 units PO DAILY Do you need a note to return to daycare/school/sports/work: No HPI HPI Obstructive sleep apnea: Details: THIS 49 YEARS OLD GREENLANDIC-SPEAKING FEMALE A CASE OF MORBID OBESITY AND OBSTRUCTIVE SLEEP APNEA, IS HERE FOR FOLLOW-UP AFTER 4 MONTHS. BEFORE SHE HAS BEEN USING HER CPAP ONLY SPORADICALLY. SHE CLAIMS THAT HER NASAL CONGESTION DOES NOT ALLOW HER TO USE THE CPAP, SHE HAS NASAL MASK , AND FINDS HER NOSE TO BE CONGESTED AT NIGHT. LAST TIME SHE WAS PRESCRIBED IPRATROPIUM SPRAY TO BE USED BEFORE PUTTING ON THE MASK, BUT SHE HAS NOT BEEN USING IT REGULARLY. SHE IS ALSO SUPPOSED TO USE FLONASE DURING THE DAYTIME AND SHE HAS NOT BEEN DOING IT. FAR WEIGHT IS CONCERNED SHE HAS NOT MADE ANY PROGRESS. BREATHING REMAINS FAIRLY STABLE EXCEPT FOR PERIODIC COUGH AND SOME WHEEZING. SHE USES LEVALBUTEROL TARTRATE 45 2 PUFFS Q 6 HOURS P.R.N. BUT NOT ON A DAILY BASIS. [facility] Medical History Hypoventilation Asthma exacerbation Bronchitis Iron deficiency anemia Hx of cardiomyopathy HTN (hypertension) Depression LILIAM (obstructive sleep apnea) Obesity Asthma Allergic rhinitis Surgical History History of tubal ligation Hx of hysterectomy Hx of section Gastric bypass status for obesity Family History Father Pacemaker Mother HTN (hypertension) Diabetes Fibromyalgia Social History Household Members Other:: Lives with her , 2 adult children Alcohol intake: never Patient Tobacco Use Status: Never used Tobacco Current occupational status: unemployed and disabled Review of Systems Const All systems reviewed & are unremarkable except as noted in HPI and below Eyes Reports no additional complaints ENT Reports nasal congestion (FREQUENT, CONTROLLED WITH MEDS) and Reports nasal discharge Card Denies chest pain, Denies irregular heart rhythm and Denies leg edema Resp Reports as per HPI GI Reports heartburn (Symptoms of GERD controlled with med) Reports no additional complaints Musc Reports no additional complaints Skin/Breast Reports system reviewed and no additional complaints, except as documented Neuro Reports no additional complaints Psych Reports depression (Controlled with med) Physical Exam Vital Signs: Last Vital Signs Pulse 68 03/23/25 13:53 BP 110/68 03/23/25 13:53 Pulse Ox 97 03/23/25 13:53 Oxygen Delivery Method Room Air 03/23/25 13:53 BMI result Body Mass Index 40.9 Const General: healthy appearing (Sick-looking and has frequent cough during the encounter.), comfortable, no acute distress, alert and awake Orientation/consciousness: patient oriented x3 HEENT Head: Yes normal to inspection General nose exam: No nasal polyps present, No nasal discharge present and Other nasal findings present (Bilateral chronic nasal congestion) Face and sinus: Yes sinuses nontender Mouth: oropharynx normal Throat: Yes posterior oropharynx normal Eyes General: appearance normal, both eyes and all related structures Neck Neck: Yes normal visual inspection, Yes no lymphadenopathy, Yes trachea midline and Yes no JVD Thyroid: Thyroid normal Chest Chest palpation & inspection: normal inspection of the chest, normal palpation of entire chest wall and no tenderness Resp Other: Percussion note resonant, breath sounds are slightly distant on both sides. Lungs are clear and no wheezes rhonchi or crepitations are heard today. Cardio Palpation: normal PMI Rate: regular rate Rhythm: regular rhythm Heart sounds: no gallops and no murmurs GI Palpation (GI): Soft to palpation, nontender, No hepatosplenomegaly present and no masses Auscultation: normal bowel sounds Back/Spine/Pelvis Thoracic/Lumbar Spine: thoracic and lumbar spine normal to inspection Skin General skin exam: no rashes or lesions noted Neuro General: patient oriented x3 and no focal motor deficits Cranial nerves: Yes CN's II-XII intact bilaterally Extrem General: Yes normal to inspection, Yes no clubbing, cyanosis or edema and Yes no calf tenderness Psych Appearance: grossly normal and well kempt Speech and movement: Normal speech and movement present Results Reviewed Results Reviewed: COMPLIANCE REPORT FOR THE LAST 30 NIGHTS REVIEWED. SHE HAS USE 16/30 NIGHTS, 53%. AVERAGE USAGE PER NIGHT 6 HOURS 43 MINUTES. PRESSURE IS RELATIVELY LOW, 9 CM. RESIDUAL AHI 0.7 Assessment & Plan Assessment & Plan (1) Obesity, Class III, BMI 40-49.9 (morbid obesity): Comment: PATIENT REMAINS GROSSLY OBESE. Code(s): E66.01 - Morbid (severe) obesity due to excess calories Category: Medical Plan: ONCE AGAIN STRESSED THAT SHE HAS TO LOSE WEIGHT. FOR THE DIET SHE HAS TO CUT DOWN THE INTAKE OF CARBOHYDRATES, ALSO CUT DOWN THE PORTIONS. (2) Allergic rhinitis: Comment: CHRONIC PERINEAL ALLERGIC RHINITIS, CONTROLLED WITH MEDS. OVERALL IT SEEMS TO BE FAIRLY WELL CONTROLLED. BUT SHE CONTINUES TO GIVE THIS A REASON FOR NOT USING THE CPAP REGULARLY. Code(s): J30.9 - Allergic rhinitis, unspecified Category: Medical Plan: I ADVISED HER TO USE FLONASE-52 SPRAY IN EACH NOSTRIL DAILY DURING THE DAYTIME. AND USE IPRATROPIUM NASAL SPRAY 2 SPRAYS IN EACH NOSTRIL BEFORE PUTTING ON THE CPAP MASK. MAY USE LORATADINE 10 MG ONCE A DAY P.R.N. ALSO CONTINUE TO USE MONTELUKAST 10 MG ONCE A DAY (3) LILIAM (obstructive sleep apnea): Comment: Moderate degree of sleep apnea. The AHI was 23/hr and oxygen viri was 88% PATIENT HAS BEEN PRESCRIBED THE CPAP. SHE USES WITH NASAL MASK. HER COMPLIANCE HAS BEEN RELATIVELY SUBOPTIMAL. Code(s): G47.33 - Obstructive sleep apnea (adult) (pediatric) Category: Medical Plan: AGAINST STRESS THAT IT IS IMPORTANT FOR HER TO USE THE CPAP EVERY NIGHT FOR AT LEAST 5-6 HOURS PER NIGHT. I WILL ORDER A FULLFACE MASK SEE IF THIS IS MORE COMFORTABLE THAN THE NASAL MASK. ADVISED THAT SHE SHOULD USE IPRATROPIUM NASAL SPRAY IN EACH NOSTRIL BEFORE PUTTING ON THE MASK (4) Asthma: Comment: ASTHMA IS MILD, INTERMITTENT. USUALLY FLARES UP DUE TO ALLERGY / WEATHER CHANGES. Code(s): J45.909 - Unspecified asthma, uncomplicated Category: Medical Plan: CONTINUE TO USE LEVALBUTEROL TARTRATE 2 INHALATIONS Q.4-6 HOURS P.R.N. Medications: Refilled fluticasone propionate 50 mcg/actuation 2 sprays intranasal DAILY 16 grams 3RF ALLERGIC rHINITIS Coding Level of Care Code Est Pt Level 3 (02245) Diagnoses Obesity, Class III, BMI 40-49.9 (morbid obesity) E66.01 Allergic rhinitis J30.9 LILIAM (obstructive sleep apnea) G47.33 Asthma J45.909
--- OUTSIDE RECORDS SUMMARY | 2025-03-23 14:36 | XMS_ITS | Encounter Summary ---
Author Organization [employer] Address [address] [place] [address] Care Team Providers Care Library Monitor Name Role Phone Handy Corrigan MD Primary Care Prov ider Reason for Visit * Reason Comments Med Refill Encounter Details Date Type Department Care Team ([facility] st Contact Info) Description 05/07/2024 Refill [facility] CHC MED & PEDS [address] [place] [address] Handy Corrigan MD [address] [place] [address] Social History Tobacco Use Types Packs/Day Years [...] Care Team (Late st Contact Info) Description 03/30/2025 2:15 PM EDT Telemedicine [facility] MED & PEDS [address] [place] [address] Handy Corrigan MD [address] [place] [address] 05/24/2025 11:00 AM EDT Office Visit [facility] OPTOMETRY [address] [place] [address] Kyrie, Sveta, OD [address] [place] [address] 09/06/2025 3:00 PM EST Office Visit [facility] ADULT DENTAL [address] [place] [address] Elana Prado documented as of this encounter Visit Diagnoses Not on filedocumented in this encounter Additional Health Concerns Assessment Noted Time PHQ-9 Depression Total Score: 0 11/09/19 24 8:47 AM EDT documented as of this encounter Care Teams Library Monitor Relationship Specialty Start Date End Date Handy Corrigan MD [address] [place] [address] PCP - General Internal Medicine 01/08/20 documented as of this encounter
== END 2025-03-23 14:17 | disposition home or self-care (01) ==
LOC: HO.HPS 13:45
PROVIDERS: PCP Internal Medicine; Visit Provider Internal Medicine
DX: E66.01 Morbid (severe) obesity due to excess calories (principal); J30.9 Allergic rhinitis, unspecified; G47.33 Obstructive sleep apnea (adult) (pediatric); J45.909 Unspecified asthma, uncomplicated
CPT/HCPCS: 99213

== ENCOUNTER → 2025-03-23 13:45 | Outpatient (BNVA) | payer MEDICAID, SELFPAY | PROVIDERS: PCP Internal Medicine; Visit Provider Internal Medicine | DX: E66.01 Morbid (severe) obesity due to excess calories (principal); G47.33 Obstructive sleep apnea (adult) (pediatric); Z99.89 Dependence on other enabling machines and devices; J30.9 Allergic rhinitis, unspecified | CPT/HCPCS: 99212 ==

== ENCOUNTER 2025-07-13 09:59 | Outpatient (REF) | payer MEDICAID, SELFPAY ==
--- OUTSIDE RECORDS SUMMARY | 2025-07-13 11:44 | XMS_ITS | Encounter Summary ---
Author Organization [employer] Address [address] [place] [id number] Care Team Providers Care Human Resource Internship Name Role Phone Handy Corrigan MD Primary Care Prov ider Reason for Visit * Reason Comments Med Refill Encounter Details Date Type Department Care Team ([facility] st Contact Info) Description 05/07/[address] [facility] CHC MED & PEDS [address] [place] [address] Handy Corrigan MD [address] [place] [address] Social History Tobacco Use Types Packs/Day Years [...] Care Team (Late st Contact Info) Description 07/17/2025 1:00 PM EST Office Visit [facility] ADULT DENTAL [address] [place] [address] Chaz Peterson DDS [address] [place] [address] 07/20/2025 2:45 PM EST Telemedicine [facility] MED & PEDS [address] [place] [address] Handy Corrigan MD [address] [place] [address] 08/25/2025 11:30 AM EST Office Visit [facility] OPTOMETRY [address] [place] [address] Sveta Mittal, OD [address] [place] [address] 09/06/2025 2:15 PM EST Office Visit [facility] ADULT DENTAL [address] [place] [address] Elana Prado documented as of this encounter Visit Diagnoses Not on filedocumented in this encounter Additional Health Concerns Assessment Noted Time PHQ-9 Depression Total Score: 0 11/09/19 24 8:47 AM EDT documented as of this encounter Care Teams Human Resource Internship Relationship Specialty Start Date End Date Handy Corrigan MD [address] [place] [address] PCP - General Internal Medicine 01/08/20 Chrissy Polanco Clay WasherWafer Polishing Lead Worker 05/04/25 documented as of this encounter
--- OUTSIDE RECORDS SUMMARY | 2025-07-13 11:44 | XMS_ITS | Encounter Summary ---
Author Organization [employer] Address [address] [facility] [address] [place] [address] Care Team Providers Care Test Borer Helper Name Role Phone Handy Corrigan MD Primary Care Prov ider Encounter Details Date Type Department Care Team (Late st Contact Info) Description 09/15/2024 Orders Only [facility] MEDICINE [address] [place] [address] Handy Corrigan MD [address] [place] [address] Social History Tobacco Use Types Packs/Day Years [...] Description 07/17/2025 1:00 PM EST Office Visit [facility] ADULT DENTAL [address] [place] [address] Chaz Peterson DDS [address] [place] [address] 07/20/2025 2:45 PM EST Telemedicine [facility] MED & PEDS [address] [place] [address] Handy Corrigan MD [address] [place] [address] 08/25/2025 11:30 AM EST Office Visit [facility] OPTOMETRY [address] [place] [address] Sveta Mittal, OD [address] [place] [address] 09/06/2025 2:15 PM EST Office Visit [facility] ADULT DENTAL [address] [place] [address] Elana Prado documented as of this encounter Visit Diagnoses Not on filedocumented in this encounter Additional Health Concerns Assessment Noted Time PHQ-9 Depression Total Score: 0 11/09/19 24 8:47 AM EDT documented as of this encounter Care Teams Test Borer Helper Relationship Specialty Start Date End Date Handy Corrigan MD [address] [place] [address] PCP - General Internal Medicine 01/08/20 Chrissy Polanco Instructor Substitute CosmetologyBricklayer Paving Brick 05/04/25 documented as of this encounter
--- OUTSIDE RECORDS SUMMARY | 2025-07-13 11:45 | XMS_ITS | Encounter Summary ---
Author Organization [employer] Address [address] [place] [address] [address] [place] [address] Care Team Providers Care Manager Environmental Health And Safety Name Role Phone Handy Corrigan MD Primary Care Prov ider Encounter Details Date Type Department Care Team ([facility] st Contact Info) Description 06/22/2025 Orders Only [facility] CHC MED & PEDS [address] [place] [address] Handy Corrigan MD [address] [place] [address] Social History Tobacco Use Types Packs/Day Years Used Date Smoking Tobacco: Never Passive Smoke Exposure: Never Smokeless Tobacco: Never Alcohol Use Standard Drinks/Week Comments Defer 0 (1 standard drink = 0.6 oz pur e alcohol) Depression Answer Date Recorded Patient Health Questionnaire-9 Score 4 03/30/2025 Patient Health Questionnaire-9 Score 4 03/30/2025 Last PHQ-9: Questionnaire Data Not on file 0 03/30/2025 Housing Stability Answer Date Recorded What is [...] Answer Date Recorded Patient Health Questionnaire-2 Score 2 03/30/2025 Internet Access Answer Date Recorded Internet Access [...] PM EST Office Visit [facility] ADULT DENTAL [address] [place] [address] Chaz Peterson DDS [address] [place] [address] 07/20/2025 2:45 PM EST Telemedicine [facility] MED & PEDS [address] [place] [address] Handy Corrigan MD [address] [place], [place] [id number] 08/25/2025 11:30 AM EST Office Visit [facility] OPTOMETRY [address] [place] [address] Sveta Mittal, OD [address] [place] [address] 09/06/2025 2:15 PM EST Office Visit [facility] ADULT DENTAL [address] [place] [address] Elana Prado documented as of this encounter Visit Diagnoses Not on filedocumented in this encounter Additional Health Concerns Assessment Noted Time PHQ-9 Depression Total Score: 4 03/30/20 25 2:07 PM EDT documented as of this encounter Care Teams Manager Environmental Health And Safety Relationship Specialty Start Date End Date Handy Corrigan MD [address] [place] [address] PCP - General Internal Medicine 01/08/20 Chrissy Polanco Counseling SpecialistCosting Manager 05/04/25 documented as of this encounter
--- OUTSIDE RECORDS SUMMARY | 2025-07-13 11:45 | XMS_ITS | Clinical Summary ---
Author Organization [employer] Address [address] [place] [address] 7 [place] [address] Care Team Providers Care Camp Head Counselor Name Role Phone Handy Corrigan MD Primary Care Prov ider Allergies Active Allergy Reactions Criticality Noted Date Comments Latex 06/29/2025 Medications montelukast (Singulair) 10 MG tablet Take 1 tablet by mouth at bed time. Active loratadine (Claritin) 10 MG tablet Take 1 tablet by mouth at bed time. 06/16/20 18 Active levalbuterol (Xopenex) 45 MCG/ACT inhaler Inhale 2 puffs every 6 (six) hours. Active fluticasone (Flonase) 50 MCG/ACT nasal spray Administer 1 spray into affected nostril(s) at bed time. Active busPIRone (Buspar) 30 MG tablet TAKE ONE TABLET BY MOUTH TWICE DAILY FOR ANXIETY 09/17/19 23 Active FLUoxetine (PROzac) 20 MG capsule TAKE TWO CAPSULES EVERY DAY 11/10/19 24 Active Multiple Vitamin (Multivitamin) tablet Take 1 tablet by mouth Once per day. 90 tablet 3 07/10/2025 2:59 PM EST 09/14/19 25 Active docusate sodium (Colace) 100 MG capsuleIndicatio ns:Chronic idiopathic constipation TAKE ONE CAPSULE TWICE DAILY NEEDED FOR CONSTIPATION 180 capsule 5 11/08/19 25 Active cholecalciferol VITAMIN D (Vitamin D-3) 50 MCG (1999 UT) capsule TAKE ONE CAPSULE DAILY 90 capsule 3 11/19/19 25 Active traZODone (Desyrel) 100 MG tablet TAKE 1/2 TO 1 TABLET BY MOUTH AT BEDTIME NEEDED FOR SLEEP 10/25/19 25 Active hydroCHLOROthiaz isaac (HYDRODiuril) 25 MG tabletIndication s:Primary hypertension TAKE ONE TABLET EVERY MORNING 90 tablet 5 11/22/19 25 Active baclofen (Lioresal) 10 MG tabletIndication s:Lumbosacral pain, chronic Take 1 tablet (10 mg) by mouth 3 times daily. 90 tablet 2 11/24/19 25 Active ibuprofen 600 MG tablet Take 1 tablet (600 mg) by mouth every 6 (six) hours if needed for mild pain for up to 20 doses. 20 tablet 02/23/20 25 Active ferrous gluconate (Fergon) 324 (37.5 Fe) MG tablet TAKE ONE TABLET DAILY WITH BREAKFAST 90 tablet 1 03/15/20 25 Active albuterol (Ventolin HFA) 108 (90 Base) MCG/ACT inhaler INHALE 1 PUFF EVERY 4 TO 6 HOURS NEEDED 18 g 03/21/20 25 Active pantoprazole (Protonix) 40 MG EC tablet Take 1 tablet (40 mg) by mouth before breakfast. Do not crush, chew, or split. 90 tablet 1 07/10/2025 2:59 PM EST 03/30/20 25 Active bromfenac (Xibrom) 0.09 % solution eye dropsIndications :Cystoid macular edema of left eye Administer 1 drop into the left eye 2 times daily. 1.7 mL 2 05/24/20 25 Active losartan (Cozaar) 50 MG tablet Take 1 tablet by mouth 2 times daily. 04/27/20 25 Active amoxicillin (Amoxil) 500 MG capsule Take 1 capsule (500 mg) by mouth every 8 (eight) hours for 7 days. 21 capsule 06/29/2025 12:23 PM EST 06/29/20 25 025 Active Problems Problem Noted Date Diagnosed Date Chronic bilateral low back pain without sciatica 12/23/2024 Assessment & Plan (12/23/2024 2:20 PM EDT): Pain has not improved, she has tried PT, home remedies, will order a MRI and will refer to pain management, ER precautions reviewed Irregular periods/menstrual cycles 09/21/2024 Assessment & Plan [...] had colonoscopy done on April 2021 at [place] will request results Primary hypertension 07/14/2022 Assessment & Plan (06/08/2025 10:43 AM EDT): Controlled, continue low sodium diet and exercise as tolerated, keep blood pressure log, no changes will be made, target <140/90, follow up in 4 months Assessment & Plan (12/23/2024 2:19 PM EDT): Controlled, keep low sodium diet and exercise as tolerated, keep bp log, target <140/90, follow up in 3 months Assessment & Plan (09/21/2024 10:32 AM EST): [...] Patient underwent colonoscopy/upper endoscopy on 04/24/21, at [place], will task [place] for results Assessment & Plan (07/14/2022 1:31 PM EST): On PPI, no changes will be made Iron deficiency anemia due to chronic blood loss 07/14/2022 Assessment & Plan (06/08/2025 10:42 AM EDT): On oral iron replacement, continue diet, will follow up in 4 months with new labs Assessment & Plan (09/21/2024 10:33 AM EST): [...] Obstructive sleep apnea syndrome 05/28/2018 Morbid obesity ([facility]/HCC) 05/28/2018 Assessment & Plan (01/15/2024 9:17 AM EDT): Will refer to bariatric surgery at [place] for evaluation, she had a sleeve gastrectomy about 8 years ago Resolved Problems Problem Noted Date Diagnosed Date Resolved Date Congestive heart failure 05/28/201807/2025 Cardiomyopathy 05/28/2018 09/21/2024 Encounters Date Type Department Care Team Description 06/29/2025 11:30 AM EST Office Visit [facility] ADULT DENTAL [address] [place] [address] Donna Gerber DDS 06/22/2025 Orders Only [facility] MED & PEDS [address] [place] [address] Handy Corrigan MD 05/24/2025 11:00 AM EDT Office Visit [facility] OPTOMETRY [address] [place] [address] Kyrie, Sveta, OD Cystoid macular edema of left eye (Primary Dx) 05/24/2025 Travel 05/17/2025 Travel 05/08/2025 Telephone [facility] [address] [place] [address] Handy Corrigan MD Durable Medical Equipment 05/08/2025 Telephone [facility] [address] [place] [address] Handy Corrigan MD Referral 05/04/2025 Telephone [facility] [address] [place] [address] Handy Corrigan MD Care Coordination (ICP Care Plan) from Last 3 Months Immunizations Immunization Administration Dates Next Due Hep B, adult [...] Not Answered Alcohol Use Standard Drinks/Week Comments Defer 0 [...] Sign Reading Time Taken Comments Blood Pressure 120/80 06/29/2025 11:47 AM EST Pulse 105 11/23/2024 9:19 AM EDT Temperature 36.1 C (97 F) 11/23/2024 9:19 AM EDT Respiratory Rate 20 [...] Description 07/17/2025 1:00 PM EST Office Visit [facility] ADULT DENTAL [address] [place] [address] Chaz Peterson DDS [address] [place] [address] 07/20/2025 2:45 PM EST Telemedicine [facility] [address] [place] [address] Handy Corrigan MD [address] [place] [address] 08/25/2025 11:30 AM EST Office Visit [facility] [address] [place] [address] KyrieSveta rogers, OD [address] [facility] [place] [address] 09/06/2025 2:15 PM EST Office Visit [facility] ADULT DENTAL [address] [place] [address] Elana Prado Health Maintenance Due Date Last Done Comments CT Colonography 1975 FIT DNA/Cologuard 1975 FIT 1975 FOBT 1975 HIV Screening 1975 Sigmoidoscopy 1975 Family Planning (PISQ) 1990 Hepatitis C Screening 1993 Pneumococcal Vaccine: Pediatrics (0 to 5 Years) and At-Risk Patients (6 to 49) Years (2 of 2 - PCV) 01/03/2016 01/02/2015 Cervical Cancer Screening 02/22/2024 HPV/Cotest 02/22/2024 02/21/2021 Pap Smear 02/22/2024 02/21/2021 DTaP/Tdap/Td Vaccines (2 - Td or Tdap) 01/02/2025 01/02/2015 Dental Oral Exam 02/04/2025 08/05/2024, , 08/19/2022 COVID-19 Vaccine (3 - season) 2025 11/08/2020, 10/18/2020 Influenza Vaccine (#1) 2025 , 06/13/2021, 06/21/2020, Additional history exists Diabetes: Hemoglobin A1C 08/05/2025 024, 08/28/2023, 02/27/2022 Zoster Vaccines (1 of 2) 2025 Dental Prophylaxis 08/28/2025 02/24/2025, 0 02/24/2025, 08/05/2024, Additional history exists Alcohol/Substance Use Screening 09/21/2025 09/21/2024 SDOH Screening 09/21/2025 09/21/2024 Disability Screening 03/16/2026 03/16/2025 Depression Screening 03/30/2026 03/30/2025, 03/30/20 25 Colonoscopy 04/24/2026 04/24/2021, 04/24/2021 Colorectal Cancer Screening 04/24/2026 Tobacco Screening 06/29/2026 06/29/2025 Dental X-Ray: Bitewings 06/30/2026 06/29/20 25, 02/22/2025, 08/05/2024, Additional history exists Mammogram 01/20/2027 01/20/2025, 04/01/2024, 05/22/2023, Additional history exists Dental X-Ray: Full Mouth 08/06/2027 08/05/2024 Lipid Panel 08/05/2029 08/05/2024, 08/10, 02/27/2022, Additional history exists RSV Patients and Patients Aged 60 years or older (1 - 1-dose 75+ series) 2050 Hepatitis B Vaccines Completed 05/29/2015, 01/30/2015, 11/30/2014 HIB Vaccines Aged Out No longer eligi [...] patient's age to complete this topic Meningococcal B Vaccine Aged Out No l onger eligible based on patient's age to complete [...] Procedure Name Priority Date/Time Associated Diagnosis Comments 30 INTRAORAL - PERIAPICAL FIRST RADIOGRAPHIC IMAGE Routine 06/29/2025 11:30 AM EST BITEWING - SINGLE RADIOGRAPHIC IMAGE Routine 06/29/2025 11:30 AM EST CASE PRESENTATION, DETAILED AND EXTENSIVE TREATMENT PLANNING Routine 06/29/2025 11:30 AM EST 30 LIMITED ORAL EVALUATION - PROBLEM FOCUSED Routine 06/29/2025 11:30 AM EST OCT, RETINA - OU - BOTH EYES Routine 05/24/2025 11:00 AM EDT Cystoid macular edema of left eye PROPHYLAXIS - ADULT Routine 02/24/2025 1 0:00 AM EDT BI MAMMOGRAM SCREENING TOMOSYNTHESIS BILATERAL Routine 01/20/2025 2:25 PM EDT INTRAORAL - COMPLETE SERIES OF RADIOGRAPHIC IMAGES Routine 08/05/2024 3:00 PM EST PERIODIC ORAL EVALUATION - ESTABLISHED PATIENT Routine 08/05/2024 3:00 PM EST HEMOGLOBIN A1C Routine 08/05/2024 9:10 AM EST LIPID PANEL, STANDARD Routine 08/05/2024 9:10 AM EST HM COLONOSCOPY Routine 04/24/2021 HPV MRNA E6/E7 Routine 02/21/2021 12:31 PM EDT THINPREP PAP Routine 02/21/2021 12:31 PM EDT from Last 3 Months or Most Recently Relevant to Health Maintenance Results * OCT, Retina - OU - Both Eyes (05/24/2025 11:00 AM EDT) Sveta Newell, OD - 06/09/2025 11:31 AM EDT Images from the original result were not included. OCT MACULA INTERPRETATION Optical Coherence Tomography Interpretation Report Measurements: OD OS Macula Thickness 194 microns 197 microns Test findings: OD: Normal foveal contour, no cystoid macular edema, no retinal pigment epithelium disruption, no subretinal fluid OS: Normal foveal contour, cystic space just temporal to fovea, no retinal pigment epithelium disruption, no subretinal fluid Impression and Plan: Mild cystic edema in left eye of unknown etiology. Findings are grossly stable to previous. Will attempt treatment with topical NSAID. Will prescribe Bromfenac drops to be used twice per day in the left eye only. Will monitor here in 3 months. us Sveta Mittal OD OPHTH TOMOGRAPHY Final Result * BI Mammogram Screening Tomosynthesis Bilateral (01/20/2025 2:25 PM EDT) Anatomical Region Laterality Modality Breast Bilateral Mammography 01/20/2025 2:25 PM EDT Narrative 01/28/2025 8:38 PM EDT [facility] [address] [place] [address] Mammography Report Signed Patient: Yaya Jha MR#: [id number] : 1975 Acct:[id number] Age/Sex: 49 / F ADM Date: 01/20/25 Loc: HO.MAMMO Attending Dr: Handy Martin MD Ordering Physician: Handy Corrigan MD Res ults: 2Benign Findings Date of Service: 01/20/25 Follow Up: 1 Year From Orig inal Mammogram Procedure(s): MM tomosynthesis screening BI Accession Number(s): [id number] cc: Handy Corrigan MD EXAMINATION: MM SCREENING DIGITAL BREAST TOMOSYNTHESIS, BILATERAL CLINICAL INFORMATION: Screening. Asymptomatic. COMPARISON: Mammography: Comparison is made with available priors TECHNIQUE: Digital breast mammography with tomosynthesis is performed in both the craniocaudal and mediolateral oblique views along with computer-aided detection (CAD). FINDINGS: There are scattered areas of fibroglandular density (ACR BI-RADS breast composition Category b). Left marker clip. Bilateral circumscribed oval masses which wax and wane consistent with benign fibrocystic changes. There are no significant masses, abnormal calcifications, or other abnormalities. MM/MM tomosynthesis screening BI IMPRESSION: No mammographic evidence of malignancy. ASSESSMENT: BI-RADS BI-RADS 2 - Benign Findings RECOMMENDATION: Routine annual mammography screening. 1 year F/U This examination should not preclude the clinical evaluation of a suspicious palpable abnormality. This patient's information was entered into a reminder system with a target due date for their next mammogram. Electronically signed by: Rosina Gillespie DO 01/28/2025 08:35 PM EDT RP Dictated By: Rosina Gillespie DO Signed By: <Electronically signed by Rosina Gillespie DO in OV> 01/28/252034 DD/ 1425 TD/TT: 01/20/25 1438 Hotel Reservationist: Procedure Note Donotuseinterpreter, Image - 01/28/2025 [facility] [address] [place] [address] Mammography Report Signed Patient: Yaya Jha MR#: [id number] : 1975Acct:[id number] Age/Sex: 49 / FADM Date: 01/20/25 Loc: HO.MAMMO Attending Dr: Handy Martin MD Ordering Physician: Handy Corrigan ults: 2Benign Findings Date of Service: 01/20/25Follow Up: 1 Year From Orig inal Mammogram Procedure(s): MM tomosynthesis screening BI Accession Number(s): [id number] cc: Handy Corrigan MD EXAMINATION: MM SCREENING DIGITAL BREAST TOMOSYNTHESIS, BILATERAL CLINICAL INFORMATION: Screening. Asymptomatic. COMPARISON: Mammography: Comparison is made with available priors TECHNIQUE: Digital breast mammography with tomosynthesis is performed in both the craniocaudal and mediolateral oblique views along with computer-aided detection (CAD). FINDINGS: There are scattered areas of fibroglandular density (ACR BI-RADS breast composition Category b). Left marker clip. Bilateral circumscribed oval masses which wax and wane consistent with benign fibrocystic changes. There are no significant masses, abnormal calcifications, or other abnormalities. MM/MM tomosynthesis screening BI IMPRESSION: No mammographic evidence of malignancy. ASSESSMENT: BI-RADS BI-RADS 2 - Benign Findings RECOMMENDATION: Routine annual mammography screening. 1 year F/U This examination should not preclude the clinical evaluation of a suspicious palpable abnormality. This patient's information was entered into a reminder system with a target due date for their next mammogram. Electronically signed by: Rosina Gillespie DO 01/28/2025 08:35 PM EDT Dictated By: Rosina Gillespie DO Signed By: <Electronically signed by Rosina Gillespie DO in OV> 01/28/252034 DD/ 1425 TD/TT: 01/20/25 1438 Hotel Reservationist: Handy Martin MD [facility] BI PROCEDURES Edited Result - Final * (ABNORMAL) Hemoglobin A1c (08/05/2024 9:10 AM EST) Hemoglobin A1c 6.4(H) <6.0 % [facility] Comment:Hemoglobin A1C Refer ence Range Adults: 4.8 - 6.0 % Non diabetic: < 6.0 % Goal: < 7.0 %Additional Action Suggested: > 8.0 %Note: Hemoglobin A1c results are invalid for patients with abnormal amounts of HbF. Blood transfusions may impact the HbA1c concentration in the patient sample. Estimated Average Glucose 137 mg/dL [facility] Comment:eAG = Estimated ave rage glucose which is %A1C expressed asaverage glucose, using the formula of the D7M-IazifywKhyknov Glucose study (ADAG), Diabetes Care, Vol.31,#8,2007 08/05/2024 9:10 AM EST 08/05/2024 2:04 PM EST Generic External Data Provider LAB BLOOD ORDERAB LES Final Result Performing Organization Address [facility] Co de Phone Number [facility] [address] [place] [phone] * (ABNORMAL) Lipid Panel, Standard (08/05/2024 9:10 AM EST) Triglycerides 167(H) <150 mg/dL [facility] Comment:Desirable Triglyceri de: less than 150 mg/dLBorderline High Triglyceride 150-199 mg/dLHigh Triglyceride: 200-499 mg/dLVery High Triglyceride: greater than or equal to 5OO mg/dL Cholesterol 170 <200 mg/dL [facility] Comment:Desirable Cholestero l: less than 200 mg/dLBorderline High Cholesterol: 200-239 mg/dLHigh Cholesterol: greater than 239 mg/dL LDL Cholesterol Calculated 93 <100 mg/dL [facility] Comment:Desirable LDL: less than 100 mg/dLNear Optimal/Above Optimal LDL: 110- 129 mg/dLBorderline High LDL: 130-159 mg/dLHigh LDL: 160-189 mg/dLVery High LDL: greater than or equal to 190 mg/dL HDL Cholesterol 44 >40 mg/dL [facility] Comment:Desirable HDL: great er than 40 mg/dL Note: This HDL assay may give artificially low results in patients with liver disease. 08/05/2024 9:10 AM EST 08/05/2024 2:04 PM EST us Generic External Data Provider LAB BLOOD ORDERAB LES Final Result Performing Organization Address [facility]/ZIP Co de Phone Number [facility] [address] [place] [phone] * Hm Colonoscopy (04/24/2021) Colonoscopy Normal Normal Narrative Aziza Wyatt - 04/24/2021 Repeat Colonoscopy in 5 years due to left sided prep being suboptimal Historical Provider HEALTH MAINTENANCE Final Result * THINPREP PAP (02/21/2021 12:31 PM EDT) Clinical Information: None given [facility] COMMENT SEE COMMENT [facility] Comment: EXPLANATORY NOTE: The Pap is a screening test for cervical cancer. It is not a diagnostic test and is subject to false negative and false positive results. It is most reliable when a satisfactory sample, regularly obtained, is submitted with relevant clinical findings and history, and when the Pap result is evaluated along with historic and current clinical information. Barrel And Receiver Aligner : SEE COMMENT [facility] Comment: BLC,CT(ASCP) CT screening location: [place] [address] Interpretation/R esult: Negative for intraepithelial lesion or malignancy. [facility] LMP: NONE GIVEN [facility] Prev. BX: NONE [facility]IVEN [facility] Prev. PAP: NONE GIVEN [facility] SOURCE: None given [facility] Statement Of Adequacy: SEE COMMENT [facility] Comment: Satisfactory for evaluation. Endocervical/transformation zone component present. Age and/or menstrual status not provided 02/21/2021 12:3 1 PM EDT Jeniffer Linares MD LAB PATHOLOGY ORDERABLES Yumiko l Result [facility] [address] * HPV mRNA E6/E7 (02/21/2021 12:31 PM EDT) HPV nRNA E6/E7 Not Detected Not Detected [facility] Comment: Methodology: Scouring Train Operator-Mediated Amplification This assay detects E6/E7 viral messenger RNA (mRNA) from 14 high-risk HPV types (16,18,31,33,35,39,45,51,52,56,58,59,66,68). The analytical performance characteristics of this assay have been determined by [employer]. The modifications have not been cleared or approved by the FDA. This assay has been validated pursuant to the CLIA regulations and is used for clinical purposes. For additional information, please refer to http://education.Adsame.ShopEx/faq/OMU997s4 (This link if provided for information/ educational purposes only.) 02/21/2021 12:3 1 PM EDT us Jeniffer Linares MD LAB BLOOD ORDERABLES Final Re sult [facility] [address] from Last 3 Months or Most Recently Relevant to Health Maintenance Insurance C3 D[facility]AL[facility] MEDICAID STAND ADULT Care Teams Camp Head Counselor Relationship Specialty Start Date End Date Handy Corrigan MD [address] [place] [phone] PCP - General Internal Medicine 01/08/20 Chrissy Polanco Monorail HookerMacaroni Maker 05/04/25
--- OUTSIDE RECORDS SUMMARY | 2025-07-13 11:45 | XMS_ITS | Encounter Summary ---
Author Organization [employer] Address [address] [place] [address] [address] [address] Care Team Providers Care Buffet Attendant Name Role Phone Handy Corrigan MD Primary Care Prov ider Encounter Details Date Type Department Care Team ([facility] st Contact Info) Description 08/29/2023 Orders Only [facility] MED & PEDS [address] [place] [address] Handy Corrigan MD [address] [place] [address] Social History Tobacco Use Types Packs/Day Years [...] Description 07/17/2025 1:00 PM EST Office Visit [facility] ADULT DENTAL [address] [place] [address] Chaz Peterson DDS [address] [place] [address] 07/20/2025 2:45 PM EST Telemedicine [facility] MED [facility] PEDS [address] [place] [address] Handy Corrigan MD [address] [place] [address] 08/25/2025 11:30 AM EST Office Visit [facility] OPTOMETRY [address] [place] [address] Kyrie, Sveta, OD [address] [place] [address] 09/06/2025 2:15 PM EST Office Visit [facility] ADULT DENTAL [address] [place] [address] Elana Prado documented as of this encounter Visit Diagnoses Not on filedocumented in this encounter Additional Health Concerns Assessment Noted Time PHQ-9 Depression Total Score: 0 11/04/19 23 1:50 PM EDT documented as of this encounter Care Teams Buffet Attendant Relationship Specialty Start Date End Date Handy Corrigan MD [address] [place] [address] PCP - General Internal Medicine 01/08/20 Uma Jean Hotel Receptionist 06/29/23 09/29/23 Chrissy Polanco Hotel ReceptionistStick Roller 05/04/25 documented as of this encounter
--- OUTSIDE RECORDS SUMMARY | 2025-07-13 11:45 | XMS_ITS | Encounter Summary ---
Author Organization [employer] Address [address] [place] [phone] Care Team Providers Care Shop Foreman Name Role Phone Handy Corrigan MD Primary Care Prov ider Reason for Visit * Reason Onset Date Comments Durable Medical Equipment 05/08/2025 Encounter Details Date Type Department Care Team (Late st Contact Info) Description 05/08/2025 Telephone [facility] MED[facility] [address] [place] [address] Handy Corrigan MD [address] [place] [address] Durable Medical Equipment Social History Tobacco Use Types Packs/Day Years [...] encounter Miscellaneous Notes * Telephone Encounter - Ana Sheldon LPN - 05/08/2025 1:09 PM EDT Please review Message below and advise. If agree Please Provide DX to support DME need. Thank you . Tc from [facility] requesting an new scrip for DME -Back brace Contact pt at [phone] Need fabricator industrial furnace * Telephone Encounter - Macy Dyson - 05/08/2025 9:55 AM EDT Tc from [facility] requesting an new scrip for DME -Back brace Contact pt at [phone] Need fabricator industrial furnace documented in this encounter Plan of Treatment Upcoming Encounters Date Type Department Care Team ([facility] st Contact Info) Description 07/17/2025 1:00 PM EST Office Visit [facility] CHC ADULT DENTAL [address] [place], [place] [phone] Chaz Peterson DDS [address] [place], [place] [phone] 07/20/2025 2:45 PM EST Telemedicine [facility] MED & PEDS [address] [place] [address] Handy Corrigan MD [address] [place] [address] 08/25/2025 11:30 AM EST Office Visit [facility] OPTOMETRY [address] [place] [address] Kyrie, Sveta, OD [address] [place] [address] 09/06/2025 2:15 PM EST Office Visit [facility] ADULT DENTAL [address] [place] [address] Elana Prado documented as of this encounter Visit Diagnoses Not on filedocumented in this encounter Additional Health Concerns Assessment Noted Time PHQ-9 Depression Total Score: 4 03/30/20 25 2:07 PM EDT documented as of this encounter Care Teams Shop Foreman Relationship Specialty Start Date End Date Handy Corrigan MD [address] [place] [address] PCP - General Internal Medicine 01/08/20 Chrissy Polanco Registered Phlebotomist Part TimeColor Mixer 05/04/25 documented as of this encounter
--- OUTSIDE RECORDS SUMMARY | 2025-07-13 11:45 | XMS_ITS | Encounter Summary ---
Author Organization [email or web address] Address [address] [place] [address] [address] [address] Care Team Providers Care Key Filer Name Role Phone Handy Corrigan MD Primary Care Prov ider Encounter Details Date Type Department Care Team (Latest Contact Info) Description 10/04/2018 Abstract [facility] CONVERSION[facility] Dental, Provider, DDS Social History [...] Description 07/17/2025 1:00 PM EST Office Visit [facility] ADULT DENTAL [address] [place] [address] Chaz Peterson, DDS [address] [place] [address] 07/20/2025 2:45 PM EST Telemedicine [facility] MED & PEDS [address], [place] [phone] Handy Corrigan MD [address] [place] [address] 08/25/2025 11:30 AM EST Office Visit [facility] [address] [place] [address] KyrieSveta, OD [address] [place] [address] 09/06/2025 2:15 PM EST Office Visit [facility] ADULT DENTAL [address] [place] [phone] Elana Prado documented as of this encounter Visit Diagnoses Not on filedocumented in this encounter Care Teams Key Filer Relationship Specialty Start Date End Date Handy Corrigan MD [address] [place] [address] PCP - General Internal Medicine 01/08/20 Uma Jean Die Caster 06/29/23 09/29/23 Chrissy Polanco Die CasterChange Release Manager 05/04/25 documented as of this encounter
[2025-07-13 13:59] LABS: MANUAL DIFF FLAG NO
[2025-07-13 14:02] LABS: Hematocrit 39.5 % (37.0-47.0); Hemoglobin 12.7 g/dl (12.0-16.0); Imm Gran Abs Auto 0.01 X10*3/uL (0.00-0.03); Imm Gran Pct Auto 0.2 % (0.0-0.4); Lymphocytes Absolute Auto 1.8 X10*3/uL (1.2-4.9); Mean Corpuscular HGB Conc 32.2 g/dl (31.0-35.0); Mean Corpuscular Hemoglobin 27.7 pg (27.0-33.0); Mean Corpuscular Volume 86.2 fL (80.0-98.0); NRBC Abs Auto 0.000 X10*3/uL (0.0-0.012); NRBC Pct Auto 0.0 /100WBC (0.0-0.2); Platelet Count 316 X10*3/uL (160-400); Red Blood Count 4.58 X10*6/uL (4.20-5.50); White Blood Count 5.9 X10*3/uL (4.8-10.8)
[2025-07-13 14:39] LABS: Alanine Aminotransferase 16 U/L (0-31); Albumin Level 3.8 g/dL (3.5-5.0); Alkaline Phosphatase 55 U/L (39-117); Anion Gap 10 (12-20); Aspartate Amino Transferase 24 U/L (5-31); Blood Urea Nitrogen 14 mg/dL (9-16); Calcium 8.7 mg/dL (8.4-10.2); Carbon Dioxide 25 mmol/L (22-29); Chloride 108 mmol/L (96-108); Cholesterol 162 mg/dL (<200); Estimated Glomerular Filt Rate > 60; HDL Cholesterol 37 mg/dL (>40); Iron 53 mcg/dL (30-160); Percent Iron Saturation 20 % (15-50); Potassium 4.0 mmol/L (3.3-5.1); Sodium 139 mmol/L (135-145); Total Iron Binding Capacity 265 mcg/dL (228-428); Total Protein 6.6 g/dL (6.5-8.0); Triglycerides 133 mg/dL (<150); Unsaturated Iron Binding 212 ug/dL
[2025-07-13 15:13] LABS: Folate 4.1 ng/mL (> or = 4.0); Vitamin B12 198 pg/mL (200-900)
== END 2025-07-13 10:00 | disposition home or self-care (01) ==
LOC: HO.CHCLDS 09:59
PROVIDERS: Visit Provider Internal Medicine
DX: I10 Essential (primary) hypertension (principal); D50.0 Iron deficiency anemia secondary to blood loss (chronic)
CPT/HCPCS: 36415; 80053; 80061; 82607; 82746; 83540; 85025